=== PATIENT | female | born 1945 | race Caucasian/White ===

== ENCOUNTER 2016-10-29 08:44 | Outpatient (RCR) | payer MEDICARE, OTHER ==
--- OUTSIDE RECORDS SUMMARY | 2016-08-06 10:08 | XMS REPORT | Continuity of Care Document ---
Author Author [facility] Organization [facility] Address Unknown Phone Unavailable Care Team Providers Care Science Faculty Member Name Role Phone YANI ROSARIO MD PCP Insurance Providers Payer Name Policy Number Subscriber Name Relationship Wps Medicare [id number] Gregor Bright 18 Self / Same As Patient [employer] [id number] Gregor Bright 18 Self / Same As Patient Advance Directives Directive Response Recorded Date/Time Advance Directives No 11/02/12 11:44am Health Care Power of Woodworker Helper No 11/02/12 11:44am Organ Donor Yes 11/02/12 11:44am Problems No known problems or medical conditions. Medications Medication Dose Route Sig Days/Qty Instructions Order Date Discontinued Date Status Metformin HCl (Glucophage) 1 Each PO TWICE A DAY WITH MEALS 10/14/12 Active Losartan/Hydrochlorothiazide 1 Each PO DAILY 10/14/12 Active Levothyroxine Sodium (Levothroid) 75 Mcg PO DAILY 10/14/12 Active Atorvastatin Calcium 1 Each PO BEDTIME 10/14/12 Active Fish Oil 1,000 Mg PO DAILY 10/14/12 Active Flaxseed Oil 1,000 Mg PO EVENING 10/14/12 Active Cinnamon Bark/Chromium Picolin 1 Each PO DAILY 10/14/12 Active Multivits W-Fe,Other Min/Lut 1 Each PO DAILY 10/14/12 Active Vitamin B Complex/Folic Acid 0.4 Mg PO DAILY 10/14/12 Active Social History Social History Problem Response Recorded Date/Time Recreational Drug Use No 10/20/2012 10:48pm Recent Foreign Travel [place] 01/30/2015 7:45am Hospital Discharge Instructions No hospital discharge instructions. Plan of Care No plan of care. Functional Status No functional status results. Allergies, Adverse Reactions, Alerts Allergen Type Severity Reaction Status Last Updated sulfamethoxazole ([id number]) Allergy HIVES Active 10/14/12 Trimethoprim Allergy HIVES Active 10/14/12 SULFA Allergy Unknown Active 12/22/11 Immunizations Name Given Type Date of Pneumonia Vaccine 10/21/10 Historical Date of Influenza Vaccine 07/28/12 Historical Vital Signs No known vital signs results. Results Laboratory Results Test Name Result Units Flags Reference Collection Date/Time Result Date/ Time Comments White Blood Count 5.4 10^3/uL 4.3-11.0 11/16/2014 10:11/16/2014 10 :19am Red Blood Count 4.43 10^6/uL 4.35-5.85 11/16/2014 10:11/16/2014 10 :19am Hemoglobin 13.2 G/DL 11.5-16.0 11/16/2014 10:11/16/2014 10:19am Hematocrit 40 % 35-52 11/16/2014 10:11/16/2014 10:19am Mean Corpuscular Volume 89 FL 80-99 11/16/2014 10:11/16/2014 10: 19am Mean Corpuscular Hemoglobin 30 PG 25-34 11/16/2014 10:11/16/2014 10:19am Mean Corpuscular Hemoglobin Concent 33 G/DL 32-36 11/16/2014 10: 10:19am Red Cell Distribution Width 13.2 % 10.0-14.5 11/16/2014 10:2014 10:19am Platelet Count 258 10^3/uL 130-400 11/16/2014 10:11/16/2014 10: 19am Mean Platelet Volume 9.8 FL 7.4-10.4 11/16/2014 10:11/16/2014 10: 19am Neutrophils (%) (Auto) 73 % 42-75 11/16/2014 10:11/16/2014 10: 19am Lymphocytes (%) (Auto) 20 % 12-44 11/16/2014 10:11/16/2014 10: 19am Monocytes (%) (Auto) 7 % 0-12 11/16/2014 10:11/16/2014 10:19am Eosinophils (%) (Auto) 0 % 0-10 11/16/2014 10:11/16/2014 10:19am Basophils (%) (Auto) 0 % 0-10 11/16/2014 10:11/16/2014 10:19am Neutrophils # (Auto) 3.9 X 10^3 1.8-7.8 11/16/2014 10:11/16/2014 10:19am Lymphocytes # (Auto) 1.1 X 10^3 1.0-4.0 11/16/2014 10:11/16/2014 10:19am Monocytes # (Auto) 0.4 X 10^3 0.0-1.0 11/16/2014 10:11/16/2014 10: 19am Eosinophils # (Auto) 0.0 10^3/uL 0.0-0.3 11/16/2014 10:11/16/2014 10:19am Basophils # (Auto) 0.0 10^3/uL 0.0-0.1 11/16/2014 10:11/16/2014 10 :19am Sodium Level 139 MMOL/L 135-145 11/16/2014 10:11/16/2014 10:48am Potassium Level 3.9 MMOL/L 3.6-5.0 11/16/2014 10:11/16/2014 10: 48am Chloride Level 103 MMOL/L 98-107 11/16/2014 10:11/16/2014 10:48am Carbon Dioxide Level 25 MMOL/L 21-32 11/16/2014 10:11/16/2014 10: 48am Blood Urea Nitrogen 15 MG/DL 7-18 11/16/2014 10:11/16/2014 10: 48am Creatinine 0.79 MG/DL 0.60-1.30 11/16/2014 10:11/16/2014 10:48am BUN/Creatinine Ratio 19 11/16/2014 10:11/16/2014 10:48am Estimat Glomerular Filtration Rate > 60 11/16/2014 10:2014 10:48am GFR INTERPRETIVE DATA UNITS FOR ESTIMATED GFR (eGFR): mL/min/1.73 M2 REFERENCE RANGE FOR ESTIMATED GFR (eGFR) eGFR NORMAL eGFR >60 MODERATELY DECREASED eGFR 30-59 SEVERLY DECREASED eGFR 15-29 KIDNEY FAILURE <15 (OR DIALYSIS) Glucose Level 194 MG/DL H 70-105 11/16/2014 10:11/16/2014 10:48am Calcium Level 10.7 MG/DL H 8.5-10.1 11/16/2014 10:11/16/2014 10: 48am Total Bilirubin 0.7 MG/DL 0.1-1.0 11/16/2014 10:11/16/2014 10: 48am Alkaline Phosphatase 108 U/L 40-136 11/16/2014 10:11/16/2014 10: 48am Aspartate Amino Transf (AST/SGOT) 32 U/L 5-34 11/16/2014 10:2014 10:48am Alanine Aminotransferase (ALT/SGPT) 47 U/L 0-55 11/16/2014 10: 10:48am Total Protein 6.7 G/DL 6.4-8.2 11/16/2014 10:11/16/2014 10:48am Albumin 4.2 G/DL 3.2-4.5 11/16/2014 10:11/16/2014 10:48am White Blood Count 4.3 10^3/uL 4.3-11.0 02/06/2015 11:0002/06/2015 11 :07am Red Blood Count 4.37 10^6/uL 4.35-5.85 02/06/2015 11:0002/06/2015 11 :07am Hemoglobin 13.0 G/DL 11.5-16.0 02/06/2015 11:0002/06/2015 11:07am Hematocrit 39 % 35-52 02/06/2015 11:0002/06/2015 11:07am Mean Corpuscular Volume 89 FL 80-99 02/06/2015 11:0002/06/2015 11: 07am Mean Corpuscular Hemoglobin 30 PG 25-34 02/06/2015 11:00am 02/06/2015 11:07am Mean Corpuscular Hemoglobin Concent 33 G/DL 32-36 02/06/2015 11:00am 11:07am Red Cell Distribution Width 13.3 % 10.0-14.5 02/06/2015 11:00am 2014 11:07am Platelet Count 268 10^3/uL 130-400 02/06/2015 11:00am 02/06/2015 11: 07am Mean Platelet Volume 9.2 FL 7.4-10.4 02/06/2015 11:00am 02/06/2015 11: 07am Neutrophils (%) (Auto) 62 % 42-75 02/06/2015 11:00am 02/06/2015 11: 07am Lymphocytes (%) (Auto) 28 % 12-44 02/06/2015 11:00am 02/06/2015 11: 07am Monocytes (%) (Auto) 9 % 0-12 02/06/2015 11:00am 02/06/2015 11:07am Eosinophils (%) (Auto) 1 % 0-10 02/06/2015 11:00am 02/06/2015 11:07am Basophils (%) (Auto) 1 % 0-10 02/06/2015 11:00am 02/06/2015 11:07am Neutrophils # (Auto) 2.7 X 10^3 1.8-7.8 02/06/2015 11:00am 02/06/2015 11:07am Lymphocytes # (Auto) 1.2 X 10^3 1.0-4.0 02/06/2015 11:00am 02/06/2015 11:07am Monocytes # (Auto) 0.4 X 10^3 0.0-1.0 02/06/2015 11:00am 02/06/2015 11: 07am Eosinophils # (Auto) 0.0 10^3/uL 0.0-0.3 02/06/2015 11:00am 02/06/2015 11:07am Basophils # (Auto) 0.0 10^3/uL 0.0-0.1 02/06/2015 11:00am 02/06/2015 11 :07am Sodium Level 139 MMOL/L 135-145 02/06/2015 11:0002/06/2015 11:33am Potassium Level 3.6 MMOL/L 3.6-5.0 02/06/2015 11:0002/06/2015 11: 33am Chloride Level 105 MMOL/L 98-107 02/06/2015 11:0002/06/2015 11:33am Carbon Dioxide Level 27 MMOL/L 21-32 02/06/2015 11:0002/06/2015 11: 33am Blood Urea Nitrogen 15 MG/DL 7-18 02/06/2015 11:0002/06/2015 11: 33am Creatinine 0.72 MG/DL 0.60-1.30 02/06/2015 11:0002/06/2015 11:33am BUN/Creatinine Ratio 21 02/06/2015 11:0002/06/2015 11:33am Estimat Glomerular Filtration Rate > 60 02/06/2015 11:002014 11:33am GFR INTERPRETIVE DATA UNITS FOR ESTIMATED GFR (eGFR): mL/min/1.73 M2 REFERENCE RANGE FOR ESTIMATED GFR (eGFR) eGFR NORMAL eGFR >60 MODERATELY DECREASED eGFR 30-59 SEVERLY DECREASED eGFR 15-29 KIDNEY FAILURE <15 (OR DIALYSIS) Glucose Level 138 MG/DL H 70-105 02/06/2015 11:0002/06/2015 11:33am Calcium Level 10.8 MG/DL H 8.5-10.1 02/06/2015 11:0002/06/2015 11: 33am Total Bilirubin 0.6 MG/DL 0.1-1.0 02/06/2015 11:0002/06/2015 11: 33am Alkaline Phosphatase 85 U/L 40-136 02/06/2015 11:0002/06/2015 11: 33am Aspartate Amino Transf (AST/SGOT) 26 U/L 5-34 02/06/2015 11:002014 11:33am Alanine Aminotransferase (ALT/SGPT) 33 U/L 0-55 02/06/2015 11:00 11:33am Total Protein 6.7 G/DL 6.4-8.2 02/06/2015 11:00am 02/06/2015 11:33am Albumin 4.3 G/DL 3.2-4.5 02/06/2015 11:00am 02/06/2015 11:33am Procedures No known history of procedures. Encounters Encounter Location Date/Time Registered Clinic [facility] 02/06/15 10:16am Discharged Recurring [facility] 12/27/14 11:35am
[~2016-10-29 08:44] MED LIST: ATR20T PO; CINN1CAP PO; FLAX100031 PO; LOSA1TAB23 PO; LVT.025T PO; METF-380 PO; MULT-856 PO; OMG1KC PO; [UNRECOGNIZED DRUG - CODE] PO
[2016-10-29 09:05] LABS: BASOPHILS % (AUTO) 0 % (0-10); EOSINOPHILS % (AUTO) 0 % (0-10); LYMPHOCYTES % (AUTO) 15 % (12-44); MEAN CORPUSCULAR HEMOGLOBIN 30 PG (25-34); MEAN CORPUSCULAR HGB CONC 33 G/DL (32-36); MEAN CORPUSCULAR VOLUME 92 FL (80-99); MEAN PLATELET VOLUME 9.7 FL (7.4-10.4); MONOCYTES # (AUTO) 0.3 X 10^3 (0.0-1.0); MONOCYTES % (AUTO) 5 % (0-12); NEUTROPHILS # (AUTO) 5.5 X 10^3 (1.8-7.8); NEUTROPHILS % (AUTO) 80 % (42-75); PLATELET COUNT 228 10^3/uL (130-400); RED BLOOD COUNT 4.27 10^6/uL (4.35-5.85); RED CELL DISTRIBUTION WIDTH 12.9 % (10.0-14.5); WHITE BLOOD COUNT 6.8 10^3/uL (4.3-11.0)
[2016-10-29 09:35] LABS: ALANINE AMINOTRANSFERASE 35 U/L (0-55); ALBUMIN 4.3 G/DL (3.2-4.5); ANION GAP 11 MMOL/L (5-14); ASPARTATE AMINO TRANSFERASE 27 U/L (5-34); BILIRUBIN,TOTAL 0.8 MG/DL (0.1-1.0); BLOOD UREA NITROGEN 19 MG/DL (7-18); BUN/CREATININE RATIO 24; CALCIUM 10.5 MG/DL (8.5-10.1); CARBON DIOXIDE 26 MMOL/L (21-32); CHLORIDE 102 MMOL/L (98-107); GFR ESTIMATED > 60; GLUCOSE 192 MG/DL (70-105); POTASSIUM 3.5 MMOL/L (3.6-5.0); SODIUM 139 MMOL/L (135-145); TOTAL PROTEIN 6.7 G/DL (6.4-8.2)
== END 2016-11-04 | disposition home or self-care (01) ==
LOC: ONC 08:44
PROVIDERS: ATTEND Internal Medicine Hematology & Oncology
DX: C50.911 Malignant neoplasm of unspecified site of right female breast (principal); C77.3 Secondary and unspecified malignant neoplasm of axilla and upper limb lymph nodes; E11.9 Type 2 diabetes mellitus without complications; Z92.21 Personal history of antineoplastic chemotherapy; Z92.3 Personal history of irradiation; Z79.899 Other long term (current) drug therapy; Z45.2 Encounter for adjustment and management of vascular access device
CPT/HCPCS: 36591; 80053; 85025; 96523; 99213

== ENCOUNTER 2017-03-04 08:56 | Outpatient (RCR) | payer MEDICARE, OTHER ==
--- OUTSIDE RECORDS SUMMARY | 2016-12-10 10:05 | XMS REPORT | Continuity of Care Document ---
Author Author [facility] Organization [facility] Address Unknown Phone Unavailable Care Team Providers Care Dietitian Helper Name Role Phone YANI ROSARIO MD PCP Insurance Providers Payer Name Policy Number Subscriber Name Relationship Wps Medicare [id number] Gregor Bright 18 Self / Same As Patient [employer] [id number] Gregor Bright 18 Self / Same As Patient Advance Directives Directive Response Recorded Date/Time Advance Directives No 11/02/12 11:44am Health Care Power of Business Services Officer No 11/02/12 11:44am Organ Donor Yes 11/02/12 [...] Type Severity Reaction Status Last Updated sulfamethoxazole ([id number]) Allergy HIVES Active 10/14/12 Trimethoprim Allergy HIVES [...] Encounters Encounter Location Date/Time Registered Clinic [facility] 02/06/15 10:16am Discharged Recurring [facility] 12/27/14 11:35am
== END 2017-03-10 | disposition home or self-care (01) ==
LOC: ONC 08:56
PROVIDERS: ATTEND Internal Medicine Hematology & Oncology
DX: C50.911 Malignant neoplasm of unspecified site of right female breast (principal); C77.3 Secondary and unspecified malignant neoplasm of axilla and upper limb lymph nodes; E11.9 Type 2 diabetes mellitus without complications; Z92.21 Personal history of antineoplastic chemotherapy; Z92.3 Personal history of irradiation; Z79.899 Other long term (current) drug therapy; Z45.2 Encounter for adjustment and management of vascular access device
CPT/HCPCS: 96523

== ENCOUNTER 2017-05-20 08:50 | Outpatient (RCR) | payer MEDICARE, OTHER ==
[2017-05-20 09:20] LABS: BASOPHILS % (AUTO) 1 % (0-10); EOSINOPHILS % (AUTO) 1 % (0-10); LYMPHOCYTES # (AUTO) 1.1 X 10^3 (1.0-4.0); LYMPHOCYTES % (AUTO) 20 % (12-44); MEAN CORPUSCULAR HEMOGLOBIN 31 PG (25-34); MEAN CORPUSCULAR HGB CONC 34 G/DL (32-36); MEAN CORPUSCULAR VOLUME 90 FL (80-99); MEAN PLATELET VOLUME 9.5 FL (7.4-10.4); MONOCYTES # (AUTO) 0.4 X 10^3 (0.0-1.0); MONOCYTES % (AUTO) 6 % (0-12); NEUTROPHILS # (AUTO) 4.1 X 10^3 (1.8-7.8); NEUTROPHILS % (AUTO) 73 % (42-75); PLATELET COUNT 281 10^3/uL (130-400); RED BLOOD COUNT 4.34 10^6/uL (4.35-5.85); RED CELL DISTRIBUTION WIDTH 12.9 % (10.0-14.5); WHITE BLOOD COUNT 5.6 10^3/uL (4.3-11.0)
[2017-05-20 10:18] LABS: ALANINE AMINOTRANSFERASE 33 U/L (0-55); ALBUMIN 4.2 GM/DL (3.2-4.5); ANION GAP 12 MMOL/L (5-14); ASPARTATE AMINO TRANSFERASE 21 U/L (5-34); BILIRUBIN,TOTAL 0.7 MG/DL (0.1-1.0); BLOOD UREA NITROGEN 20 MG/DL (7-18); BUN/CREATININE RATIO 27; CALCIUM 11.1 MG/DL (8.5-10.1); CARBON DIOXIDE 27 MMOL/L (21-32); CHLORIDE 102 MMOL/L (98-107); CREATININE SERUM 0.73 MG/DL (0.60-1.30); GFR ESTIMATED > 60; GLUCOSE 172 MG/DL (70-105); POTASSIUM 3.3 MMOL/L (3.6-5.0); SODIUM 141 MMOL/L (135-145); TOTAL PROTEIN 6.8 GM/DL (6.4-8.2)
[2017-06-22] MEDS ORDERED: OMG1KC PO (12:22)
[2017-06-22] MEDS ORDERED: MULT-1021 PO (12:22)
[2017-06-22] MEDS ORDERED: ATOR20TA66 PO (12:22)
[2017-06-22] MEDS ORDERED: CINN1CAP PO (12:22)
[2017-06-22] MEDS ORDERED: [UNRECOGNIZED DRUG - CODE] PO (12:22)
[2017-06-22] MEDS ORDERED: LOSA1TAB70 PO (12:22)
[2017-06-22] MEDS ORDERED: FLAX1000 PO (12:22)
[2017-06-22] MEDS ORDERED: METF1000 PO (12:22)
[2017-06-22] MEDS ORDERED: LEVO100T7 PO (12:22)
[2017-06-22] MEDS ORDERED: DULA1.5P2 SQ (12:22)
[2017-06-23] MEDS ORDERED: HYDR-3820 PO (09:13)
== END 2017-06-26 | disposition home or self-care (01) ==
LOC: ONC 08:50
PROVIDERS: ATTEND Internal Medicine Hematology & Oncology
DX: C50.111 Malignant neoplasm of central portion of right female breast (principal); C77.3 Secondary and unspecified malignant neoplasm of axilla and upper limb lymph nodes; E11.9 Type 2 diabetes mellitus without complications; Z92.21 Personal history of antineoplastic chemotherapy; Z92.3 Personal history of irradiation; Z79.899 Other long term (current) drug therapy; Z45.2 Encounter for adjustment and management of vascular access device
CPT/HCPCS: 36591; 80053; 85025; 96523

== ENCOUNTER → 2017-06-14 | Outpatient (CLI) | payer MEDICARE, OTHER ==
--- NOTE | 2017-06-14 13:12 | Diagnostic Imaging Report ---
INDICATION: Nausea, abdominal pain x1 week.. TECHNIQUE: Supine and upright view of the abdomen 11:37 AM. CORRELATION STUDY: None FINDINGS: Lung bases appearing relatively clear. Moderate severity fecal retention. No abnormally dilated loops of bowel or air-fluid levels to suggest high-degree bowel obstruction. Gas and stool at the level of the rectum. Densities in the upper abdomen may reflect ingested tablets. Calcific densities in the pelvis likely vasculature in nature. Possibility of distal ureteral stones would be difficult to exclude. IMPRESSION: Mild/moderate severity fecal retention. No abnormally dilated loops of bowel or findings to suggest high-degree bowel obstruction. Dictated by: Dictated on workstation # [id number]
== END ==
LOC: RAD 11:11
PROVIDERS: ATTEND Nurse Practitioner Family
DX: K59.00 Constipation, unspecified (principal); R11.0 Nausea; R19.7 Diarrhea, unspecified
CPT/HCPCS: 74020

== ENCOUNTER → 2017-06-16 | Outpatient (CLI) | payer MEDICARE, OTHER ==
[~2017-06-16] VITALS: Ht 170.2 cm; Wt 87.1 kg
[~2017-06-16] MED LIST changes: +ATOR20TA66 PO; +DULA1.5P2 SQ; +FLAX1000 PO; +HEParin (CENTRAL IV FLUSH) 500 UNIT/5 ML SYR ONE; +HYDR-3820 PO; +LEVO100T7 PO; +METF1000 PO; +MULT-1021 PO; +NS IV 1000 ML 1,000 ML IV SCH; +NS IV 1000 ML 1,000 ML ONE; +ONDANSETRON 4 MG/2 ML (SDV) Z0FRAN ONE; +[UNRECOGNIZED DRUG - CODE] PO
[2017-06-16] MEDS: ONDANSETRON 4 MG/2 ML (SDV) Z0FRAN IV PRN ×2 (10:51→11:05)
--- NOTE | 2017-06-16 11:22 | Diagnostic Imaging Report ---
PROCEDURE: CT abdomen and pelvis without contrast. TECHNIQUE: Multiple contiguous axial images were obtained through the abdomen and pelvis without the use of intravenous contrast. INDICATION: Abdominal pain. FINDINGS: The lung bases appear clear. The liver, the spleen, calcified gallstones are seen with no CT evidence of appendicitis. The pancreas appear unremarkable. The left adrenal gland appears unremarkable. There is a hypodense right adrenal gland mass measuring 4.1 x 3.1 x 3.7 CM. This is slightly larger compared to prior measurements of 3.9 x 3 x 3.6 CM of 05/03/2015 exam. The imaging features and the very slow changes in size is in favor of a benign adenoma although the size exceeding 4 cm is atypical. The kidneys demonstrate no hydronephrosis. Subcentimeter fluid attenuation lesions in the kidneys are suggestive of tiny cysts. There is a 2 mm calcification in the upper aspect of the left kidney suggestive of a nonobstructive stone. There urinary bladder appears unremarkable. Osseous structures demonstrate advanced degenerative changes. There is diverticulosis. No evidence of diverticulitis. No bowel obstruction. No significant free fluid or fluid collection in the abdomen or pelvis is seen. The uterus and adnexa appear grossly unremarkable. The abdominal aorta is normal in caliber. No periaortic or significantly enlarged lymph nodes are seen. IMPRESSION: 1. Cholelithiasis. 2. A 2 mm upper pole left nonobstructive kidney stone. 3. A 4.1 cm right adrenal mass minimally larger compared to 2015 exam favored to be an adenoma based on the minimal pattern changer time and its low density. Its size exceeding 4 CM however is atypical. Dictated by: Dictated on workstation # [id number]
[2017-06-16 12:20] VITALS: BP 134/76
[2017-06-16 12:23] LABS: BILIRUBIN,URINE NEGATIVE (NEGATIVE); KETONES,URINE NEGATIVE (NEGATIVE); LEUKOCYTE ESTERASE ,URINE NEGATIVE (NEGATIVE); NITRITE,URINE NEGATIVE (NEGATIVE); PH,URINE 6.5 (5-9); PROTEIN,URINE NEGATIVE (NEGATIVE); UROBILINOGEN,URINE NORMAL (NORMAL)
== END ==
LOC: RAD 10:07
PROVIDERS: ATTEND Nurse Practitioner Family
DX: N20.0 Calculus of kidney; E27.9 Disorder of adrenal gland, unspecified; K80.20 Calculus of gallbladder without cholecystitis without obstruction
CPT/HCPCS: 74176; 81000; 96360; 96361; 96374; 96375; 96376

== ENCOUNTER 2017-06-22 11:03 | Outpatient (CLI) | payer MEDICARE, OTHER ==
[~2017-06-22] VITALS: Ht 170.2 cm; Wt 87.1 kg
[~2017-06-22 11:03] MED LIST changes: -ATOR20TA66 PO; -DULA1.5P2 SQ; -FLAX1000 PO; -HEParin (CENTRAL IV FLUSH) 500 UNIT/5 ML SYR ONE; -HYDR-3820 PO; -LEVO100T7 PO; -METF1000 PO; -MULT-1021 PO; -NS IV 1000 ML 1,000 ML IV SCH; -NS IV 1000 ML 1,000 ML ONE; -ONDANSETRON 4 MG/2 ML (SDV) Z0FRAN ONE; -[UNRECOGNIZED DRUG - CODE] PO
[2017-06-22] MEDS ORDERED: ATOR20TA66 PO (12:22)
[2017-06-22] MEDS ORDERED: LEVO100T7 PO (12:22)
[2017-06-22] MEDS ORDERED: LOSA1TAB70 PO (12:22)
[2017-06-22] MEDS ORDERED: OMG1KC PO (12:22)
[2017-06-22] MEDS ORDERED: MULT-1021 PO (12:22)
[2017-06-22] MEDS ORDERED: METF1000 PO (12:22)
[2017-06-22] MEDS ORDERED: CINN1CAP PO (12:22)
[2017-06-22] MEDS ORDERED: DULA1.5P2 SQ (12:22)
[2017-06-22] MEDS ORDERED: FLAX1000 PO (12:22)
[2017-06-22] MEDS ORDERED: [UNRECOGNIZED DRUG - CODE] PO (12:22)
[2017-06-23] MEDS ORDERED: HYDR-3820 PO (09:13)
== END 2017-06-22 12:23 ==
LOC: PREOP 11:03
PROVIDERS: ATTEND Surgery
DX: Z01.818 Encounter for other preprocedural examination (principal); K80.20 Calculus of gallbladder without cholecystitis without obstruction

== ENCOUNTER 2017-06-23 06:06 | Day surgery (SDC) | payer MEDICARE, OTHER ==
[~2017-06-23] VITALS: Ht 170.2 cm; Wt 87.1 kg
[~2017-06-23 06:06] MED LIST changes: +ATOR20TA66 PO; +DULA1.5P2 SQ; +FLAX1000 PO; +LEVO100T7 PO; +LOSA1TAB70 PO; +METF1000 PO; +MULT-1021 PO; +[UNRECOGNIZED DRUG - CODE] PO
[2017-06-23 06:30] VITALS: BP 132/76
[2017-06-23] MEDS ORDERED: CATHETER FLUSH 10 ML SYR IV PRN (06:30)
[2017-06-23] MEDS ORDERED: ceFAZolin 2 GM/NS 50 ML IV ONE (06:30)
[2017-06-23] MEDS ORDERED: metroNIDAZOLE 500 MG/100 ML IVPB (PRE-MIX) IV ONE (06:30)
[2017-06-23] MEDS ORDERED: ONDANSETRON 4 MG/2 ML (SDV) Z0FRAN ONE ×2 (06:34→09:24)
[2017-06-23] MEDS ORDERED: proPOfol 200 MG/20 ML (DIPRIVAN) VIAL IV ONE (06:34)
[2017-06-23] MEDS ORDERED: fentaNYL INJECTION 100 MCG/2 ML AMP ONE (06:34)
[2017-06-23] MEDS ORDERED: ROCURONIUM 50 MG/5 ML (ZEMURON) VIAL IV ONE (06:34)
[2017-06-23] MEDS ORDERED: SEVOFLURANE (ULTANE) 15 ML INHAL SOLN ONE ×5 (06:34→08:43)
[2017-06-23] MEDS ORDERED: LACTATED RINGERS 1,000 ML IV ONE (06:34)
[2017-06-23] MEDS ORDERED: LIDOCAINE PF 2% 5 ML (XYLOCAINE) VIAL ONE (06:34)
[2017-06-23] MEDS ORDERED: MIDAZOLAM 2 MG/2 ML (VERSED) VIAL ONE (06:34)
[2017-06-23] MEDS ORDERED: LACTATED RINGERS 1,000 ML IV PRN (06:42)
[2017-06-23] MEDS ORDERED: FAMOTIDINE 20MG/2ML IV (PEPCID) IV ONE (06:45)
[2017-06-23] MEDS ORDERED: ONDANSETRON 4 MG/2 ML (SDV) Z0FRAN IV ONE (06:45)
[2017-06-23] MEDS ORDERED: SCOPOLAMINE 1.5 MG (TRANSDERM-SCOP) PATCH TOP ONE (06:45)
[2017-06-23] MEDS ORDERED: BUP/EPI 0.5% 1:200,000 (MARCAINE) 10ML VIAL IJ ONE (07:14)
--- NOTE | 2017-06-23 07:48 | Progress Note-Pre Operative ---
Pre-Operative Progress Note H&P Reviewed The H&P was reviewed, patient examined and no changes noted. Date Seen by Provider: Jun 21, 2017 Time Seen by Provider: 16:15 Date H&P Reviewed: Jun 23, 2017 Time H&P Reviewed: 07:47 Pre-Operative Diagnosis: Gallstones EMMY FRAGA MD Jun 23, 2017 7:47 am
[2017-06-23] MEDS ORDERED: NEOSTIGMINE (BLOXIVERZ ) 1 MG/1ML 10 ML VIAL ONE (08:43)
[2017-06-23] MEDS ORDERED: GLYCOPYRROLATE 0.2 MG/ML (ROBINUL) 2 ML VIAL ONE (08:43)
[2017-06-23] MEDS ORDERED: PHENYLEPHRINE 100 MCG/ML 10 ML (ANESTHESIA) SYR ONE (08:43)
[2017-06-23] MEDS ORDERED: HYDR-3820 PO (09:13)
--- NOTE | 2017-06-23 09:13 | Discharge Inst-Simple/Standard ---
Discharge Inst-Standard Discharge Medications New, Converted or Re-Newed RX: RX on Chart Patient Instructions/Follow Up Plan of Care/Instructions/FU: Band aids off in 48 hours. Incentive spirometry. F/U in 3 weeks Activity as Tolerated: Yes Discharge Diet: ADA Diet EMMY FRAGA MD Jun 23, 2017 9:13 am
[2017-06-23] MEDS ORDERED: MEPERIDINE (DEMEROL) INJ 50 MG/ML IVP PRN (09:15)
[2017-06-23] MEDS ORDERED: ONDANSETRON 4 MG/2 ML (SDV) Z0FRAN IVP PRN (09:15)
[2017-06-23] MEDS ORDERED: morphine INJ 10 MG/ML 1ML (SYR OR VIAL) ONE (09:19)
[2017-06-23] MEDS: morphine INJ 10 MG/ML 1ML (SYR OR VIAL) IVP PRN ×2 (09:28→09:34)
--- NOTE | 2017-06-23 09:28 | Operative Report ---
Operative Report Date of Procedure/Surgery Jun 23, 2017 Surgeon (s) EMMY FRAGA MD Jewel Grinder (s): N/A Post-Operative Diagnosis Same Procedure Performed Robotic assisted cholecystectomy Description of Procedure Anesthesia Type: General Estimated blood loss (mL): minimal Specimen(s) collected/removed gallbladder Description of the Procedure Indication for procedure: This lady presented with symptomatic gallstones. CT scan showed calcified stones. Her LFTs were normal. She was offered cholecystectomy using minimally invasive technique with robotic assistance. Informed consent was obtained after reviewing the procedure in detail and complications of bile leak, postoperative wound infection etc. Description of the procedure: She was placed supine on the operating table and general anesthesia induced using an endotracheal tube. A gram of Ancef and 500 mg of Flagyl were administered intravenously as prophylaxis against wound infection. Sequential compression devices were placed around her legs, to minimize the risk of venous thrombosis. Abdomen was prepared and draped in the usual sterile manner. Pneumoperitoneum was established using a Veress needle introduced over the supra-umbilical region. Intra-abdominal pressure was maintained at 15 mmHg, using carbon dioxide insufflation.a 12 mm trocar was placed and anatomy visualized using the high definition, 3-dimensional laparoscope associated with da Tosk system. Under direct view, I placed 8 mm cannulas on each 7 abdomen followed by a 5 mm trocar over the left subcostal margin.The patient was then turned into reverse Trendelenburg position and the robotic system docked in place. The gallbladder was rather elongated. The fundus was retracted cephalad and the infundibulum grasped with Cadiere forceps.thickened tissue around Calot's triangle was incised using hook cautery, delineating the cystic duct and artery. Both were divided between locking clips. Cholecystectomy was completed using the same device. The gallbladder was then placed in an Endo Catch bag and removed via the supraumbilical trocar site. The fascia over this incision was closed using number 1 Vicryl. Skin incisions were closed using 4-0 Vicryl. 0.5 percent Marcaine with epinephrine was infiltrated along the incisions both pre- emptively and at the conclusion of the operation. She tolerated the procedure well, was extubated in the operating room and taken to the recovery room in a stable condition. Findings of the Procedure See op report Allergies and Home Medications Allergies Coded Allergies: ciprofloxacin (Verified Allergy, Intermediate, raised rash, 06/23/17) sulfamethoxazole (Unverified Allergy, Unknown, HIVES, 06/23/17) trimethoprim (Unverified Allergy, Unknown, HIVES, 06/23/17) Home Medications Atorvastatin Calcium 20 Mg Tablet, 20 MG PO HS, (Reported) Cinnamon Bark/Chromium Picolin 1 Each Capsule, 1 EACH PO DAILY, (Reported) Dulaglutide 1.5 Mg/0.5 Ml Pen.injctr, 1.5 MG SQ WEEK, (Reported) Flaxseed Oil 1,000 Mg Capsule, 1,000 MG PO HS, (Reported) Hydrocodone/Acetaminophen 1 Each Tablet, 1 TAB PO Q4H PRN for PAIN-MILD TO MODERATE, #30 Ref 0 Prescribed by: EMMY FRAGA on 06/23/17 0913 Levothyroxine Sodium 100 Mcg Tablet, 100 MCG PO DAILY, (Reported) Losartan/Hydrochlorothiazide 1 Each Tablet, 1 EACH PO HS, (Reported) Metformin HCl 1,000 Mg Tablet, 1,000 MG PO BID WITH MEALS, (Reported) Multivits-Min/Iron/FA/Lutein 1 Each Tablet, 1 EACH PO DAILY, (Reported) [place] 3 Polyunsat Fatty Acids 1,000 Mg Cap, 1,000 MG PO DAILY, (Reported) Vitamin B Complex/Folic Acid 0.4 Mg Tablet, 0.4 MG PO DAILY, (Reported) EMMY FRAGA MD Jun 23, 2017 9:28 am
[2017-06-23 10:10] VITALS: BP 124/72
[2017-06-23] MEDS ORDERED: DEXAMETHASONE 4 MG/ML SDV (DECADRON) ONE (10:38)
[2017-06-23 10:40] VITALS: BP 146/86
[2017-06-23] MEDS ORDERED: ONDANSETRON 4 MG/2 ML (SDV) Z0FRAN IVP ONE (11:00)
[2017-06-23] MEDS ORDERED: DEXAMETHASONE 4 MG/ML SDV (DECADRON) IV ONE (11:00)
[2017-06-23 11:10] VITALS: BP 134/68
[2017-06-23 13:30] VITALS: BP 134/75
== END 2017-06-23 14:00 | disposition home or self-care (01) ==
LOC: SDC 06:06
PROVIDERS: ATTEND Surgery
DX: K81.1 Chronic cholecystitis (principal); I10 Essential (primary) hypertension; E03.9 Hypothyroidism, unspecified; E11.43 Type 2 diabetes mellitus with diabetic autonomic (poly)neuropathy; G47.33 Obstructive sleep apnea (adult) (pediatric); E66.9 Obesity, unspecified; Z68.30 Body mass index [BMI] 30.0-30.9, adult; Z85.3 Personal history of malignant neoplasm of breast; Z79.899 Other long term (current) drug therapy; Z79.84 Long term (current) use of oral hypoglycemic drugs
CPT/HCPCS: 82962; 87081; 94664

== ENCOUNTER → 2017-09-29 | Outpatient (CLI) | payer MEDICARE, OTHER ==
[~2017-09-29] MED LIST changes: +HYDR-3820 PO; -LOSA1TAB70 PO
--- NOTE | 2017-09-29 11:07 | Diagnostic Imaging Report ---
INDICATION: Screening. COMPARISON: 09/25/2016, 09/23/2015, and 09/21/2014. TECHNIQUE: Screening digital mammography was performed bilaterally with a Computer Aided Detection (CAD) system. FINDINGS: There are surgical clips in the upper outer aspect of the right breast. There is a moderate amount of residual fibroglandular tissue bilaterally. There are scattered benign type calcifications. There is no new dominant mass, spiculated lesion, or suspicious calcification identified. The skin, nipples, and axillae are unremarkable. IMPRESSION: Benign findings. ACR BI-RADS Category 2: Benign findings. Result letter will be mailed to the patient. Note: At least 10% of breast cancer is not imaged by mammography. Dictated by: Dictated on workstation # [id number]
== END ==
LOC: RAD 09:37
PROVIDERS: ATTEND Nurse Practitioner Adult Health
DX: Z12.31 Encounter for screening mammogram for malignant neoplasm of breast (principal); Z85.3 Personal history of malignant neoplasm of breast; Z98.82 Breast implant status
CPT/HCPCS: 77067

== ENCOUNTER 2017-10-27 09:57 | Outpatient (RCR) | payer MEDICARE, OTHER | END 2017-11-02 | disposition home or self-care (01) | LOC: ONC 09:57 | PROVIDERS: ATTEND Internal Medicine Hematology & Oncology | DX: C50.111 Malignant neoplasm of central portion of right female breast (principal); C77.3 Secondary and unspecified malignant neoplasm of axilla and upper limb lymph nodes; E11.9 Type 2 diabetes mellitus without complications; Z92.21 Personal history of antineoplastic chemotherapy; Z92.3 Personal history of irradiation; Z79.899 Other long term (current) drug therapy; Z45.2 Encounter for adjustment and management of vascular access device | CPT/HCPCS: 96523 ==

== ENCOUNTER 2017-12-20 11:30 | Outpatient (CLI) | payer MEDICARE, OTHER ==
[~2017-12-20] VITALS: Ht 170.2 cm; Wt 85.7 kg
== END 2017-12-20 12:21 ==
LOC: PREOP 11:30
PROVIDERS: ATTEND Surgery
DX: Z01.818 Encounter for other preprocedural examination (principal); K21.9 Gastro-esophageal reflux disease without esophagitis; R19.7 Diarrhea, unspecified

== ENCOUNTER 2017-12-23 07:54 | Day surgery (SDC) | payer MEDICARE, OTHER ==
[~2017-12-23] VITALS: Ht 170.2 cm; Wt 85.7 kg
--- OUTSIDE RECORDS SUMMARY | 2017-12-23 08:03 | XMS REPORT | CCD ---
Author Author [facility]y [facility] Organization [facility] Address [address] [place] [address] Phone Care Team Providers Care Boom Operator Name Role Phone PP Unavailable CCM Unavailable Summary Purpose Interface Exchange Insurance Providers Payer name Policy type / Coverage type Covered republican ID Effective Begin Date Effective End Date WPS Medicare Part B Medicare Part B [id number] Unknown Unknown [employer] Medicare Part B [id number] Unknown Unknown Family history Father Diagnosis Age At Onset Stroke Unknown Mother Diagnosis Age At Onset Heart Attack Unknown Runs in the family Diagnosis Age At Onset Hypertension Unknown Heart Attack Unknown Social History Social History Element Codes Description Effective Dates Marital status Unknown 07/09/2015 Number of children Unknown 4 07/09/2015 Living arrangements Unknown House 07/09/2015 Education level Unknown College Graduate 07/09/2015 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 Allergies, Adverse Reactions, Alerts Substance Reaction Codes Entered Date Inactivated Date Status ciprofloxacin rash RxNorm: 89320 08/12/2017 No Inactive Date Active Past Medical History Illness Codes Condition Status Onset Date Resolved Date Atrophy of thyroid (acquired) ICD-9: 244.8 ICD-10: E03.4 Active 08/16/2016 Unknown 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 Active 08/12/2017 Unknown Essential (primary) hypertension ICD-9: 401.1 ICD-10: I10 Active 12/14/2016 Unknown Type 2 diabetes mellitus with hyperglycemia ICD-9: 250.02 ICD-10: E11.65 Active 08/16/2016 Unknown Encounter for immunization ICD-9: V04.81 ICD-10: Z23 Active 07/08/2015 Unknown Gastro-esophageal reflux disease without esophagitis ICD-9: 530.81 ICD-10: K21.9 Active 06/16/2017 Unknown Generalized abdominal pain ICD-9: 789.07 ICD-10: R10.84 Active 06/10/2017 Unknown Nausea ICD-9: 787.02 ICD-10: R11.0 Active 06/14/2017 Unknown Dysuria ICD-9: 788.1 ICD-10: R30.0 Active 06/10/2017 Unknown Other allergic rhinitis ICD-9: 477.8 ICD-10: J30.89 Active 06/10/2017 Unknown Encounter for general adult medical examination with abnormal findings ICD-9: V70.0 ICD-10: Z00.01 Active 04/14/2017 Unknown Mixed hyperlipidemia ICD-9: 272.2 ICD-10: E78.2 Active 12/14/2016 Unknown Actinic keratosis ICD- 9: 702.0 ICD-10: L57.0 Active 12/14/2016 Unknown Essential (primary) hypertension ICD-9: 401.9 ICD-10: I10 Active 08/16/2016 Unknown Hyperlipidemia, unspecified ICD-9: 272.4 ICD-10: E78.5 Active 05/10/2016 Unknown Hypothyroidism, unspecified ICD-9: 244.9 ICD-10: E03.9 Active 05/10/2016 Unknown Other acute sinusitis ICD-9: 461.8 ICD-10: J01.80 Active 03/25/2016 Unknown Rash and other nonspecific skin eruption ICD-9: 782.1 ICD-10: R21 Active 03/25/2016 Unknown Hyperlipidemia Unknown Active 10/09/2015 Unknown Hypertension Unknown Active 10/09/2015 Unknown Hypothryroidism Unknown Active 10/09/2015 Unknown Problems Condition Codes Effective Dates Condition Status Atrophy of thyroid (acquired) ICD-9: 244.8 ICD-10: E03.4 08/16/2016 Active 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 08/12/2017 Active Essential (primary) hypertension ICD-9: 401.1 ICD-10: I10 12/14/2016 Active Type 2 diabetes mellitus with hyperglycemia ICD-9: 250.02 ICD-10: E11.65 08/16/2016 Active Encounter for immunization ICD-9: V04.81 ICD-10: Z23 07/08/2015 Active Gastro-esophageal reflux disease without esophagitis ICD-9: 530.81 ICD-10: K21.9 06/16/2017 Active Generalized abdominal pain ICD-9: 789.07 ICD-10: R10.84 06/10/2017 Active Nausea ICD-9: 787.02 ICD-10: R11.0 06/14/2017 Active Dysuria ICD-9: 788.1 ICD-10: R30.0 06/10/2017 Active Other allergic rhinitis ICD-9: 477.8 ICD-10: J30.89 06/10/2017 Active Encounter for general adult medical examination with abnormal findings ICD-9: V70.0 ICD-10: Z00.01 04/14/2017 Active Mixed hyperlipidemia ICD-9: 272.2 ICD-10: E78.2 12/14/2016 Active Actinic keratosis ICD- 9: 702.0 ICD-10: L57.0 12/14/2016 Active Essential (primary) hypertension ICD-9: 401.9 ICD-10: I10 08/16/2016 Active Hyperlipidemia, unspecified ICD-9: 272.4 ICD-10: E78.5 05/10/2016 Active Hypothyroidism, unspecified ICD-9: 244.9 ICD-10: E03.9 05/10/2016 Active Other acute sinusitis ICD-9: 461.8 ICD-10: J01.80 03/25/2016 Active Rash and other nonspecific skin eruption ICD-9: 782.1 ICD-10: R21 03/25/2016 Active Hyperlipidemia Unknown 10/09/2015 Active Hypertension Unknown 10/09/2015 Active Hypothryroidism Unknown 10/09/2015 Active Medications Medication Codes Instructions Start Date Stop Date Status Fill Instructions Hyzaar 100 mg-25 mg tablet RxNorm: 794117 TAKE ONE TABLET BY MOUTH DAILY 10/20/2017 07/16/2018 Active metformin 1,000 mg tablet RxNorm: 512566 1 Tablet(s) PO BID 07/16/2018 Active Lipitor 20 mg tablet RxNorm: 038878 TAKE ONE TABLET BY MOUTH DAILY 09/30/2017 12/23/2018 Active levothyroxine 100 mcg tablet RxNorm: 712661 TAKE ONE TABLET BY MOUTH DAILY 07/22/2017 07/16/2018 Active Protonix 40 mg tablet,delayed release RxNorm: 167077 1 Tablet(s) PO daily 06/16/2017 07/15/2017 Inactive Cipro 500 mg tablet RxNorm: 563970 1 Tablet(s) PO BID 201606/19/2017 Inactive Flagyl 500 mg tablet RxNorm: 873662 1 Tablet(s) PO TID 201606/19/2017 Inactive Trulicity 1.5 mg/0.5 mL subcutaneous pen injector RxNorm: 6006615 Milliliter(s) INJECT 0.5ML UNDER THE SKIN ONCE WEEKLY 05/25/2017 09/13/2017 Inactive Trulicity 1.5 mg/0.5 mL subcutaneous pen injector RxNorm: 2815320 INJECT 0.5ML UNDER THE SKIN ONCE WEEKLY 05/20/2017 Inactive metformin 1,000 mg tablet RxNorm: 093581 1 Tablet(s) PO BID TAKE ONE TABLET BY MOUTH TWICE A DAY 05/20/2017 10/19/2017 Inactive Lipitor 20 mg tablet RxNorm: 826180 TAKE ONE TABLET BY MOUTH DAILY 03/23/2017 09/18/2017 Inactive Lipitor 20 mg tablet RxNorm: 058852 TAKE ONE TABLET BY MOUTH DAILY 01/12/2017 03/12/2017 Inactive Hyzaar 100 mg-25 mg tablet RxNorm: 792424 TAKE ONE TABLET BY MOUTH DAILY 01/12/2017 10/08/2017 Inactive nystatin 100,000 unit/gram topical cream RxNorm: 559353 1 Gram(s) TOP TID 12/14/2016 12/23/2016 Inactive Efudex 5 % topical cream RxNorm: 715578 1 Application TOP BID 12/14/2016 12/23/2016 Inactive Trulicity 1.5 mg/0.5 mL subcutaneous pen injector RxNorm: 8574004 0.5 Milliliter(s ) SQ INJECT 0.5ML SUBCUTANEOUSLY ONCE WEEKLY 12/14/2016 05/12/2017 Inactive metformin 1,000 mg tablet RxNorm: 307850 TAKE ONE TABLET BY MOUTH TWICE A DAY 11/20/2016 05/18/2017 Inactive Lipitor 20 mg tablet RxNorm: 945510 Tablet(s) TAKE ONE TABLET BY MOUTH ONCE DAILY 10/19/2016 01/11/2017 Inactive levothyroxine 100 mcg tablet RxNorm: 901181 TAKE ONE TABLET BY MOUTH ONCE DAILY 08/24/2016 07/21/2017 Inactive Hyzaar 100 mg-25 mg tablet RxNorm: 119091 Tablet(s) TAKE ONE TABLET BY MOUTH ONCE DAILY 2016 01/11/2017 Inactive Trulicity 0.75 mg/0.5 mL subcutaneous pen injector RxNorm: 9487537 INJECT 0.5ML SUBCUTANEOUSLY ONCE WEEKLY 07/13/2016 Inactive metformin 1,000 mg tablet RxNorm: 458057 1 Tablet(s) PO BID 11/19/2016 Inactive Trulicity 0.75 mg/0.5 mL subcutaneous pen injector RxNorm: 9706821 0.5 Milliliter( s) SQ QW 05/14/2016 07/12/2016 Inactive Lipitor 20 mg tablet RxNorm: 899562 TAKE ONE TABLET BY MOUTH ONCE DAILY 05/07/2016 10/18/2016 Inactive Zofran 4 mg tablet RxNorm: 398679 1 Tablet(s) PO TID as needed nausea 03/27/2016 03/26/2016 Inactive Zofran 4 mg tablet RxNorm: 294335 1 Tablet(s) PO TID as needed nausea 03/27/2016 03/31/2016 Inactive Keflex 500 mg capsule RxNorm: 499973 1 Capsule(s) PO TID 201504/01/2016 Inactive prednisone 20 mg tablet RxNorm: 421996 2 Tablet(s) PO daily 03/26/2016 Inactive Janumet XR 100 mg-1,000 mg tablet,extended release RxNorm: 0161873 1 Tablet(s) PO daily 02/17/2016 05/13/2016 Inactive Janumet XR 100 mg-1,000 mg tablet,extended release RxNorm: 6157503 1 Tablet(s) PO daily 02/17/2016 02/16/2016 Inactive Hyzaar 100 mg-25 mg tablet RxNorm: 423315 Tablet(s) TAKE ONE TABLET BY MOUTH ONCE DAILY 02/04/2016 07/28/2016 Inactive Janumet XR 50 mg-1,000 mg tablet,extended release RxNorm: 6690495 TAKE ONE TABLET BY MOUTH ONCE DAILY 01/13/2016 02/16/2016 Inactive Lipitor 20 mg tablet RxNorm: 297175 Tablet(s) TAKE ONE TABLET BY MOUTH ONCE DAILY 01/13/2016 05/06/2016 Inactive Janumet XR 50 mg-1,000 mg tablet,extended release RxNorm: 4764094 1 Tablet(s) PO daily 10/02/2015 01/12/2016 Inactive Janumet XR 50 mg-1,000 mg tablet,extended release RxNorm: 8248909 1 Tablet(s) PO daily 10/01/2015 10/01/2015 Inactive Hyzaar 100 mg-25 mg tablet RxNorm: 869016 TAKE ONE TABLET BY MOUTH ONCE DAILY 09/30/2015 01/27/2016 Inactive Lipitor 20 mg tablet RxNorm: 702847 TAKE ONE TABLET BY MOUTH ONCE DAILY 09/30/2015 01/12/2016 Inactive metformin 1,000 mg tablet RxNorm: 701873 1 Tablet(s) PO BID 07/09/2015 Inactive Janumet XR 50 mg-1,000 mg tablet,extended release RxNorm: 4466357 1 Tablet(s) PO daily 07/09/2015 09/02/2015 Inactive levothyroxine 100 mcg tablet RxNorm: 008293 1 Capsule(s) PO daily 07/09/2015 07/02/2016 Inactive Hyzaar 100 mg-25 mg tablet RxNorm: 349616 1 Tablet(s) PO daily 05/29/2015 05/28/2015 Inactive Lipitor 20 mg tablet RxNorm: 544664 1 Tablet(s) PO daily 201405/28/2015 Inactive Hyzaar 100 mg-25 mg tablet RxNorm: 485275 1 Tablet(s) PO daily 05/29/2015 09/25/2015 Inactive Lipitor 20 mg tablet RxNorm: 931971 1 Tablet(s) PO daily 201409/25/2015 Inactive Fish Oil 1,000 mg capsule RxNorm: oral No Start Date Active One Touch Test RxNorm : miscellaneous No Start Date 03/25/2015 Inactive levothyroxine 100 mcg capsule RxNorm: 635796 oral No Start Date 07/08/2015 Inactive Medication Administered No Medication Administered data Immunizations Vaccine Codes Date Status Influenza CVX: 141 07/21/2017 completed Influenza CVX: 141 08/14/2016 completed Influenza CVX: 141 07/09/2015 completed Pneumococcal CVX: 133 07/09/2015 completed Assessments Condition Codes Effective Dates Benign neoplasm of right adrenal gland ICD-10: D35.01 ICD-9: 227.0 08/12/2017 Essential (primary) hypertension ICD-10: I10 ICD-9: 401.1 08/12/2017 Atrophy of thyroid (acquired) ICD-10: E03.4 ICD-9: 244.8 08/12/2017 Type 2 diabetes mellitus with hyperglycemia ICD-10: E11.65 ICD-9: 250.02 08/12/2017 Encounter for immunization ICD-10: Z23 ICD-9: V04.81 07/21/2017 Gastro-esophageal reflux disease without esophagitis ICD-10 : K21.9 ICD-9: 530.81 06/16/2017 Nausea ICD-10: R11.0 ICD-9: 787.02 06/16/2017 Generalized abdominal pain ICD-10: R10.84 ICD-9: 789.07 06/16/2017 Dysuria ICD-10: R30.0 ICD-9: 788.1 06/10/2017 Other allergic rhinitis ICD-10: J30.89 ICD-9: 477.8 06/10/2017 Encounter for general adult medical examination with abnormal findings ICD-10: Z00.01 ICD-9: V70.0 04/14/2017 Mixed hyperlipidemia ICD-10: E78.2 ICD-9: 272.2 04/13/2017 Actinic keratosis ICD-10: L57.0 ICD-9: 702.0 12/14/2016 Essential (primary) hypertension ICD-10: I10 ICD-9: 401.9 08/17/2016 Hypothyroidism, unspecified ICD-10: E03.9 ICD-9: 244.9 05/11/2016 Hyperlipidemia, unspecified ICD-10: E78.5 ICD-9: 272.4 05/11/2016 Other acute sinusitis ICD-10: J01.80 ICD-9: 461.8 03/26/2016 Rash and other nonspecific skin eruption ICD-10: R21 ICD-9: 782.1 03/26/2016 Reason For Visit Reason For Visit Effective Dates Notes diabetes mellitus 08/12/2017 vaccination against influenza 07/21/2017 abdominal pain 06/16/2017 abdominal pain 06/14/2017 abdominal pain 06/10/2017 Annual Medicare Wellness Exam 04/14/2017 diabetes mellitus 04/13/2017 diabetes mellitus 12/14/2016 diabetes mellitus 08/17/2016 diabetes mellitus 05/14/2016 diabetes mellitus 03/27/2016 sinus congestion 03/26/2016 diabetes mellitus 02/06/2016 diabetes mellitus 10/09/2015 diabetes mellitus 07/09/2015 Results Observation Observation Code Item Item Code Result Date %Hba1C Mrf487 % HbA1c 96655-2 7.1 % 08/10/2017 %Hba1C Kkl810 Gluc Ave 157 mg/dL 08/10/2017 Comp Metabolic Hce788 NA 140 mEq/L 08/10/2017 Comp Metabolic Xeu430 K 3.6 mEq/L 08/10/2017 Comp Metabolic Ffo277 CL 100 mEq/L 08/10/2017 Comp Metabolic Rip305 CO2 29.0 mEq/L 08/10/2017 Comp Metabolic Unp492 ANION GAP 15 08/10/2017 Comp Metabolic Stu964 GLUCOSE 144 mg/dL 08/10/2017 Comp Metabolic Iqe182 Creat 0.6 mg/dL 08/10/2017 Comp Metabolic Ttv007 eGFR 97 ml/min/1.73m2 08/10/2017 Comp Metabolic Jvm056 BUN 15 mg/dL 08/10/2017 Comp Metabolic Vzp532 B/C Ratio 23.4 Ratio 08/10/2017 Comp Metabolic Gbg771 CALCIUM 11.1 mg/dL 08/10/2017 Comp Metabolic Xtb746 ALK PHOS 76 U/L 08/10/2017 Comp Metabolic Ovr221 AST(SGOT) 20 U/L 08/10/2017 Comp Metabolic Vfc069 ALT(SGPT) 30 U/L 08/10/2017 Comp Metabolic Lne246 BILI T 0.9 mg/dL 08/10/2017 Comp Metabolic Xfn506 ALBUMIN 4.7 g/dL 08/10/2017 Comp Metabolic Eep140 TPRO 7.0 g/dL 08/10/2017 Comp Metabolic Cnz460 GLOB 2.3 g/dL 08/10/2017 Comp Metabolic Jvj823 A/G Ratio 2.0 Ratio 08/10/2017 Comp Metabolic Rtl242 Osmo 283 mOsmo 08/10/2017 Lipid Ord30 CHOL 112 mg/dL 08/10/2017 Lipid Ord30 HDL 48.0 mg/dl 08/10/2017 Lipid Ord30 TRIG 125 mg/dL 08/10/2017 Lipid Ord30 LDL 39 mg/dL 08/10/2017 Lipid Ord30 C/HDL 2.3 Ratio 08/10/2017 Cbc With Differential Ord2 WBC 6.65 K/ul 08/10/2017 Cbc With Differential Ord2 RBC 4.54 M/ul 08/10/2017 Cbc With Differential Ord2 HGB 14.0 g/dl 08/10/2017 Cbc With Differential Ord2 Neut% 73.8 % 08/10/2017 Cbc With Differential Ord2 HCT 41.3 % 08/10/2017 Cbc With Differential Ord2 Lymph% 18.6 % 08/10/2017 Cbc With Differential Ord2 MCV 91.0 fl 08/10/2017 Cbc With Differential Ord2 MCH 30.8 pg 08/10/2017 Cbc With Differential Ord2 Mck[place]ley% 7.1 % 08/10/2017 Cbc With Differential Ord2 MCHC 33.9 pg 08/10/2017 Cbc With Differential Ord2 Eos% 0.3 % 08/10/2017 Cbc With Differential Ord2 Baso% 0.2 % 08/10/2017 Cbc With Differential Ord2 PLT 232 K/ul 08/10/2017 Cbc With Differential Ord2 RDW 13.4 % 08/10/2017 Cbc With Differential Ord2 Neut ABS# 4.91 K/ul 08/10/2017 Cbc With Differential Ord2 Lymph ABS# 1.24 K/ul 08/10/2017 Cbc With Differential Ord2 [place] ABS# 0.5 K/ul 08/10/2017 Cbc With Differential Ord2 Eos ABS# 0.0 K/ul 08/10/2017 Cbc With Differential Ord2 Baso ABS# 0.0 K/ul 08/10/2017 Amylase Ord34 AMYLASE 37 U/L 06/14/2017 Lipase Ovq967 LIPASE 47 U/L 06/14/2017 Cbc With Differential Ord2 WBC 6.28 K/ul 06/14/2017 Cbc With Differential Ord2 RBC 4.56 M/ul 06/14/2017 Cbc With Differential Ord2 HGB 14.0 g/dl 06/14/2017 Cbc With Differential Ord2 Neut% 76.5 % 06/14/2017 Cbc With Differential Ord2 HCT 41.9 % 06/14/2017 Cbc With Differential Ord2 MCV 91.9 fl 06/14/2017 Cbc With Differential Ord2 Lymph% 17.7 % 06/14/2017 Cbc With Differential Ord2 [place]ck[place]% 4.9 % 06/14/2017 Cbc With Differential Ord2 MCH 30.7 pg 06/14/2017 Cbc With Differential Ord2 MCHC 33.4 pg 06/14/2017 Cbc With Differential Ord2 Eos% 0.6 % 06/14/2017 Cbc With Differential Ord2 Baso% 0.3 % 06/14/2017 Cbc With Differential Ord2 PLT 243 K/ul 06/14/2017 Cbc With Differential Ord2 RDW 13.2 % 06/14/2017 Cbc With Differential Ord2 Neut ABS# 4.80 K/ul 06/14/2017 Cbc With Differential Ord2 Lymph ABS# 1.11 K/ul 06/14/2017 Cbc With Differential Ord2 [place] ABS# 0.3 K/ul 06/14/2017 Cbc With Differential Ord2 Eos ABS# 0.0 K/ul 06/14/2017 Cbc With Differential Ord2 Baso ABS# 0.0 K/ul 06/14/2017 Comp Metabolic Wjq387 NA 135 mEq/L 06/14/2017 Comp Metabolic Nzp272 K 3.6 mEq/L 06/14/2017 Comp Metabolic Ixg485 CL 98 mEq/L 06/14/2017 Comp Metabolic Mbi961 CO2 25.0 mEq/L 06/14/2017 Comp Metabolic Ndl358 ANION GAP 16 06/14/2017 Comp Metabolic Kpf984 GLUCOSE 195 mg/dL 06/14/2017 Comp Metabolic Gnr031 Creat 0.6 mg/dL 06/14/2017 Comp Metabolic Ltm769 eGFR 97 ml/min/1.73m2 06/14/2017 Comp Metabolic Dmc421 BUN 14 mg/dL 06/14/2017 Comp Metabolic Rab130 B/C Ratio 21.9 Ratio 06/14/2017 Comp Metabolic Hcr434 CALCIUM 10.6 mg/dL 06/14/2017 Comp Metabolic Ppk108 ALK PHOS 64 U/L 06/14/2017 Comp Metabolic Zuk756 AST(SGOT) 34 U/L 06/14/2017 Comp Metabolic Det171 ALT(SGPT) 39 U/L 06/14/2017 Comp Metabolic Nqu341 BILI T 0.7 mg/dL 06/14/2017 Comp Metabolic Ucx353 ALBUMIN 4.5 g/dL 06/14/2017 Comp Metabolic Dgl750 TPRO 6.7 g/dL 06/14/2017 Comp Metabolic Jit211 GLOB 2.2 g/dL 06/14/2017 Comp Metabolic Cjv439 A/G Ratio 2.1 Ratio 06/14/2017 Comp Metabolic Rym657 Osmo 276 mOsmo 06/14/2017 Cbc With Differential Ord2 WBC 4.60 K/ul 04/12/2017 Cbc With Differential Ord2 RBC 4.07 M/ul 04/12/2017 Cbc With Differential Ord2 HGB 12.6 g/dl 04/12/2017 Cbc With Differential Ord2 Neut% 61.7 % 04/12/2017 Cbc With Differential Ord2 HCT 38.1 % 04/12/2017 Cbc With Differential Ord2 Lymph% 28.7 % 04/12/2017 Cbc With Differential Ord2 MCV 93.6 fl 04/12/2017 Cbc With Differential Ord2 [place]% 8.5 % 04/12/2017 Cbc With Differential Ord2 MCH 31.0 pg 04/12/2017 Cbc With Differential Ord2 Eos% 0.7 % 04/12/2017 Cbc With Differential Ord2 MCHC 33.1 pg 04/12/2017 Cbc With Differential Ord2 PLT 257 K/ul 04/12/2017 Cbc With Differential Ord2 Baso% 0.4 % 04/12/2017 Cbc With Differential Ord2 Neut ABS# 2.84 K/ul 04/12/2017 Cbc With Differential Ord2 RDW 13.5 % 04/12/2017 Cbc With Differential Ord2 Lymph ABS# 1.32 K/ul 04/12/2017 Cbc With Differential Ord2 [place] ABS# 0.4 K/ul 04/12/2017 Cbc With Differential Ord2 Eos ABS# 0.0 K/ul 04/12/2017 Cbc With Differential Ord2 Baso ABS# 0.0 K/ul 04/12/2017 Lipid Ord30 CHOL 110 mg/dL 04/12/2017 Lipid Ord30 HDL 47.0 mg/dl 04/12/2017 Lipid Ord30 TRIG 126 mg/dL 04/12/2017 Lipid Ord30 LDL 38 mg/dL 04/12/2017 Lipid Ord30 C/HDL 2.3 Ratio 04/12/2017 Free T4 Oeb650 FREE T4 1.16 ng/dL 04/12/2017 Comp Metabolic Xos542 NA 141 mEq/L 04/12/2017 Comp Metabolic Sld087 K 3.6 mEq/L 04/12/2017 Comp Metabolic Bmm616 CL 105 mEq/L 04/12/2017 Comp Metabolic Dwf979 CO2 27.0 mEq/L 04/12/2017 Comp Metabolic Jcw742 ANION GAP 13 04/12/2017 Comp Metabolic Lzu514 GLUCOSE 149 mg/dL 04/12/2017 Comp Metabolic Fks033 Creat 0.7 mg/dL 04/12/2017 Comp Metabolic Qag602 eGFR 94 ml/min/1.73m2 04/12/2017 Comp Metabolic Wwq626 BUN 19 mg/dL 04/12/2017 Comp Metabolic Kcu886 B/C Ratio 28.8 Ratio 04/12/2017 Comp Metabolic Pgv967 CALCIUM 10.5 mg/dL 04/12/2017 Comp Metabolic Hhv013 ALK PHOS 72 U/L 04/12/2017 Comp Metabolic Hau190 AST(SGOT) 22 U/L 04/12/2017 Comp Metabolic Isc427 ALT(SGPT) 30 U/L 04/12/2017 Comp Metabolic Uja576 BILI T 0.6 mg/dL 04/12/2017 Comp Metabolic Iyw051 ALBUMIN 4.0 g/dL 04/12/2017 Comp Metabolic Nfd226 TPRO 6.1 g/dL 04/12/2017 Comp Metabolic Atw180 GLOB 2.1 g/dL 04/12/2017 Comp Metabolic Tkp376 A/G Ratio 1.9 Ratio 04/12/2017 Comp Metabolic Hys964 Osmo 286 mOsmo 04/12/2017 Tsh Ord6 hTSH II 1.33 uIU/mL 04/12/2017 %Hba1C Fti466 % HbA1c 51408-6 7.3 % 04/12/2017 %Hba1C Qvc881 Gluc Ave 163 mg/dL 04/12/2017 Tsh Ord6 hTSH II 2.36 uIU/mL 12/11/2016 %Hba1C Asb994 % HbA1c 16447-6 7.5 % 12/11/2016 %Hba1C Fmk076 Gluc Ave 169 mg/dL 12/11/2016 Comp Metabolic Cgq115 NA 141 mEq/L 12/11/2016 Comp Metabolic Yuw910 K 3.5 mEq/L 12/11/2016 Comp Metabolic Mwd566 CL 102 mEq/L 12/11/2016 Comp Metabolic Adx727 CO2 28.0 mEq/L 12/11/2016 Comp Metabolic Qlb519 ANION GAP 15 12/11/2016 Comp Metabolic Igs580 GLUCOSE 183 mg/dL 12/11/2016 Comp Metabolic Yrp631 Creat 0.7 mg/dL 12/11/2016 Comp Metabolic Gdm019 eGFR 83 ml/min/1.73m2 12/11/2016 Comp Metabolic Phv404 BUN 22 mg/dL 12/11/2016 Comp Metabolic Qau055 B/C Ratio 30.1 Ratio 12/11/2016 Comp Metabolic Bxt775 CALCIUM 10.8 mg/dL 12/11/2016 Comp Metabolic Otk429 ALK PHOS 76 U/L 12/11/2016 Comp Metabolic Kio136 AST(SGOT) 24 U/L 12/11/2016 Comp Metabolic Djw033 ALT(SGPT) 36 U/L 12/11/2016 Comp Metabolic Rnn764 BILI T 0.7 mg/dL 12/11/2016 Comp Metabolic Cnt800 ALBUMIN 4.3 g/dL 12/11/2016 Comp Metabolic Dzq954 TPRO 6.7 g/dL 12/11/2016 Comp Metabolic Jix787 GLOB 2.4 g/dL 12/11/2016 Comp Metabolic Ggo718 A/G Ratio 1.8 Ratio 12/11/2016 Comp Metabolic Ukb484 Osmo 289 mOsmo 12/11/2016 Cbc With Differential Ord2 WBC 4.79 K/ul 12/11/2016 Cbc With Differential Ord2 RBC 4.32 M/ul 12/11/2016 Cbc With Differential Ord2 HGB 13.4 g/dl 12/11/2016 Cbc With Differential Ord2 Neut% 61.4 % 12/11/2016 Cbc With Differential Ord2 HCT 39.6 % 12/11/2016 Cbc With Differential Ord2 Lymph% 30.3 % 12/11/2016 Cbc With Differential Ord2 MCV 91.7 fl 12/11/2016 Cbc With Differential Ord2 [place]% 7.3 % 12/11/2016 Cbc With Differential Ord2 MCH 31.0 pg 12/11/2016 Cbc With Differential Ord2 MCHC 33.8 pg 12/11/2016 Cbc With Differential Ord2 Eos% 0.6 % 12/11/2016 Cbc With Differential Ord2 PLT 246 K/ul 12/11/2016 Cbc With Differential Ord2 Baso% 0.4 % 12/11/2016 Cbc With Differential Ord2 RDW 13.2 % 12/11/2016 Cbc With Differential Ord2 Neut ABS# 2.94 K/ul 12/11/2016 Cbc With Differential Ord2 Lymph ABS# 1.45 K/ul 12/11/2016 Cbc With Differential Ord2 [place] ABS# 0.4 K/ul 12/11/2016 Cbc With Differential Ord2 Eos ABS# 0.0 K/ul 12/11/2016 Cbc With Differential Ord2 Baso ABS# 0.0 K/ul 12/11/2016 Free T4 Zvb260 FREE T4 1.02 ng/dL 12/11/2016 Lipid Ord30 CHOL 124 mg/dL 12/11/2016 Lipid Ord30 HDL 57.0 mg/dl 12/11/2016 Lipid Ord30 TRIG 151 mg/dL 12/11/2016 Lipid Ord30 LDL 37 mg/dL 12/11/2016 Lipid Ord30 C/HDL 2.2 Ratio 12/11/2016 %Hba1C Zmd755 % HbA1c 12020-0 7.3 % 08/14/2016 %Hba1C Aqz639 Gluc Ave 163 mg/dL 08/14/2016 Comp Metabolic Suc310 NA 139 mEq/L 08/14/2016 Comp Metabolic Xvx075 K 3.8 mEq/L 08/14/2016 Comp Metabolic Hpu595 CL 104 mEq/L 08/14/2016 Comp Metabolic Yvq641 CO2 28.0 mEq/L 08/14/2016 Comp Metabolic Sug036 ANION GAP 11 08/14/2016 Comp Metabolic Odq280 GLUCOSE 148 mg/dL 08/14/2016 Comp Metabolic Iuj903 Creat 0.6 mg/dL 08/14/2016 Comp Metabolic Hhb544 eGFR 99 ml/min/1.73m2 08/14/2016 Comp Metabolic Nnv756 BUN 16 mg/dL 08/14/2016 Comp Metabolic Ptd706 B/C Ratio 25.4 Ratio 08/14/2016 Comp Metabolic Pgi964 CALCIUM 10.4 mg/dL 08/14/2016 Comp Metabolic Vxx519 ALK PHOS 77 U/L 08/14/2016 Comp Metabolic Fua424 AST(SGOT) 25 U/L 08/14/2016 Comp Metabolic Mqx952 ALT(SGPT) 31 U/L 08/14/2016 Comp Metabolic Neb339 BILI T 0.6 mg/dL 08/14/2016 Comp Metabolic Srz173 ALBUMIN 4.2 g/dL 08/14/2016 Comp Metabolic Mlo354 TPRO 6.5 g/dL 08/14/2016 Comp Metabolic Dvf558 GLOB 2.3 g/dL 08/14/2016 Comp Metabolic Bxz655 A/G Ratio 1.8 Ratio 08/14/2016 Comp Metabolic Ahz057 Osmo 281 mOsmo 08/14/2016 Tsh Ord6 hTSH II 0.96 uIU/mL 08/14/2016 Cbc With Differential Ord2 WBC 5.00 K/ul 08/14/2016 Cbc With Differential Ord2 RBC 4.15 M/ul 08/14/2016 Cbc With Differential Ord2 HGB 12.8 g/dl 08/14/2016 Cbc With Differential Ord2 HCT 38.8 % 08/14/2016 Cbc With Differential Ord2 Neut% 62.4 % 08/14/2016 Cbc With Differential Ord2 MCV 93.5 fl 08/14/2016 Cbc With Differential Ord2 Lymph% 27.6 % 08/14/2016 Cbc With Differential Ord2 [place]% 8.8 % 08/14/2016 Cbc With Differential Ord2 MCH 30.8 pg 08/14/2016 Cbc With Differential Ord2 Eos% 0.8 % 08/14/2016 Cbc With Differential Ord2 MCHC 33.0 pg 08/14/2016 Cbc With Differential Ord2 Baso% 0.4 % 08/14/2016 Cbc With Differential Ord2 PLT 258 K/ul 08/14/2016 Cbc With Differential Ord2 Neut ABS# 3.12 K/ul 08/14/2016 Cbc With Differential Ord2 RDW 13.5 % 08/14/2016 Cbc With Differential Ord2 Lymph ABS# 1.38 K/ul 08/14/2016 Cbc With Differential Ord2 [place] ABS# 0.4 K/ul 08/14/2016 Cbc With Differential Ord2 Eos ABS# 0.0 K/ul 08/14/2016 Cbc With Differential Ord2 Baso ABS# 0.0 K/ul 08/14/2016 Lipid Ord30 CHOL 118 mg/dL 08/14/2016 Lipid Ord30 HDL 50.0 mg/dl 08/14/2016 Lipid Ord30 TRIG 134 mg/dL 08/14/2016 Lipid Ord30 LDL 41 mg/dL 08/14/2016 Lipid Ord30 C/HDL 2.4 Ratio 08/14/2016 Free T4 Qxx323 FREE T4 0.95 ng/dL 08/14/2016 %Hba1C Aky527 % HbA1c 01352-0 8.1 % 05/12/2016 %Hba1C Bhq506 Gluc Ave 186 mg/dL 05/12/2016 Comp Metabolic Khc147 NA 139 mEq/L 05/12/2016 Comp Metabolic Owu067 K 3.9 mEq/L 05/12/2016 Comp Metabolic Bps915 CL 105 mEq/L 05/12/2016 Comp Metabolic Vgb219 CO2 27.0 mEq/L 05/12/2016 Comp Metabolic Xrz256 ANION GAP 11 05/12/2016 Comp Metabolic Qut159 GLUCOSE 202 mg/dL 05/12/2016 Comp Metabolic Wkx363 Creat 0.6 mg/dL 05/12/2016 Comp Metabolic Fwu256 eGFR 97 ml/min/1.73m2 05/12/2016 Comp Metabolic Sae264 BUN 14 mg/dL 05/12/2016 Comp Metabolic Lrx950 B/C Ratio 21.9 Ratio 05/12/2016 Comp Metabolic Rzs820 CALCIUM 10.2 mg/dL 05/12/2016 Comp Metabolic Eld164 ALK PHOS 81 U/L 05/12/2016 Comp Metabolic Zba021 AST(SGOT) 26 U/L 05/12/2016 Comp Metabolic Hyj602 ALT(SGPT) 36 U/L 05/12/2016 Comp Metabolic Lxp649 BILI T 0.7 mg/dL 05/12/2016 Comp Metabolic Gzw084 ALBUMIN 4.2 g/dL 05/12/2016 Comp Metabolic Grr834 TPRO 6.4 g/dL 05/12/2016 Comp Metabolic Cgx390 GLOB 2.2 g/dL 05/12/2016 Comp Metabolic Awq151 A/G Ratio 1.9 Ratio 05/12/2016 Comp Metabolic Brg383 Osmo 284 mOsmo 05/12/2016 Lipid Ord30 CHOL 152 mg/dL 05/12/2016 Lipid Ord30 HDL 50.0 mg/dl 05/12/2016 Lipid Ord30 TRIG 179 mg/dL 05/12/2016 Lipid Ord30 LDL 66 mg/dL 05/12/2016 Lipid Ord30 C/HDL 3.0 Ratio 05/12/2016 Tsh Ord6 hTSH II 1.55 uIU/mL 05/12/2016 Free T4 [id number] FREE T4 0.93 ng/dL 05/12/2016 %Hba1C [id number] % HbA1c 75023-6 7.8 % 02/06/2016 %Hba1C [id number] Gluc Ave 177 mg/dL 02/06/2016 Review of Systems System Result Effective Dates Constitutional No recent illness 2016 Constitutional No anorexia 08/12/2017 Constitutional No night sweats 2016 Constitutional No chills 08/12/2017 Constitutional No diaphoresis 08/12/2017 Constitutional No fatigue 08/12/2017 Constitutional No fever 08/12/2017 Constitutional No insomnia 08/12/2017 Constitutional No malaise 08/12/2017 Eyes No blindness 08/12/2017 Eyes No eye discharge 08/12/2017 Eyes No eye erythema 08/12/2017 Eyes No vision change 08/12/2017 Ears/Nose/Throat/Neck No dental pain Ears/Nose/Throat/Neck No dizziness 2016 Ears/Nose/Throat/Neck No dysphagia 2016 Ears/Nose/Throat/Neck No headache 2016 Ears/Nose/Throat/Neck No hearing loss Ears/Nose/Throat/Neck No nasal allergies 08/12/2017 Ears/Nose/Throat/Neck No nasal discharge 08/12/2017 Ears/Nose/Throat/Neck No sore throat Ears/Nose/Throat/Neck No postnasal drip 08/12/2017 Ears/Nose/Throat/Neck No sinus congestion 08/12/2017 Cardiovascular No chest pain/pressure Cardiovascular No dyspnea 08/12/2017 Cardiovascular No edema 08/12/2017 Cardiovascular No exercise intolerance Cardiovascular No fatigue 08/12/2017 Cardiovascular No near-syncope/dizziness 08/12/2017 Respiratory No chest congestion 2016 Respiratory No chest tightness 2016 Respiratory No cough 08/12/2017 Respiratory No dyspnea 08/12/2017 Respiratory No pedal edema 08/12/2017 Gastrointestinal No abdominal pain 2016 Gastrointestinal No constipation 2016 Gastrointestinal No diarrhea 08/12/2017 Gastrointestinal No gastroesophageal reflux 08/12/2017 Gastrointestinal No nausea 08/12/2017 Gastrointestinal No vomiting 08/12/2017 Genitourinary/Nephrology No dysuria 08/12 Genitourinary/Nephrology No nocturia Genitourinary/Nephrology No urinary incontinence 08/12/2017 Musculoskeletal No stiffness 08/12/2017 Musculoskeletal No swelling 08/12/2017 Musculoskeletal No joint complaint 2016 Musculoskeletal No muscle weakness 2016 Musculoskeletal No myalgias 08/12/2017 Dermatologic mole change 08/12/2017 Dermatologic pigmentation change 2016 Dermatologic No rash 08/12/2017 Dermatologic No sores 08/12/2017 Dermatologic No scar 08/12/2017 Neurologic No dizziness 08/12/2017 Neurologic No headache 08/12/2017 Neurologic No neck pain 08/12/2017 Neurologic No syncope 08/12/2017 Psychiatric No anxiety 08/12/2017 Psychiatric No depression 08/12/2017 Endocrine diabetes mellitus type 2 2016 Constitutional recent illness 06/16/2017 Constitutional No chills 06/16/2017 Constitutional No diaphoresis 06/16/2017 Constitutional fatigue 06/16/2017 Constitutional No fever 06/16/2017 Constitutional No malaise 06/16/2017 Eyes No eye discharge 06/16/2017 Eyes No eye erythema 06/16/2017 Ears/Nose/Throat/Neck nasal allergies Ears/Nose/Throat/Neck No nasal discharge 06/16/2017 Cardiovascular No chest pain/pressure Respiratory No cough 06/16/2017 Gastrointestinal abdominal pain 2016 Gastrointestinal diarrhea 06/16/2017 Gastrointestinal dyspepsia 06/16/2017 Gastrointestinal gastroesophageal reflux 06/16/2017 Gastrointestinal nausea 06/16/2017 Gastrointestinal No vomiting 06/16/2017 Genitourinary/Nephrology No dysuria 06/16 Musculoskeletal No joint complaint 2016 Dermatologic No rash 06/16/2017 Neurologic No alteration of consciousness 06/16/2017 Constitutional anorexia 06/16/2017 Respiratory No dyspnea 06/16/2017 Neurologic No mental status change 2016 Constitutional recent illness 06/14/2017 Constitutional No anorexia 06/14/2017 Constitutional No night sweats 2016 Constitutional No chills 06/14/2017 Constitutional No diaphoresis 06/14/2017 Constitutional fatigue 06/14/2017 Constitutional No fever 06/14/2017 Constitutional No insomnia 06/14/2017 Constitutional No malaise 06/14/2017 Constitutional No weight loss 06/14/2017 Constitutional No weight gain 06/14/2017 Eyes No eye discharge 06/14/2017 Eyes No eye erythema 06/14/2017 Ears/Nose/Throat/Neck No dizziness 2016 Ears/Nose/Throat/Neck No headache 2016 Ears/Nose/Throat/Neck nasal allergies Ears/Nose/Throat/Neck No nasal discharge 06/14/2017 Ears/Nose/Throat/Neck No sinus congestion 06/14/2017 Cardiovascular No chest pain/pressure Respiratory No cough 06/14/2017 Gastrointestinal diarrhea 06/14/2017 Gastrointestinal dyspepsia 06/14/2017 Gastrointestinal gastroesophageal reflux 06/14/2017 Gastrointestinal nausea 06/14/2017 Gastrointestinal No vomiting 06/14/2017 Genitourinary/Nephrology No dysuria 06/14 Musculoskeletal No joint complaint 2016 Dermatologic No rash 06/14/2017 Neurologic No alteration of consciousness 06/14/2017 Gastrointestinal abdominal pain 2016 Constitutional recent illness 06/10/2017 Constitutional anorexia 06/10/2017 Constitutional No night sweats 2016 Constitutional No chills 06/10/2017 Constitutional No diaphoresis 06/10/2017 Constitutional fatigue 06/10/2017 Constitutional No fever 06/10/2017 Constitutional No insomnia 06/10/2017 Constitutional No malaise 06/10/2017 Constitutional No weight loss 06/10/2017 Constitutional No weight gain 06/10/2017 Eyes No eye discharge 06/10/2017 Eyes No eye erythema 06/10/2017 Ears/Nose/Throat/Neck No dizziness 2016 Ears/Nose/Throat/Neck No headache 2016 Ears/Nose/Throat/Neck nasal allergies Ears/Nose/Throat/Neck nasal discharge Ears/Nose/Throat/Neck sinus congestion Cardiovascular No chest pain/pressure Respiratory No cough 06/10/2017 Gastrointestinal abdominal pain 2016 Gastrointestinal dyspepsia 06/10/2017 Gastrointestinal gastroesophageal reflux 06/10/2017 Gastrointestinal No vomiting 06/10/2017 Gastrointestinal nausea 06/10/2017 Gastrointestinal diarrhea 06/10/2017 Genitourinary/Nephrology No dysuria 06/10 Musculoskeletal No joint complaint 2016 Dermatologic No rash 06/10/2017 Neurologic No alteration of consciousness 06/10/2017 Constitutional No recent illness 2016 Constitutional No chills 04/14/2017 Constitutional No diaphoresis 04/14/2017 Constitutional No fever 04/14/2017 Eyes No eye erythema 04/14/2017 Ears/Nose/Throat/Neck No nasal discharge 04/14/2017 Cardiovascular No chest pain/pressure Respiratory No dyspnea 04/14/2017 Respiratory No cough 04/14/2017 Neurologic No alteration of consciousness 04/14/2017 Neurologic No mental status change 2016 Constitutional No recent illness 2016 Constitutional No anorexia 04/13/2017 Constitutional No night sweats 2016 Constitutional No chills 04/13/2017 Constitutional No diaphoresis 04/13/2017 Constitutional No fatigue 04/13/2017 Constitutional No fever 04/13/2017 Constitutional No insomnia 04/13/2017 Constitutional No malaise 04/13/2017 Eyes No blindness 04/13/2017 Eyes No eye discharge 04/13/2017 Eyes No eye erythema 04/13/2017 Eyes No vision change 04/13/2017 Ears/Nose/Throat/Neck No dental pain Ears/Nose/Throat/Neck No dizziness 2016 Ears/Nose/Throat/Neck No dysphagia 2016 Ears/Nose/Throat/Neck No headache 2016 Ears/Nose/Throat/Neck No hearing loss Ears/Nose/Throat/Neck No nasal allergies 04/13/2017 Ears/Nose/Throat/Neck No nasal discharge 04/13/2017 Ears/Nose/Throat/Neck No sore throat Ears/Nose/Throat/Neck No postnasal drip 04/13/2017 Ears/Nose/Throat/Neck No sinus congestion 04/13/2017 Cardiovascular No chest pain/pressure Cardiovascular No dyspnea 04/13/2017 Cardiovascular No edema 04/13/2017 Cardiovascular No exercise intolerance Cardiovascular No fatigue 04/13/2017 Cardiovascular No near-syncope/dizziness 04/13/2017 Respiratory No chest congestion 2016 Respiratory No chest tightness 2016 Respiratory No cough 04/13/2017 Respiratory No dyspnea 04/13/2017 Respiratory No pedal edema 04/13/2017 Gastrointestinal No abdominal pain 2016 Gastrointestinal No constipation 2016 Gastrointestinal No diarrhea 04/13/2017 Gastrointestinal No gastroesophageal reflux 04/13/2017 Gastrointestinal No nausea 04/13/2017 Gastrointestinal No vomiting 04/13/2017 Genitourinary/Nephrology No dysuria 04/13 Genitourinary/Nephrology No nocturia Genitourinary/Nephrology No urinary incontinence 04/13/2017 Musculoskeletal No stiffness 04/13/2017 Musculoskeletal No swelling 04/13/2017 Musculoskeletal No joint complaint 2016 Musculoskeletal No muscle weakness 2016 Musculoskeletal No myalgias 04/13/2017 Dermatologic mole change 04/13/2017 Dermatologic pigmentation change 2016 Dermatologic No rash 04/13/2017 Dermatologic No sores 04/13/2017 Dermatologic No scar 04/13/2017 Neurologic No dizziness 04/13/2017 Neurologic No headache 04/13/2017 Neurologic No neck pain 04/13/2017 Neurologic No syncope 04/13/2017 Psychiatric No anxiety 04/13/2017 Psychiatric No depression 04/13/2017 Endocrine diabetes mellitus type 2 2016 Constitutional No recent illness 2016 Constitutional No anorexia 12/14/2016 Constitutional No night sweats 2016 Constitutional No chills 12/14/2016 Constitutional No diaphoresis 12/14/2016 Constitutional No fatigue 12/14/2016 Constitutional No fever 12/14/2016 Constitutional No insomnia 12/14/2016 Constitutional No malaise 12/14/2016 Eyes No blindness 12/14/2016 Eyes No eye discharge 12/14/2016 Eyes No eye erythema 12/14/2016 Eyes No vision change 12/14/2016 Ears/Nose/Throat/Neck No dental pain Ears/Nose/Throat/Neck No dizziness 2016 Ears/Nose/Throat/Neck No dysphagia 2016 Ears/Nose/Throat/Neck No headache 2016 Ears/Nose/Throat/Neck No hearing loss Ears/Nose/Throat/Neck No nasal allergies 12/14/2016 Ears/Nose/Throat/Neck No nasal discharge 12/14/2016 Ears/Nose/Throat/Neck No sore throat Ears/Nose/Throat/Neck No postnasal drip 12/14/2016 Ears/Nose/Throat/Neck No sinus congestion 12/14/2016 Cardiovascular No chest pain/pressure Cardiovascular No dyspnea 12/14/2016 Cardiovascular No edema 12/14/2016 Cardiovascular No exercise intolerance Cardiovascular No fatigue 12/14/2016 Cardiovascular No near-syncope/dizziness 12/14/2016 Respiratory No chest congestion 2016 Respiratory No chest tightness 2016 Respiratory No cough 12/14/2016 Respiratory No dyspnea 12/14/2016 Respiratory No pedal edema 12/14/2016 Gastrointestinal No abdominal pain 2016 Gastrointestinal No constipation 2016 Gastrointestinal No diarrhea 12/14/2016 Gastrointestinal No gastroesophageal reflux 12/14/2016 Gastrointestinal No nausea 12/14/2016 Gastrointestinal No vomiting 12/14/2016 Genitourinary/Nephrology No dysuria 12/14 Genitourinary/Nephrology No nocturia Genitourinary/Nephrology No urinary incontinence 12/14/2016 Musculoskeletal No stiffness 12/14/2016 Musculoskeletal No swelling 12/14/2016 Musculoskeletal No joint complaint 2016 Musculoskeletal No muscle weakness 2016 Musculoskeletal No myalgias 12/14/2016 Dermatologic No rash 12/14/2016 Dermatologic No sores 12/14/2016 Dermatologic No scar 12/14/2016 Neurologic No dizziness 12/14/2016 Neurologic No headache 12/14/2016 Neurologic No neck pain 12/14/2016 Neurologic No syncope 12/14/2016 Psychiatric No anxiety 12/14/2016 Psychiatric No depression 12/14/2016 Endocrine diabetes mellitus type 2 2016 Dermatologic mole change 12/14/2016 Dermatologic pigmentation change 2016 Constitutional No recent illness 2015 Constitutional No anorexia 08/17/2016 Constitutional No night sweats 2015 Constitutional No chills 08/17/2016 Constitutional No diaphoresis 08/17/2016 Constitutional No fatigue 08/17/2016 Constitutional No fever 08/17/2016 Constitutional No insomnia 08/17/2016 Constitutional No malaise 08/17/2016 Eyes No blindness 08/17/2016 Eyes No eye discharge 08/17/2016 Eyes No eye erythema 08/17/2016 Eyes No vision change 08/17/2016 Ears/Nose/Throat/Neck No dental pain Ears/Nose/Throat/Neck No dizziness 2015 Ears/Nose/Throat/Neck No dysphagia 2015 Ears/Nose/Throat/Neck No headache 2015 Ears/Nose/Throat/Neck No hearing loss Ears/Nose/Throat/Neck No nasal allergies 08/17/2016 Ears/Nose/Throat/Neck No nasal discharge 08/17/2016 Ears/Nose/Throat/Neck No sore throat Ears/Nose/Throat/Neck No postnasal drip 08/17/2016 Ears/Nose/Throat/Neck No sinus congestion 08/17/2016 Cardiovascular No chest pain/pressure Cardiovascular No dyspnea 08/17/2016 Cardiovascular No edema 08/17/2016 Cardiovascular No exercise intolerance Cardiovascular No fatigue 08/17/2016 Cardiovascular No near-syncope/dizziness 08/17/2016 Respiratory No chest congestion 2015 Respiratory No chest tightness 2015 Respiratory No cough 08/17/2016 Respiratory No dyspnea 08/17/2016 Respiratory No pedal edema 08/17/2016 Gastrointestinal No abdominal pain 2015 Gastrointestinal No constipation 2015 Gastrointestinal No diarrhea 08/17/2016 Gastrointestinal No gastroesophageal reflux 08/17/2016 Gastrointestinal No nausea 08/17/2016 Gastrointestinal No vomiting 08/17/2016 Genitourinary/Nephrology No dysuria 08/17 Genitourinary/Nephrology No nocturia Genitourinary/Nephrology No urinary incontinence 08/17/2016 Musculoskeletal No stiffness 08/17/2016 Musculoskeletal No swelling 08/17/2016 Musculoskeletal No joint complaint 2015 Musculoskeletal No muscle weakness 2015 Musculoskeletal No myalgias 08/17/2016 Dermatologic No rash 08/17/2016 Dermatologic No sores 08/17/2016 Dermatologic No scar 08/17/2016 Neurologic No dizziness 08/17/2016 Neurologic No headache 08/17/2016 Neurologic No neck pain 08/17/2016 Neurologic No syncope 08/17/2016 Psychiatric No anxiety 08/17/2016 Psychiatric No depression 08/17/2016 Endocrine diabetes mellitus type 2 2015 Constitutional recent illness 05/14/2016 Eyes No eye discharge 05/14/2016 Eyes No eye erythema 05/14/2016 Eyes No vision change 05/14/2016 Ears/Nose/Throat/Neck nasal allergies Ears/Nose/Throat/Neck nasal discharge Cardiovascular No chest pain/pressure Cardiovascular No dyspnea 05/14/2016 Respiratory No dyspnea 05/14/2016 Gastrointestinal nausea 05/14/2016 Musculoskeletal No joint complaint 2015 Dermatologic rash 05/14/2016 Dermatologic No scar 05/14/2016 Neurologic No alteration of consciousness 05/14/2016 Neurologic No mental status change 2015 Psychiatric No anxiety 05/14/2016 Psychiatric No depression 05/14/2016 Endocrine diabetes mellitus type 2 2015 Eyes No eye discharge 03/27/2016 Eyes No eye erythema 03/27/2016 Eyes No vision change 03/27/2016 Ears/Nose/Throat/Neck nasal allergies 09/2015 Ears/Nose/Throat/Neck nasal discharge 09/2015 Ears/Nose/Throat/Neck postnasal drip 09/2015 Ears/Nose/Throat/Neck sinus congestion Cardiovascular No chest pain/pressure 09/2015 Cardiovascular No dyspnea 03/27/2016 Musculoskeletal No joint complaint 2015 Dermatologic No scar 03/27/2016 Psychiatric No anxiety 03/27/2016 Psychiatric No depression 03/27/2016 Endocrine diabetes mellitus type 2 2015 Constitutional recent illness 03/27/2016 Respiratory No dyspnea 03/27/2016 Gastrointestinal nausea 03/27/2016 Dermatologic rash 03/27/2016 Neurologic No alteration of consciousness 03/27/2016 Neurologic No mental status change 2015 Constitutional recent illness 03/26/2016 Eyes No eye discharge 03/26/2016 Eyes No eye erythema 03/26/2016 Eyes No vision change 03/26/2016 Ears/Nose/Throat/Neck nasal allergies Ears/Nose/Throat/Neck nasal discharge Ears/Nose/Throat/Neck postnasal drip Ears/Nose/Throat/Neck sinus congestion Cardiovascular No chest pain/pressure Cardiovascular No dyspnea 03/26/2016 Respiratory No dyspnea 03/26/2016 Musculoskeletal No joint complaint 2015 Dermatologic rash 03/26/2016 Dermatologic No scar 03/26/2016 Neurologic No alteration of consciousness 03/26/2016 Neurologic No mental status change 2015 Psychiatric No anxiety 03/26/2016 Psychiatric No depression 03/26/2016 Gastrointestinal No abdominal pain 2015 Constitutional No recent illness 2015 Constitutional No anorexia 02/06/2016 Constitutional No night sweats 2015 Constitutional No chills 02/06/2016 Constitutional No diaphoresis 02/06/2016 Constitutional No fatigue 02/06/2016 Constitutional No fever 02/06/2016 Constitutional No insomnia 02/06/2016 Constitutional No malaise 02/06/2016 Eyes No blindness 02/06/2016 Eyes No eye discharge 02/06/2016 Eyes No eye erythema 02/06/2016 Eyes No vision change 02/06/2016 Ears/Nose/Throat/Neck No dental pain 08/2016 Ears/Nose/Throat/Neck No dizziness 2015 Ears/Nose/Throat/Neck No dysphagia 2015 Ears/Nose/Throat/Neck No headache 2015 Ears/Nose/Throat/Neck No hearing loss 08/2016 Ears/Nose/Throat/Neck No nasal allergies 02/06/2016 Ears/Nose/Throat/Neck No nasal discharge 02/06/2016 Ears/Nose/Throat/Neck No sore throat 08/2016 Ears/Nose/Throat/Neck No postnasal drip 02/06/2016 Ears/Nose/Throat/Neck No sinus congestion 02/06/2016 Cardiovascular No chest pain/pressure 08/2016 Cardiovascular No dyspnea 02/06/2016 Cardiovascular No edema 02/06/2016 Cardiovascular No exercise intolerance Cardiovascular No fatigue 02/06/2016 Cardiovascular No near-syncope/dizziness 02/06/2016 Respiratory No chest congestion 2015 Respiratory No chest tightness 2015 Respiratory No cough 02/06/2016 Respiratory No dyspnea 02/06/2016 Respiratory No pedal edema 02/06/2016 Gastrointestinal No abdominal pain 2015 Gastrointestinal No constipation 2015 Gastrointestinal No diarrhea 02/06/2016 Gastrointestinal No gastroesophageal reflux 02/06/2016 Gastrointestinal No nausea 02/06/2016 Gastrointestinal No vomiting 02/06/2016 Genitourinary/Nephrology No dysuria 02/05 Genitourinary/Nephrology No nocturia 08/2016 Genitourinary/Nephrology No urinary incontinence 02/06/2016 Musculoskeletal No stiffness 02/06/2016 Musculoskeletal No swelling 02/06/2016 Musculoskeletal No joint complaint 2015 Musculoskeletal No muscle weakness 2015 Musculoskeletal No myalgias 02/06/2016 Dermatologic No rash 02/06/2016 Dermatologic No sores 02/06/2016 Dermatologic No scar 02/06/2016 Neurologic No dizziness 02/06/2016 Neurologic No headache 02/06/2016 Neurologic No neck pain 02/06/2016 Neurologic No syncope 02/06/2016 Psychiatric No anxiety 02/06/2016 Psychiatric No depression 02/06/2016 Endocrine diabetes mellitus type 2 2015 Constitutional No recent illness 2015 Constitutional No anorexia 10/09/2015 Constitutional No night sweats 2015 Constitutional No chills 10/09/2015 Constitutional No diaphoresis 10/09/2015 Constitutional No fatigue 10/09/2015 Constitutional No fever 10/09/2015 Constitutional No insomnia 10/09/2015 Constitutional No malaise 10/09/2015 Eyes No blindness 10/09/2015 Eyes No eye discharge 10/09/2015 Eyes No eye erythema 10/09/2015 Eyes No vision change 10/09/2015 Ears/Nose/Throat/Neck No dental pain Ears/Nose/Throat/Neck No dizziness 2015 Ears/Nose/Throat/Neck No dysphagia 2015 Ears/Nose/Throat/Neck No headache 2015 Ears/Nose/Throat/Neck No hearing loss Ears/Nose/Throat/Neck No nasal allergies 10/09/2015 Ears/Nose/Throat/Neck No nasal discharge 10/09/2015 Ears/Nose/Throat/Neck No sore throat Ears/Nose/Throat/Neck No postnasal drip 10/09/2015 Ears/Nose/Throat/Neck No sinus congestion 10/09/2015 Cardiovascular No chest pain/pressure Cardiovascular No dyspnea 10/09/2015 Cardiovascular No edema 10/09/2015 Cardiovascular No exercise intolerance Cardiovascular No fatigue 10/09/2015 Cardiovascular No near-syncope/dizziness 10/09/2015 Respiratory No chest congestion 2015 Respiratory No chest tightness 2015 Respiratory No cough 10/09/2015 Respiratory No dyspnea 10/09/2015 Respiratory No pedal edema 10/09/2015 Gastrointestinal No abdominal pain 2015 Gastrointestinal No constipation 2015 Gastrointestinal No diarrhea 10/09/2015 Gastrointestinal No gastroesophageal reflux 10/09/2015 Gastrointestinal No nausea 10/09/2015 Gastrointestinal No vomiting 10/09/2015 Genitourinary/Nephrology No dysuria 10/09 Genitourinary/Nephrology No nocturia Genitourinary/Nephrology No urinary incontinence 10/09/2015 Musculoskeletal No stiffness 10/09/2015 Musculoskeletal No swelling 10/09/2015 Musculoskeletal No joint complaint 2015 Musculoskeletal No muscle weakness 2015 Musculoskeletal No myalgias 10/09/2015 Dermatologic No rash 10/09/2015 Dermatologic No sores 10/09/2015 Dermatologic No scar 10/09/2015 Neurologic No dizziness 10/09/2015 Neurologic No headache 10/09/2015 Neurologic No neck pain 10/09/2015 Neurologic No syncope 10/09/2015 Psychiatric No anxiety 10/09/2015 Psychiatric No depression 10/09/2015 Endocrine diabetes mellitus type 2 2015 Constitutional No anorexia 07/09/2015 Constitutional No chills 07/09/2015 Constitutional No diaphoresis 07/09/2015 Constitutional No fatigue 07/09/2015 Constitutional No fever 07/09/2015 Constitutional No night sweats 2014 Constitutional No recent illness 2014 Eyes No eye discharge 07/09/2015 Eyes No eye erythema 07/09/2015 Ears/Nose/Throat/Neck No dizziness 2014 Ears/Nose/Throat/Neck No nasal discharge 07/09/2015 Ears/Nose/Throat/Neck No sinus congestion 07/09/2015 Ears/Nose/Throat/Neck No sore throat Cardiovascular No chest pain/pressure Cardiovascular No dyspnea 07/09/2015 Respiratory No chest congestion 2014 Respiratory No cough 07/09/2015 Gastrointestinal No abdominal pain 2014 Gastrointestinal No constipation 2014 Gastrointestinal No diarrhea 07/09/2015 Gastrointestinal No nausea 07/09/2015 Gastrointestinal No vomiting 07/09/2015 Musculoskeletal No joint complaint 2014 Dermatologic No rash 07/09/2015 Constitutional No insomnia 07/09/2015 Constitutional No malaise 07/09/2015 Eyes No blindness 07/09/2015 Eyes No vision change 07/09/2015 Ears/Nose/Throat/Neck No dental pain Ears/Nose/Throat/Neck No dysphagia 2014 Ears/Nose/Throat/Neck No headache 2014 Ears/Nose/Throat/Neck No hearing loss Ears/Nose/Throat/Neck No nasal allergies 07/09/2015 Ears/Nose/Throat/Neck No postnasal drip 07/09/2015 Cardiovascular No edema 07/09/2015 Cardiovascular No exercise intolerance Cardiovascular No fatigue 07/09/2015 Cardiovascular No near-syncope/dizziness 07/09/2015 Respiratory No chest tightness 2014 Respiratory No dyspnea 07/09/2015 Respiratory No pedal edema 07/09/2015 Gastrointestinal No gastroesophageal reflux 07/09/2015 Genitourinary/Nephrology No dysuria 07/09 Genitourinary/Nephrology No nocturia Genitourinary/Nephrology No urinary incontinence 07/09/2015 Musculoskeletal No stiffness 07/09/2015 Musculoskeletal No swelling 07/09/2015 Musculoskeletal No muscle weakness 2014 Musculoskeletal No myalgias 07/09/2015 Dermatologic No sores 07/09/2015 Dermatologic No scar 07/09/2015 Neurologic No dizziness 07/09/2015 Neurologic No headache 07/09/2015 Neurologic No neck pain 07/09/2015 Neurologic No syncope 07/09/2015 Psychiatric No anxiety 07/09/2015 Psychiatric No depression 07/09/2015 Physical Exam Exam Name System Name Item Name Status Result Effective Dates Notes Full Exam - General 1994 Constitutional general appearance Development: well developed 08/12/2017 None Full Exam - General 1994 Constitutional general appearance Development: appears stated age 1108/12/2017 None Full Exam - General 1994 Constitutional general appearance Hygiene/Attention to Grooming: good hygiene 08/12/2017 None Full Exam - General 1994 Eyes conjunctiva /eyelids Overall: conjunctiva clear 08/12/2017 None Full Exam - General 1994 Eyes conjunctiva /eyelids Overall: cornea clear 08/12/2017 None Full Exam - General 1994 Eyes conjunctiva /eyelids Overall: eyelids normal 08/12/2017 None Full Exam - General 1994 Eyes pupils and irises Overall: pupils equal, round, reactive to light and accomodation 08/12/2017 None Full Exam - General 1994 Ears/Nose/Throat otoscopic exam Overall: external auditory canals clear 08/12/2017 None Full Exam - General 1994 Ears/Nose/Throat otoscopic exam Overall: tympanic membranes clear 08/12/2017 None Full Exam - General 1994 Ears/Nose/Throat lips/teeth/gingiva Overall: benign lips 08/12/2017 None Full Exam - General 1994 Ears/Nose/Throat lips/teeth/gingiva Overall: normal dentition 08/12/2017 None Full Exam - General 1994 Ears/Nose/Throat oral cavity/pharynx/larynx Overall: oral mucosa clear 08/12/2017 None Full Exam - General 1994 Ears/Nose/Throat oral cavity/pharynx/larynx Overall: oropharyngeal mucosa clear 08/12/2017 None Full Exam - General 1994 Ears/Nose/Throat oral cavity/pharynx/larynx Overall: hypopharynx benign 08/12/2017 None Full Exam - General 1994 Ears/Nose/Throat oral cavity/pharynx/larynx Overall: no masses 08/12/2017 None Full Exam - General 1994 Respiratory auscultation Overall: breath sounds clear bilaterally 08/12/2017 None Full Exam - General 1994 Respiratory respiratory effort/rhythm Overall: no retractions 08/12/2017 None Full Exam - General 1994 Respiratory respiratory effort/rhythm Overall: normal rate 08/12/2017 None Full Exam - General 1994 Cardiovascular extremities Overall: no clubbing 08/12/2017 None Full Exam - General 1994 Cardiovascular auscultation of heart Overall: regular rate 08/12/2017 None Full Exam - General 1994 Cardiovascular auscultation of heart Overall: normal heart sounds 08/12/2017 None Full Exam - General 1994 Abdomen abdominal exam Overall: no tenderness 08/12/2017 None Full Exam - General 1994 Abdomen abdominal exam Overall: normal bowel sounds 08/12/2017 None Full Exam - General 1994 Musculoskeletal spine, ribs and pelvis Overall: spine benign 08/12/2017 None Full Exam - General 1994 Musculoskeletal spine, ribs and pelvis Overall: sacroiliac joint benign 08/12/2017 None Full Exam - General 1994 Musculoskeletal spine, ribs and pelvis Overall: good posture 08/12/2017 None Full Exam - General 1994 Musculoskeletal head and neck Overall: head atraumatic 08/12/2017 None Full Exam - General 1994 Musculoskeletal head and neck Overall: cervical spine benign 08/12/2017 None Full Exam - General 1994 Integument inspection of skin Dermatitis: thickened 08/12/2017 dry lesion on left forehead, right cheek, left and right hands and forearms. Full Exam - General 1994 Neurologic deep tendon reflexes Overall: deep tendon reflexes intact 08/12/2017 None Full Exam - General 1994 Neurologic cranial nerves Overall: crainial nerves 2 - 12 grossly intact 08/12/2017 None Full Exam - General 1994 Psychiatric orientation/consciousness Overall: oriented to person, place and time 08/12/2017 None Full Exam - General 1994 Psychiatric mood and affect Overall: normal mood and affect 08/12/2017 None Full Exam - General 1994 Constitutional general appearance Overall: well developed 06/16/2017 None Full Exam - General 1994 Constitutional general appearance Overall: in no acute distress 06/16/2017 None Full Exam - General 1994 Constitutional general appearance Overall: well nourished 06/16/2017 None Full Exam - General 1994 Constitutional general appearance Hygiene/Attention to Grooming: good hygiene 06/16/2017 None Full Exam - General 1994 Eyes conjunctiva /eyelids Overall: conjunctiva clear 06/16/2017 None Full Exam - General 1994 Eyes conjunctiva /eyelids Overall: eyelids normal 06/16/2017 None Full Exam - General 1994 Eyes pupils and irises Overall: pupils equal, round, reactive to light and accomodation 06/16/2017 None Full Exam - General 1994 Ears/Nose/Throat lips/teeth/gingiva Overall: benign lips 06/16/2017 None Full Exam - General 1994 Ears/Nose/Throat oral cavity/pharynx/larynx Overall: oral mucosa clear 06/16/2017 None Full Exam - General 1994 Ears/Nose/Throat oral cavity/pharynx/larynx Overall: oropharyngeal mucosa clear 06/16/2017 None Full Exam - General 1994 Respiratory auscultation Overall: breath sounds clear bilaterally 06/16/2017 None Full Exam - General 1994 Respiratory respiratory effort/rhythm Overall: no retractions 06/16/2017 None Full Exam - General 1994 Respiratory respiratory effort/rhythm Overall: normal rate 06/16/2017 None Full Exam - General 1994 Cardiovascular extremities Overall: no clubbing 06/16/2017 None Full Exam - General 1994 Cardiovascular auscultation of heart Overall: regular rate 06/16/2017 None Full Exam - General 1994 Cardiovascular auscultation of heart Overall: normal heart sounds 06/16/2017 None Full Exam - General 1994 Abdomen abdominal exam Bowel sounds: hypoactive 06/16/2017 None Full Exam - General 1994 Abdomen abdominal exam Upper quadrant: tender to palpation 06/16/2017 None Full Exam - General 1994 Abdomen abdominal exam Epigastric: tender to palpation 06/16/2017 None Full Exam - General 1994 Musculoskeletal spine, ribs and pelvis Overall: good posture 06/16/2017 None Full Exam - General 1994 Musculoskeletal gait and station Overall: normal gait 06/16/2017 None Full Exam - General 1994 Musculoskeletal gait and station Overall: normal station 06/16/2017 None Full Exam - General 1994 Musculoskeletal head and neck Overall: head atraumatic 06/16/2017 None Full Exam - General 1994 Neurologic cranial nerves Overall: crainial nerves 2 - 12 grossly intact 06/16/2017 None Full Exam - General 1994 Psychiatric orientation/consciousness Overall: oriented to person, place and time 06/16/2017 None Full Exam - General 1994 Psychiatric mood and affect Overall: normal mood and affect 06/16/2017 None Full Exam - General 1994 Psychiatric appearance Overall: well-groomed, good eye contact 06/16/2017 None Full Exam - General 1994 Ears/Nose/Throat oral cavity/pharynx/larynx Oral mucosa: dry 06/16/2017 None Full Exam - General 1994 Abdomen abdominal exam Upper quadrant: voluntary guarding 06/16/2017 None Full Exam - General 1994 Abdomen abdominal exam Upper quadrant: no rebound tenderness 06/16/2017 None Full Exam - General 1994 Abdomen abdominal exam Upper quadrant: soft 06/16/2017 None Full Exam - General 1994 Abdomen abdominal exam Lower quadrant: tender to palpation 06/16/2017 None Full Exam - General 1994 Abdomen abdominal exam Lower quadrant: voluntary guarding 06/16/2017 None Full Exam - General 1994 Abdomen abdominal exam Lower quadrant: no rebound tenderness 06/16/2017 None Full Exam - General 1994 Abdomen abdominal exam Lower quadrant: soft 06/16/2017 None Full Exam - General 1994 Constitutional general appearance Development: appears stated age 0906/14/2017 None Full Exam - General 1994 Constitutional general appearance Overall: well developed 06/14/2017 None Full Exam - General 1994 Constitutional general appearance Overall: in no acute distress 06/14/2017 None Full Exam - General 1994 Constitutional general appearance Overall: well nourished 06/14/2017 None Full Exam - General 1994 Constitutional general appearance Hygiene/Attention to Grooming: good hygiene 06/14/2017 None Full Exam - General 1994 Eyes conjunctiva /eyelids Overall: conjunctiva clear 06/14/2017 None Full Exam - General 1994 Eyes conjunctiva /eyelids Overall: cornea clear 06/14/2017 None Full Exam - General 1994 Eyes conjunctiva /eyelids Overall: eyelids normal 06/14/2017 None Full Exam - General 1994 Eyes pupils and irises Overall: pupils equal, round, reactive to light and accomodation 06/14/2017 None Full Exam - General 1994 Ears/Nose/Throat otoscopic exam Overall: external auditory canals clear 06/14/2017 None Full Exam - General 1994 Ears/Nose/Throat otoscopic exam Tympanic membrane: air- fluid level 06/14/2017 None Full Exam - General 1994 Ears/Nose/Throat lips/teeth/gingiva Overall: benign lips 06/14/2017 None Full Exam - General 1994 Ears/Nose/Throat lips/teeth/gingiva Overall: normal dentition 06/14/2017 None Full Exam - General 1994 Ears/Nose/Throat oral cavity/pharynx/larynx Overall: oral mucosa clear 06/14/2017 None Full Exam - General 1994 Ears/Nose/Throat oral cavity/pharynx/larynx Overall: oropharyngeal mucosa clear 06/14/2017 None Full Exam - General 1994 Ears/Nose/Throat oral cavity/pharynx/larynx Overall: hypopharynx benign 06/14/2017 None Full Exam - General 1994 Ears/Nose/Throat oral cavity/pharynx/larynx Overall: no masses 06/14/2017 None Full Exam - General 1994 Respiratory auscultation Overall: breath sounds clear bilaterally 06/14/2017 None Full Exam - General 1994 Respiratory respiratory effort/rhythm Overall: no retractions 06/14/2017 None Full Exam - General 1994 Respiratory respiratory effort/rhythm Overall: normal rate 06/14/2017 None Full Exam - General 1994 Cardiovascular extremities Overall: no clubbing 06/14/2017 None Full Exam - General 1994 Cardiovascular auscultation of heart Overall: regular rate 06/14/2017 None Full Exam - General 1994 Cardiovascular auscultation of heart Overall: normal heart sounds 06/14/2017 None Full Exam - General 1994 Abdomen abdominal exam Overall: normal bowel sounds 06/14/2017 None Full Exam - General 1994 Abdomen abdominal exam Lower quadrant: tender to palpation 06/14/2017 None Full Exam - General 1994 Abdomen abdominal exam Epigastric: tender to palpation 06/14/2017 None Full Exam - General 1994 Musculoskeletal spine, ribs and pelvis Overall: spine benign 06/14/2017 None Full Exam - General 1994 Musculoskeletal spine, ribs and pelvis Overall: sacroiliac joint benign 06/14/2017 None Full Exam - General 1994 Musculoskeletal spine, ribs and pelvis Overall: good posture 06/14/2017 None Full Exam - General 1994 Musculoskeletal gait and station Overall: normal gait 06/14/2017 None Full Exam - General 1994 Musculoskeletal gait and station Overall: normal station 06/14/2017 None Full Exam - General 1994 Musculoskeletal head and neck Overall: head atraumatic 06/14/2017 None Full Exam - General 1994 Musculoskeletal head and neck Overall: cervical spine benign 06/14/2017 None Full Exam - General 1994 Neurologic deep tendon reflexes Overall: deep tendon reflexes intact 06/14/2017 None Full Exam - General 1994 Neurologic cranial nerves Overall: crainial nerves 2 - 12 grossly intact 06/14/2017 None Full Exam - General 1994 Psychiatric orientation/consciousness Overall: oriented to person, place and time 06/14/2017 None Full Exam - General 1994 Psychiatric mood and affect Overall: normal mood and affect 06/14/2017 None Full Exam - General 1994 Psychiatric appearance Overall: well-groomed, good eye contact 06/14/2017 None Full Exam - General 1994 Abdomen abdominal exam Upper quadrant: tender to palpation 06/14/2017 None Full Exam - General 1994 Abdomen abdominal exam Bowel sounds: hypoactive 06/14/2017 None Full Exam - General 1994 Constitutional general appearance Overall: well developed 06/10/2017 None Full Exam - General 1994 Constitutional general appearance Overall: in no acute distress 06/10/2017 None Full Exam - General 1994 Constitutional general appearance Overall: well nourished 06/10/2017 None Full Exam - General 1994 Eyes conjunctiva /eyelids Overall: conjunctiva clear 06/10/2017 None Full Exam - General 1994 Eyes conjunctiva /eyelids Overall: eyelids normal 06/10/2017 None Full Exam - General 1994 Ears/Nose/Throat lips/teeth/gingiva Overall: benign lips 06/10/2017 None Full Exam - General 1994 Ears/Nose/Throat oral cavity/pharynx/larynx Overall: oral mucosa clear 06/10/2017 None Full Exam - General 1994 Respiratory respiratory effort/rhythm Overall: no retractions 06/10/2017 None Full Exam - General 1994 Respiratory respiratory effort/rhythm Overall: normal rate 06/10/2017 None Full Exam - General 1994 Musculoskeletal gait and station Overall: normal gait 06/10/2017 None Full Exam - General 1994 Musculoskeletal gait and station Overall: normal station 06/10/2017 None Full Exam - General 1994 Musculoskeletal head and neck Overall: head atraumatic 06/10/2017 None Full Exam - General 1994 Neurologic cranial nerves Overall: crainial nerves 2 - 12 grossly intact 06/10/2017 None Full Exam - General 1994 Psychiatric orientation/consciousness Overall: oriented to person, place and time 06/10/2017 None Full Exam - General 1994 Psychiatric mood and affect Overall: normal mood and affect 06/10/2017 None Full Exam - General 1994 Psychiatric appearance Overall: well-groomed, good eye contact 06/10/2017 None Full Exam - General 1994 Constitutional general appearance Development: appears stated age 0906/10/2017 None Full Exam - General 1994 Constitutional general appearance Hygiene/Attention to Grooming: good hygiene 06/10/2017 None Full Exam - General 1994 Eyes conjunctiva /eyelids Overall: cornea clear 06/10/2017 None Full Exam - General 1994 Eyes pupils and irises Overall: pupils equal, round, reactive to light and accomodation 06/10/2017 None Full Exam - General 1994 Ears/Nose/Throat otoscopic exam Overall: external auditory canals clear 06/10/2017 None Full Exam - General 1994 Ears/Nose/Throat lips/teeth/gingiva Overall: normal dentition 06/10/2017 None Full Exam - General 1994 Ears/Nose/Throat oral cavity/pharynx/larynx Overall: oropharyngeal mucosa clear 06/10/2017 None Full Exam - General 1994 Ears/Nose/Throat oral cavity/pharynx/larynx Overall: hypopharynx benign 06/10/2017 None Full Exam - General 1994 Ears/Nose/Throat oral cavity/pharynx/larynx Overall: no masses 06/10/2017 None Full Exam - General 1994 Respiratory auscultation Overall: breath sounds clear bilaterally 06/10/2017 None Full Exam - General 1994 Cardiovascular extremities Overall: no clubbing 06/10/2017 None Full Exam - General 1994 Cardiovascular auscultation of heart Overall: regular rate 06/10/2017 None Full Exam - General 1994 Cardiovascular auscultation of heart Overall: normal heart sounds 06/10/2017 None Full Exam - General 1994 Abdomen abdominal exam Overall: normal bowel sounds 06/10/2017 None Full Exam - General 1994 Musculoskeletal spine, ribs and pelvis Overall: spine benign 06/10/2017 None Full Exam - General 1994 Musculoskeletal spine, ribs and pelvis Overall: sacroiliac joint benign 06/10/2017 None Full Exam - General 1994 Musculoskeletal spine, ribs and pelvis Overall: good posture 06/10/2017 None Full Exam - General 1994 Musculoskeletal head and neck Overall: cervical spine benign 06/10/2017 None Full Exam - General 1994 Neurologic deep tendon reflexes Overall: deep tendon reflexes intact 06/10/2017 None Full Exam - General 1994 Ears/Nose/Throat otoscopic exam Tympanic membrane: air- fluid level 06/10/2017 None Full Exam - General 1994 Abdomen abdominal exam Epigastric: tender to palpation 06/10/2017 None Full Exam - General 1994 Abdomen abdominal exam Lower quadrant: tender to palpation 06/10/2017 None Full Exam - General 1994 Constitutional general appearance Overall: well developed 04/14/2017 None Full Exam - General 1994 Constitutional general appearance Overall: well nourished 04/14/2017 None Full Exam - General 1994 Constitutional general appearance Overall: in no acute distress 04/14/2017 None Full Exam - General 1994 Eyes conjunctiva /eyelids Overall: conjunctiva clear 04/14/2017 None Full Exam - General 1994 Eyes conjunctiva /eyelids Overall: eyelids normal 04/14/2017 None Full Exam - General 1994 Ears/Nose/Throat lips/teeth/gingiva Overall: benign lips 04/14/2017 None Full Exam - General 1994 Ears/Nose/Throat oral cavity/pharynx/larynx Overall: oral mucosa clear 04/14/2017 None Full Exam - General 1994 Respiratory respiratory effort/rhythm Overall: no retractions 04/14/2017 None Full Exam - General 1994 Respiratory respiratory effort/rhythm Overall: normal rate 04/14/2017 None Full Exam - General 1994 Musculoskeletal gait and station Overall: normal gait 04/14/2017 None Full Exam - General 1994 Musculoskeletal gait and station Overall: normal station 04/14/2017 None Full Exam - General 1994 Musculoskeletal head and neck Overall: head atraumatic 04/14/2017 None Full Exam - General 1994 Neurologic cranial nerves Overall: crainial nerves 2 - 12 grossly intact 04/14/2017 None Full Exam - General 1994 Psychiatric orientation/consciousness Overall: oriented to person, place and time 04/14/2017 None Full Exam - General 1994 Psychiatric mood and affect Overall: normal mood and affect 04/14/2017 None Full Exam - General 1994 Psychiatric appearance Overall: well-groomed, good eye contact 04/14/2017 None Full Exam - General 1994 Constitutional general appearance Development: well developed 04/13/2017 None Full Exam - General 1994 Constitutional general appearance Development: appears stated age 0704/13/2017 None Full Exam - General 1994 Constitutional general appearance Hygiene/Attention to Grooming: good hygiene 04/13/2017 None Full Exam - General 1994 Eyes conjunctiva /eyelids Overall: conjunctiva clear 04/13/2017 None Full Exam - General 1994 Eyes conjunctiva /eyelids Overall: cornea clear 04/13/2017 None Full Exam - General 1994 Eyes conjunctiva /eyelids Overall: eyelids normal 04/13/2017 None Full Exam - General 1994 Eyes pupils and irises Overall: pupils equal, round, reactive to light and accomodation 04/13/2017 None Full Exam - General 1994 Ears/Nose/Throat otoscopic exam Overall: external auditory canals clear 04/13/2017 None Full Exam - General 1994 Ears/Nose/Throat otoscopic exam Overall: tympanic membranes clear 04/13/2017 None Full Exam - General 1994 Ears/Nose/Throat lips/teeth/gingiva Overall: benign lips 04/13/2017 None Full Exam - General 1994 Ears/Nose/Throat lips/teeth/gingiva Overall: normal dentition 04/13/2017 None Full Exam - General 1994 Ears/Nose/Throat oral cavity/pharynx/larynx Overall: oral mucosa clear 04/13/2017 None Full Exam - General 1994 Ears/Nose/Throat oral cavity/pharynx/larynx Overall: oropharyngeal mucosa clear 04/13/2017 None Full Exam - General 1994 Ears/Nose/Throat oral cavity/pharynx/larynx Overall: hypopharynx benign 04/13/2017 None Full Exam - General 1994 Ears/Nose/Throat oral cavity/pharynx/larynx Overall: no masses 04/13/2017 None Full Exam - General 1994 Respiratory auscultation Overall: breath sounds clear bilaterally 04/13/2017 None Full Exam - General 1994 Respiratory respiratory effort/rhythm Overall: no retractions 04/13/2017 None Full Exam - General 1994 Respiratory respiratory effort/rhythm Overall: normal rate 04/13/2017 None Full Exam - General 1994 Cardiovascular extremities Overall: no clubbing 04/13/2017 None Full Exam - General 1994 Cardiovascular auscultation of heart Overall: regular rate 04/13/2017 None Full Exam - General 1994 Cardiovascular auscultation of heart Overall: normal heart sounds 04/13/2017 None Full Exam - General 1994 Abdomen abdominal exam Overall: no tenderness 04/13/2017 None Full Exam - General 1994 Abdomen abdominal exam Overall: normal bowel sounds 04/13/2017 None Full Exam - General 1994 Musculoskeletal spine, ribs and pelvis Overall: spine benign 04/13/2017 None Full Exam - General 1994 Musculoskeletal spine, ribs and pelvis Overall: sacroiliac joint benign 04/13/2017 None Full Exam - General 1994 Musculoskeletal spine, ribs and pelvis Overall: good posture 04/13/2017 None Full Exam - General 1994 Musculoskeletal head and neck Overall: head atraumatic 04/13/2017 None Full Exam - General 1994 Musculoskeletal head and neck Overall: cervical spine benign 04/13/2017 None Full Exam - General 1994 Integument inspection of skin Dermatitis: thickened 04/13/2017 dry lesion on left forehead, right cheek, left and right hands and forearms. Full Exam - General 1994 Neurologic deep tendon reflexes Overall: deep tendon reflexes intact 04/13/2017 None Full Exam - General 1994 Neurologic cranial nerves Overall: crainial nerves 2 - 12 grossly intact 04/13/2017 None Full Exam - General 1994 Psychiatric orientation/consciousness Overall: oriented to person, place and time 04/13/2017 None Full Exam - General 1994 Psychiatric mood and affect Overall: normal mood and affect 04/13/2017 None Full Exam - General 1994 Constitutional general appearance Development: well developed 12/14/2016 None Full Exam - General 1994 Constitutional general appearance Development: appears stated age 0312/14/2016 None Full Exam - General 1994 Constitutional general appearance Hygiene/Attention to Grooming: good hygiene 12/14/2016 None Full Exam - General 1994 Eyes conjunctiva /eyelids Overall: conjunctiva clear 12/14/2016 None Full Exam - General 1994 Eyes conjunctiva /eyelids Overall: cornea clear 12/14/2016 None Full Exam - General 1994 Eyes conjunctiva /eyelids Overall: eyelids normal 12/14/2016 None Full Exam - General 1994 Eyes pupils and irises Overall: pupils equal, round, reactive to light and accomodation 12/14/2016 None Full Exam - General 1994 Ears/Nose/Throat otoscopic exam Overall: external auditory canals clear 12/14/2016 None Full Exam - General 1994 Ears/Nose/Throat otoscopic exam Overall: tympanic membranes clear 12/14/2016 None Full Exam - General 1994 Ears/Nose/Throat lips/teeth/gingiva Overall: benign lips 12/14/2016 None Full Exam - General 1994 Ears/Nose/Throat lips/teeth/gingiva Overall: normal dentition 12/14/2016 None Full Exam - General 1994 Ears/Nose/Throat oral cavity/pharynx/larynx Overall: oral mucosa clear 12/14/2016 None Full Exam - General 1994 Ears/Nose/Throat oral cavity/pharynx/larynx Overall: oropharyngeal mucosa clear 12/14/2016 None Full Exam - General 1994 Ears/Nose/Throat oral cavity/pharynx/larynx Overall: hypopharynx benign 12/14/2016 None Full Exam - General 1994 Ears/Nose/Throat oral cavity/pharynx/larynx Overall: no masses 12/14/2016 None Full Exam - General 1994 Respiratory auscultation Overall: breath sounds clear bilaterally 12/14/2016 None Full Exam - General 1994 Respiratory respiratory effort/rhythm Overall: no retractions 12/14/2016 None Full Exam - General 1994 Respiratory respiratory effort/rhythm Overall: normal rate 12/14/2016 None Full Exam - General 1994 Cardiovascular extremities Overall: no clubbing 12/14/2016 None Full Exam - General 1994 Cardiovascular auscultation of heart Overall: regular rate 12/14/2016 None Full Exam - General 1994 Cardiovascular auscultation of heart Overall: normal heart sounds 12/14/2016 None Full Exam - General 1994 Abdomen abdominal exam Overall: no tenderness 12/14/2016 None Full Exam - General 1994 Abdomen abdominal exam Overall: normal bowel sounds 12/14/2016 None Full Exam - General 1994 Musculoskeletal spine, ribs and pelvis Overall: spine benign 12/14/2016 None Full Exam - General 1994 Musculoskeletal spine, ribs and pelvis Overall: sacroiliac joint benign 12/14/2016 None Full Exam - General 1994 Musculoskeletal spine, ribs and pelvis Overall: good posture 12/14/2016 None Full Exam - General 1994 Musculoskeletal head and neck Overall: head atraumatic 12/14/2016 None Full Exam - General 1994 Musculoskeletal head and neck Overall: cervical spine benign 12/14/2016 None Full Exam - General 1994 Neurologic deep tendon reflexes Overall: deep tendon reflexes intact 12/14/2016 None Full Exam - General 1994 Neurologic cranial nerves Overall: crainial nerves 2 - 12 grossly intact 12/14/2016 None Full Exam - General 1994 Psychiatric orientation/consciousness Overall: oriented to person, place and time 12/14/2016 None Full Exam - General 1994 Psychiatric mood and affect Overall: normal mood and affect 12/14/2016 None Full Exam - General 1994 Integument inspection of skin Dermatitis: thickened 12/14/2016 dry lesion on left forehead, right cheek, left and right hands and forearms. Full Exam - General 1994 Constitutional general appearance Development: well developed 08/17/2016 None Full Exam - General 1994 Constitutional general appearance Development: appears stated age 1108/17/2016 None Full Exam - General 1994 Constitutional general appearance Hygiene/Attention to Grooming: good hygiene 08/17/2016 None Full Exam - General 1994 Eyes conjunctiva /eyelids Overall: conjunctiva clear 08/17/2016 None Full Exam - General 1994 Eyes conjunctiva /eyelids Overall: cornea clear 08/17/2016 None Full Exam - General 1994 Eyes conjunctiva /eyelids Overall: eyelids normal 08/17/2016 None Full Exam - General 1994 Eyes pupils and irises Overall: pupils equal, round, reactive to light and accomodation 08/17/2016 None Full Exam - General 1994 Ears/Nose/Throat otoscopic exam Overall: external auditory canals clear 08/17/2016 None Full Exam - General 1994 Ears/Nose/Throat otoscopic exam Overall: tympanic membranes clear 08/17/2016 None Full Exam - General 1994 Ears/Nose/Throat lips/teeth/gingiva Overall: benign lips 08/17/2016 None Full Exam - General 1994 Ears/Nose/Throat lips/teeth/gingiva Overall: normal dentition 08/17/2016 None Full Exam - General 1994 Ears/Nose/Throat oral cavity/pharynx/larynx Overall: oral mucosa clear 08/17/2016 None Full Exam - General 1994 Ears/Nose/Throat oral cavity/pharynx/larynx Overall: oropharyngeal mucosa clear 08/17/2016 None Full Exam - General 1994 Ears/Nose/Throat oral cavity/pharynx/larynx Overall: hypopharynx benign 08/17/2016 None Full Exam - General 1994 Ears/Nose/Throat oral cavity/pharynx/larynx Overall: no masses 08/17/2016 None Full Exam - General 1994 Respiratory auscultation Overall: breath sounds clear bilaterally 08/17/2016 None Full Exam - General 1994 Respiratory respiratory effort/rhythm Overall: no retractions 08/17/2016 None Full Exam - General 1994 Respiratory respiratory effort/rhythm Overall: normal rate 08/17/2016 None Full Exam - General 1994 Cardiovascular extremities Overall: no clubbing 08/17/2016 None Full Exam - General 1994 Cardiovascular auscultation of heart Overall: regular rate 08/17/2016 None Full Exam - General 1994 Cardiovascular auscultation of heart Overall: normal heart sounds 08/17/2016 None Full Exam - General 1994 Abdomen abdominal exam Overall: no tenderness 08/17/2016 None Full Exam - General 1994 Abdomen abdominal exam Overall: normal bowel sounds 08/17/2016 None Full Exam - General 1994 Musculoskeletal spine, ribs and pelvis Overall: spine benign 08/17/2016 None Full Exam - General 1994 Musculoskeletal spine, ribs and pelvis Overall: sacroiliac joint benign 08/17/2016 None Full Exam - General 1994 Musculoskeletal spine, ribs and pelvis Overall: good posture 08/17/2016 None Full Exam - General 1994 Musculoskeletal head and neck Overall: head atraumatic 08/17/2016 None Full Exam - General 1994 Musculoskeletal head and neck Overall: cervical spine benign 08/17/2016 None Full Exam - General 1994 Neurologic deep tendon reflexes Overall: deep tendon reflexes intact 08/17/2016 None Full Exam - General 1994 Neurologic cranial nerves Overall: crainial nerves 2 - 12 grossly intact 08/17/2016 None Full Exam - General 1994 Psychiatric orientation/consciousness Overall: oriented to person, place and time 08/17/2016 None Full Exam - General 1994 Psychiatric mood and affect Overall: normal mood and affect 08/17/2016 None Full Exam - General 1994 Constitutional general appearance Development: well developed 05/14/2016 None Full Exam - General 1994 Constitutional general appearance Development: appears stated age 0805/14/2016 None Full Exam - General 1994 Constitutional general appearance Hygiene/Attention to Grooming: good hygiene 05/14/2016 None Full Exam - General 1994 Eyes conjunctiva /eyelids Overall: conjunctiva clear 05/14/2016 None Full Exam - General 1994 Eyes conjunctiva /eyelids Overall: cornea clear 05/14/2016 None Full Exam - General 1994 Eyes conjunctiva /eyelids Overall: eyelids normal 05/14/2016 None Full Exam - General 1994 Ears/Nose/Throat lips/teeth/gingiva Overall: benign lips 05/14/2016 None Full Exam - General 1994 Ears/Nose/Throat lips/teeth/gingiva Overall: normal dentition 05/14/2016 None Full Exam - General 1994 Respiratory respiratory effort/rhythm Overall: no retractions 05/14/2016 None Full Exam - General 1994 Respiratory respiratory effort/rhythm Overall: normal rate 05/14/2016 None Full Exam - General 1994 Cardiovascular extremities Overall: no clubbing 05/14/2016 None Full Exam - General 1994 Musculoskeletal spine, ribs and pelvis Overall: good posture 05/14/2016 None Full Exam - General 1994 Integument inspection of skin Dermatitis: erythema 05/14/2016 None Full Exam - General 1994 Integument inspection of skin Location: right arm 05/14/2016 None Full Exam - General 1994 Integument inspection of skin Rash/Lesions: patch 05/14/2016 None Full Exam - General 1994 Integument inspection of skin Pigmentation: erythematous 05/14/2016 None Full Exam - General 1994 Neurologic cranial nerves Overall: crainial nerves 2 - 12 grossly intact 05/14/2016 None Full Exam - General 1994 Psychiatric orientation/consciousness Overall: oriented to person, place and time 05/14/2016 None Full Exam - General 1994 Psychiatric mood and affect Overall: normal mood and affect 05/14/2016 None Full Exam - General 1994 Abdomen abdominal exam Overall: no tenderness 05/14/2016 None Full Exam - General 1994 Abdomen abdominal exam Overall: normal bowel sounds 05/14/2016 None Full Exam - General 1994 Constitutional general appearance Development: well developed 03/27/2016 None Full Exam - General 1994 Constitutional general appearance Development: appears stated age 0703/27/2016 None Full Exam - General 1994 Constitutional general appearance Hygiene/Attention to Grooming: good hygiene 03/27/2016 None Full Exam - General 1994 Eyes conjunctiva /eyelids Overall: conjunctiva clear 03/27/2016 None Full Exam - General 1994 Eyes conjunctiva /eyelids Overall: cornea clear 03/27/2016 None Full Exam - General 1994 Eyes conjunctiva /eyelids Overall: eyelids normal 03/27/2016 None Full Exam - General 1994 Ears/Nose/Throat lips/teeth/gingiva Overall: benign lips 03/27/2016 None Full Exam - General 1994 Ears/Nose/Throat lips/teeth/gingiva Overall: normal dentition 03/27/2016 None Full Exam - General 1994 Respiratory respiratory effort/rhythm Overall: no retractions 03/27/2016 None Full Exam - General 1994 Respiratory respiratory effort/rhythm Overall: normal rate 03/27/2016 None Full Exam - General 1994 Cardiovascular extremities Overall: no clubbing 03/27/2016 None Full Exam - General 1994 Musculoskeletal spine, ribs and pelvis Overall: good posture 03/27/2016 None Full Exam - General 1994 Neurologic cranial nerves Overall: crainial nerves 2 - 12 grossly intact 03/27/2016 None Full Exam - General 1994 Psychiatric orientation/consciousness Overall: oriented to person, place and time 03/27/2016 None Full Exam - General 1994 Psychiatric mood and affect Overall: normal mood and affect 03/27/2016 None Full Exam - General 1994 Integument inspection of skin Location: right arm 03/27/2016 None Full Exam - General 1994 Integument inspection of skin Dermatitis: erythema 03/27/2016 None Full Exam - General 1994 Integument inspection of skin Rash/Lesions: patch 03/27/2016 None Full Exam - General 1994 Integument inspection of skin Pigmentation: erythematous 03/27/2016 None Full Exam - General 1994 Constitutional general appearance Development: well developed 03/26/2016 None Full Exam - General 1994 Constitutional general appearance Development: appears stated age 0603/26/2016 None Full Exam - General 1994 Constitutional general appearance Hygiene/Attention to Grooming: good hygiene 03/26/2016 None Full Exam - General 1994 Eyes conjunctiva /eyelids Overall: conjunctiva clear 03/26/2016 None Full Exam - General 1994 Eyes conjunctiva /eyelids Overall: cornea clear 03/26/2016 None Full Exam - General 1994 Eyes conjunctiva /eyelids Overall: eyelids normal 03/26/2016 None Full Exam - General 1994 Ears/Nose/Throat lips/teeth/gingiva Overall: benign lips 03/26/2016 None Full Exam - General 1994 Ears/Nose/Throat lips/teeth/gingiva Overall: normal dentition 03/26/2016 None Full Exam - General 1994 Respiratory respiratory effort/rhythm Overall: no retractions 03/26/2016 None Full Exam - General 1994 Respiratory respiratory effort/rhythm Overall: normal rate 03/26/2016 None Full Exam - General 1994 Cardiovascular extremities Overall: no clubbing 03/26/2016 None Full Exam - General 1994 Musculoskeletal spine, ribs and pelvis Overall: good posture 03/26/2016 None Full Exam - General 1994 Integument inspection of skin Dermatitis: erythema 03/26/2016 None Full Exam - General 1994 Integument inspection of skin Location: right arm 03/26/2016 None Full Exam - General 1994 Integument inspection of skin Rash/Lesions: patch 03/26/2016 None Full Exam - General 1994 Integument inspection of skin Pigmentation: erythematous 03/26/2016 None Full Exam - General 1994 Neurologic cranial nerves Overall: crainial nerves 2 - 12 grossly intact 03/26/2016 None Full Exam - General 1994 Psychiatric orientation/consciousness Overall: oriented to person, place and time 03/26/2016 None Full Exam - General 1994 Psychiatric mood and affect Overall: normal mood and affect 03/26/2016 None Full Exam - General 1994 Ears/Nose/Throat oral cavity/pharynx/larynx Overall: oral mucosa clear 03/26/2016 None Full Exam - General 1994 Ears/Nose/Throat oral cavity/pharynx/larynx Posterior Pharynx: clear post nasal drainage 03/26/2016 None Full Exam - General 1994 Ears/Nose/Throat otoscopic exam Overall: external auditory canals clear 03/26/2016 None Full Exam - General 1994 Ears/Nose/Throat otoscopic exam Tympanic membrane: air- fluid level 03/26/2016 None Full Exam - General 1994 Ears/Nose/Throat internal nose Sinus tenderness: left maxillary 03/26/2016 None Full Exam - General 1994 Ears/Nose/Throat internal nose Sinus tenderness: right maxillary 03/26/2016 None Full Exam - General 1994 Cardiovascular auscultation of heart Overall: regular rate 03/26/2016 None Full Exam - General 1994 Cardiovascular auscultation of heart Overall: normal heart sounds 03/26/2016 None Full Exam - General 1994 Psychiatric appearance Overall: well-groomed, good eye contact 03/26/2016 None Full Exam - General 1994 Constitutional general appearance Development: well developed 02/06/2016 None Full Exam - General 1994 Constitutional general appearance Development: appears stated age 0502/06/2016 None Full Exam - General 1994 Constitutional general appearance Hygiene/Attention to Grooming: good hygiene 02/06/2016 None Full Exam - General 1994 Eyes conjunctiva /eyelids Overall: conjunctiva clear 02/06/2016 None Full Exam - General 1994 Eyes conjunctiva /eyelids Overall: cornea clear 02/06/2016 None Full Exam - General 1994 Eyes conjunctiva /eyelids Overall: eyelids normal 02/06/2016 None Full Exam - General 1994 Eyes pupils and irises Overall: pupils equal, round, reactive to light and accomodation 02/06/2016 None Full Exam - General 1994 Ears/Nose/Throat otoscopic exam Overall: external auditory canals clear 02/06/2016 None Full Exam - General 1994 Ears/Nose/Throat otoscopic exam Overall: tympanic membranes clear 02/06/2016 None Full Exam - General 1994 Ears/Nose/Throat lips/teeth/gingiva Overall: benign lips 02/06/2016 None Full Exam - General 1994 Ears/Nose/Throat lips/teeth/gingiva Overall: normal dentition 02/06/2016 None Full Exam - General 1994 Ears/Nose/Throat oral cavity/pharynx/larynx Overall: oral mucosa clear 02/06/2016 None Full Exam - General 1994 Ears/Nose/Throat oral cavity/pharynx/larynx Overall: oropharyngeal mucosa clear 02/06/2016 None Full Exam - General 1994 Ears/Nose/Throat oral cavity/pharynx/larynx Overall: hypopharynx benign 02/06/2016 None Full Exam - General 1994 Ears/Nose/Throat oral cavity/pharynx/larynx Overall: no masses 02/06/2016 None Full Exam - General 1994 Respiratory auscultation Overall: breath sounds clear bilaterally 02/06/2016 None Full Exam - General 1994 Respiratory respiratory effort/rhythm Overall: no retractions 02/06/2016 None Full Exam - General 1994 Respiratory respiratory effort/rhythm Overall: normal rate 02/06/2016 None Full Exam - General 1994 Cardiovascular extremities Overall: no clubbing 02/06/2016 None Full Exam - General 1994 Cardiovascular auscultation of heart Overall: regular rate 02/06/2016 None Full Exam - General 1994 Cardiovascular auscultation of heart Overall: normal heart sounds 02/06/2016 None Full Exam - General 1994 Abdomen abdominal exam Overall: no tenderness 02/06/2016 None Full Exam - General 1994 Abdomen abdominal exam Overall: normal bowel sounds 02/06/2016 None Full Exam - General 1994 Musculoskeletal spine, ribs and pelvis Overall: spine benign 02/06/2016 None Full Exam - General 1994 Musculoskeletal spine, ribs and pelvis Overall: sacroiliac joint benign 02/06/2016 None Full Exam - General 1994 Musculoskeletal spine, ribs and pelvis Overall: good posture 02/06/2016 None Full Exam - General 1994 Musculoskeletal head and neck Overall: head atraumatic 02/06/2016 None Full Exam - General 1994 Musculoskeletal head and neck Overall: cervical spine benign 02/06/2016 None Full Exam - General 1994 Integument inspection of skin Overall: few scattered moles, no gross abnormalities 02/06/2016 None Full Exam - General 1994 Neurologic deep tendon reflexes Overall: deep tendon reflexes intact 02/06/2016 None Full Exam - General 1994 Neurologic cranial nerves Overall: crainial nerves 2 - 12 grossly intact 02/06/2016 None Full Exam - General 1994 Psychiatric orientation/consciousness Overall: oriented to person, place and time 02/06/2016 None Full Exam - General 1994 Psychiatric mood and affect Overall: normal mood and affect 02/06/2016 None Full Exam - General 1994 Constitutional general appearance Development: well developed 10/09/2015 None Full Exam - General 1994 Constitutional general appearance Development: appears stated age 0110/09/2015 None Full Exam - General 1994 Constitutional general appearance Hygiene/Attention to Grooming: good hygiene 10/09/2015 None Full Exam - General 1994 Eyes conjunctiva /eyelids Overall: conjunctiva clear 10/09/2015 None Full Exam - General 1994 Eyes conjunctiva /eyelids Overall: cornea clear 10/09/2015 None Full Exam - General 1994 Eyes conjunctiva /eyelids Overall: eyelids normal 10/09/2015 None Full Exam - General 1994 Eyes pupils and irises Overall: pupils equal, round, reactive to light and accomodation 10/09/2015 None Full Exam - General 1994 Ears/Nose/Throat otoscopic exam Overall: external auditory canals clear 10/09/2015 None Full Exam - General 1994 Ears/Nose/Throat otoscopic exam Overall: tympanic membranes clear 10/09/2015 None Full Exam - General 1994 Ears/Nose/Throat lips/teeth/gingiva Overall: benign lips 10/09/2015 None Full Exam - General 1994 Ears/Nose/Throat lips/teeth/gingiva Overall: normal dentition 10/09/2015 None Full Exam - General 1994 Ears/Nose/Throat oral cavity/pharynx/larynx Overall: oral mucosa clear 10/09/2015 None Full Exam - General 1994 Ears/Nose/Throat oral cavity/pharynx/larynx Overall: oropharyngeal mucosa clear 10/09/2015 None Full Exam - General 1994 Ears/Nose/Throat oral cavity/pharynx/larynx Overall: hypopharynx benign 10/09/2015 None Full Exam - General 1994 Ears/Nose/Throat oral cavity/pharynx/larynx Overall: no masses 10/09/2015 None Full Exam - General 1994 Respiratory auscultation Overall: breath sounds clear bilaterally 10/09/2015 None Full Exam - General 1994 Respiratory respiratory effort/rhythm Overall: no retractions 10/09/2015 None Full Exam - General 1994 Respiratory respiratory effort/rhythm Overall: normal rate 10/09/2015 None Full Exam - General 1994 Cardiovascular extremities Overall: no clubbing 10/09/2015 None Full Exam - General 1994 Cardiovascular auscultation of heart Overall: regular rate 10/09/2015 None Full Exam - General 1994 Cardiovascular auscultation of heart Overall: normal heart sounds 10/09/2015 None Full Exam - General 1994 Abdomen abdominal exam Overall: no tenderness 10/09/2015 None Full Exam - General 1994 Abdomen abdominal exam Overall: normal bowel sounds 10/09/2015 None Full Exam - General 1994 Musculoskeletal spine, ribs and pelvis Overall: spine benign 10/09/2015 None Full Exam - General 1994 Musculoskeletal spine, ribs and pelvis Overall: sacroiliac joint benign 10/09/2015 None Full Exam - General 1994 Musculoskeletal spine, ribs and pelvis Overall: good posture 10/09/2015 None Full Exam - General 1994 Musculoskeletal head and neck Overall: head atraumatic 10/09/2015 None Full Exam - General 1994 Musculoskeletal head and neck Overall: cervical spine benign 10/09/2015 None Full Exam - General 1994 Integument inspection of skin Overall: few scattered moles, no gross abnormalities 10/09/2015 None Full Exam - General 1994 Neurologic deep tendon reflexes Overall: deep tendon reflexes intact 10/09/2015 None Full Exam - General 1994 Neurologic cranial nerves Overall: crainial nerves 2 - 12 grossly intact 10/09/2015 None Full Exam - General 1994 Psychiatric orientation/consciousness Overall: oriented to person, place and time 10/09/2015 None Full Exam - General 1994 Psychiatric mood and affect Overall: normal mood and affect 10/09/2015 None Full Exam - General 1994 Constitutional general appearance Development: well developed 07/09/2015 None Full Exam - General 1994 Constitutional general appearance Development: appears stated age 1007/09/2015 None Full Exam - General 1994 Constitutional general appearance Hygiene/Attention to Grooming: good hygiene 07/09/2015 None Full Exam - General 1994 Eyes conjunctiva /eyelids Overall: conjunctiva clear 07/09/2015 None Full Exam - General 1994 Eyes conjunctiva /eyelids Overall: cornea clear 07/09/2015 None Full Exam - General 1994 Eyes conjunctiva /eyelids Overall: eyelids normal 07/09/2015 None Full Exam - General 1994 Eyes pupils and irises Overall: pupils equal, round, reactive to light and accomodation 07/09/2015 None Full Exam - General 1994 Ears/Nose/Throat otoscopic exam Overall: external auditory canals clear 07/09/2015 None Full Exam - General 1994 Ears/Nose/Throat otoscopic exam Overall: tympanic membranes clear 07/09/2015 None Full Exam - General 1994 Ears/Nose/Throat lips/teeth/gingiva Overall: benign lips 07/09/2015 None Full Exam - General 1994 Ears/Nose/Throat lips/teeth/gingiva Overall: normal dentition 07/09/2015 None Full Exam - General 1994 Ears/Nose/Throat oral cavity/pharynx/larynx Overall: oral mucosa clear 07/09/2015 None Full Exam - General 1994 Ears/Nose/Throat oral cavity/pharynx/larynx Overall: oropharyngeal mucosa clear 07/09/2015 None Full Exam - General 1994 Ears/Nose/Throat oral cavity/pharynx/larynx Overall: hypopharynx benign 07/09/2015 None Full Exam - General 1994 Ears/Nose/Throat oral cavity/pharynx/larynx Overall: no masses 07/09/2015 None Full Exam - General 1994 Respiratory auscultation Overall: breath sounds clear bilaterally 07/09/2015 None Full Exam - General 1994 Respiratory respiratory effort/rhythm Overall: no retractions 07/09/2015 None Full Exam - General 1994 Respiratory respiratory effort/rhythm Overall: normal rate 07/09/2015 None Full Exam - General 1994 Cardiovascular extremities Overall: no clubbing 07/09/2015 None Full Exam - General 1994 Cardiovascular auscultation of heart Overall: regular rate 07/09/2015 None Full Exam - General 1994 Cardiovascular auscultation of heart Overall: normal heart sounds 07/09/2015 None Full Exam - General 1994 Abdomen abdominal exam Overall: no tenderness 07/09/2015 None Full Exam - General 1994 Abdomen abdominal exam Overall: normal bowel sounds 07/09/2015 None Full Exam - General 1994 Lymphatic neck nodes Overall: anterior cervical chain benign 07/09/2015 None Full Exam - General 1994 Lymphatic neck nodes Overall: posterior cervical chain benign 07/09/2015 None Full Exam - General 1994 Musculoskeletal spine, ribs and pelvis Overall: spine benign 07/09/2015 None Full Exam - General 1994 Musculoskeletal spine, ribs and pelvis Overall: sacroiliac joint benign 07/09/2015 None Full Exam - General 1994 Musculoskeletal spine, ribs and pelvis Overall: good posture 07/09/2015 None Full Exam - General 1994 Musculoskeletal head and neck Overall: head atraumatic 07/09/2015 None Full Exam - General 1994 Musculoskeletal head and neck Overall: cervical spine benign 07/09/2015 None Full Exam - General 1994 Integument inspection of skin Overall: few scattered moles, no gross abnormalities 07/09/2015 None Full Exam - General 1994 Neurologic deep tendon reflexes Overall: deep tendon reflexes intact 07/09/2015 None Full Exam - General 1994 Neurologic cranial nerves Overall: crainial nerves 2 - 12 grossly intact 07/09/2015 None Full Exam - General 1994 Psychiatric orientation/consciousness Overall: oriented to person, place and time 07/09/2015 None Full Exam - General 1994 Psychiatric mood and affect Overall: normal mood and affect 07/09/2015 None Procedures Procedure Codes Date ADMIN INFLUENZA VIRUS VAC CPT-4: G0008 07/21/2017 FLU VACC PRSV FREE INC ANTIG CPT-4: 07210 07/21/2017 URINALYSIS NONAUTO W/O SCOPE CPT-4: 50568 06/10/2017 PPPS, SUBSEQ VISIT CPT -4: G0439 04/14/2017 ADMIN INFLUENZA VIRUS VAC CPT-4: G0008 07/09/2015 FLU VACC 4 TAMI 3 YRS PLUS IM SNOMED CT: [id number] CPT-4: 90812 07/09/2015 Vital Signs Date Vital 08/12/2017 Blood Pressure 1: 138/80 Code : 8480-6 BMI: 28.8 Code : 66155-6 Heart Rate 1 : 95 bpm Height: 5'7" SpO2: 98% Weight: 184 lbs 06/16/2017 Blood Pressure 1: 142/96 Code : 8480-6 BMI: 30.1 Code : 84935-4 Heart Rate 1 : 107 bpm Height: 5'7" SpO2: 97% Weight: 192 lbs 06/14/2017 Blood Pressure 1: 152/80 Code : 8480-6 Heart Rate 1: 113 bpm Height: 5'7" SpO2: 97% Temperature: 36.9 (C) / 98.5 (F) 06/10/2017 Blood Pressure 1: 134/82 Code : 8480-6 BMI: 30.1 Code : 73001-9 Heart Rate 1 : 103 bpm Height: 5'7" SpO2: 97% Temperature: 36.3 (C) / 97.3 (F) Weight: 192 lbs 04/14/2017 BMI: 30.5 Code: 68119-1 Height: 5'7" Weight: 195 lbs 04/13/2017 Blood Pressure 1: 160/80 Code : 8480-6 Blood Pressure 2: 140/78 Code: 8480-6 BMI: 30.5 Code: 34745-7 Heart Rate 1: 94 bpm Height: 5'7" SpO2: 96% Weight: 195 lbs 12/14/2016 Blood Pressure 1: 140/78 Code : 8480-6 BMI: 31.6 Code : 52109-0 Heart Rate 1 : 99 bpm Height: 5'7" SpO2: 98% Weight: 202 lbs 08/17/2016 Blood Pressure 1: 138/78 Code : 8480-6 BMI: 32.0 Code : 24132-5 Heart Rate 1 : 97 bpm Height: 5'7" SpO2: 98% Weight: 204 lbs 8 oz 05/14/2016 Blood Pressure 1: 146/82 Code : 8480-6 Blood Pressure 1: 138/78 Code: 8480-6 BMI: 32.7 Code: 65390-2 Heart Rate 1: 100 bpm Height: 5'7" SpO2: 98% Weight: 209 lbs 03/27/2016 Blood Pressure 1: 130/68 Code : 8480-6 BMI: 33.0 Code : 89380-2 Heart Rate 1 : 81 bpm Height: 5'7" SpO2: 97% Weight: 211 lbs 03/26/2016 Blood Pressure 1: 130/68 Code : 8480-6 BMI: 33.0 Code : 32114-0 Heart Rate 1 : 104 bpm Height: 5'7" SpO2: 98% Weight: 211 lbs 02/06/2016 Blood Pressure 1: 138/84 Code : 8480-6 BMI: 33.2 Code : 69489-2 Heart Rate 1 : 80 bpm Height: 5'7" SpO2: 98% Weight: 212 lbs 10/09/2015 Blood Pressure 1: 134/76 Code : 8480-6 BMI: 32.7 Code : 55544-5 Heart Rate 1 : 98 bpm Height: 5'7" SpO2: 98% Weight: 209 lbs 07/09/2015 Blood Pressure 1: 135/76 Code : 8480-6 Heart Rate 1: 75 bpm Height: Respiratory Rate: 16 bpm Weight: Functional Status No Functional Status data History of Present Illness Symptom Name Status Result Effective Date Notes diabetes mellitus Onset of Symptom onset as an adult 08/12/2017 None diabetes mellitus Quality chronic 08/12/2017 None diabetes mellitus Quality non-insulin dependent 08/12/2017 None diabetes mellitus Alleviating Factors medication 08/12/2017 None diabetes mellitus Alleviating Factors exercise 08/12/2017 None diabetes mellitus Exacerbating Factors diet 08/12/2017 None diabetes mellitus Nutrition ADA diet 08/12/2017 None diabetes mellitus Pertinent Findings Denies dizziness 08/12/2017 None diabetes mellitus Pertinent Findings Denies dyspnea 08/12/2017 None diabetes mellitus Pertinent Findings nausea 08/12/2017 occasionally hypothyroid Quality stable 08/12/2017 None hypothyroid Onset and Resolution ongoing 08/12/2017 None hypothyroid Alleviating Factors medication 08/12/2017 None hypertension Onset and Resolution ongoing 08/12/2017 None hypertension Onset of Symptom during adulthood 08/12/2017 None hypertension Blood Pressure Values not checking blood pressure at home 08/12/2017 None hypertension Alleviating Factors medication 08/12/2017 None hypertension Pertinent Findings Denies dizziness 08/12/2017 None hypertension Pertinent Findings Denies dyspnea 08/12/2017 None hypertension Pertinent Findings Denies edema 08/12/2017 None hyperlipidemia Onset and Resolution gradual in onset 08/12/2017 None hyperlipidemia Onset and Resolution ongoing 08/12/2017 None hyperlipidemia Onset of Symptom during adulthood 08/12/2017 None hyperlipidemia Alleviating Factors medication 08/12/2017 None hyperlipidemia Exacerbating Factors diet 08/12/2017 None abdominal pain Location in the LUQ 06/16/2017 None abdominal pain Location in the RUQ 06/16/2017 None abdominal pain Quality burning 06/16/2017 None abdominal pain Quality dull 06/16/2017 None abdominal pain Onset and Resolution ongoing 06/16/2017 None abdominal pain Onset of Symptom 3 days ago 06/16/2017 None abdominal pain Limitation on Activities does not limit activities 06/16/2017 None abdominal pain Triggers no known associated factors 06/16/2017 None abdominal pain Pertinent Findings bloating 06/16/2017 None abdominal pain Pertinent Findings diverticulosis 06/16/2017 None abdominal pain Pertinent Findings Denies emesis 06/16/2017 None abdominal pain Pertinent Findings fever 06/16/2017 None abdominal pain Pertinent Findings Denies increased appetite 06/16/2017 None abdominal pain Pertinent Findings nausea 06/16/2017 None abdominal pain Location in the LUQ 06/14/2017 None abdominal pain Location in the RUQ 06/14/2017 None abdominal pain Quality burning 06/14/2017 None abdominal pain Quality dull 06/14/2017 None abdominal pain Onset and Resolution ongoing 06/14/2017 None abdominal pain Onset of Symptom 3 days ago 06/14/2017 None abdominal pain Limitation on Activities does not limit activities 06/14/2017 None abdominal pain Triggers no known associated factors 06/14/2017 None abdominal pain Pertinent Findings bloating 06/14/2017 None abdominal pain Pertinent Findings diverticulosis 06/14/2017 None abdominal pain Pertinent Findings Denies emesis 06/14/2017 None abdominal pain Pertinent Findings fever 06/14/2017 None abdominal pain Pertinent Findings Denies increased appetite 06/14/2017 None abdominal pain Pertinent Findings nausea 06/14/2017 None abdominal pain Location in the LUQ 06/10/2017 None abdominal pain Location in the RUQ 06/10/2017 None abdominal pain Quality burning 06/10/2017 None abdominal pain Quality dull 06/10/2017 None abdominal pain Pertinent Findings bloating 06/10/2017 None abdominal pain Pertinent Findings diverticulosis 06/10/2017 None abdominal pain Pertinent Findings fever 06/10/2017 None abdominal pain Pertinent Findings Denies emesis 06/10/2017 None abdominal pain Pertinent Findings Denies increased appetite 06/10/2017 None abdominal pain Pertinent Findings nausea 06/10/2017 None dysuria Onset and Resolution sudden in onset 06/10/2017 None dysuria Onset and Resolution ongoing 06/10/2017 None dysuria Onset of Symptom _ days ago 06/10/2017 None dysuria Quality aching 06/10/2017 None dysuria Quality burning 06/10/2017 None dysuria Quality dull 06/10/2017 None dysuria Pertinent Findings bladder pain 06/10/2017 None dysuria Pertinent Findings Denies urinary urgency 06/10/2017 None abdominal pain Onset and Resolution ongoing 06/10/2017 None abdominal pain Onset of Symptom 3 days ago 06/10/2017 None abdominal pain Limitation on Activities does not limit activities 06/10/2017 None abdominal pain Triggers no known associated factors 06/10/2017 None Annual Medicare Wellness Exam Alcohol Use does not drink any alcohol 04/14/2017 None Annual Medicare Wellness Exam Aspirin Use no 04/14/2017 None Annual Medicare Wellness Exam Blood Glucose (self reported) high (126 or higher) 04/14/2017 None Annual Medicare Wellness Exam Blood Pressure (self reported ) high (140/90 or higher) 04/14/2017 None Annual Medicare Wellness Exam Cholesterol (self reported) desireable (below 200) 04/14/2017 None Annual Medicare Wellness Exam Depression (last 6 months) almost never 04/14/2017 None Annual Medicare Wellness Exam Depression or Hopelessness almost never 04/14/2017 None Annual Medicare Wellness Exam Describe Your Health very good 04/14/2017 None Annual Medicare Wellness Exam Exercise Habits exercises 7 days per week 04/14/2017 None Annual Medicare Wellness Exam Handling Stress usually nirmal effectively 04/14/2017 None Annual Medicare Wellness Exam Hemaglobin A-1C (self reported ) borderline high (7) 04/14/2017 None Annual Medicare Wellness Exam Hours of Sleep 6-7 04/14/2017 None Annual Medicare Wellness Exam Interaction with Friends yes 04/14/2017 None Annual Medicare Wellness Exam Interests & Pleasure some of the time 04/14/2017 None Annual Medicare Wellness Exam Life Satisfaction satisfied 04/14/2017 None Annual Medicare Wellness Exam Motor Vehicle Safety always fastens seat belt: y 04/14/2017 None Annual Medicare Wellness Exam Nutrition servings of vegetables / fruit per day: 2 04/14/2017 None Annual Medicare Wellness Exam Smoking and Tobacco Use non smoker 04/14/2017 None Annual Medicare Wellness Exam Social & Emotional Support usually 04/14/2017 None Annual Medicare Wellness Exam Stress some of the time 04/14/2017 None Annual Medicare Wellness Exam Sun Exposure protects skin when outdoors: n 04/14/2017 None diabetes mellitus Onset of Symptom onset as an adult 04/13/2017 None diabetes mellitus Quality non-insulin dependent 04/13/2017 None diabetes mellitus Quality chronic 04/13/2017 None diabetes mellitus Alleviating Factors medication 04/13/2017 None diabetes mellitus Alleviating Factors exercise 04/13/2017 None diabetes mellitus Exacerbating Factors diet 04/13/2017 None diabetes mellitus Nutrition ADA diet 04/13/2017 None diabetes mellitus Pertinent Findings Denies dizziness 04/13/2017 None diabetes mellitus Pertinent Findings Denies dyspnea 04/13/2017 None diabetes mellitus Pertinent Findings nausea 04/13/2017 occasionally hypothyroid Quality stable 04/13/2017 None hypothyroid Onset and Resolution ongoing 04/13/2017 None hypothyroid Alleviating Factors medication 04/13/2017 None hypertension Onset and Resolution ongoing 04/13/2017 None hypertension Onset of Symptom during adulthood 04/13/2017 None hypertension Blood Pressure Values not checking blood pressure at home 04/13/2017 None hypertension Alleviating Factors medication 04/13/2017 None hypertension Pertinent Findings Denies dizziness 04/13/2017 None hypertension Pertinent Findings Denies dyspnea 04/13/2017 None hypertension Pertinent Findings Denies edema 04/13/2017 None hyperlipidemia Onset and Resolution gradual in onset 04/13/2017 None hyperlipidemia Onset and Resolution ongoing 04/13/2017 None hyperlipidemia Onset of Symptom during adulthood 04/13/2017 None hyperlipidemia Alleviating Factors medication 04/13/2017 None hyperlipidemia Exacerbating Factors diet 04/13/2017 None diabetes mellitus Glucose monitoring daily 04/13/2017 None diabetes mellitus Onset of Symptom onset as an adult 12/14/2016 None diabetes mellitus Quality chronic 12/14/2016 None diabetes mellitus Alleviating Factors medication 12/14/2016 None diabetes mellitus Alleviating Factors exercise 12/14/2016 None diabetes mellitus Exacerbating Factors diet 12/14/2016 None diabetes mellitus Nutrition ADA diet 12/14/2016 None diabetes mellitus Pertinent Findings Denies dizziness 12/14/2016 None diabetes mellitus Pertinent Findings Denies dyspnea 12/14/2016 None diabetes mellitus Pertinent Findings nausea 12/14/2016 occasionally hypothyroid Quality stable 12/14/2016 None hypothyroid Onset and Resolution ongoing 12/14/2016 None hypothyroid Alleviating Factors medication 12/14/2016 None hypertension Onset and Resolution ongoing 12/14/2016 None hypertension Onset of Symptom during adulthood 12/14/2016 None hypertension Blood Pressure Values not checking blood pressure at home 12/14/2016 None hypertension Alleviating Factors medication 12/14/2016 None hypertension Pertinent Findings Denies dizziness 12/14/2016 None hypertension Pertinent Findings Denies dyspnea 12/14/2016 None hypertension Pertinent Findings Denies edema 12/14/2016 None hyperlipidemia Onset and Resolution gradual in onset 12/14/2016 None hyperlipidemia Onset and Resolution ongoing 12/14/2016 None hyperlipidemia Onset of Symptom during adulthood 12/14/2016 None hyperlipidemia Alleviating Factors medication 12/14/2016 None hyperlipidemia Exacerbating Factors diet 12/14/2016 None diabetes mellitus Quality non-insulin dependent 12/14/2016 None diabetes mellitus Glucose monitoring fasting 12/14/2016 None diabetes mellitus Test results Pt checking blood glucose readings, did not bring results to clinic 12/14/2016 None rash Location-Major on the chest 12/14/2016 None rash Location-Trunk on the left upper chest 12/14/2016 None rash Quality recurrent 12/14/2016 None rash Color erythematous 12/14/2016 None rash Quality pruritic 12/14/2016 None rash Triggers no known triggers 12/14/2016 None diabetes mellitus Onset of Symptom onset as an adult 08/17/2016 None diabetes mellitus Quality chronic 08/17/2016 None diabetes mellitus Alleviating Factors medication 08/17/2016 None diabetes mellitus Alleviating Factors exercise 08/17/2016 None diabetes mellitus Exacerbating Factors diet 08/17/2016 None diabetes mellitus Nutrition ADA diet 08/17/2016 None diabetes mellitus Pertinent Findings Denies dizziness 08/17/2016 None diabetes mellitus Pertinent Findings Denies dyspnea 08/17/2016 None diabetes mellitus Pertinent Findings Denies nausea 08/17/2016 in the mornings hypothyroid Quality stable 08/17/2016 None hypothyroid Onset and Resolution ongoing 08/17/2016 None hypothyroid Alleviating Factors medication 08/17/2016 None hypertension Onset and Resolution ongoing 08/17/2016 None hypertension Onset of Symptom during adulthood 08/17/2016 None hypertension Blood Pressure Values not checking blood pressure at home 08/17/2016 None hypertension Alleviating Factors medication 08/17/2016 None hypertension Pertinent Findings Denies dizziness 08/17/2016 None hypertension Pertinent Findings Denies dyspnea 08/17/2016 None hypertension Pertinent Findings Denies edema 08/17/2016 None hyperlipidemia Onset and Resolution gradual in onset 08/17/2016 None hyperlipidemia Onset and Resolution ongoing 08/17/2016 None hyperlipidemia Onset of Symptom during adulthood 08/17/2016 None hyperlipidemia Alleviating Factors medication 08/17/2016 None hyperlipidemia Exacerbating Factors diet 08/17/2016 None diabetes mellitus Test results Pt checking blood glucose readings, did not bring results to clinic 08/17/2016 None diabetes mellitus Glucose monitoring daily 08/17/2016 None diabetes mellitus Quality insulin dependent 08/17/2016 None diabetes mellitus Onset of Symptom onset as an adult 05/14/2016 None diabetes mellitus Quality non-insulin dependent 05/14/2016 None diabetes mellitus Quality chronic 05/14/2016 None diabetes mellitus Alleviating Factors medication 05/14/2016 None diabetes mellitus Alleviating Factors exercise 05/14/2016 None diabetes mellitus Exacerbating Factors diet 05/14/2016 None diabetes mellitus Nutrition ADA diet 05/14/2016 None diabetes mellitus Pertinent Findings Denies dizziness 05/14/2016 None diabetes mellitus Pertinent Findings Denies dyspnea 05/14/2016 None diabetes mellitus Pertinent Findings nausea 05/14/2016 in the mornings hypothyroid Quality stable 05/14/2016 None hypothyroid Onset and Resolution ongoing 05/14/2016 None hypothyroid Alleviating Factors medication 05/14/2016 None hypertension Onset and Resolution ongoing 05/14/2016 None hypertension Onset of Symptom during adulthood 05/14/2016 None hypertension Blood Pressure Values not checking blood pressure at home 05/14/2016 None hypertension Alleviating Factors medication 05/14/2016 None hypertension Pertinent Findings Denies dizziness 05/14/2016 None hypertension Pertinent Findings Denies dyspnea 05/14/2016 None hypertension Pertinent Findings Denies edema 05/14/2016 None hyperlipidemia Onset and Resolution gradual in onset 05/14/2016 None hyperlipidemia Onset and Resolution ongoing 05/14/2016 None hyperlipidemia Onset of Symptom during adulthood 05/14/2016 None hyperlipidemia Alleviating Factors medication 05/14/2016 None hyperlipidemia Exacerbating Factors diet 05/14/2016 None diabetes mellitus Test results Pt checking blood glucose readings, did not bring results to clinic 05/14/2016 None diabetes mellitus Glucose monitoring daily 05/14/2016 None back pain Location in the right middle back area 05/14/2016 None back pain Location in the right lower back area 05/14/2016 None back pain Quality acute 05/14/2016 None back pain Quality intermittent 05/14/2016 None back pain Onset and Resolution sudden in onset 05/14/2016 None back pain Onset of Symptom 2 days ago 05/14/2016 None back pain Triggers bending 05/14/2016 None back pain Triggers lifting 05/14/2016 None back pain Alleviating Factors rest 05/14/2016 None back pain Pertinent Findings muscle strain 05/14/2016 None nausea Onset and Resolution ongoing 05/14/2016 None nausea Frequency of Episodes daily 05/14/2016 None nausea Timing of Episodes in the morning 05/14/2016 None nausea Triggers no known associated factors 05/14/2016 None headache Onset and Resolution ongoing 05/14/2016 None headache Frequency of Episodes daily 05/14/2016 None diabetes mellitus Quality non-insulin dependent 03/27/2016 None diabetes mellitus Quality chronic 03/27/2016 None diabetes mellitus Alleviating Factors medication 03/27/2016 None diabetes mellitus Alleviating Factors exercise 03/27/2016 None diabetes mellitus Exacerbating Factors diet 03/27/2016 None diabetes mellitus Nutrition ADA diet 03/27/2016 None diabetes mellitus Pertinent Findings Denies dizziness 03/27/2016 None diabetes mellitus Pertinent Findings Denies dyspnea 03/27/2016 None diabetes mellitus Pertinent Findings nausea 03/27/2016 in the mornings diabetes mellitus Onset of Symptom onset as an adult 03/27/2016 None diabetes mellitus Onset of Symptom onset as an adult 03/26/2016 None diabetes mellitus Quality non-insulin dependent 03/26/2016 None diabetes mellitus Quality chronic 03/26/2016 None diabetes mellitus Alleviating Factors medication 03/26/2016 None diabetes mellitus Alleviating Factors exercise 03/26/2016 None diabetes mellitus Exacerbating Factors diet 03/26/2016 None diabetes mellitus Nutrition ADA diet 03/26/2016 None diabetes mellitus Pertinent Findings Denies dizziness 03/26/2016 None diabetes mellitus Pertinent Findings Denies dyspnea 03/26/2016 None diabetes mellitus Pertinent Findings nausea 03/26/2016 in the mornings hypothyroid Quality stable 03/26/2016 None hypothyroid Onset and Resolution ongoing 03/26/2016 None hypothyroid Alleviating Factors medication 03/26/2016 None hypertension Onset and Resolution ongoing 03/26/2016 None hypertension Onset of Symptom during adulthood 03/26/2016 None hypertension Blood Pressure Values not checking blood pressure at home 03/26/2016 None hypertension Alleviating Factors medication 03/26/2016 None hypertension Pertinent Findings Denies dizziness 03/26/2016 None hypertension Pertinent Findings Denies dyspnea 03/26/2016 None hypertension Pertinent Findings Denies edema 03/26/2016 None hyperlipidemia Onset and Resolution gradual in onset 03/26/2016 None hyperlipidemia Onset and Resolution ongoing 03/26/2016 None hyperlipidemia Onset of Symptom during adulthood 03/26/2016 None hyperlipidemia Alleviating Factors medication 03/26/2016 None hyperlipidemia Exacerbating Factors diet 03/26/2016 None nasal allergies Onset and Resolution ongoing 03/26/2016 None nasal allergies Triggers season change 03/26/2016 None sinus congestion Location on both sides 03/26/2016 None sinus congestion Quality fullness 03/26/2016 None sinus congestion Quality pressure 03/26/2016 None earache Location both ears 03/26/2016 None earache Onset and Resolution sudden in onset 03/26/2016 None diabetes mellitus Onset of Symptom onset as an adult 02/06/2016 None diabetes mellitus Quality chronic 02/06/2016 None diabetes mellitus Alleviating Factors medication 02/06/2016 None diabetes mellitus Alleviating Factors exercise 02/06/2016 None diabetes mellitus Exacerbating Factors diet 02/06/2016 None diabetes mellitus Nutrition ADA diet 02/06/2016 None diabetes mellitus Pertinent Findings Denies dizziness 02/06/2016 None diabetes mellitus Pertinent Findings Denies dyspnea 02/06/2016 None diabetes mellitus Pertinent Findings nausea 02/06/2016 in the mornings hypothyroid Quality stable 02/06/2016 None hypothyroid Onset and Resolution ongoing 02/06/2016 None hypothyroid Alleviating Factors medication 02/06/2016 None diabetes mellitus Quality non-insulin dependent 02/06/2016 None diabetes mellitus Glucose monitoring fasting 02/06/2016 None diabetes mellitus Test results Pt checking blood glucose readings, did not bring results to clinic 02/06/2016 she reports that in the mornings her fsbs are running in the 160's hypertension Onset and Resolution ongoing 02/06/2016 None hypertension Onset of Symptom during adulthood 02/06/2016 None hypertension Blood Pressure Values not checking blood pressure at home 02/06/2016 None hypertension Alleviating Factors medication 02/06/2016 None hypertension Pertinent Findings Denies dizziness 02/06/2016 None hypertension Pertinent Findings Denies dyspnea 02/06/2016 None hypertension Pertinent Findings Denies edema 02/06/2016 None hyperlipidemia Onset and Resolution ongoing 02/06/2016 None hyperlipidemia Onset and Resolution gradual in onset 02/06/2016 None hyperlipidemia Onset of Symptom during adulthood 02/06/2016 None hyperlipidemia Alleviating Factors medication 02/06/2016 None hyperlipidemia Exacerbating Factors diet 02/06/2016 None nasal allergies Onset and Resolution ongoing 02/06/2016 None nasal allergies Triggers season change 02/06/2016 None diabetes mellitus Onset of Symptom onset as an adult 10/09/2015 None diabetes mellitus Quality insulin dependent 10/09/2015 None diabetes mellitus Quality chronic 10/09/2015 None diabetes mellitus Alleviating Factors medication 10/09/2015 None diabetes mellitus Alleviating Factors exercise 10/09/2015 None diabetes mellitus Alleviating Factors insulin 10/09/2015 None diabetes mellitus Nutrition ADA diet 10/09/2015 None hypothyroid Onset and Resolution ongoing 10/09/2015 None hypothyroid Alleviating Factors medication 10/09/2015 None diabetes mellitus Glucose monitoring fasting 10/09/2015 None diabetes mellitus Test results Pt checking blood glucose readings, did not bring results to clinic 10/09/2015 she reports that her FSBS have been in the 130-145 range at home in the morning - she reports that her FSBS last week were in the 150's diabetes mellitus Pertinent Findings nausea 10/09/2015 "a little bit" diabetes mellitus Pertinent Findings Denies dizziness 10/09/2015 None diabetes mellitus Pertinent Findings Denies dyspnea 10/09/2015 None diabetes mellitus Exacerbating Factors diet 10/09/2015 None hypothyroid Quality stable 10/09/2015 None diabetes mellitus Alleviating Factors diet 07/09/2015 None diabetes mellitus Alleviating Factors exercise 07/09/2015 None diabetes mellitus Alleviating Factors insulin 07/09/2015 None diabetes mellitus Alleviating Factors medication 07/09/2015 None diabetes mellitus Exercise minimal exercise 07/09/2015 None diabetes mellitus Nutrition ADA diet 07/09/2015 None diabetes mellitus Onset of Symptom onset as an adult 07/09/2015 None diabetes mellitus Quality chronic 07/09/2015 None diabetes mellitus Quality insulin dependent 07/09/2015 None diabetes mellitus Quality non-insulin dependent 07/09/2015 None diabetes mellitus Test results HgbA1c level _ 07/09/2015 None Advance Directives No Advance Directive data Encounters Encounter Performer Location Codes Date () 97717 EST. 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 PATIENT, LEVEL V Diagnosis: Gastro-esophageal reflux disease without esophagitis[ICD10: K21.9] Diagnosis: Nausea[ICD10: R11.0] Diagnosis: Generalized abdominal pain[ICD10: R10.84] Thania Warren MD, [facility] CPT-4: 14431 06/16/2017 ([id number]) Miscellaneous no charge Diagnosis: Generalized abdominal pain[ICD10: R10.84] Diagnosis: Nausea[ICD10: R11.0] Camilla Warren MD, [facility] CPT-4: 52593 06/14/2017 ([id number]) 79510 EST. PATIENT, LEVEL III Diagnosis: Generalized abdominal pain[ICD10: R10.84] Diagnosis: Other allergic rhinitis[ICD10: J30.89] Diagnosis: Dysuria[ICD10: R30.0] Camilla Warren MD, [facility] CPT-4: 02918 06/10/2017 ([id number]) 48178 EST. PATIENT, LEVEL IV Diagnosis: Type 2 diabetes mellitus with hyperglycemia[ICD10: E11.65] Diagnosis: Mixed hyperlipidemia[ICD10: E78.2] Diagnosis: Atrophy of thyroid (acquired)[ICD10: E03.4] Diagnosis: Essential (primary) hypertension[ICD10: I10] Sarahy Warren MD, [facility] CPT-4: 80375 04/13/2017 ([id number]) 36243 EST. PATIENT, LEVEL IV Diagnosis: Essential (primary) hypertension[ICD10: I10] Diagnosis: Actinic keratosis[ICD10: L57.0] Diagnosis: Type 2 diabetes mellitus with hyperglycemia[ICD10: E11.65] Diagnosis: Mixed hyperlipidemia[ICD10: E78.2] Sarahy Warren MD, [facility] CPT-4: 01437 12/14/2016 ([id number]) 55878 EST. PATIENT, LEVEL IV Diagnosis: Type 2 diabetes mellitus with hyperglycemia[ICD10: E11.65] Diagnosis: Essential (primary) hypertension[ICD10: I10] Diagnosis: Atrophy of thyroid (acquired)[ICD10: E03.4] Sarahy Warren MD, [facility] CPT-4: 21977 08/17/2016 ([id number]) 14332 EST. PATIENT, LEVEL IV Diagnosis: Type 2 diabetes mellitus with hyperglycemia[ICD10: E11.65] Diagnosis: Essential (primary) hypertension[ICD10: I10] Sarahy Warren MD, [facility] CPT-4: 61417 05/14/2016 ([id number]) Miscellaneous no charge Diagnosis: Type 2 diabetes mellitus with hyperglycemia[ICD10: E11.65] Thania Warren MD, [facility] CPT-4: 89832 03/27/2016 [id number] EST. PATIENT, LEVEL IV Diagnosis: Other acute sinusitis[ICD10: J01.80] Diagnosis: Rash and other nonspecific skin eruption[ICD10: R21] Thania Warren MD, [facility] CPT-4: 91288 03/26/2016 ([id number]) 46256 EST. PATIENT, LEVEL IV Diagnosis: Type 2 diabetes mellitus with hyperglycemia[ICD10: E11.65] Diagnosis: Essential (primary) hypertension[ICD10: I10] Diagnosis: Hypothyroidism, unspecified[ICD10: E03.9] Sarahy Warren MD, [facility] CPT-4: 25262 02/06/2016 ([id number]) 33816 EST. PATIENT, LEVEL IV Diagnosis: Type 2 diabetes mellitus with hyperglycemia[ICD10: E11.65] Diagnosis: Hyperlipidemia, unspecified[ICD10: E78.5] Diagnosis: Essential (primary) hypertension[ICD10: I10] Diagnosis: Hypothyroidism, unspecified[ICD10: E03.9] Sarahy Warren MD, [facility] CPT-4: 33577 10/09/2015 ([id number]) OFFICE VISIT, NEW - LEVEL 4 Diagnosis: Type 2 diabetes mellitus with hyperglycemia[ICD10: E11.65] Sarahy Warren MD , [facility] CPT-4: 77255 07/09/2015 Plan of Care Planned Activity Notes Codes Status Date Appointment: Sarah[facility] Warren [facility] (15 min) Moderate 08/12/2017 Patient Education: Patient Medication Summary Completed 08/12/2017 Appointment: Injection 07/21/2017 Patient Education: Patient Medication Summary Completed 07/21/2017 Appointment: Thania Andre WPtel: [facility] [place] (30 min) Complex 06/16/2017 Patient Education: Patient Medication Summary Completed 06/16/2017 Appointment: Camilla Fernandez WPtel: [facility]5 [phone] [place] (15 min) Moderate 06/14/2017 Patient Education: Patient Medication Summary Completed 06/14/2017 Appointment: Camilla Fernandez WPtel: [address] [place], [place] [id number] [place] (15 min) Moderate 06/10/2017 Patient Education: Patient Medication Summary Completed 06/10/2017 Patient Education: Obesity Completed 06/10/2017 Appointment: Thania Andre WPtel: [facility] [facility] - Annual Wellness Visit 04/14/2017 Patient Education: Patient Medication Summary Completed 04/14/2017 Patient Education: Obesity Completed 04/14/2017 Appointment: Sarahy Warren WPtel: [address] [place], [place] [id number] (15 min) Moderate 04/13/2017 Patient Education: Patient Medication Summary Completed 04/13/2017 Patient Education: Obesity Completed 04/13/2017 Appointment: Sarahy Warren WPtel: [facility] (15 min) Moderate 12/14/2016 Patient Education: Patient Medication Summary Completed 12/14/2016 Patient Education: Obesity Completed 12/14/2016 Appointment: Sarahy Warren WPtel: [address] [place] [id number] (15 min) Moderate 08/17/2016 Patient Education: Patient Medication Summary Completed 08/17/2016 Patient Education: Obesity Completed 08/17/2016 Patient Education: Hypertension Completed 08/17/2016 Appointment: Sarahy Warren WPtel: [facility] (15 min) Moderate 05/14/2016 Patient Education: Patient Medication Summary Completed 05/14/2016 Patient Education: Obesity Completed 05/14/2016 Patient Education: Hypertension Completed 05/14/2016 Patient Education: Patient Medication Summary Completed 05/11/2016 Patient Education: Patient Medication Summary Completed 03/27/2016 Appointment: Thania Andre WPtel: [facility] (15 min) Moderate 03/26/2016 Patient Education: Patient Medication Summary Completed 03/26/2016 Patient Education: Patient Medication Summary Completed 02/06/2016 Patient Education: Obesity Completed 02/06/2016 Appointment: Sarahy Warren WPtel[id number] (15 min) Moderate 10/09/2015 Patient Education: Patient Medication Summary Completed 10/09/2015 Patient Education: Hypertension Completed 10/09/2015 Appointment: Sarahy Warren WPtel: [id number] [place] New Patient 07/09/2015 Patient Education: Patient Medication Summary Completed 07/09/2015 Instructions No Instructions
[2017-12-23] MEDS ORDERED: HURRICAINE EXT TUBE (BENZOCAINE) XX PRN (08:15)
[2017-12-23] MEDS ORDERED: NS IV 500 ML 500 ML ONE (08:16)
[2017-12-23 08:29] VITALS: BP 144/84
[2017-12-23] MEDS ORDERED: HEParin (CENTRAL IV FLUSH) 500 UNIT/5 ML SYR IV ONE (08:45)
--- NOTE | 2017-12-23 08:51 | History & Physicial ---
History of Present Illness History of Present Illness Reason for visit/HPI to undergo an upper endoscopy regarding epigastric pain with symptoms of reflux and concomitant colonoscopy to investigate new onset of diarrhea. Date of Admission 12/23/17 Date Seen by Provider: Dec 23, 2017 Time Seen by Provider: 08:49 I consulted on this patient on 12/23/17 08:48 Attending Physician Emmy Stephens MD Admitting Physician Sarahy Warren MD Consult Allergies and Home Medications Allergies Coded Allergies: ciprofloxacin (Verified Allergy, Intermediate, raised rash, 06/23/17) Sulfa (Sulfonamide Antibiotics) (Verified Allergy, Unknown, RASH, 12/20/17) adhesive tape (Verified Allergy, Unknown, 12/20/17) amoxicillin (Verified Allergy, Unknown, diarrhea, 12/20/17) clavulanic acid (Verified Allergy, Unknown, diarrhea, 12/20/17) sulfamethoxazole (Unverified Allergy, Unknown, HIVES, 06/23/17) trimethoprim (Unverified Allergy, Unknown, HIVES, 06/23/17) Home Medications Atorvastatin Calcium 20 Mg Tablet, 20 MG PO HS, (Reported) Cinnamon Bark/Chromium Picolin 1 Each Capsule, 1 EACH PO DAILY, (Reported) Dulaglutide 1.5 Mg/0.5 Ml Pen.injctr, 1.5 MG SQ WEEK, (Reported) Levothyroxine Sodium 100 Mcg Tablet, 100 MCG PO DAILY, (Reported) Losartan/Hydrochlorothiazide 1 Each Tablet, 1 EACH PO HS, (Reported) Metformin HCl 1,000 Mg Tablet, 1,000 MG PO BID WITH MEALS, (Reported) Multivits-Min/Iron/FA/Lutein 1 Each Tablet, 1 EACH PO DAILY, (Reported) [place] 3 Polyunsat Fatty Acids 1,000 Mg Cap, 1,000 MG PO DAILY, (Reported) Patient Home Medication List Home Medication List Reviewed: Yes Past Ejljrgy-Wccnte-Mdmaqn Hx Patient Social History Marrital Status: Employed/Student: retired Alcohol Use: Denies Use Recreational Drug Use: No Smoking Status: Never a Smoker Recent Foreign Travel: No Contact w/other who traveled: No Recent Hopitalizations: No Recent Infectious Disease Expo: No Immunizations Up To Date Tetanus Booster (TDap): Unknown Date of Pneumonia Vaccine: Oct 21, 2010 Date of Influenza Vaccine: Jul 28, 2017 Seasonal Allergies Seasonal Allergies: Yes Surgeries Yes Gallbladder, Lumpectomy Respiratory Currently Using CPAP: Yes Currently Using BIPAP: No Cardiovascular Yes Hypertension Reproductive System Hx Reproductive Disorders: No Sexually Transmitted Disease: No HIV/AIDS: No Female Reproductive Disorders: Denies Gastrointestinal Yes Gastroesophageal Reflux, Chronic Diarrhea Musculoskeletal No Endocrine History of Endocrine Disorders: Yes Endocrine Disorders: Diabetes, Non-Insulin dep HEENT HEENT Disorders: Cataract Cancer Breast Type of Treatment: Chemotherapy, Radiation, Surgical Intervention Constitutional: no symptoms reported EENTM: no symptoms reported Respiratory: no symptoms reported Cardiovascular: no symptoms reported Gastrointestinal: see HPI Genitourinary: no symptoms reported Musculoskeletal: no symptoms reported Skin: no symptoms reported Psychiatric/Neurological: No Symptoms Reported Physical Exam Vital Signs Vital Signs - First Documented 12/23/17 08:29 Temp 97.4 Pulse 104 Resp 18 B/P (MAP) 144/84 (104) Pulse Ox 97 O2 Delivery Room Air Capillary Refill : General Appearance: No Apparent Distress Neck: Normal Inspection Respiratory: Lungs Clear Cardiovascular: Regular Rate, Rhythm Gastrointestinal: Non Tender, Soft Rectal: Deferred Extremity: Normal Inspection Neurologic/Psychiatric: Alert, Oriented x3 Skin: Warm/Dry Assessment/Plan Assessment and Plan lady with epigastric pain and new onset of diarrhea. For upper endoscopy and colonoscopy. Problems: Admission Diagnosis Admission Status: Other (Outpt Proc) EMMY STEPHENS MD Dec 23, 2017 8:50 am
--- NOTE | 2017-12-23 08:51 | Conscious Sedation/ASA ---
Conscious Sedation Pre-Proced Time Reviewed: 08:51 ASA Class: 2 Airway Mallampati Classification: ([place] appropriate class) I. II. III, IV Lungs Heart ASA score ASA 1: a normal healthy patient ASA 2: a patient with a mild systemic disease (mid diabetes, controlled hypertension, obesity ASA 3: a patient with a severe systemic disease that limits activity (angina , COPD, prior Myocardial infarction) ASA 4: a patient with an incapacitating disease that is a constant threat to life (CHF, renal failure) ASA 5: a moribund patient not expected to survive 24 hrs. (ruptured aneurysm) ASA 6: a declared brain patient whose organs are being harvested. For emergent operations, add the letter E after the classification Grade 1 Sedation Plan: Discussed options with patient/fam Note The patient is an appropriate candidate to undergo the planned procedure, sedation, and anesthesia. The patient immediately re-assessed prior to indication. EMMY FRAGA MD Dec 23, 2017 8:51 am
[2017-12-23] MEDS ORDERED: fentaNYL INJECTION 100 MCG/2 ML AMP ONE ×2 (08:53→08:54)
[2017-12-23] MEDS ORDERED: MIDAZOLAM 2 MG/2 ML (VERSED) VIAL ONE ×4 (08:54)
[2017-12-23] MEDS ORDERED: HURRICAINE EXT TUBE (BENZOCAINE) ONE (08:54)
[2017-12-23] MEDS: MIDAZOLAM 2 MG/2 ML (VERSED) VIAL IVP PRN ×3 (09:01→09:12)
[2017-12-23] MEDS: fentaNYL INJECTION 100 MCG/2 ML AMP IVP PRN ×2 (09:02→09:11)
[2017-12-23] MEDS ORDERED: NS IV 500 ML 500 ML IV SCH (09:30)
--- NOTE | 2017-12-23 09:30 | Endo Procedure Record ---
Endo Procedure Report Date of Procedure Last Colonoscopy: Yes (unsure) Dec 23, 2017 Surgeon (s) EMMY FRAGA MD Post Procedure/Op Diagnosis EGD: Distal gastritis. Short hiatal hernia Colonoscopy: sigmoid diverticulosis Procedure Performed EGD with antral biopsy for H. pylori Colonoscopy to cecum Description of Procedure Anesthesia Type: Conscious Sedation Specimen(s) collected/removed antral mucosa for H. pylori Description of the Procedure Indication for the procedures: This lady came in for an upper endoscopy to investigate epigastric pain and colonoscopy to evaluate new onset of diarrhea. Informed consent was obtained after reviewing the procedures in detail. Description of procedures: EGD/antral biopsy: She was placed in left lateral decubitus position and her vital signs were monitored. Conscious sedation was achieved using Versed and fentanyl. The flexible gastroscope was introduced down the esophagus, past the stomach, into the proximal duodenum. Findings: Esophagus: A short, uncomplicated hiatal hernia. Stomach: Diffuse gastritis, mainly involving the distal stomach. Biopsy for H. pylori was obtained. Duodenum: Mild duodenitis involving the first part. There was no ulceration. She tolerated the procedure well and was turned around in preparation for colonoscopy. Impression: Epigastric pain. Distal gastritis. Helicobacter status pending. Colonoscopy: Digital rectal examination was unremarkable. The colonoscope was then introduced in the rectum and advanced to the cecum. It was then withdrawn slowly and the mucosa examined in a systematic fashion. Findings: Diverticulosis without any inflammation. She tolerated the procedures well and was taken to the nursing area in a stable condition. Impression: New-onset diarrhea. Diverticulosis. Reasonable to try a brief course of Flagyl. Copies To: MIGUEL PAYTON MD, XAVIER M MD Dec 23, 2017 09:30
--- NOTE | 2017-12-23 09:31 | Discharge Inst-Simple/Standard ---
Discharge Inst-Standard Discharge Medications New, Converted or Re-Newed RX: Other Patient Instructions/Follow Up Plan of Care/Instructions/FU: Please call for Flagyl 500 mg 3 times a day for 10 days with no refill and Protonix 40 mg daily for 30 days with 2 refills. Follow-up with her primary in 2 weeks Activity as Tolerated: Yes Discharge Diet: ADA Diet EMMY FRAGA MD Dec 23, 2017 09:31
[2017-12-23 09:45] VITALS: BP 131/69
[2017-12-23] MEDS: CATHETER FLUSH 10 ML SYR IV PRN ×2 (09:45→10:15)
[2017-12-23 10:15] VITALS: BP 133/79
[2017-12-23 10:30] VITALS: BP 133/79
== END 2017-12-23 10:30 | disposition home or self-care (01) ==
LOC: ENDO 07:54
PROVIDERS: ATTEND Surgery
DX: R19.7 Diarrhea, unspecified (principal); K57.30 Diverticulosis of large intestine without perforation or abscess without bleeding; K44.9 Diaphragmatic hernia without obstruction or gangrene; K29.70 Gastritis, unspecified, without bleeding; K29.80 Duodenitis without bleeding; K21.9 Gastro-esophageal reflux disease without esophagitis; E11.9 Type 2 diabetes mellitus without complications; I10 Essential (primary) hypertension; Z79.84 Long term (current) use of oral hypoglycemic drugs; Z79.899 Other long term (current) drug therapy

== ENCOUNTER 2018-02-11 10:20 | Outpatient (RCR) | payer MEDICARE, OTHER ==
[2017-11-18 10:03] LABS: BASOPHILS % (AUTO) 0 % (0-10); EOSINOPHILS % (AUTO) 0 % (0-10); HEMATOCRIT 39 % (35-52); HEMOGLOBIN 13.1 G/DL (11.5-16.0); LYMPHOCYTES # (AUTO) 1.3 X 10^3 (1.0-4.0); LYMPHOCYTES % (AUTO) 28 % (12-44); MEAN CORPUSCULAR HEMOGLOBIN 31 PG (25-34); MEAN CORPUSCULAR HGB CONC 34 G/DL (32-36); MEAN CORPUSCULAR VOLUME 90 FL (80-99); MEAN PLATELET VOLUME 9.4 FL (7.4-10.4); MONOCYTES # (AUTO) 0.3 X 10^3 (0.0-1.0); MONOCYTES % (AUTO) 8 % (0-12); NEUTROPHILS # (AUTO) 2.9 X 10^3 (1.8-7.8); NEUTROPHILS % (AUTO) 64 % (42-75); PLATELET COUNT 250 10^3/uL (130-400); RED BLOOD COUNT 4.26 10^6/uL (4.35-5.85); RED CELL DISTRIBUTION WIDTH 12.8 % (10.0-14.5); WHITE BLOOD COUNT 4.5 10^3/uL (4.3-11.0)
[2017-11-18 10:28] LABS: ALANINE AMINOTRANSFERASE 34 U/L (0-55); ALBUMIN 4.3 GM/DL (3.2-4.5); ALKALINE PHOSPHATASE 74 U/L (40-136); BILIRUBIN,TOTAL 1.1 MG/DL (0.1-1.0); BUN/CREATININE RATIO 17; CALCIUM 10.3 MG/DL (8.5-10.1); CARBON DIOXIDE 25 MMOL/L (21-32); CHLORIDE 103 MMOL/L (98-107); CREATININE SERUM 0.72 MG/DL (0.60-1.30); GFR ESTIMATED > 60; GLUCOSE 145 MG/DL (70-105); POTASSIUM 3.4 MMOL/L (3.6-5.0); SODIUM 140 MMOL/L (135-145); TOTAL PROTEIN 6.9 GM/DL (6.4-8.2)
[~2018-02-11 10:20] MED LIST changes: -METF1000 PO; +METF10002 PO
== END 2018-02-16 | disposition home or self-care (01) ==
LOC: ONC 10:20
PROVIDERS: ATTEND Internal Medicine Hematology & Oncology
DX: C50.111 Malignant neoplasm of central portion of right female breast (principal); C77.3 Secondary and unspecified malignant neoplasm of axilla and upper limb lymph nodes; I89.0 Lymphedema, not elsewhere classified; E11.40 Type 2 diabetes mellitus with diabetic neuropathy, unspecified; E03.9 Hypothyroidism, unspecified; I10 Essential (primary) hypertension; E66.9 Obesity, unspecified; Z68.30 Body mass index [BMI] 30.0-30.9, adult; Z79.84 Long term (current) use of oral hypoglycemic drugs; Z79.899 Other long term (current) drug therapy; Z92.21 Personal history of antineoplastic chemotherapy; Z92.3 Personal history of irradiation; Z45.2 Encounter for adjustment and management of vascular access device
CPT/HCPCS: 36415; 80053; 85025; 96523

== ENCOUNTER 2018-03-24 10:30 | Outpatient (RCR) | payer MEDICARE, OTHER ==
[2018-05-05 10:48] LABS: BASOPHILS % (AUTO) 0 % (0-10); EOSINOPHILS % (AUTO) 0 % (0-10); HEMATOCRIT 40 % (35-52); HEMOGLOBIN 13.4 G/DL (11.5-16.0); LYMPHOCYTES % (AUTO) 20 % (12-44); MEAN CORPUSCULAR HEMOGLOBIN 30 PG (25-34); MEAN CORPUSCULAR HGB CONC 34 G/DL (32-36); MEAN CORPUSCULAR VOLUME 90 FL (80-99); MEAN PLATELET VOLUME 9.5 FL (7.4-10.4); MONOCYTES # (AUTO) 0.4 X 10^3 (0.0-1.0); MONOCYTES % (AUTO) 7 % (0-12); NEUTROPHILS # (AUTO) 3.8 X 10^3 (1.8-7.8); NEUTROPHILS % (AUTO) 73 % (42-75); PLATELET COUNT 247 10^3/uL (130-400); RED BLOOD COUNT 4.42 10^6/uL (4.35-5.85); WHITE BLOOD COUNT 5.2 10^3/uL (4.3-11.0)
[2018-05-05 11:03] LABS: ALANINE AMINOTRANSFERASE 34 U/L (0-55); ALBUMIN 4.5 GM/DL (3.2-4.5); ALKALINE PHOSPHATASE 81 U/L (40-136); BILIRUBIN,TOTAL 1.1 MG/DL (0.1-1.0); BUN/CREATININE RATIO 14; CARBON DIOXIDE 27 MMOL/L (21-32); CHLORIDE 102 MMOL/L (98-107); CREATININE SERUM 0.76 MG/DL (0.60-1.30); GFR ESTIMATED > 60; GLUCOSE 162 MG/DL (70-105); POTASSIUM 3.5 MMOL/L (3.6-5.0); SODIUM 140 MMOL/L (135-145); TOTAL PROTEIN 6.8 GM/DL (6.4-8.2)
== END 2018-05-05 10:20 | disposition home or self-care (01) ==
LOC: ONC 10:30
PROVIDERS: ATTEND Internal Medicine Hematology & Oncology
DX: C50.111 Malignant neoplasm of central portion of right female breast (principal); C77.3 Secondary and unspecified malignant neoplasm of axilla and upper limb lymph nodes; I89.0 Lymphedema, not elsewhere classified; E11.40 Type 2 diabetes mellitus with diabetic neuropathy, unspecified; E03.9 Hypothyroidism, unspecified; I10 Essential (primary) hypertension; E66.9 Obesity, unspecified; Z68.30 Body mass index [BMI] 30.0-30.9, adult; Z79.84 Long term (current) use of oral hypoglycemic drugs; Z79.899 Other long term (current) drug therapy; Z92.21 Personal history of antineoplastic chemotherapy; Z92.3 Personal history of irradiation; Z45.2 Encounter for adjustment and management of vascular access device
CPT/HCPCS: 80053; 85025; 96523

== ENCOUNTER 2018-06-17 15:40 | Outpatient (RCR) | payer MEDICARE, OTHER ==
[~2018-06-17 15:40] MED LIST changes: -FLAX1000 PO; +FLAX10004 PO; +METF-399 PO; -METF10002 PO
[2018-08-05] MEDS ORDERED: TRAM50TA2 PO (12:36)
== END 2018-07-28 10:38 | disposition home or self-care (01) ==
LOC: ONC 15:40
PROVIDERS: ATTEND Internal Medicine Hematology & Oncology
DX: C50.111 Malignant neoplasm of central portion of right female breast (principal); C77.3 Secondary and unspecified malignant neoplasm of axilla and upper limb lymph nodes; I89.0 Lymphedema, not elsewhere classified; E11.40 Type 2 diabetes mellitus with diabetic neuropathy, unspecified; E03.9 Hypothyroidism, unspecified; I10 Essential (primary) hypertension; E66.9 Obesity, unspecified; Z68.30 Body mass index [BMI] 30.0-30.9, adult; Z79.84 Long term (current) use of oral hypoglycemic drugs; Z79.899 Other long term (current) drug therapy; Z92.21 Personal history of antineoplastic chemotherapy; Z92.3 Personal history of irradiation; Z45.2 Encounter for adjustment and management of vascular access device
CPT/HCPCS: 36591; 96523

== ENCOUNTER 2018-08-03 12:15 | Outpatient (CLI) | payer MEDICARE, OTHER ==
[~2018-08-03] VITALS: Ht 170.2 cm; Wt 85.7 kg
== END 2018-08-03 12:25 | disposition home or self-care (01) ==
LOC: PREOP 12:15
PROVIDERS: ATTEND Surgery
DX: Z01.818 Encounter for other preprocedural examination (principal)

== ENCOUNTER 2018-08-05 10:09 | Day surgery (SDC) | payer MEDICARE, OTHER ==
[2018-08-05] VITALS (7 sets, daily range): BP systolic 128–154; BP diastolic 66–95
[~2018-08-05] VITALS: Ht 170.2 cm; Wt 85.7 kg
[2018-08-05] MEDS ORDERED: LACTATED RINGERS 1,000 ML IV PRN (10:16)
--- OUTSIDE RECORDS SUMMARY | 2018-08-05 10:16 | XMS REPORT | CCD ---
Author Author [facility]y [facility] Organization [facility] Address [address] [place] [address] Phone Care Team Providers Care Mattress Maker Name Role Phone PP Unavailable CCM Unavailable Summary Purpose Interface Exchange Insurance Providers Payer name Policy type / Coverage type Covered republican ID Effective Begin Date Effective End Date WPS Medicare Part B Medicare Part B [id number] 2018 Unknown [employer] [place] Medicare Part B [id number] Unknown Family history Father Diagnosis Age At Onset Stroke Unknown Mother Diagnosis Age At Onset Heart Attack Unknown Uncle Diagnosis Age At Onset Cancer Unknown Runs in the family Diagnosis Age At Onset Hypertension Unknown Heart Attack Unknown Social History Social History Element Codes Description Effective Dates Marital status Unknown 07/09/2015 Number of children Unknown 4 07/09/2015 Living arrangements Unknown House 07/09/2015 Education level Unknown College Graduate 07/09/2015 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 Allergies, Adverse Reactions, Alerts Substance Reaction Codes Entered Date Inactivated Date Status * OTHER REACTION - SEE ANSWER BOX adhesive tape Unknown 2014 No Inactive Date Active ciprofloxacin rash RxNorm: 79452 08/12/2017 No Inactive Date Active AUGMENTIN RxNorm: 180904 03/26/2015 No Inactive Date Active SULFA(SULFONAMIDE ANTIBIOTICS) Unknown 07/09/2015 No Inactive Date Active Past Medical History Illness Codes Condition Status Onset Date Resolved Date Gastro-esophageal reflux disease without esophagitis ICD-9: 530.81 ICD-10: K21.9 Active 06/16/2017 Unknown Hypercalcemia ICD-9: 275.42 ICD-10: E83.52 Active 05/10/2018 Unknown Left upper quadrant pain ICD-9: 789.02 ICD-10: R10.12 Active 05/10/2018 Unknown Encounter for general adult medical examination with abnormal findings ICD-9: V70.0 ICD-10: Z00.01 Active 04/14/2017 Unknown Atrophy of thyroid (acquired) ICD-9: 244.8 ICD-10: E03.4 Active 08/16/2016 Unknown Essential (primary) hypertension ICD-9: 401.1 ICD-10: I10 Active 12/14/2016 Unknown Type 2 diabetes mellitus with hyperglycemia ICD-9: 250.02 ICD-10: E11.65 Active 08/16/2016 Unknown Functional diarrhea ICD-9: 564.5 ICD-10: K59.1 Active 01/06/2018 Unknown Mixed hyperlipidemia ICD-9: 272.2 ICD-10: E78.2 Active 12/14/2016 Unknown Generalized abdominal pain ICD-9: 789.07 ICD-10: R10.84 Active 06/10/2017 Unknown 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 Active 08/12/2017 Unknown Encounter for immunization ICD-9: V04.81 ICD-10: Z23 Active 07/08/2015 Unknown Nausea ICD-9: 787.02 ICD-10: R11.0 Active 06/14/2017 Unknown Dysuria ICD-9: 788.1 ICD-10: R30.0 Active 06/10/2017 Unknown Other allergic rhinitis ICD-9: 477.8 ICD-10: J30.89 Active 06/10/2017 Unknown Actinic keratosis ICD- 9: 702.0 ICD-10: [...] Problems Condition Codes Effective Dates Condition Status Gastro-esophageal reflux disease without esophagitis ICD-9: 530.81 ICD-10: K21.9 06/16/2017 Active Hypercalcemia ICD-9: 275.42 ICD-10: E83.52 05/10/2018 Active Left upper quadrant pain ICD-9: 789.02 ICD-10: R10.12 05/10/2018 Active Encounter for general adult medical examination with abnormal findings ICD-9: V70.0 ICD-10: Z00.01 04/14/2017 Active Atrophy of thyroid (acquired) ICD-9: 244.8 ICD-10: E03.4 08/16/2016 Active Essential (primary) hypertension ICD-9: 401.1 ICD-10: I10 12/14/2016 Active Type 2 diabetes mellitus with hyperglycemia ICD-9: 250.02 ICD-10: E11.65 08/16/2016 Active Functional diarrhea ICD-9: 564.5 ICD-10: K59.1 01/06/2018 Active Mixed hyperlipidemia ICD-9: 272.2 ICD-10: E78.2 12/14/2016 Active Generalized abdominal pain ICD-9: 789.07 ICD-10: R10.84 06/10/2017 Active 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 08/12/2017 Active Encounter for immunization ICD-9: V04.81 ICD-10: Z23 07/08/2015 Active Nausea ICD-9: 787.02 ICD-10: R11.0 06/14/2017 Active Dysuria ICD-9: 788.1 ICD-10: R30.0 06/10/2017 Active Other allergic rhinitis ICD-9: 477.8 ICD-10: J30.89 06/10/2017 Active Actinic keratosis ICD- 9: 702.0 ICD-10: [...] Instructions Hyzaar 100 mg-25 mg tablet RxNorm: 505023 TAKE ONE TABLET BY MOUTH DAILY 05/10/2018 10/06/2018 Active Lipitor 20 mg tablet RxNorm: 361553 TAKE ONE TABLET BY MOUTH DAILY 04/14/2018 10/10/2018 Active pantoprazole 40 mg tablet,delayed release RxNorm: 736636 1 Tablet(s) PO daily as needed GI upset 04/04/2018 10/30/2018 Active metformin 1,000 mg tablet RxNorm: 702104 1 Tablet(s) PO BID 05/201810/30/2018 Active metformin 1,000 mg tablet RxNorm: 856564 1/2 Tablet(s) PO BID 04/04/2018 04/03/2018 Inactive Lipitor 20 mg tablet RxNorm: 553147 TAKE ONE TABLET BY MOUTH DAILY 02/14/2018 04/13/2018 Inactive Trulicity 1.5 mg/0.5 mL subcutaneous pen injector RxNorm: 9057359 0.5 Milliliter(s ) QW INJECT 0.5ML UNDER THE SKIN ONCE WEEKLY 12/08/2017 07/05/2018 Active nystatin 100,000 unit/gram topical cream RxNorm: 859019 1 Gram(s) TOP TID 12/08/2017 12/17/2017 Inactive sucralfate 1 gram tablet RxNorm: 018362 1 Tablet(s) PO QID 04/20/2018 Inactive Hyzaar 100 mg-25 mg tablet RxNorm: 786912 TAKE ONE TABLET BY MOUTH DAILY 10/20/2017 05/09/2018 Inactive metformin 1,000 mg tablet RxNorm: 656283 1 Tablet(s) PO BID 04/03/2018 Inactive Lipitor 20 mg tablet RxNorm: 628851 TAKE ONE TABLET BY MOUTH DAILY 09/30/2017 02/13/2018 Inactive levothyroxine 100 mcg tablet RxNorm: 303876 TAKE ONE TABLET BY MOUTH DAILY 07/22/2017 07/16/2018 Active Protonix 40 mg tablet,delayed release RxNorm: 897762 1 Tablet(s) PO daily 06/16/2017 07/15/2017 Inactive Cipro 500 mg tablet RxNorm: 107982 1 Tablet(s) PO BID 201606/19/2017 Inactive Flagyl 500 mg tablet RxNorm: 240150 1 Tablet(s) PO TID 201606/19/2017 Inactive Trulicity 1.5 mg/0.5 mL subcutaneous pen injector RxNorm: 2662915 Milliliter(s) INJECT 0.5ML UNDER THE SKIN ONCE WEEKLY 05/25/2017 09/13/2017 Inactive Trulicity 1.5 mg/0.5 mL subcutaneous pen injector RxNorm: 5967408 INJECT 0.5ML UNDER THE SKIN ONCE WEEKLY 05/20/2017 Inactive metformin 1,000 mg tablet RxNorm: 004526 1 Tablet(s) PO BID TAKE ONE TABLET BY MOUTH TWICE A DAY 05/20/2017 10/19/2017 Inactive Lipitor 20 mg tablet RxNorm: 803423 TAKE ONE TABLET BY MOUTH DAILY 03/23/2017 09/18/2017 Inactive Lipitor 20 mg tablet RxNorm: 311165 TAKE ONE TABLET BY MOUTH DAILY 01/12/2017 03/12/2017 Inactive Hyzaar 100 mg-25 mg tablet RxNorm: 344485 TAKE ONE TABLET BY MOUTH DAILY 01/12/2017 10/08/2017 Inactive nystatin 100,000 unit/gram topical cream RxNorm: 364324 1 Gram(s) TOP TID 12/14/2016 12/23/2016 Inactive Efudex 5 % topical cream RxNorm: 952873 1 Application TOP BID 12/14/2016 12/23/2016 Inactive Trulicity 1.5 mg/0.5 mL subcutaneous pen injector RxNorm: 0665108 0.5 Milliliter(s ) SQ INJECT 0.5ML SUBCUTANEOUSLY ONCE WEEKLY 12/14/2016 05/12/2017 Inactive metformin 1,000 mg tablet RxNorm: 206031 TAKE ONE TABLET BY MOUTH TWICE A DAY 11/20/2016 05/18/2017 Inactive Lipitor 20 mg tablet RxNorm: 963436 Tablet(s) TAKE ONE TABLET BY MOUTH ONCE DAILY 10/19/2016 01/11/2017 Inactive levothyroxine 100 mcg tablet RxNorm: 512590 TAKE ONE TABLET BY MOUTH ONCE DAILY 08/24/2016 07/21/2017 Inactive Hyzaar 100 mg-25 mg tablet RxNorm: 840179 Tablet(s) TAKE ONE TABLET BY MOUTH ONCE DAILY 2016 01/11/2017 Inactive Trulicity 0.75 mg/0.5 mL subcutaneous pen injector RxNorm: 9139971 INJECT 0.5ML SUBCUTANEOUSLY ONCE WEEKLY 07/13/2016 Inactive metformin 1,000 mg tablet RxNorm: 578357 1 Tablet(s) PO BID 11/19/2016 Inactive Trulicity 0.75 mg/0.5 mL subcutaneous pen injector RxNorm: 7369499 0.5 Milliliter( s) SQ QW 05/14/2016 07/12/2016 Inactive Lipitor 20 mg tablet RxNorm: 223970 TAKE ONE TABLET BY MOUTH ONCE DAILY 05/07/2016 10/18/2016 Inactive Zofran 4 mg tablet RxNorm: 977727 1 Tablet(s) PO TID as needed nausea 03/27/2016 03/26/2016 Inactive Zofran 4 mg tablet RxNorm: 771911 1 Tablet(s) PO TID as needed nausea 03/27/2016 03/31/2016 Inactive Keflex 500 mg capsule RxNorm: 491419 1 Capsule(s) PO TID 201504/01/2016 Inactive prednisone 20 mg tablet RxNorm: 754060 2 Tablet(s) PO daily 03/26/2016 Inactive Janumet XR 100 mg-1,000 mg tablet,extended release RxNorm: 2690923 1 Tablet(s) PO daily 02/17/2016 05/13/2016 Inactive Janumet XR 100 mg-1,000 mg tablet,extended release RxNorm: 2340468 1 Tablet(s) PO daily 02/17/2016 02/16/2016 Inactive Hyzaar 100 mg-25 mg tablet RxNorm: 162533 Tablet(s) TAKE ONE TABLET BY MOUTH ONCE DAILY 02/04/2016 07/28/2016 Inactive Janumet XR 50 mg-1,000 mg tablet,extended release RxNorm: 9806284 TAKE ONE TABLET BY MOUTH ONCE DAILY 01/13/2016 02/16/2016 Inactive Lipitor 20 mg tablet RxNorm: 508660 Tablet(s) TAKE ONE TABLET BY MOUTH ONCE DAILY 01/13/2016 05/06/2016 Inactive Janumet XR 50 mg-1,000 mg tablet,extended release RxNorm: 5477932 1 Tablet(s) PO daily 10/02/2015 01/12/2016 Inactive Janumet XR 50 mg-1,000 mg tablet,extended release RxNorm: 8767151 1 Tablet(s) PO daily 10/01/2015 10/01/2015 Inactive Hyzaar 100 mg-25 mg tablet RxNorm: 546810 TAKE ONE TABLET BY MOUTH ONCE DAILY 09/30/2015 01/27/2016 Inactive Lipitor 20 mg tablet RxNorm: 293921 TAKE ONE TABLET BY MOUTH ONCE DAILY 09/30/2015 01/12/2016 Inactive metformin 1,000 mg tablet RxNorm: 280012 1 Tablet(s) PO BID 07/09/2015 Inactive Janumet XR 50 mg-1,000 mg tablet,extended release RxNorm: 5629121 1 Tablet(s) PO daily 07/09/2015 09/02/2015 Inactive levothyroxine 100 mcg tablet RxNorm: 541801 1 Capsule(s) PO daily 07/09/2015 07/02/2016 Inactive Hyzaar 100 mg-25 mg tablet RxNorm: 237829 1 Tablet(s) PO daily 05/29/2015 05/28/2015 Inactive Lipitor 20 mg tablet RxNorm: 488942 1 Tablet(s) PO daily 201405/28/2015 Inactive Hyzaar 100 mg-25 mg tablet RxNorm: 538537 1 Tablet(s) PO daily 05/29/2015 09/25/2015 Inactive Lipitor 20 mg tablet RxNorm: 239267 1 Tablet(s) PO daily 201409/25/2015 Inactive Fish Oil 1,000 mg capsule RxNorm: oral No Start Date Active One Touch Test RxNorm : miscellaneous No Start Date 03/25/2015 Inactive levothyroxine 100 mcg capsule RxNorm: 227265 oral No Start Date 07/08/2015 Inactive Medication Administered No Medication Administered data Immunizations Vaccine Codes Date Status Influenza CVX: 141 07/21/2017 completed Influenza CVX: 141 08/14/2016 completed Influenza CVX: 141 07/09/2015 completed Pneumococcal CVX: 133 07/09/2015 completed Assessments Condition Codes Effective Dates Hypercalcemia ICD-10: E83.52 ICD-9: 275.42 05/10/2018 Left upper quadrant pain ICD-10: R10.12 ICD-9: 789.02 05/10/2018 Gastro-esophageal reflux disease without esophagitis ICD-10 : K21.9 ICD-9: 530.81 05/10/2018 Encounter for general adult medical examination with abnormal findings ICD-10: Z00.01 ICD-9: V70.0 04/21/2018 Essential (primary) hypertension ICD-10: I10 ICD-9: 401.1 04/04/2018 Atrophy of thyroid (acquired) ICD-10: E03.4 ICD-9: 244.8 04/04/2018 Type 2 diabetes mellitus with hyperglycemia ICD-10: E11.65 ICD-9: 250.02 04/04/2018 Functional diarrhea ICD-10: K59.1 ICD-9: 564.5 01/06/2018 Generalized abdominal pain ICD-10: R10.84 ICD-9: 789.07 12/08/2017 Benign neoplasm of right adrenal gland ICD-10: D35.01 ICD-9: 227.0 08/12/2017 Encounter for immunization ICD-10: Z23 ICD-9: V04.81 07/21/2017 Nausea ICD-10: R11.0 ICD-9: 787.02 06/16/2017 Dysuria ICD-10: R30.0 ICD-9: 788.1 06/10/2017 Other allergic rhinitis ICD-10: J30.89 ICD-9: 477.8 06/10/2017 Mixed hyperlipidemia ICD-10: E78.2 ICD-9: 272.2 04/13/2017 [...] Visit Reason For Visit Effective Dates Notes abdominal pain 05/10/2018 Annual Medicare Wellness Exam 04/21/2018 diabetes mellitus 04/04/2018 diabetes mellitus 01/06/2018 diabetes mellitus 12/08/2017 diabetes mellitus 08/12/2017 vaccination against influenza 07/21/2017 abdominal pain 06/16/2017 abdominal pain 06/14/2017 abdominal pain 06/10/2017 Annual Medicare Wellness Exam 04/14/2017 diabetes mellitus 04/13/2017 diabetes mellitus 12/14/2016 diabetes mellitus 08/17/2016 diabetes mellitus 05/14/2016 diabetes mellitus 03/27/2016 sinus congestion 03/26/2016 diabetes mellitus 02/06/2016 diabetes mellitus 10/09/2015 diabetes mellitus 07/09/2015 Results Observation Observation Code Item Item Code Result Date Parathyroid Hormone Wce590 PTH 48.70 pg/ml 05/11/2018 Lipase Xfg644 LIPASE 42 U/L 05/10/2018 Comp Metabolic Ndf040 NA 140 mEq/L 05/10/2018 Comp Metabolic Bpb905 K 3.5 mEq/L 05/10/2018 Comp Metabolic Uxo615 CL 101 mEq/L 05/10/2018 Comp Metabolic Pgp695 CO2 28.0 mEq/L 05/10/2018 Comp Metabolic Djf753 ANION GAP 15 05/10/2018 Comp Metabolic Loq538 GLUCOSE 155 mg/dL 05/10/2018 Comp Metabolic Jps554 Creat 0.7 mg/dL 05/10/2018 Comp Metabolic Aea751 eGFR 93 ml/min/1.73m2 05/10/2018 Comp Metabolic Uja661 BUN 13 mg/dL 05/10/2018 Comp Metabolic Jts716 B/C Ratio 19.7 Ratio 05/10/2018 Comp Metabolic Cvm587 CALCIUM 11.1 mg/dL 05/10/2018 Comp Metabolic Xqt999 ALK PHOS 77 U/L 05/10/2018 Comp Metabolic Ncj291 AST(SGOT) 17 U/L 05/10/2018 Comp Metabolic Viy527 ALT(SGPT) 21 U/L 05/10/2018 Comp Metabolic Icp995 BILI T 1.2 mg/dL 05/10/2018 Comp Metabolic Wnl268 ALBUMIN 4.6 g/dL 05/10/2018 Comp Metabolic Muq483 TPRO 6.9 g/dL 05/10/2018 Comp Metabolic Knv065 GLOB 2.3 g/dL 05/10/2018 Comp Metabolic Lap832 A/G Ratio 2.0 Ratio 05/10/2018 Comp Metabolic Exn665 Osmo 283 mOsmo 05/10/2018 Amylase Ord34 AMYLASE 40 U/L 05/10/2018 Cbc With Differential Ord2 WBC 4.67 K/ul 04/01/2018 Cbc With Differential Ord2 RBC 4.47 M/ul 04/01/2018 Cbc With Differential Ord2 HGB 13.6 g/dl 04/01/2018 Cbc With Differential Ord2 Neut% 62.3 % 04/01/2018 Cbc With Differential Ord2 HCT 41.1 % 04/01/2018 Cbc With Differential Ord2 MCV 91.9 fl 04/01/2018 Cbc With Differential Ord2 Lymph% 28.3 % 04/01/2018 Cbc With Differential Ord2 MCH 30.4 pg 04/01/2018 Cbc With Differential Ord2 [place]% 8.6 % 04/01/2018 Cbc With Differential Ord2 MCHC 33.1 pg 04/01/2018 Cbc With Differential Ord2 Eos% 0.4 % 04/01/2018 Cbc With Differential Ord2 Baso% 0.4 % 04/01/2018 Cbc With Differential Ord2 PLT 259 K/ul 04/01/2018 Cbc With Differential Ord2 Neut ABS# 2.91 K/ul 04/01/2018 Cbc With Differential Ord2 RDW 13.3 % 04/01/2018 Cbc With Differential Ord2 Lymph ABS# 1.32 K/ul 04/01/2018 Cbc With Differential Ord2 [place] ABS# 0.4 K/ul 04/01/2018 Cbc With Differential Ord2 Eos ABS# 0.0 K/ul 04/01/2018 Cbc With Differential Ord2 Baso ABS# 0.0 K/ul 04/01/2018 Comp Metabolic Bvf510 NA 141 mEq/L 04/01/2018 Comp Metabolic Qiy054 K 3.8 mEq/L 04/01/2018 Comp Metabolic Rtm820 CL 104 mEq/L 04/01/2018 Comp Metabolic Kts946 CO2 29.0 mEq/L 04/01/2018 Comp Metabolic Ter042 ANION GAP 12 04/01/2018 Comp Metabolic Idb135 GLUCOSE 167 mg/dL 04/01/2018 Comp Metabolic Tdc747 Creat 0.6 mg/dL 04/01/2018 Comp Metabolic Zeu776 eGFR 97 ml/min/1.73m2 04/01/2018 Comp Metabolic Iqk817 BUN 17 mg/dL 04/01/2018 Comp Metabolic Iyk402 B/C Ratio 26.6 Ratio 04/01/2018 Comp Metabolic Xpj174 CALCIUM 10.5 mg/dL 04/01/2018 Comp Metabolic Qhm218 ALK PHOS 105 U/L 04/01/2018 Comp Metabolic Bqo430 AST(SGOT) 27 U/L 04/01/2018 Comp Metabolic Vfu451 ALT(SGPT) 36 U/L 04/01/2018 Comp Metabolic Rey627 BILI T 0.5 mg/dL 04/01/2018 Comp Metabolic Eva180 ALBUMIN 4.4 g/dL 04/01/2018 Comp Metabolic Pvd589 TPRO 6.8 g/dL 04/01/2018 Comp Metabolic Hms933 GLOB 2.5 g/dL 04/01/2018 Comp Metabolic Bba078 A/G Ratio 1.8 Ratio 04/01/2018 Comp Metabolic Xdl520 Osmo 287 mOsmo 04/01/2018 Lipid Ord30 CHOL 139 mg/dL 04/01/2018 Lipid Ord30 HDL 58.0 mg/dl 04/01/2018 Lipid Ord30 TRIG 136 mg/dL 04/01/2018 Lipid Ord30 LDL 54 mg/dL 04/01/2018 Lipid Ord30 C/HDL 2.4 Ratio 04/01/2018 Free T4 Eds877 FREE T4 1.05 ng/dL 04/01/2018 %Hba1C Rzj029 % HbA1c 92174-5 7.6 % 04/01/2018 %Hba1C Ljc601 Gluc Ave 171 mg/dL 04/01/2018 Tsh Ord6 TSH (3rd IS) 0.95 uIU/mL 04/01/2018 Cbc With Differential Ord2 WBC 4.54 K/ul 12/06/2017 Cbc With Differential Ord2 RBC 4.31 M/ul 12/06/2017 Cbc With Differential Ord2 HGB 13.1 g/dl 12/06/2017 Cbc With Differential Ord2 Neut% 63.1 % 12/06/2017 Cbc With Differential Ord2 HCT 39.6 % 12/06/2017 Cbc With Differential Ord2 MCV 91.9 fl 12/06/2017 Cbc With Differential Ord2 Lymph% 28.4 % 12/06/2017 Cbc With Differential Ord2 [place]% 7.9 % 12/06/2017 Cbc With Differential Ord2 MCH 30.4 pg 12/06/2017 Cbc With Differential Ord2 Eos% 0.4 % 12/06/2017 Cbc With Differential Ord2 MCHC 33.1 pg 12/06/2017 Cbc With Differential Ord2 PLT 260 K/ul 12/06/2017 Cbc With Differential Ord2 Baso% 0.2 % 12/06/2017 Cbc With Differential Ord2 Neut ABS# 2.86 K/ul 12/06/2017 Cbc With Differential Ord2 RDW 13.1 % 12/06/2017 Cbc With Differential Ord2 Lymph ABS# 1.29 K/ul 12/06/2017 Cbc With Differential Ord2 [place] ABS# 0.4 K/ul 12/06/2017 Cbc With Differential Ord2 Eos ABS# 0.0 K/ul 12/06/2017 Cbc With Differential Ord2 Baso ABS# 0.0 K/ul 12/06/2017 Free T4 Koa979 FREE T4 1.04 ng/dL 12/06/2017 Tsh Ord6 TSH (3rd IS) 1.21 uIU/mL 12/06/2017 Comp Metabolic Gra075 NA 138 mEq/L 12/06/2017 Comp Metabolic Yrs433 K 3.5 mEq/L 12/06/2017 Comp Metabolic Siv723 CL 98 mEq/L 12/06/2017 Comp Metabolic Frg836 CO2 31.0 mEq/L 12/06/2017 Comp Metabolic Uyz677 ANION GAP 13 12/06/2017 Comp Metabolic Bim610 GLUCOSE 152 mg/dL 12/06/2017 Comp Metabolic Wnm736 Creat 0.6 mg/dL 12/06/2017 Comp Metabolic Pjr294 eGFR 111 ml/min/1.73m2 12/06/2017 Comp Metabolic Aaw343 BUN 13 mg/dL 12/06/2017 Comp Metabolic Wuh338 B/C Ratio 22.8 Ratio 12/06/2017 Comp Metabolic Wrm209 CALCIUM 10.6 mg/dL 12/06/2017 Comp Metabolic Gnx237 ALK PHOS 76 U/L 12/06/2017 Comp Metabolic Kam208 AST(SGOT) 23 U/L 12/06/2017 Comp Metabolic Leb253 ALT(SGPT) 27 U/L 12/06/2017 Comp Metabolic Pjj936 BILI T 1.0 mg/dL 12/06/2017 Comp Metabolic Iph852 ALBUMIN 4.5 g/dL 12/06/2017 Comp Metabolic Nnm352 TPRO 6.5 g/dL 12/06/2017 Comp Metabolic Lxw516 GLOB 2.0 g/dL 12/06/2017 Comp Metabolic Gtk645 A/G Ratio 2.2 Ratio 12/06/2017 Comp Metabolic Zso727 Osmo 279 mOsmo 12/06/2017 Lipid Ord30 CHOL 111 mg/dL 12/06/2017 Lipid Ord30 HDL 52.0 mg/dl 12/06/2017 Lipid Ord30 TRIG 131 mg/dL 12/06/2017 Lipid Ord30 LDL 33 mg/dL 12/06/2017 Lipid Ord30 C/HDL 2.1 Ratio 12/06/2017 %Hba1C Jiw983 % HbA1c 53866-1 7.1 % 12/06/2017 %Hba1C Red363 Gluc Ave 157 mg/dL 12/06/2017 %Hba1C Jmv361 % HbA1c 74946-1 7.1 % 08/10/2017 %Hba1C Svf646 Gluc Ave 157 mg/dL 08/10/2017 Comp Metabolic Wop426 NA 140 mEq/L 08/10/2017 Comp Metabolic Wyo780 K 3.6 mEq/L 08/10/2017 Comp Metabolic Cux219 CL 100 mEq/L 08/10/2017 Comp Metabolic Bok453 CO2 29.0 mEq/L 08/10/2017 Comp Metabolic Npx593 ANION GAP 15 08/10/2017 Comp Metabolic Jkb193 GLUCOSE 144 mg/dL 08/10/2017 Comp Metabolic Orp421 Creat 0.6 mg/dL 08/10/2017 Comp Metabolic Dhf183 eGFR 97 ml/min/1.73m2 08/10/2017 Comp Metabolic Wri406 BUN 15 mg/dL 08/10/2017 Comp Metabolic Uiz329 B/C Ratio 23.4 Ratio 08/10/2017 Comp Metabolic Abf381 CALCIUM 11.1 mg/dL 08/10/2017 Comp Metabolic Upa808 ALK PHOS 76 U/L 08/10/2017 Comp Metabolic Abp579 AST(SGOT) 20 U/L 08/10/2017 Comp Metabolic Nwi100 ALT(SGPT) 30 U/L 08/10/2017 Comp Metabolic Kvz118 BILI T 0.9 mg/dL 08/10/2017 Comp Metabolic Bdj850 ALBUMIN 4.7 g/dL 08/10/2017 Comp Metabolic Zlt589 TPRO 7.0 g/dL 08/10/2017 Comp Metabolic Rqc616 GLOB 2.3 g/dL 08/10/2017 Comp Metabolic Elt123 A/G Ratio 2.0 Ratio 08/10/2017 Comp Metabolic Ngk824 Osmo 283 mOsmo 08/10/2017 Lipid Ord30 CHOL 112 mg/dL 08/10/2017 Lipid Ord30 HDL 48.0 mg/dl 08/10/2017 Lipid Ord30 TRIG 125 mg/dL 08/10/2017 Lipid Ord30 LDL 39 mg/dL 08/10/2017 Lipid Ord30 C/HDL 2.3 Ratio 08/10/2017 Cbc With Differential Ord2 WBC 6.65 K/ul 08/10/2017 Cbc With Differential Ord2 RBC 4.54 M/ul 08/10/2017 Cbc With Differential Ord2 HGB 14.0 g/dl 08/10/2017 Cbc With Differential Ord2 HCT 41.3 % 08/10/2017 Cbc With Differential Ord2 Neut% 73.8 % 08/10/2017 Cbc With Differential Ord2 MCV 91.0 fl 08/10/2017 Cbc With Differential Ord2 Lymph% 18.6 % 08/10/2017 Cbc With Differential Ord2 MCH 30.8 pg 08/10/2017 Cbc With Differential Ord2 [place]% 7.1 % 08/10/2017 Cbc With Differential Ord2 Eos% 0.3 % 08/10/2017 Cbc With Differential Ord2 MCHC 33.9 pg 08/10/2017 Cbc With Differential Ord2 Baso% 0.2 % 08/10/2017 Cbc With Differential Ord2 PLT 232 K/ul 08/10/2017 Cbc With Differential Ord2 Neut ABS# 4.91 K/ul 08/10/2017 Cbc With Differential Ord2 RDW 13.4 % 08/10/2017 Cbc With Differential Ord2 Lymph ABS# 1.24 K/ul 08/10/2017 Cbc With Differential Ord2 [place] ABS# 0.5 K/ul 08/10/2017 Cbc With Differential Ord2 Eos ABS# 0.0 K/ul 08/10/2017 Cbc With Differential Ord2 Baso ABS# 0.0 K/ul 08/10/2017 Amylase Ord34 AMYLASE 37 U/L 06/14/2017 Lipase Kzx105 LIPASE 47 U/L 06/14/2017 Cbc With Differential Ord2 WBC 6.28 K/ul 06/14/2017 Cbc With Differential Ord2 RBC 4.56 M/ul 06/14/2017 Cbc With Differential Ord2 HGB 14.0 g/dl 06/14/2017 Cbc With Differential Ord2 HCT 41.9 % 06/14/2017 Cbc With Differential Ord2 Neut% 76.5 % 06/14/2017 Cbc With Differential Ord2 MCV 91.9 fl 06/14/2017 Cbc With Differential Ord2 Lymph% 17.7 % 06/14/2017 Cbc With Differential Ord2 [place]% 4.9 % 06/14/2017 Cbc With Differential Ord2 MCH 30.7 pg 06/14/2017 Cbc With Differential Ord2 Eos% 0.6 % 06/14/2017 Cbc With Differential Ord2 MCHC 33.4 pg 06/14/2017 Cbc With Differential Ord2 Baso% 0.3 % 06/14/2017 Cbc With Differential Ord2 PLT 243 K/ul 06/14/2017 Cbc With Differential Ord2 Neut ABS# 4.80 K/ul 06/14/2017 Cbc With Differential Ord2 RDW 13.2 % 06/14/2017 Cbc With Differential Ord2 Lymph ABS# 1.11 K/ul 06/14/2017 Cbc With Differential Ord2 [place] ABS# 0.3 K/ul 06/14/2017 Cbc With Differential Ord2 Eos ABS# 0.0 K/ul 06/14/2017 Cbc With Differential Ord2 Baso ABS# 0.0 K/ul 06/14/2017 Comp Metabolic Kpl287 NA 135 mEq/L 06/14/2017 Comp Metabolic Kxh173 K 3.6 mEq/L 06/14/2017 Comp Metabolic Fmv336 CL 98 mEq/L 06/14/2017 Comp Metabolic Xdz215 CO2 25.0 mEq/L 06/14/2017 Comp Metabolic Wya319 ANION GAP 16 06/14/2017 Comp Metabolic Qdo013 GLUCOSE 195 mg/dL 06/14/2017 Comp Metabolic Xev779 Creat 0.6 mg/dL 06/14/2017 Comp Metabolic Bwc245 eGFR 97 ml/min/1.73m2 06/14/2017 Comp Metabolic Cco650 BUN 14 mg/dL 06/14/2017 Comp Metabolic Fey803 B/C Ratio 21.9 Ratio 06/14/2017 Comp Metabolic Usd016 CALCIUM 10.6 mg/dL 06/14/2017 Comp Metabolic Prk559 ALK PHOS 64 U/L 06/14/2017 Comp Metabolic Mff702 AST(SGOT) 34 U/L 06/14/2017 Comp Metabolic Crw147 ALT(SGPT) 39 U/L 06/14/2017 Comp Metabolic Hqk341 BILI T 0.7 mg/dL 06/14/2017 Comp Metabolic Ivm997 ALBUMIN 4.5 g/dL 06/14/2017 Comp Metabolic Lqt148 TPRO 6.7 g/dL 06/14/2017 Comp Metabolic Whu225 GLOB 2.2 g/dL 06/14/2017 Comp Metabolic Hbg306 A/G Ratio 2.1 Ratio 06/14/2017 Comp Metabolic Ues482 Osmo 276 mOsmo 06/14/2017 Cbc With Differential Ord2 WBC 4.60 K/ul 04/12/2017 Cbc With Differential Ord2 RBC 4.07 M/ul 04/12/2017 Cbc With Differential Ord2 HGB 12.6 g/dl 04/12/2017 Cbc With Differential Ord2 HCT 38.1 % 04/12/2017 Cbc With Differential Ord2 Neut% 61.7 % 04/12/2017 Cbc With Differential Ord2 Lymph% 28.7 % 04/12/2017 Cbc With Differential Ord2 MCV 93.6 fl 04/12/2017 Cbc With Differential Ord2 MCH 31.0 pg 04/12/2017 Cbc With Differential Ord2 [place]% 8.5 % 04/12/2017 Cbc With Differential Ord2 MCHC 33.1 pg 04/12/2017 Cbc With Differential Ord2 Eos% 0.7 % 04/12/2017 Cbc With Differential Ord2 Baso% 0.4 % 04/12/2017 Cbc With Differential Ord2 PLT 257 K/ul 04/12/2017 Cbc With Differential Ord2 RDW 13.5 % 04/12/2017 Cbc With Differential Ord2 Neut ABS# 2.84 K/ul 04/12/2017 Cbc With Differential Ord2 Lymph ABS# 1.32 K/ul 04/12/2017 Cbc With Differential Ord2 [place] ABS# 0.4 K/ul 04/12/2017 Cbc With Differential Ord2 Eos ABS# 0.0 K/ul 04/12/2017 Cbc With Differential Ord2 Baso ABS# 0.0 K/ul 04/12/2017 Lipid Ord30 CHOL 110 mg/dL 04/12/2017 Lipid Ord30 HDL 47.0 mg/dl 04/12/2017 Lipid Ord30 TRIG 126 mg/dL 04/12/2017 Lipid Ord30 LDL 38 mg/dL 04/12/2017 Lipid Ord30 C/HDL 2.3 Ratio 04/12/2017 Free T4 Krs802 FREE T4 1.16 ng/dL 04/12/2017 Comp Metabolic Vpi533 NA 141 mEq/L 04/12/2017 Comp Metabolic Sqi482 K 3.6 mEq/L 04/12/2017 Comp Metabolic Yea295 CL 105 mEq/L 04/12/2017 Comp Metabolic Pzn934 CO2 27.0 mEq/L 04/12/2017 Comp Metabolic Yfj594 ANION GAP 13 04/12/2017 Comp Metabolic Rnd544 GLUCOSE 149 mg/dL 04/12/2017 Comp Metabolic Cme064 Creat 0.7 mg/dL 04/12/2017 Comp Metabolic Fub435 eGFR 94 ml/min/1.73m2 04/12/2017 Comp Metabolic Xdx858 BUN 19 mg/dL 04/12/2017 Comp Metabolic Omn583 B/C Ratio 28.8 Ratio 04/12/2017 Comp Metabolic Uei151 CALCIUM 10.5 mg/dL 04/12/2017 Comp Metabolic Iux379 ALK PHOS 72 U/L 04/12/2017 Comp Metabolic Vei599 AST(SGOT) 22 U/L 04/12/2017 Comp Metabolic Cpe698 ALT(SGPT) 30 U/L 04/12/2017 Comp Metabolic Jew660 BILI T 0.6 mg/dL 04/12/2017 Comp Metabolic Vua502 ALBUMIN 4.0 g/dL 04/12/2017 Comp Metabolic Hkt683 TPRO 6.1 g/dL 04/12/2017 Comp Metabolic Dhz215 GLOB 2.1 g/dL 04/12/2017 Comp Metabolic Rck222 A/G Ratio 1.9 Ratio 04/12/2017 Comp Metabolic Mfz004 Osmo 286 mOsmo 04/12/2017 Tsh Ord6 hTSH II 1.33 uIU/mL 04/12/2017 %Hba1C Pdm185 % HbA1c 40526-3 7.3 % 04/12/2017 %Hba1C Hcb782 Gluc Ave 163 mg/dL 04/12/2017 Tsh Ord6 hTSH II 2.36 uIU/mL 12/11/2016 %Hba1C Sqc440 % HbA1c 05083-4 7.5 % 12/11/2016 %Hba1C Izs709 Gluc Ave 169 mg/dL 12/11/2016 Comp Metabolic Aph692 NA 141 mEq/L 12/11/2016 Comp Metabolic Ilr687 K 3.5 mEq/L 12/11/2016 Comp Metabolic Miw055 CL 102 mEq/L 12/11/2016 Comp Metabolic Rkm810 CO2 28.0 mEq/L 12/11/2016 Comp Metabolic Rtr946 ANION GAP 15 12/11/2016 Comp Metabolic Bme713 GLUCOSE 183 mg/dL 12/11/2016 Comp Metabolic Rbs253 Creat 0.7 mg/dL 12/11/2016 Comp Metabolic Dwd519 eGFR 83 ml/min/1.73m2 12/11/2016 Comp Metabolic Yyk621 BUN 22 mg/dL 12/11/2016 Comp Metabolic Nye230 B/C Ratio 30.1 Ratio 12/11/2016 Comp Metabolic Vgk232 CALCIUM 10.8 mg/dL 12/11/2016 Comp Metabolic Pok421 ALK PHOS 76 U/L 12/11/2016 Comp Metabolic Ldt721 AST(SGOT) 24 U/L 12/11/2016 Comp Metabolic Zns370 ALT(SGPT) 36 U/L 12/11/2016 Comp Metabolic Oet559 BILI T 0.7 mg/dL 12/11/2016 Comp Metabolic Qaz042 ALBUMIN 4.3 g/dL 12/11/2016 Comp Metabolic Mvp774 TPRO 6.7 g/dL 12/11/2016 Comp Metabolic Jyh395 GLOB 2.4 g/dL 12/11/2016 Comp Metabolic Lhj961 A/G Ratio 1.8 Ratio 12/11/2016 Comp Metabolic Xci264 Osmo 289 mOsmo 12/11/2016 Cbc With Differential Ord2 WBC 4.79 K/ul 12/11/2016 Cbc With Differential Ord2 RBC 4.32 M/ul 12/11/2016 Cbc With Differential Ord2 HGB 13.4 g/dl 12/11/2016 Cbc With Differential Ord2 HCT 39.6 % 12/11/2016 Cbc With Differential Ord2 Neut% 61.4 % 12/11/2016 Cbc With Differential Ord2 MCV 91.7 fl 12/11/2016 Cbc With Differential Ord2 Lymph% 30.3 % 12/11/2016 Cbc With Differential Ord2 Vilas% 7.3 % 12/11/2016 Cbc With Differential Ord2 MCH 31.0 pg 12/11/2016 Cbc With Differential Ord2 Eos% 0.6 % 12/11/2016 Cbc With Differential Ord2 MCHC 33.8 pg 12/11/2016 Cbc With Differential Ord2 PLT 246 K/ul 12/11/2016 Cbc With Differential Ord2 Baso% 0.4 % 12/11/2016 Cbc With Differential Ord2 Neut ABS# 2.94 K/ul 12/11/2016 Cbc With Differential Ord2 RDW 13.2 % 12/11/2016 Cbc With Differential Ord2 Lymph ABS# 1.45 K/ul 12/11/2016 Cbc With Differential Ord2 Vil[place] ABS# 0.4 K/ul 12/11/2016 Cbc With Differential Ord2 Eos ABS# 0.0 K/ul 12/11/2016 Cbc With Differential Ord2 Baso ABS# 0.0 K/ul 12/11/2016 Free T4 Tuj518 FREE T4 1.02 ng/dL 12/11/2016 Lipid Ord30 CHOL 124 mg/dL 12/11/2016 Lipid Ord30 HDL 57.0 mg/dl 12/11/2016 Lipid Ord30 TRIG 151 mg/dL 12/11/2016 Lipid Ord30 LDL 37 mg/dL 12/11/2016 Lipid Ord30 C/HDL 2.2 Ratio 12/11/2016 %Hba1C Vlt671 % HbA1c 85676-4 7.3 % 08/14/2016 %Hba1C Rza948 Gluc Ave 163 mg/dL 08/14/2016 Comp Metabolic Kqp564 NA 139 mEq/L 08/14/2016 Comp Metabolic Hla145 K 3.8 mEq/L 08/14/2016 Comp Metabolic Qbf876 CL 104 mEq/L 08/14/2016 Comp Metabolic Vit371 CO2 28.0 mEq/L 08/14/2016 Comp Metabolic Ygz686 ANION GAP 11 08/14/2016 Comp Metabolic Hxp265 GLUCOSE 148 mg/dL 08/14/2016 Comp Metabolic Ndl018 Creat 0.6 mg/dL 08/14/2016 Comp Metabolic Fuw156 eGFR 99 ml/min/1.73m2 08/14/2016 Comp Metabolic Wkf149 BUN 16 mg/dL 08/14/2016 Comp Metabolic Aqm386 B/C Ratio 25.4 Ratio 08/14/2016 Comp Metabolic Nsh005 CALCIUM 10.4 mg/dL 08/14/2016 Comp Metabolic Nsa077 ALK PHOS 77 U/L 08/14/2016 Comp Metabolic Mvn275 AST(SGOT) 25 U/L 08/14/2016 Comp Metabolic Tes292 ALT(SGPT) 31 U/L 08/14/2016 Comp Metabolic Mtn385 BILI T 0.6 mg/dL 08/14/2016 Comp Metabolic Ipm136 ALBUMIN 4.2 g/dL 08/14/2016 Comp Metabolic Jip363 TPRO 6.5 g/dL 08/14/2016 Comp Metabolic Wxl241 GLOB 2.3 g/dL 08/14/2016 Comp Metabolic Ifh079 A/G Ratio 1.8 Ratio 08/14/2016 Comp Metabolic Klx184 Osmo 281 mOsmo 08/14/2016 Tsh Ord6 hTSH II 0.96 uIU/mL 08/14/2016 Cbc With Differential Ord2 WBC 5.00 K/ul 08/14/2016 Cbc With Differential Ord2 RBC 4.15 M/ul 08/14/2016 Cbc With Differential Ord2 HGB 12.8 g/dl 08/14/2016 Cbc With Differential Ord2 Neut% 62.4 % 08/14/2016 Cbc With Differential Ord2 HCT 38.8 % 08/14/2016 Cbc With Differential Ord2 MCV 93.5 fl 08/14/2016 Cbc With Differential Ord2 Lymph% 27.6 % 08/14/2016 Cbc With Differential Ord2 Vilas% 8.8 % 08/14/2016 Cbc With Differential Ord2 MCH 30.8 pg 08/14/2016 Cbc With Differential Ord2 MCHC 33.0 pg 08/14/2016 Cbc With Differential Ord2 Eos% 0.8 % 08/14/2016 Cbc With Differential Ord2 Baso% 0.4 % 08/14/2016 Cbc With Differential Ord2 PLT 258 K/ul 08/14/2016 Cbc With Differential Ord2 Neut ABS# 3.12 K/ul 08/14/2016 Cbc With Differential Ord2 RDW 13.5 % 08/14/2016 Cbc With Differential Ord2 Lymph ABS# 1.38 K/ul 08/14/2016 Cbc With Differential Ord2 [place] ABS# 0.4 K/ul 08/14/2016 Cbc With Differential Ord2 Eos ABS# 0.0 K/ul 08/14/2016 Cbc With Differential Ord2 Baso ABS# 0.0 K/ul 08/14/2016 Lipid Ord30 CHOL 118 mg/dL 08/14/2016 Lipid Ord30 HDL 50.0 mg/dl 08/14/2016 Lipid Ord30 TRIG 134 mg/dL 08/14/2016 Lipid Ord30 LDL 41 mg/dL 08/14/2016 Lipid Ord30 C/HDL 2.4 Ratio 08/14/2016 Free T4 Gte069 FREE T4 0.95 ng/dL 08/14/2016 %Hba1C Yur940 % HbA1c 79638-9 8.1 % 05/12/2016 %Hba1C Qxy888 Gluc Ave 186 mg/dL 05/12/2016 Comp Metabolic Wfp808 NA 139 mEq/L 05/12/2016 Comp Metabolic Ktm042 K 3.9 mEq/L 05/12/2016 Comp Metabolic Jeg602 CL 105 mEq/L 05/12/2016 Comp Metabolic Snu525 CO2 27.0 mEq/L 05/12/2016 Comp Metabolic Qae788 ANION GAP 11 05/12/2016 Comp Metabolic Gdm902 GLUCOSE 202 mg/dL 05/12/2016 Comp Metabolic Lcy377 Creat 0.6 mg/dL 05/12/2016 Comp Metabolic Ujg028 eGFR 97 ml/min/1.73m2 05/12/2016 Comp Metabolic Bkg436 BUN 14 mg/dL 05/12/2016 Comp Metabolic Wax274 B/C Ratio 21.9 Ratio 05/12/2016 Comp Metabolic Ryd317 CALCIUM 10.2 mg/dL 05/12/2016 Comp Metabolic Twd836 ALK PHOS 81 U/L 05/12/2016 Comp Metabolic Aqn503 AST(SGOT) 26 U/L 05/12/2016 Comp Metabolic Nwm040 ALT(SGPT) 36 U/L 05/12/2016 Comp Metabolic Ziv385 BILI T 0.7 mg/dL 05/12/2016 Comp Metabolic Lkv574 ALBUMIN 4.2 g/dL 05/12/2016 Comp Metabolic Ydn916 TPRO 6.4 g/dL 05/12/2016 Comp Metabolic Lcy845 GLOB 2.2 g/dL 05/12/2016 Comp Metabolic Unu222 A/G Ratio 1.9 Ratio 05/12/2016 Comp Metabolic Ucy542 Osmo 284 mOsmo 05/12/2016 Lipid Ord30 CHOL 152 mg/dL 05/12/2016 Lipid Ord30 HDL 50.0 mg/dl 05/12/2016 Lipid Ord30 TRIG 179 mg/dL 05/12/2016 Lipid Ord30 LDL 66 mg/dL 05/12/2016 Lipid Ord30 C/HDL 3.0 Ratio 05/12/2016 Tsh Ord6 hTSH II 1.55 uIU/mL 05/12/2016 Free T4 Jem505 FREE T4 0.93 ng/dL 05/12/2016 %Hba1C Nqp474 % HbA1c 20555-5 7.8 % 02/06/2016 %Hba1C Vma268 Gluc Ave 177 mg/dL 02/06/2016 Review of Systems System Result Effective Dates Constitutional No recent illness 2017 Constitutional anorexia 05/10/2018 Constitutional No night sweats 2017 Constitutional chills 05/10/2018 Constitutional diaphoresis 05/10/2018 Constitutional fatigue 05/10/2018 Constitutional No fever 05/10/2018 Constitutional No insomnia 05/10/2018 Constitutional No malaise 05/10/2018 Constitutional weight loss 05/10/2018 Constitutional No weight gain 05/10/2018 Eyes No eye discharge 05/10/2018 Eyes No eye erythema 05/10/2018 Ears/Nose/Throat/Neck No dizziness 2017 Ears/Nose/Throat/Neck No headache 2017 Ears/Nose/Throat/Neck nasal allergies Ears/Nose/Throat/Neck nasal discharge Cardiovascular No chest pain/pressure Cardiovascular No dyspnea 05/10/2018 Cardiovascular No edema 05/10/2018 Respiratory No productive sputum 2017 Respiratory No chest congestion 2017 Respiratory No cough 05/10/2018 Gastrointestinal abdominal pain 2017 Gastrointestinal No constipation 2017 Gastrointestinal No diarrhea 05/10/2018 Gastrointestinal nausea 05/10/2018 Gastrointestinal No vomiting 05/10/2018 Gastrointestinal gastroesophageal reflux 05/10/2018 Gastrointestinal gas and bloating 2017 Genitourinary/Nephrology No dysuria 05/10 Musculoskeletal No joint complaint 2017 Dermatologic No rash 05/10/2018 Neurologic No alteration of consciousness 05/10/2018 Constitutional No recent illness 2017 Constitutional No chills 04/21/2018 Constitutional No diaphoresis 04/21/2018 Constitutional No fever 04/21/2018 Eyes No eye erythema 04/21/2018 Ears/Nose/Throat/Neck No nasal discharge 04/21/2018 Cardiovascular No chest pain/pressure Cardiovascular No dyspnea 04/21/2018 Respiratory No cough 04/21/2018 Respiratory No dyspnea 04/21/2018 Neurologic No alteration of consciousness 04/21/2018 Neurologic No mental status change 2017 Constitutional No recent illness 2017 Constitutional No anorexia 04/04/2018 Constitutional No night sweats 2017 Constitutional No chills 04/04/2018 Constitutional No diaphoresis 04/04/2018 Constitutional fatigue 04/04/2018 Constitutional No fever 04/04/2018 Constitutional No insomnia 04/04/2018 Constitutional No malaise 04/04/2018 Eyes No blindness 04/04/2018 Eyes No eye discharge 04/04/2018 Eyes No eye erythema 04/04/2018 Eyes No vision change 04/04/2018 Ears/Nose/Throat/Neck No dental pain 05/2018 Ears/Nose/Throat/Neck No dizziness 2017 Ears/Nose/Throat/Neck No dysphagia 2017 Ears/Nose/Throat/Neck No headache 2017 Ears/Nose/Throat/Neck No hearing loss 05/2018 Ears/Nose/Throat/Neck No nasal allergies 04/04/2018 Ears/Nose/Throat/Neck No nasal discharge 04/04/2018 Ears/Nose/Throat/Neck No sore throat 05/2018 Ears/Nose/Throat/Neck No postnasal drip 04/04/2018 Ears/Nose/Throat/Neck No sinus congestion 04/04/2018 Cardiovascular No chest pain/pressure 05/2018 Cardiovascular No dyspnea 04/04/2018 Cardiovascular No edema 04/04/2018 Cardiovascular No exercise intolerance Cardiovascular No fatigue 04/04/2018 Cardiovascular No near-syncope/dizziness 04/04/2018 Respiratory No chest congestion 2017 Respiratory No chest tightness 2017 Respiratory No cough 04/04/2018 Respiratory No dyspnea 04/04/2018 Respiratory No pedal edema 04/04/2018 Gastrointestinal abdominal pain 2017 Gastrointestinal No constipation 2017 Gastrointestinal No diarrhea 04/04/2018 Gastrointestinal No gastroesophageal reflux 04/04/2018 Genitourinary/Nephrology No dysuria 04/04 Genitourinary/Nephrology No nocturia 05/2018 Genitourinary/Nephrology No urinary incontinence 04/04/2018 Musculoskeletal No stiffness 04/04/2018 Musculoskeletal No swelling 04/04/2018 Musculoskeletal No joint complaint 2017 Musculoskeletal No muscle weakness 2017 Musculoskeletal No myalgias 04/04/2018 Dermatologic mole change 04/04/2018 Dermatologic pigmentation change 2017 Dermatologic No rash 04/04/2018 Dermatologic No sores 04/04/2018 Dermatologic No scar 04/04/2018 Neurologic No dizziness 04/04/2018 Neurologic No headache 04/04/2018 Neurologic No neck pain 04/04/2018 Neurologic No syncope 04/04/2018 Psychiatric No anxiety 04/04/2018 Psychiatric No depression 04/04/2018 Endocrine diabetes mellitus type 2 2017 Constitutional No recent illness 2017 Constitutional No anorexia 01/06/2018 Constitutional No night sweats 2017 Constitutional No chills 01/06/2018 Constitutional No diaphoresis 01/06/2018 Constitutional fatigue 01/06/2018 Constitutional No fever 01/06/2018 Constitutional No insomnia 01/06/2018 Constitutional No malaise 01/06/2018 Eyes No blindness 01/06/2018 Eyes No eye discharge 01/06/2018 Eyes No eye erythema 01/06/2018 Eyes No vision change 01/06/2018 Ears/Nose/Throat/Neck No dental pain 08/2018 Ears/Nose/Throat/Neck No dizziness 2017 Ears/Nose/Throat/Neck No dysphagia 2017 Ears/Nose/Throat/Neck No headache 2017 Ears/Nose/Throat/Neck No hearing loss 08/2018 Ears/Nose/Throat/Neck No nasal allergies 01/06/2018 Ears/Nose/Throat/Neck No nasal discharge 01/06/2018 Ears/Nose/Throat/Neck No sore throat 08/2018 Ears/Nose/Throat/Neck No postnasal drip 01/06/2018 Ears/Nose/Throat/Neck No sinus congestion 01/06/2018 Cardiovascular No chest pain/pressure 08/2018 Cardiovascular No dyspnea 01/06/2018 Cardiovascular No edema 01/06/2018 Cardiovascular No exercise intolerance Cardiovascular No fatigue 01/06/2018 Cardiovascular No near-syncope/dizziness 01/06/2018 Respiratory No chest congestion 2017 Respiratory No chest tightness 2017 Respiratory No cough 01/06/2018 Respiratory No dyspnea 01/06/2018 Respiratory No pedal edema 01/06/2018 Gastrointestinal abdominal pain 2017 Gastrointestinal No constipation 2017 Gastrointestinal No diarrhea 01/06/2018 Gastrointestinal dyspepsia 01/06/2018 Gastrointestinal No gastroesophageal reflux 01/06/2018 Gastrointestinal No nausea 01/06/2018 Gastrointestinal No vomiting 01/06/2018 Genitourinary/Nephrology No dysuria 01/06 Genitourinary/Nephrology No nocturia 08/2018 Genitourinary/Nephrology No urinary incontinence 01/06/2018 Musculoskeletal No stiffness 01/06/2018 Musculoskeletal No swelling 01/06/2018 Musculoskeletal No joint complaint 2017 Musculoskeletal No muscle weakness 2017 Musculoskeletal No myalgias 01/06/2018 Dermatologic mole change 01/06/2018 Dermatologic pigmentation change 2017 Dermatologic No rash 01/06/2018 Dermatologic No sores 01/06/2018 Dermatologic No scar 01/06/2018 Neurologic No dizziness 01/06/2018 Neurologic No headache 01/06/2018 Neurologic No neck pain 01/06/2018 Neurologic No syncope 01/06/2018 Psychiatric No anxiety 01/06/2018 Psychiatric No depression 01/06/2018 Endocrine diabetes mellitus type 2 2017 Constitutional No recent illness 2017 Constitutional No anorexia 12/08/2017 Constitutional No night sweats 2017 Constitutional No chills 12/08/2017 Constitutional No diaphoresis 12/08/2017 Constitutional fatigue 12/08/2017 Constitutional No fever 12/08/2017 Constitutional No insomnia 12/08/2017 Constitutional No malaise 12/08/2017 Eyes No blindness 12/08/2017 Eyes No eye discharge 12/08/2017 Eyes No eye erythema 12/08/2017 Eyes No vision change 12/08/2017 Ears/Nose/Throat/Neck No dental pain Ears/Nose/Throat/Neck No dizziness 2017 Ears/Nose/Throat/Neck No dysphagia 2017 Ears/Nose/Throat/Neck No headache 2017 Ears/Nose/Throat/Neck No hearing loss Ears/Nose/Throat/Neck No nasal allergies 12/08/2017 Ears/Nose/Throat/Neck No nasal discharge 12/08/2017 Ears/Nose/Throat/Neck No sore throat Ears/Nose/Throat/Neck No postnasal drip 12/08/2017 Ears/Nose/Throat/Neck No sinus congestion 12/08/2017 Cardiovascular No chest pain/pressure Cardiovascular No dyspnea 12/08/2017 Cardiovascular No edema 12/08/2017 Cardiovascular No exercise intolerance Cardiovascular No fatigue 12/08/2017 Cardiovascular No near-syncope/dizziness 12/08/2017 Respiratory No chest congestion 2017 Respiratory No chest tightness 2017 Respiratory No cough 12/08/2017 Respiratory No dyspnea 12/08/2017 Respiratory No pedal edema 12/08/2017 Gastrointestinal abdominal pain 2017 Gastrointestinal No constipation 2017 Gastrointestinal No diarrhea 12/08/2017 Gastrointestinal No gastroesophageal reflux 12/08/2017 Gastrointestinal No nausea 12/08/2017 Gastrointestinal No vomiting 12/08/2017 Genitourinary/Nephrology No dysuria 12/08 Genitourinary/Nephrology No nocturia Genitourinary/Nephrology No urinary incontinence 12/08/2017 Musculoskeletal No stiffness 12/08/2017 Musculoskeletal No swelling 12/08/2017 Musculoskeletal No joint complaint 2017 Musculoskeletal No muscle weakness 2017 Musculoskeletal No myalgias 12/08/2017 Dermatologic mole change 12/08/2017 Dermatologic pigmentation change 2017 Dermatologic No rash 12/08/2017 Dermatologic No sores 12/08/2017 Dermatologic No scar 12/08/2017 Neurologic No dizziness 12/08/2017 Neurologic No headache 12/08/2017 Neurologic No neck pain 12/08/2017 Neurologic No syncope 12/08/2017 Psychiatric No anxiety 12/08/2017 Psychiatric No depression 12/08/2017 Endocrine diabetes mellitus type 2 2017 Gastrointestinal dyspepsia 12/08/2017 Constitutional No recent illness 2016 Constitutional No [...] 1994 Constitutional general appearance Overall: well developed 05/10/2018 None Full Exam - General 1994 Constitutional general appearance Overall: in no acute distress 05/10/2018 None Full Exam - General 1994 Constitutional general appearance Overall: well nourished 05/10/2018 None Full Exam - General 1994 Eyes conjunctiva /eyelids Overall: conjunctiva clear 05/10/2018 None Full Exam - General 1994 Eyes conjunctiva /eyelids Overall: eyelids normal 05/10/2018 None Full Exam - General 1994 Ears/Nose/Throat lips/teeth/gingiva Overall: benign lips 05/10/2018 None Full Exam - General 1994 Respiratory respiratory effort/rhythm Overall: no retractions 05/10/2018 None Full Exam - General 1994 Respiratory respiratory effort/rhythm Overall: normal rate 05/10/2018 None Full Exam - General 1994 Musculoskeletal head and neck Overall: head atraumatic 05/10/2018 None Full Exam - General 1994 Neurologic cranial nerves Overall: crainial nerves 2 - 12 grossly intact 05/10/2018 None Full Exam - General 1994 Psychiatric orientation/consciousness Overall: oriented to person, place and time 05/10/2018 None Full Exam - General 1994 Psychiatric mood and affect Overall: normal mood and affect 05/10/2018 None Full Exam - General 1994 Psychiatric appearance Overall: well-groomed, good eye contact 05/10/2018 None Full Exam - General 1994 Abdomen abdominal exam Overall: normal bowel sounds 05/10/2018 None Full Exam - General 1994 Abdomen abdominal exam Upper quadrant: tender to palpation 05/10/2018 None Full Exam - General 1994 Abdomen abdominal exam Epigastric: tender to palpation 05/10/2018 None Full Exam - General 1994 Constitutional general appearance Overall: well developed 04/21/2018 None Full Exam - General 1994 Constitutional general appearance Overall: in no acute distress 04/21/2018 None Full Exam - General 1994 Constitutional general appearance Overall: well nourished 04/21/2018 None Full Exam - General 1994 Eyes conjunctiva /eyelids Overall: conjunctiva clear 04/21/2018 None Full Exam - General 1994 Eyes conjunctiva /eyelids Overall: eyelids normal 04/21/2018 None Full Exam - General 1994 Ears/Nose/Throat lips/teeth/gingiva Overall: benign lips 04/21/2018 None Full Exam - General 1994 Respiratory respiratory effort/rhythm Overall: no retractions 04/21/2018 None Full Exam - General 1994 Respiratory respiratory effort/rhythm Overall: normal rate 04/21/2018 None Full Exam - General 1994 Musculoskeletal head and neck Overall: head atraumatic 04/21/2018 None Full Exam - General 1994 Neurologic cranial nerves Overall: crainial nerves 2 - 12 grossly intact 04/21/2018 None Full Exam - General 1994 Psychiatric orientation/consciousness Overall: oriented to person, place and time 04/21/2018 None Full Exam - General 1994 Psychiatric mood and affect Overall: normal mood and affect 04/21/2018 None Full Exam - General 1994 Psychiatric appearance Overall: well-groomed, good eye contact 04/21/2018 None Full Exam - General 1994 Constitutional general appearance Development: well developed 04/04/2018 None Full Exam - General 1994 Constitutional general appearance Development: appears stated age 0704/04/2018 None Full Exam - General 1994 Constitutional general appearance Hygiene/Attention to Grooming: good hygiene 04/04/2018 None Full Exam - General 1994 Eyes conjunctiva /eyelids Overall: conjunctiva clear 04/04/2018 None Full Exam - General 1994 Eyes conjunctiva /eyelids Overall: cornea clear 04/04/2018 None Full Exam - General 1994 Eyes conjunctiva /eyelids Overall: eyelids normal 04/04/2018 None Full Exam - General 1994 Eyes pupils and irises Overall: pupils equal, round, reactive to light and accomodation 04/04/2018 None Full Exam - General 1994 Ears/Nose/Throat otoscopic exam Overall: external auditory canals clear 04/04/2018 None Full Exam - General 1994 Ears/Nose/Throat otoscopic exam Overall: tympanic membranes clear 04/04/2018 None Full Exam - General 1994 Ears/Nose/Throat lips/teeth/gingiva Overall: benign lips 04/04/2018 None Full Exam - General 1994 Ears/Nose/Throat lips/teeth/gingiva Overall: normal dentition 04/04/2018 None Full Exam - General 1994 Ears/Nose/Throat oral cavity/pharynx/larynx Overall: oral mucosa clear 04/04/2018 None Full Exam - General 1994 Ears/Nose/Throat oral cavity/pharynx/larynx Overall: oropharyngeal mucosa clear 04/04/2018 None Full Exam - General 1994 Ears/Nose/Throat oral cavity/pharynx/larynx Overall: hypopharynx benign 04/04/2018 None Full Exam - General 1994 Ears/Nose/Throat oral cavity/pharynx/larynx Overall: no masses 04/04/2018 None Full Exam - General 1994 Respiratory auscultation Overall: breath sounds clear bilaterally 04/04/2018 None Full Exam - General 1994 Respiratory respiratory effort/rhythm Overall: no retractions 04/04/2018 None Full Exam - General 1994 Respiratory respiratory effort/rhythm Overall: normal rate 04/04/2018 None Full Exam - General 1994 Cardiovascular extremities Overall: no clubbing 04/04/2018 None Full Exam - General 1994 Cardiovascular auscultation of heart Overall: regular rate 04/04/2018 None Full Exam - General 1994 Cardiovascular auscultation of heart Overall: normal heart sounds 04/04/2018 None Full Exam - General 1994 Abdomen abdominal exam Overall: normal bowel sounds 04/04/2018 None Full Exam - General 1994 Abdomen abdominal exam Upper quadrant: tender to palpation 04/04/2018 None Full Exam - General 1994 Musculoskeletal spine, ribs and pelvis Overall: spine benign 04/04/2018 None Full Exam - General 1994 Musculoskeletal spine, ribs and pelvis Overall: sacroiliac joint benign 04/04/2018 None Full Exam - General 1994 Musculoskeletal spine, ribs and pelvis Overall: good posture 04/04/2018 None Full Exam - General 1994 Musculoskeletal head and neck Overall: head atraumatic 04/04/2018 None Full Exam - General 1994 Musculoskeletal head and neck Overall: cervical spine benign 04/04/2018 None Full Exam - General 1994 Integument inspection of skin Dermatitis: thickened 04/04/2018 dry lesion on left forehead, right cheek, left and right hands and forearms. Full Exam - General 1994 Neurologic deep tendon reflexes Overall: deep tendon reflexes intact 04/04/2018 None Full Exam - General 1994 Neurologic cranial nerves Overall: crainial nerves 2 - 12 grossly intact 04/04/2018 None Full Exam - General 1994 Psychiatric orientation/consciousness Overall: oriented to person, place and time 04/04/2018 None Full Exam - General 1994 Psychiatric mood and affect Overall: normal mood and affect 04/04/2018 None Full Exam - General 1994 Constitutional general appearance Development: well developed 01/06/2018 None Full Exam - General 1994 Constitutional general appearance Development: appears stated age 0401/06/2018 None Full Exam - General 1994 Constitutional general appearance Hygiene/Attention to Grooming: good hygiene 01/06/2018 None Full Exam - General 1994 Eyes conjunctiva /eyelids Overall: conjunctiva clear 01/06/2018 None Full Exam - General 1994 Eyes conjunctiva /eyelids Overall: cornea clear 01/06/2018 None Full Exam - General 1994 Eyes conjunctiva /eyelids Overall: eyelids normal 01/06/2018 None Full Exam - General 1994 Eyes pupils and irises Overall: pupils equal, round, reactive to light and accomodation 01/06/2018 None Full Exam - General 1994 Ears/Nose/Throat otoscopic exam Overall: external auditory canals clear 01/06/2018 None Full Exam - General 1994 Ears/Nose/Throat otoscopic exam Overall: tympanic membranes clear 01/06/2018 None Full Exam - General 1994 Ears/Nose/Throat lips/teeth/gingiva Overall: benign lips 01/06/2018 None Full Exam - General 1994 Ears/Nose/Throat lips/teeth/gingiva Overall: normal dentition 01/06/2018 None Full Exam - General 1994 Ears/Nose/Throat oral cavity/pharynx/larynx Overall: oral mucosa clear 01/06/2018 None Full Exam - General 1994 Ears/Nose/Throat oral cavity/pharynx/larynx Overall: oropharyngeal mucosa clear 01/06/2018 None Full Exam - General 1994 Ears/Nose/Throat oral cavity/pharynx/larynx Overall: hypopharynx benign 01/06/2018 None Full Exam - General 1994 Ears/Nose/Throat oral cavity/pharynx/larynx Overall: no masses 01/06/2018 None Full Exam - General 1994 Respiratory auscultation Overall: breath sounds clear bilaterally 01/06/2018 None Full Exam - General 1994 Respiratory respiratory effort/rhythm Overall: no retractions 01/06/2018 None Full Exam - General 1994 Respiratory respiratory effort/rhythm Overall: normal rate 01/06/2018 None Full Exam - General 1994 Cardiovascular extremities Overall: no clubbing 01/06/2018 None Full Exam - General 1994 Cardiovascular auscultation of heart Overall: regular rate 01/06/2018 None Full Exam - General 1994 Cardiovascular auscultation of heart Overall: normal heart sounds 01/06/2018 None Full Exam - General 1994 Abdomen abdominal exam Overall: normal bowel sounds 01/06/2018 None Full Exam - General 1994 Abdomen abdominal exam Upper quadrant: tender to palpation 01/06/2018 None Full Exam - General 1994 Musculoskeletal spine, ribs and pelvis Overall: spine benign 01/06/2018 None Full Exam - General 1994 Musculoskeletal spine, ribs and pelvis Overall: sacroiliac joint benign 01/06/2018 None Full Exam - General 1994 Musculoskeletal spine, ribs and pelvis Overall: good posture 01/06/2018 None Full Exam - General 1994 Musculoskeletal head and neck Overall: head atraumatic 01/06/2018 None Full Exam - General 1994 Musculoskeletal head and neck Overall: cervical spine benign 01/06/2018 None Full Exam - General 1994 Integument inspection of skin Dermatitis: thickened 01/06/2018 dry lesion on left forehead, right cheek, left and right hands and forearms. Full Exam - General 1994 Neurologic deep tendon reflexes Overall: deep tendon reflexes intact 01/06/2018 None Full Exam - General 1994 Neurologic cranial nerves Overall: crainial nerves 2 - 12 grossly intact 01/06/2018 None Full Exam - General 1994 Psychiatric orientation/consciousness Overall: oriented to person, place and time 01/06/2018 None Full Exam - General 1994 Psychiatric mood and affect Overall: normal mood and affect 01/06/2018 None Full Exam - General 1994 Constitutional general appearance Development: well developed 12/08/2017 None Full Exam - General 1994 Constitutional general appearance Development: appears stated age 0312/08/2017 None Full Exam - General 1994 Constitutional general appearance Hygiene/Attention to Grooming: good hygiene 12/08/2017 None Full Exam - General 1994 Eyes conjunctiva /eyelids Overall: conjunctiva clear 12/08/2017 None Full Exam - General 1994 Eyes conjunctiva /eyelids Overall: cornea clear 12/08/2017 None Full Exam - General 1994 Eyes conjunctiva /eyelids Overall: eyelids normal 12/08/2017 None Full Exam - General 1994 Eyes pupils and irises Overall: pupils equal, round, reactive to light and accomodation 12/08/2017 None Full Exam - General 1994 Ears/Nose/Throat otoscopic exam Overall: external auditory canals clear 12/08/2017 None Full Exam - General 1994 Ears/Nose/Throat otoscopic exam Overall: tympanic membranes clear 12/08/2017 None Full Exam - General 1994 Ears/Nose/Throat lips/teeth/gingiva Overall: benign lips 12/08/2017 None Full Exam - General 1994 Ears/Nose/Throat lips/teeth/gingiva Overall: normal dentition 12/08/2017 None Full Exam - General 1994 Ears/Nose/Throat oral cavity/pharynx/larynx Overall: oral mucosa clear 12/08/2017 None Full Exam - General 1994 Ears/Nose/Throat oral cavity/pharynx/larynx Overall: oropharyngeal mucosa clear 12/08/2017 None Full Exam - General 1994 Ears/Nose/Throat oral cavity/pharynx/larynx Overall: hypopharynx benign 12/08/2017 None Full Exam - General 1994 Ears/Nose/Throat oral cavity/pharynx/larynx Overall: no masses 12/08/2017 None Full Exam - General 1994 Respiratory auscultation Overall: breath sounds clear bilaterally 12/08/2017 None Full Exam - General 1994 Respiratory respiratory effort/rhythm Overall: no retractions 12/08/2017 None Full Exam - General 1994 Respiratory respiratory effort/rhythm Overall: normal rate 12/08/2017 None Full Exam - General 1994 Cardiovascular extremities Overall: no clubbing 12/08/2017 None Full Exam - General 1994 Cardiovascular auscultation of heart Overall: regular rate 12/08/2017 None Full Exam - General 1994 Cardiovascular auscultation of heart Overall: normal heart sounds 12/08/2017 None Full Exam - General 1994 Musculoskeletal spine, ribs and pelvis Overall: spine benign 12/08/2017 None Full Exam - General 1994 Musculoskeletal spine, ribs and pelvis Overall: sacroiliac joint benign 12/08/2017 None Full Exam - General 1994 Musculoskeletal spine, ribs and pelvis Overall: good posture 12/08/2017 None Full Exam - General 1994 Musculoskeletal head and neck Overall: head atraumatic 12/08/2017 None Full Exam - General 1994 Musculoskeletal head and neck Overall: cervical spine benign 12/08/2017 None Full Exam - General 1994 Integument inspection of skin Dermatitis: thickened 12/08/2017 dry lesion on left forehead, right cheek, left and right hands and forearms. Full Exam - General 1994 Neurologic deep tendon reflexes Overall: deep tendon reflexes intact 12/08/2017 None Full Exam - General 1994 Neurologic cranial nerves Overall: crainial nerves 2 - 12 grossly intact 12/08/2017 None Full Exam - General 1994 Psychiatric orientation/consciousness Overall: oriented to person, place and time 12/08/2017 None Full Exam - General 1994 Psychiatric mood and affect Overall: normal mood and affect 12/08/2017 None Full Exam - General 1994 Abdomen abdominal exam Overall: normal bowel sounds 12/08/2017 None Full Exam - General 1994 Abdomen abdominal exam Upper quadrant: tender to palpation 12/08/2017 None Full Exam - General 1994 Constitutional [...] affect 07/09/2015 None Procedures Procedure Codes Date PPPS, SUBSEQ VISIT CPT -4: G0439 04/21/2018 ADMIN INFLUENZA VIRUS VAC CPT-4: G0008 07/21/2017 FLU VACC PRSV FREE INC ANTIG CPT-4: 85395 07/21/2017 URINALYSIS NONAUTO W/O SCOPE CPT-4: 87020 06/10/2017 PPPS, SUBSEQ VISIT CPT -4: G0439 04/14/2017 ADMIN INFLUENZA VIRUS VAC CPT-4: G0008 07/09/2015 FLU VACC 4 TAMI 3 YRS PLUS IM SNOMED CT: 00130496 CPT-4: 54103 07/09/2015 Vital Signs Date Vital 05/10/2018 Blood Pressure 1: 136/80 Code : 8480-6 BMI: 28.8 Code : 92797-2 Heart Rate 1 : 99 bpm Height: 5'7" SpO2: 98% Temperature: 36.1 (C) / 97.0 (F) Weight: 184 lbs 04/21/2018 Blood Pressure 1: 144/72 Code : 8480-6 BMI: 29.8 Code : 32571-1 Heart Rate 1 : 64 bpm Height: 5'7" Waist Measure (cm): 93 cm Weight: 190 lbs 04/04/2018 Blood Pressure 1: 148/76 Code : 8480-6 BMI: 29.8 Code : 19247-0 Heart Rate 1 : 108 bpm Height: 5'7" SpO2: 98% Weight: 190 lbs 01/06/2018 Blood Pressure 1: 154/76 Code : 8480-6 BMI: 28.7 Code : 57849-9 Heart Rate 1 : 100 bpm Height: 5'7" SpO2: 96% Weight: 183 lbs 12/08/2017 Blood Pressure 1: 132/74 Code : 8480-6 BMI: 29.6 Code : 05573-7 Heart Rate 1 : 104 bpm Height: 5'7" SpO2: 98% Weight: 189 lbs 08/12/2017 Blood Pressure 1: 138/80 Code : 8480-6 BMI: 28.8 Code : 00430-1 Heart Rate 1 : 95 bpm Height: 5'7" SpO2: 98% Weight: 184 lbs 06/16/2017 Blood Pressure 1: 142/96 Code : 8480-6 BMI: 30.1 Code : 48331-6 Heart Rate 1 : 107 bpm Height: 5'7" SpO2: 97% Weight: 192 lbs 06/14/2017 Blood Pressure 1: 152/80 Code : 8480-6 Heart Rate 1: 113 bpm Height: 5'7" SpO2: 97% Temperature: 36.9 (C) / 98.5 (F) 06/10/2017 Blood Pressure 1: 134/82 Code : 8480-6 BMI: 30.1 Code : 03817-3 Heart Rate 1 : 103 bpm Height: 5'7" SpO2: 97% Temperature: 36.3 (C) / 97.3 (F) Weight: 192 lbs 04/14/2017 BMI: 30.5 Code: 05795-6 Height: 5'7" Weight: 195 lbs 04/13/2017 Blood Pressure 1: 160/80 Code : 8480-6 Blood Pressure 2: 140/78 Code: 8480-6 BMI: 30.5 Code: 86847-1 Heart Rate 1: 94 bpm Height: 5'7" SpO2: 96% Weight: 195 lbs 12/14/2016 Blood Pressure 1: 140/78 Code : 8480-6 BMI: 31.6 Code : 12824-8 Heart Rate 1 : 99 bpm Height: 5'7" SpO2: 98% Weight: 202 lbs 08/17/2016 Blood Pressure 1: 138/78 Code : 8480-6 BMI: 32.0 Code : 30357-3 Heart Rate 1 : 97 bpm Height: 5'7" SpO2: 98% Weight: 204 lbs 8 oz 05/14/2016 Blood Pressure 1: 146/82 Code : 8480-6 Blood Pressure 1: 138/78 Code: 8480-6 BMI: 32.7 Code: 14886-2 Heart Rate 1: 100 bpm Height: 5'7" SpO2: 98% Weight: 209 lbs 03/27/2016 Blood Pressure 1: 130/68 Code : 8480-6 BMI: 33.0 Code : 31425-4 Heart Rate 1 : 81 bpm Height: 5'7" SpO2: 97% Weight: 211 lbs 03/26/2016 Blood Pressure 1: 130/68 Code : 8480-6 BMI: 33.0 Code : 79862-9 Heart Rate 1 : 104 bpm Height: 5'7" SpO2: 98% Weight: 211 lbs 02/06/2016 Blood Pressure 1: 138/84 Code : 8480-6 BMI: 33.2 Code : 46517-1 Heart Rate 1 : 80 bpm Height: 5'7" SpO2: 98% Weight: 212 lbs 10/09/2015 Blood Pressure 1: 134/76 Code : 8480-6 BMI: 32.7 Code : 88612-8 Heart Rate 1 : 98 bpm Height: 5'7" SpO2: 98% Weight: 209 lbs 07/09/2015 Blood Pressure 1: 135/76 Code : 8480-6 Heart Rate 1: 75 bpm Height: Respiratory Rate: 16 bpm Weight: Functional Status No Functional Status data History of Present Illness Symptom Name Status Result Effective Date Notes cough Quality intermittent 05/10/2018 None cough Onset and Resolution ongoing 05/10/2018 None cough Frequency of Episodes daily 05/10/2018 None cough Pertinent Findings hoarseness 05/10/2018 None cough Pertinent Findings chills 05/10/2018 this past weekend cough Pertinent Findings fever 05/10/2018 of 99 this past weekend- normally runs between 96-97 cough Pertinent Findings nasal congestion 05/10/2018 None cough Pertinent Findings weight loss 05/10/2018 None cough Pertinent Findings chest discomfort 05/10/2018 None abdominal pain Location in the LUQ 05/10/2018 None abdominal pain Location in the epigastric area 05/10/2018 None abdominal pain Quality aching 05/10/2018 None abdominal pain Quality intermittent 05/10/2018 None abdominal pain Triggers no known associated factors 05/10/2018 None abdominal pain Onset of Symptom 1.5 weeks ago 05/10/2018 None Annual Medicare Wellness Exam Alcohol Use does not drink any alcohol 04/21/2018 None Annual Medicare Wellness Exam Aspirin Use no 04/21/2018 None Annual Medicare Wellness Exam Blood Glucose (self reported) high (126 or higher) 04/21/2018 None Annual Medicare Wellness Exam Blood Pressure (self reported ) borderline (120/80 - 139/89) 04/21/2018 None Annual Medicare Wellness Exam Cholesterol (self reported) desireable (below 200) 04/21/2018 None Annual Medicare Wellness Exam Depression (last 6 months) almost never 04/21/2018 None Annual Medicare Wellness Exam Depression or Hopelessness almost never 04/21/2018 None Annual Medicare Wellness Exam Describe Your Health very good 04/21/2018 None Annual Medicare Wellness Exam Exercise Habits does not exercise 04/21/2018 None Annual Medicare Wellness Exam Handling Stress usually nirmal effectively 04/21/2018 None Annual Medicare Wellness Exam Hemaglobin A-1C (self reported ) borderline high (7) 04/21/2018 None Annual Medicare Wellness Exam Hours of Sleep 6 04/21/2018 None Annual Medicare Wellness Exam Interaction with Friends yes 04/21/2018 None Annual Medicare Wellness Exam Interests & Pleasure daily 04/21/2018 None Annual Medicare Wellness Exam Life Satisfaction very satisfied 04/21/2018 None Annual Medicare Wellness Exam Motor Vehicle Safety always fastens seat belt: y 04/21/2018 None Annual Medicare Wellness Exam Motor Vehicle Safety drives after drinking: n 04/21/2018 None Annual Medicare Wellness Exam Motor Vehicle Safety rides with someone who has been drinking: n 2017 None Annual Medicare Wellness Exam Nutrition servings of fried food / high fat foods per day: 1 2017 None Annual Medicare Wellness Exam Nutrition servings of high fiber / whole grain per day: 3 04/21/2018 None Annual Medicare Wellness Exam Nutrition servings of vegetables / fruit per day: 2 04/21/2018 None Annual Medicare Wellness Exam Smoking and Tobacco Use non smoker 04/21/2018 None Annual Medicare Wellness Exam Social & Emotional Support always 04/21/2018 None Annual Medicare Wellness Exam Stress some of the time 04/21/2018 None Annual Medicare Wellness Exam Sun Exposure protects skin when outdoors: y 04/21/2018 None diabetes mellitus Onset of Symptom onset as an adult 04/04/2018 None diabetes mellitus Quality non-insulin dependent 04/04/2018 None diabetes mellitus Quality chronic 04/04/2018 None diabetes mellitus Alleviating Factors medication 04/04/2018 None diabetes mellitus Exacerbating Factors diet 04/04/2018 None diabetes mellitus Nutrition ADA diet 04/04/2018 None diabetes mellitus Pertinent Findings Denies dizziness 04/04/2018 None diabetes mellitus Pertinent Findings dyspnea 04/04/2018 at times diabetes mellitus Pertinent Findings nausea 04/04/2018 None hypothyroid Quality stable 04/04/2018 None hypothyroid Onset and Resolution ongoing 04/04/2018 None hypothyroid Alleviating Factors medication 04/04/2018 None hypertension Onset and Resolution ongoing 04/04/2018 None hypertension Onset of Symptom during adulthood 04/04/2018 None hypertension Blood Pressure Values not checking blood pressure at home 04/04/2018 None hypertension Alleviating Factors medication 04/04/2018 None hypertension Pertinent Findings Denies dizziness 04/04/2018 None hypertension Pertinent Findings Denies edema 04/04/2018 None hyperlipidemia Onset and Resolution gradual in onset 04/04/2018 None hyperlipidemia Onset of Symptom during adulthood 04/04/2018 None hyperlipidemia Alleviating Factors medication 04/04/2018 None hyperlipidemia Exacerbating Factors diet 04/04/2018 None hypothyroid Quality chronic 04/04/2018 None hypertension Quality primary hypertension 04/04/2018 None hypertension Quality chronic 04/04/2018 None hypertension Significant Medical Conditions diabetes 04/04/2018 None hypertension Significant Medical Conditions hypothyroidism 04/04/2018 None diabetes mellitus Test results Pt checking blood glucose at home, see scanned readings 2017 None diabetes mellitus Glucose monitoring fasting 04/04/2018 None hypertension Pertinent Findings decreased energy 04/04/2018 None diabetes mellitus Onset of Symptom onset as an adult 01/06/2018 None diabetes mellitus Quality non-insulin dependent 01/06/2018 None diabetes mellitus Quality chronic 01/06/2018 None diabetes mellitus Alleviating Factors medication 01/06/2018 None diabetes mellitus Alleviating Factors exercise 01/06/2018 None diabetes mellitus Exacerbating Factors diet 01/06/2018 None diabetes mellitus Nutrition ADA diet 01/06/2018 None diabetes mellitus Pertinent Findings Denies dizziness 01/06/2018 None diabetes mellitus Pertinent Findings Denies dyspnea 01/06/2018 None diabetes mellitus Pertinent Findings nausea 01/06/2018 occasionally hypothyroid Quality stable 01/06/2018 None hypothyroid Onset and Resolution ongoing 01/06/2018 None hypothyroid Alleviating Factors medication 01/06/2018 None hypertension Onset and Resolution ongoing 01/06/2018 None hypertension Onset of Symptom during adulthood 01/06/2018 None hypertension Blood Pressure Values not checking blood pressure at home 01/06/2018 None hypertension Alleviating Factors medication 01/06/2018 None hypertension Pertinent Findings Denies dizziness 01/06/2018 None hypertension Pertinent Findings Denies dyspnea 01/06/2018 None hypertension Pertinent Findings Denies edema 01/06/2018 None hyperlipidemia Onset and Resolution gradual in onset 01/06/2018 None hyperlipidemia Onset and Resolution ongoing 01/06/2018 None hyperlipidemia Onset of Symptom during adulthood 01/06/2018 None hyperlipidemia Alleviating Factors medication 01/06/2018 None hyperlipidemia Exacerbating Factors diet 01/06/2018 None abdominal pain Location in the RLQ 01/06/2018 None abdominal pain Quality aching 01/06/2018 None abdominal pain Quality cramping 01/06/2018 None abdominal pain Onset and Resolution gradual in onset 01/06/2018 None abdominal pain Onset of Symptom 1 months ago 01/06/2018 None abdominal pain Frequency of Episodes daily 01/06/2018 None abdominal pain Timing of Episodes all day long 01/06/2018 None diabetes mellitus Onset of Symptom onset as an adult 12/08/2017 None diabetes mellitus Quality non-insulin dependent 12/08/2017 None diabetes mellitus Quality chronic 12/08/2017 None diabetes mellitus Alleviating Factors medication 12/08/2017 None diabetes mellitus Alleviating Factors exercise 12/08/2017 None diabetes mellitus Exacerbating Factors diet 12/08/2017 None diabetes mellitus Nutrition ADA diet 12/08/2017 None diabetes mellitus Pertinent Findings Denies dizziness 12/08/2017 None diabetes mellitus Pertinent Findings Denies dyspnea 12/08/2017 None diabetes mellitus Pertinent Findings nausea 12/08/2017 occasionally hypothyroid Quality stable 12/08/2017 None hypothyroid Onset and Resolution ongoing 12/08/2017 None hypothyroid Alleviating Factors medication 12/08/2017 None hypertension Onset and Resolution ongoing 12/08/2017 None hypertension Onset of Symptom during adulthood 12/08/2017 None hypertension Blood Pressure Values not checking blood pressure at home 12/08/2017 None hypertension Alleviating Factors medication 12/08/2017 None hypertension Pertinent Findings Denies dizziness 12/08/2017 None hypertension Pertinent Findings Denies dyspnea 12/08/2017 None hypertension Pertinent Findings Denies edema 12/08/2017 None hyperlipidemia Onset and Resolution gradual in onset 12/08/2017 None hyperlipidemia Onset and Resolution ongoing 12/08/2017 None hyperlipidemia Onset of Symptom during adulthood 12/08/2017 None hyperlipidemia Alleviating Factors medication 12/08/2017 None hyperlipidemia Exacerbating Factors diet 12/08/2017 None abdominal pain Location in the RLQ 12/08/2017 None abdominal pain Quality aching 12/08/2017 None abdominal pain Quality cramping 12/08/2017 None abdominal pain Onset and Resolution gradual in onset 12/08/2017 None abdominal pain Onset of Symptom 1 months ago 12/08/2017 None abdominal pain Frequency of Episodes daily 12/08/2017 None abdominal pain Timing of Episodes all day long 12/08/2017 None diabetes mellitus Onset of Symptom onset [...] data Encounters Encounter Performer Location Codes Date ([id number]) [id number] EST. PATIENT, LEVEL III Diagnosis: Left upper quadrant pain[ICD10: R10.12] Diagnosis: Gastro-esophageal reflux disease without esophagitis[ICD10: K21.9] Camilla Warren MD, [facility] CPT-4: 67299 05/10/2018 ([id number]) 44503 EST. PATIENT, LEVEL IV Diagnosis: Type 2 diabetes mellitus with hyperglycemia[ICD10: E11.65] Diagnosis: Atrophy of thyroid (acquired)[ICD10: E03.4] Diagnosis: Essential (primary) hypertension[ICD10: I10] Sarahy Warren MD, [facility] CPT-4: 68107 04/04/2018 ([id number]) 36801 EST. PATIENT, LEVEL IV Diagnosis: Type 2 diabetes mellitus with hyperglycemia[ICD10: E11.65] Diagnosis: Essential (primary) hypertension[ICD10: I10] Diagnosis: Functional diarrhea[ICD10: K59.1] Sarahy Warren MD, [facility] CPT-4: 26732 01/06/2018 ([id number]) 54238 EST. PATIENT, LEVEL IV Diagnosis: Type 2 diabetes mellitus with hyperglycemia[ICD10: E11.65] Diagnosis: Essential (primary) hypertension[ICD10: I10] Diagnosis: Atrophy of thyroid (acquired)[ICD10: E03.4] Diagnosis: Generalized abdominal pain[ICD10: R10.84] Diagnosis: Gastro-esophageal reflux disease without esophagitis[ICD10: K21.9] Sarahy Warren MD, [facility] CPT-4: 36238 12/08/2017 ([id number]) 11784 EST. 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 PATIENT, LEVEL V Diagnosis: Gastro-esophageal reflux disease without esophagitis[ICD10: K21.9] Diagnosis: Nausea[ICD10: R11.0] Diagnosis: Generalized abdominal pain[ICD10: R10.84] Thania Warren MD, [facility] CPT-4: 09028 06/16/2017 ([id number]) Miscellaneous no charge Diagnosis: Generalized abdominal pain[ICD10: R10.84] Diagnosis: Nausea[ICD10: R11.0] Camilla Warren MD, [facility] CPT-4: 71600 06/14/2017 ([id number]) 80877 EST. PATIENT, LEVEL III Diagnosis: Generalized abdominal pain[ICD10: R10.84] Diagnosis: Other allergic rhinitis[ICD10: J30.89] Diagnosis: Dysuria[ICD10: R30.0] Camilla Warren MD, [facility] CPT-4: 28212 06/10/2017 ([id number]) 99208 EST. PATIENT, LEVEL IV Diagnosis: Type 2 diabetes mellitus with hyperglycemia[ICD10: E11.65] Diagnosis: Mixed hyperlipidemia[ICD10: E78.2] Diagnosis: Atrophy of thyroid (acquired)[ICD10: E03.4] Diagnosis: Essential (primary) hypertension[ICD10: I10] Sarahy Warren MD [facility] CPT-4: 43904 04/13/2017 ([id number]) 79150 EST. PATIENT, LEVEL IV Diagnosis: Essential (primary) hypertension[ICD10: I10] Diagnosis: Actinic keratosis[ICD10: L57.0] Diagnosis: Type 2 diabetes mellitus with hyperglycemia[ICD10: E11.65] Diagnosis: Mixed hyperlipidemia[ICD10: E78.2] Sarahy Warren MD [facility] CPT-4: 13499 12/14/2016 ([id number]) 61690 EST. PATIENT, LEVEL IV Diagnosis: Type 2 diabetes mellitus with hyperglycemia[ICD10: E11.65] Diagnosis: Essential (primary) hypertension[ICD10: I10] Diagnosis: Atrophy of thyroid (acquired)[ICD10: E03.4] Sarahy Warren MD [facility] CPT-4: 44707 08/17/2016 ([id number]) 75896 EST. PATIENT, LEVEL IV Diagnosis: Type 2 diabetes mellitus with hyperglycemia[ICD10: E11.65] Diagnosis: Essential (primary) hypertension[ICD10: I10] Sarahy Warren MD [facility] CPT-4: 77708 05/14/2016 ([id number]) Miscellaneous no charge Diagnosis: Type 2 diabetes mellitus with hyperglycemia[ICD10: E11.65] Thania Warren MD [facility] CPT-4: 56024 03/27/2016 [id number] EST. PATIENT, LEVEL IV Diagnosis: Other acute sinusitis[ICD10: J01.80] Diagnosis: Rash and other nonspecific skin eruption[ICD10: R21] Thania Warren MD [facility] CPT-4: 84392 03/26/2016 ([id number]) 79528 EST. PATIENT, LEVEL IV Diagnosis: Type 2 diabetes mellitus with hyperglycemia[ICD10: E11.65] Diagnosis: Essential (primary) hypertension[ICD10: I10] Diagnosis: Hypothyroidism, unspecified[ICD10: E03.9] Sarahy Warren MD [facility] CPT-4: 99470 02/06/2016 ([id number]) 29982 EST. PATIENT, LEVEL IV Diagnosis: Type 2 diabetes mellitus with hyperglycemia[ICD10: E11.65] Diagnosis: Hyperlipidemia, unspecified[ICD10: E78.5] Diagnosis: Essential (primary) hypertension[ICD10: I10] Diagnosis: Hypothyroidism, unspecified[ICD10: E03.9] [facility] CPT-4: 45459 10/09/2015 ([id number]) OFFICE VISIT, NEW - LEVEL 4 Diagnosis: Type 2 diabetes mellitus with hyperglycemia[ICD10: E11.65] [facility] CPT-4: 60501 07/09/2015 Plan of Care Planned Activity Notes Codes Status Date Appointment: Camilla Fernandez WPtel: [phone] [phone] [place] (15 min) Moderate 05/10/2018 Patient Education: Patient Medication Summary Completed 05/10/2018 Patient Education: Patient Medication Summary Completed 05/10/2018 Care Plan: Parathyroid Hormone add to blood from 05/10 Pending 05/10/2018 Appointment: Thania Andre WPtel: [facility] MCR - Annual Wellness Visit 04/21/2018 Patient Education: Patient Medication Summary Completed 04/21/2018 Appointment: Sarahy Warren WPtel: [phone] [facility] (15 min) Moderate 04/04/2018 Patient Education: Patient Medication Summary Completed 04/04/2018 Appointment: Sarahy Warren WPtel: [facility] [place] (15 min) Moderate 01/06/2018 Patient Education: Patient Medication Summary Completed 01/06/2018 Appointment: Sarahy Warren WPtel: [facility] [place] (15 min) Moderate 12/08/2017 Patient Education: Patient Medication Summary Completed 12/08/2017 Appointment: Sarahy Warren WPtel: [facility] [place] (15 min) Moderate 08/12/2017 Patient Education: Patient Medication Summary Completed 08/12/2017 Appointment: Injection 07/21/2017 Patient Education: Patient Medication Summary Completed 07/21/2017 App[facility]ment: [facility] (30 min) Complex 06/16/2017 Patient Education: Patient Medication Summary Completed 06/16/2017 Appointment: Camilla Fernandez WPtel: [phone] [place] (15 min) Moderate 06/14/2017 Patient Education: Patient Medication Summary Completed 06/14/2017 Appointment: Camilla Fernandez WPtel: [phone] (15 min) Moderate 06/10/2017 Patient Education: Patient Medication Summary Completed 06/10/2017 Patient Education: Obesity Completed 06/10/2017 Appointment: Thania Andre WPtel: [facility] MCR - Annual Wellness Visit 04/14/2017 Patient Education: Patient Medication Summary Completed 04/14/2017 Patient Education: Obesity Completed 04/14/2017 Appointment: Sarahy Warren WPtel: [facility] [id number] (15 min) Moderate 04/13/2017 Patient Education: Patient Medication Summary Completed 04/13/2017 Patient Education: Obesity Completed 04/13/2017 Appointment: Saarhy Warren WPtel: [facility]5 [facility] [place] (15 min) Moderate 12/14/2016 Patient Education: Patient Medication Summary Completed 12/14/2016 Patient Education: Obesity Completed 12/14/2016 Appointment: Sarahy Warren WPtel: [facility]5 [facility] (15 min) Moderate 08/17/2016 Patient Education: Patient Medication Summary Completed 08/17/2016 Patient Education: Obesity Completed 08/17/2016 Patient Education: Hypertension Completed 08/17/2016 [id number] ([facility] min) Moderate 05/14/2016 Patient Education: Patient Medication Summary Completed 05/14/2016 Patient Education: Obesity Completed 05/14/2016 Patient Education: Hypertension Completed 05/14/2016 Patient Education: Patient Medication Summary Completed 05/11/2016 Patient Education: Patient Medication Summary Completed 03/27/2016 [phone] ([facility] min) Moderate 03/26/2016 Patient Education: Patient Medication Summary Completed 03/26/2016 Patient Education: Patient Medication Summary Completed 02/06/2016 Patient Education: Obesity Completed 02/06/2016 [id number] [place] (15 min) Moderate 10/09/2015 Patient Education: Patient Medication Summary Completed 10/09/2015 Patient Education: Hypertension Completed 10/09/2015 [facility]ment[phone] [place] New Patient 07/09/2015 Patient Education: Patient Medication Summary Completed 07/09/2015 Instructions No Instructions
--- OUTSIDE RECORDS SUMMARY | 2018-08-05 10:19 | XMS REPORT | CCD ---
Author Author [facility] Organization [facility] Address [address] [place] [address] Phone Care Team Providers Care Leave Manager Name Role Phone PP Unavailable CCM Unavailable Summary Purpose Interface Exchange Insurance Providers Payer name Policy type / Coverage type Covered libertarian ID Effective Begin Date Effective End Date WPS Medicare Part B Medicare Part B [id number] 2018 Unknown [employer] Medicare Part B [id number] Unknown Family history Father Diagnosis Age At [...] No Inactive Date Active ciprofloxacin rash RxNorm: 45566 08/12/2017 No Inactive Date Active AUGMENTIN RxNorm: 259904 03/26/2015 No Inactive Date Active SULFA(SULFONAMIDE ANTIBIOTICS) [...] Instructions Hyzaar 100 mg-25 mg tablet RxNorm: 234515 TAKE ONE TABLET BY MOUTH DAILY 05/10/2018 10/06/2018 Active Lipitor 20 mg tablet RxNorm: 342639 TAKE ONE TABLET BY MOUTH DAILY 04/14/2018 10/10/2018 Active pantoprazole 40 mg tablet,delayed release RxNorm: 313787 1 Tablet(s) PO daily as needed GI upset 04/04/2018 10/30/2018 Active metformin 1,000 mg tablet RxNorm: 524052 1 Tablet(s) PO BID 05/201810/30/2018 Active metformin 1,000 mg tablet RxNorm: 002560 1/2 Tablet(s) PO BID 04/04/2018 04/03/2018 Inactive Lipitor 20 mg tablet RxNorm: 123338 TAKE ONE TABLET BY MOUTH DAILY 02/14/2018 04/13/2018 Inactive Trulicity 1.5 mg/0.5 mL subcutaneous pen injector RxNorm: 7842428 0.5 Milliliter(s ) QW INJECT 0.5ML UNDER THE SKIN ONCE WEEKLY 12/08/2017 07/05/2018 Active nystatin 100,000 unit/gram topical cream RxNorm: 256027 1 Gram(s) TOP TID 12/08/2017 12/17/2017 Inactive sucralfate 1 gram tablet RxNorm: 421267 1 Tablet(s) PO QID 04/20/2018 Inactive Hyzaar 100 mg-25 mg tablet RxNorm: 079093 TAKE ONE TABLET BY MOUTH DAILY 10/20/2017 05/09/2018 Inactive metformin 1,000 mg tablet RxNorm: 991808 1 Tablet(s) PO BID 04/03/2018 Inactive Lipitor 20 mg tablet RxNorm: 179877 TAKE ONE TABLET BY MOUTH DAILY 09/30/2017 02/13/2018 Inactive levothyroxine 100 mcg tablet RxNorm: 611482 TAKE ONE TABLET BY MOUTH DAILY 07/22/2017 07/16/2018 Active Protonix 40 mg tablet,delayed release RxNorm: 731346 1 Tablet(s) PO daily 06/16/2017 07/15/2017 Inactive Cipro 500 mg tablet RxNorm: 676609 1 Tablet(s) PO BID 201606/19/2017 Inactive Flagyl 500 mg tablet RxNorm: 493440 1 Tablet(s) PO TID 201606/19/2017 Inactive Trulicity 1.5 mg/0.5 mL subcutaneous pen injector RxNorm: 4088435 Milliliter(s) INJECT 0.5ML UNDER THE SKIN ONCE WEEKLY 05/25/2017 09/13/2017 Inactive Trulicity 1.5 mg/0.5 mL subcutaneous pen injector RxNorm: 1558092 INJECT 0.5ML UNDER THE SKIN ONCE WEEKLY 05/20/2017 Inactive metformin 1,000 mg tablet RxNorm: 551005 1 Tablet(s) PO BID TAKE ONE TABLET BY MOUTH TWICE A DAY 05/20/2017 10/19/2017 Inactive Lipitor 20 mg tablet RxNorm: 495858 TAKE ONE TABLET BY MOUTH DAILY 03/23/2017 09/18/2017 Inactive Lipitor 20 mg tablet RxNorm: 644084 TAKE ONE TABLET BY MOUTH DAILY 01/12/2017 03/12/2017 Inactive Hyzaar 100 mg-25 mg tablet RxNorm: 780993 TAKE ONE TABLET BY MOUTH DAILY 01/12/2017 10/08/2017 Inactive nystatin 100,000 unit/gram topical cream RxNorm: 987933 1 Gram(s) TOP TID 12/14/2016 12/23/2016 Inactive Efudex 5 % topical cream RxNorm: 818217 1 Application TOP BID 12/14/2016 12/23/2016 Inactive Trulicity 1.5 mg/0.5 mL subcutaneous pen injector RxNorm: 5219717 0.5 Milliliter(s ) SQ INJECT 0.5ML SUBCUTANEOUSLY ONCE WEEKLY 12/14/2016 05/12/2017 Inactive metformin 1,000 mg tablet RxNorm: 596797 TAKE ONE TABLET BY MOUTH TWICE A DAY 11/20/2016 05/18/2017 Inactive Lipitor 20 mg tablet RxNorm: 805795 Tablet(s) TAKE ONE TABLET BY MOUTH ONCE DAILY 10/19/2016 01/11/2017 Inactive levothyroxine 100 mcg tablet RxNorm: 346725 TAKE ONE TABLET BY MOUTH ONCE DAILY 08/24/2016 07/21/2017 Inactive Hyzaar 100 mg-25 mg tablet RxNorm: 944968 Tablet(s) TAKE ONE TABLET BY MOUTH ONCE DAILY 2016 01/11/2017 Inactive Trulicity 0.75 mg/0.5 mL subcutaneous pen injector RxNorm: 3328008 INJECT 0.5ML SUBCUTANEOUSLY ONCE WEEKLY 07/13/2016 Inactive metformin 1,000 mg tablet RxNorm: 560712 1 Tablet(s) PO BID 11/19/2016 Inactive Trulicity 0.75 mg/0.5 mL subcutaneous pen injector RxNorm: 0700410 0.5 Milliliter( s) SQ QW 05/14/2016 07/12/2016 Inactive Lipitor 20 mg tablet RxNorm: 803978 TAKE ONE TABLET BY MOUTH ONCE DAILY 05/07/2016 10/18/2016 Inactive Zofran 4 mg tablet RxNorm: 044991 1 Tablet(s) PO TID as needed nausea 03/27/2016 03/26/2016 Inactive Zofran 4 mg tablet RxNorm: 652720 1 Tablet(s) PO TID as needed nausea 03/27/2016 03/31/2016 Inactive Keflex 500 mg capsule RxNorm: 713131 1 Capsule(s) PO TID 201504/01/2016 Inactive prednisone 20 mg tablet RxNorm: 276878 2 Tablet(s) PO daily 03/26/2016 Inactive Janumet XR 100 mg-1,000 mg tablet,extended release RxNorm: 7699757 1 Tablet(s) PO daily 02/17/2016 05/13/2016 Inactive Janumet XR 100 mg-1,000 mg tablet,extended release RxNorm: 3140096 1 Tablet(s) PO daily 02/17/2016 02/16/2016 Inactive Hyzaar 100 mg-25 mg tablet RxNorm: 345219 Tablet(s) TAKE ONE TABLET BY MOUTH ONCE DAILY 02/04/2016 07/28/2016 Inactive Janumet XR 50 mg-1,000 mg tablet,extended release RxNorm: 6616762 TAKE ONE TABLET BY MOUTH ONCE DAILY 01/13/2016 02/16/2016 Inactive Lipitor 20 mg tablet RxNorm: 855105 Tablet(s) TAKE ONE TABLET BY MOUTH ONCE DAILY 01/13/2016 05/06/2016 Inactive Janumet XR 50 mg-1,000 mg tablet,extended release RxNorm: 8504243 1 Tablet(s) PO daily 10/02/2015 01/12/2016 Inactive Janumet XR 50 mg-1,000 mg tablet,extended release RxNorm: 0144186 1 Tablet(s) PO daily 10/01/2015 10/01/2015 Inactive Hyzaar 100 mg-25 mg tablet RxNorm: 709348 TAKE ONE TABLET BY MOUTH ONCE DAILY 09/30/2015 01/27/2016 Inactive Lipitor 20 mg tablet RxNorm: 925475 TAKE ONE TABLET BY MOUTH ONCE DAILY 09/30/2015 01/12/2016 Inactive metformin 1,000 mg tablet RxNorm: 570245 1 Tablet(s) PO BID 07/09/2015 Inactive Janumet XR 50 mg-1,000 mg tablet,extended release RxNorm: 7338705 1 Tablet(s) PO daily 07/09/2015 09/02/2015 Inactive levothyroxine 100 mcg tablet RxNorm: 050312 1 Capsule(s) PO daily 07/09/2015 07/02/2016 Inactive Hyzaar 100 mg-25 mg tablet RxNorm: 714161 1 Tablet(s) PO daily 05/29/2015 05/28/2015 Inactive Lipitor 20 mg tablet RxNorm: 397584 1 Tablet(s) PO daily 201405/28/2015 Inactive Hyzaar 100 mg-25 mg tablet RxNorm: 867197 1 Tablet(s) PO daily 05/29/2015 09/25/2015 Inactive Lipitor 20 mg tablet RxNorm: 033765 1 Tablet(s) PO daily 201409/25/2015 Inactive Fish Oil 1,000 mg capsule RxNorm: oral No Start Date Active One Touch Test RxNorm : miscellaneous No Start Date 03/25/2015 Inactive levothyroxine 100 mcg capsule RxNorm: 585830 oral No Start Date 07/08/2015 Inactive Medication [...] Item Item Code Result Date Parathyroid Hormone Sbn561 PTH 48.70 pg/ml 05/11/2018 Lipase Ggh622 LIPASE 42 U/L 05/10/2018 Comp Metabolic Zbm499 NA 140 mEq/L 05/10/2018 Comp Metabolic Edz704 K 3.5 mEq/L 05/10/2018 Comp Metabolic Axx535 CL 101 mEq/L 05/10/2018 Comp Metabolic Jxy949 CO2 28.0 mEq/L 05/10/2018 Comp Metabolic Fcp966 ANION GAP 15 05/10/2018 Comp Metabolic Yaq022 GLUCOSE 155 mg/dL 05/10/2018 Comp Metabolic Isz166 Creat 0.7 mg/dL 05/10/2018 Comp Metabolic Jtf202 eGFR 93 ml/min/1.73m2 05/10/2018 Comp Metabolic Ofu164 BUN 13 mg/dL 05/10/2018 Comp Metabolic Zaz263 B/C Ratio 19.7 Ratio 05/10/2018 Comp Metabolic Fqw486 CALCIUM 11.1 mg/dL 05/10/2018 Comp Metabolic Ube224 ALK PHOS 77 U/L 05/10/2018 Comp Metabolic Iel145 AST(SGOT) 17 U/L 05/10/2018 Comp Metabolic Bxm403 ALT(SGPT) 21 U/L 05/10/2018 Comp Metabolic Lhb964 BILI T 1.2 mg/dL 05/10/2018 Comp Metabolic Ixe653 ALBUMIN 4.6 g/dL 05/10/2018 Comp Metabolic Wsw893 TPRO 6.9 g/dL 05/10/2018 Comp Metabolic Yyp925 GLOB 2.3 g/dL 05/10/2018 Comp Metabolic Zmb602 A/G Ratio 2.0 Ratio 05/10/2018 Comp Metabolic Uvx542 Osmo 283 mOsmo 05/10/2018 Amylase Ord34 AMYLASE [...] 30.4 pg 04/01/2018 Cbc With Differential Ord2 [place]% 8.6 % 04/01/2018 Cbc With Differential Ord2 MCHC 33.1 pg 04/01/2018 Cbc With Differential Ord2 Eos% 0.4 % 04/01/2018 Cbc With Differential Ord2 PLT 259 K/ul 04/01/2018 Cbc With Differential Ord2 Baso% 0.4 % 04/01/2018 Cbc With Differential Ord2 RDW 13.3 % 04/01/2018 Cbc With Differential Ord2 Neut ABS# 2.91 K/ul 04/01/2018 Cbc With Differential Ord2 Lymph ABS# 1.32 K/ul 04/01/2018 Cbc With Differential Ord2 [place] ABS# 0.4 K/ul 04/01/2018 Cbc With Differential Ord2 Eos ABS# 0.0 K/ul 04/01/2018 Cbc With Differential Ord2 Baso ABS# 0.0 K/ul 04/01/2018 Comp Metabolic Rqo976 NA 141 mEq/L 04/01/2018 Comp Metabolic Odz096 K 3.8 mEq/L 04/01/2018 Comp Metabolic Fsn347 CL 104 mEq/L 04/01/2018 Comp Metabolic Bxz582 CO2 29.0 mEq/L 04/01/2018 Comp Metabolic Cwl578 ANION GAP 12 04/01/2018 Comp Metabolic Wtm952 GLUCOSE 167 mg/dL 04/01/2018 Comp Metabolic Okn281 Creat 0.6 mg/dL 04/01/2018 Comp Metabolic Qch834 eGFR 97 ml/min/1.73m2 04/01/2018 Comp Metabolic Ysi640 BUN 17 mg/dL 04/01/2018 Comp Metabolic Yiq094 B/C Ratio 26.6 Ratio 04/01/2018 Comp Metabolic Rpk790 CALCIUM 10.5 mg/dL 04/01/2018 Comp Metabolic Dlh231 ALK PHOS 105 U/L 04/01/2018 Comp Metabolic Ltg227 AST(SGOT) 27 U/L 04/01/2018 Comp Metabolic Kqo750 ALT(SGPT) 36 U/L 04/01/2018 Comp Metabolic Chf785 BILI T 0.5 mg/dL 04/01/2018 Comp Metabolic Psp000 ALBUMIN 4.4 g/dL 04/01/2018 Comp Metabolic Khe083 TPRO 6.8 g/dL 04/01/2018 Comp Metabolic Vtk124 GLOB 2.5 g/dL 04/01/2018 Comp Metabolic Sfp617 A/G Ratio 1.8 Ratio 04/01/2018 Comp Metabolic Mwt690 Osmo 287 mOsmo 04/01/2018 Lipid Ord30 CHOL 139 mg/dL 04/01/2018 Lipid Ord30 HDL 58.0 mg/dl 04/01/2018 Lipid Ord30 TRIG 136 mg/dL 04/01/2018 Lipid Ord30 LDL 54 mg/dL 04/01/2018 Lipid Ord30 C/HDL 2.4 Ratio 04/01/2018 Free T4 Lcl688 FREE T4 1.05 ng/dL 04/01/2018 %Hba1C Kro406 % HbA1c 44277-2 7.6 % 04/01/2018 %Hba1C Vkh096 Gluc Ave 171 mg/dL 04/01/2018 Tsh Ord6 [...] 28.4 % 12/06/2017 Cbc With Differential Ord2 MCH 30.4 pg 12/06/2017 Cbc With Differential Ord2 [place]% 7.9 % 12/06/2017 Cbc With Differential Ord2 MCHC 33.1 pg 12/06/2017 Cbc With Differential Ord2 Eos% 0.4 % 12/06/2017 Cbc With Differential Ord2 PLT 260 K/ul 12/06/2017 Cbc With Differential Ord2 Baso% 0.2 % 12/06/2017 Cbc With Differential Ord2 RDW 13.1 % 12/06/2017 Cbc With Differential Ord2 Neut ABS# 2.86 K/ul 12/06/2017 Cbc With Differential Ord2 Lymph ABS# 1.29 K/ul 12/06/2017 Cbc With Differential Ord2 [place] ABS# 0.4 K/ul 12/06/2017 Cbc With Differential Ord2 Eos ABS# 0.0 K/ul 12/06/2017 Cbc With Differential Ord2 Baso ABS# 0.0 K/ul 12/06/2017 Free T4 Exk717 FREE T4 1.04 ng/dL 12/06/2017 Tsh Ord6 TSH (3rd IS) 1.21 uIU/mL 12/06/2017 Comp Metabolic Ban267 NA 138 mEq/L 12/06/2017 Comp Metabolic Kte882 K 3.5 mEq/L 12/06/2017 Comp Metabolic Tnp334 CL 98 mEq/L 12/06/2017 Comp Metabolic Zuv040 CO2 31.0 mEq/L 12/06/2017 Comp Metabolic Iep489 ANION GAP 13 12/06/2017 Comp Metabolic Dnp523 GLUCOSE 152 mg/dL 12/06/2017 Comp Metabolic Zti380 Creat 0.6 mg/dL 12/06/2017 Comp Metabolic Xcz816 eGFR 111 ml/min/1.73m2 12/06/2017 Comp Metabolic Kwi162 BUN 13 mg/dL 12/06/2017 Comp Metabolic Tbe869 B/C Ratio 22.8 Ratio 12/06/2017 Comp Metabolic Kss734 CALCIUM 10.6 mg/dL 12/06/2017 Comp Metabolic Dhf888 ALK PHOS 76 U/L 12/06/2017 Comp Metabolic Pow537 AST(SGOT) 23 U/L 12/06/2017 Comp Metabolic Iso587 ALT(SGPT) 27 U/L 12/06/2017 Comp Metabolic Fmg979 BILI T 1.0 mg/dL 12/06/2017 Comp Metabolic Fwi749 ALBUMIN 4.5 g/dL 12/06/2017 Comp Metabolic Fru285 TPRO 6.5 g/dL 12/06/2017 Comp Metabolic Jtc168 GLOB 2.0 g/dL 12/06/2017 Comp Metabolic Jye291 A/G Ratio 2.2 Ratio 12/06/2017 Comp Metabolic Vnp389 Osmo 279 mOsmo 12/06/2017 Lipid Ord30 CHOL 111 mg/dL 12/06/2017 Lipid Ord30 HDL 52.0 mg/dl 12/06/2017 Lipid Ord30 TRIG 131 mg/dL 12/06/2017 Lipid Ord30 LDL 33 mg/dL 12/06/2017 Lipid Ord30 C/HDL 2.1 Ratio 12/06/2017 %Hba1C Arp334 % HbA1c 31752-9 7.1 % 12/06/2017 %Hba1C Atd467 Gluc Ave 157 mg/dL 12/06/2017 %Hba1C Sgq298 % HbA1c 20982-5 7.1 % 08/10/2017 %Hba1C Hed884 Gluc Ave 157 mg/dL 08/10/2017 Comp Metabolic Ylt913 NA 140 mEq/L 08/10/2017 Comp Metabolic Wmx121 K 3.6 mEq/L 08/10/2017 Comp Metabolic Uve842 CL 100 mEq/L 08/10/2017 Comp Metabolic Zff157 CO2 29.0 mEq/L 08/10/2017 Comp Metabolic Awn930 ANION GAP 15 08/10/2017 Comp Metabolic Hxj992 GLUCOSE 144 mg/dL 08/10/2017 Comp Metabolic Ltr515 Creat 0.6 mg/dL 08/10/2017 Comp Metabolic Aqi120 eGFR 97 ml/min/1.73m2 08/10/2017 Comp Metabolic Dej310 BUN 15 mg/dL 08/10/2017 Comp Metabolic Tfo455 B/C Ratio 23.4 Ratio 08/10/2017 Comp Metabolic Adm349 CALCIUM 11.1 mg/dL 08/10/2017 Comp Metabolic Aay139 ALK PHOS 76 U/L 08/10/2017 Comp Metabolic Qhl096 AST(SGOT) 20 U/L 08/10/2017 Comp Metabolic Ijq770 ALT(SGPT) 30 U/L 08/10/2017 Comp Metabolic Rzz013 BILI T 0.9 mg/dL 08/10/2017 Comp Metabolic Khm738 ALBUMIN 4.7 g/dL 08/10/2017 Comp Metabolic Loa890 TPRO 7.0 g/dL 08/10/2017 Comp Metabolic Gpx246 GLOB 2.3 g/dL 08/10/2017 Comp Metabolic Nyn353 A/G Ratio 2.0 Ratio 08/10/2017 Comp Metabolic Wle309 Osmo 283 mOsmo 08/10/2017 Lipid Ord30 CHOL [...] 41.3 % 08/10/2017 Cbc With Differential Ord2 MCV 91.0 fl 08/10/2017 Cbc With Differential Ord2 Lymph% 18.6 % 08/10/2017 Cbc With Differential Ord2 MCH 30.8 pg 08/10/2017 Cbc With Differential Ord2 [place]% 7.1 % 08/10/2017 Cbc With Differential Ord2 MCHC 33.9 pg 08/10/2017 Cbc With Differential Ord2 Eos% 0.3 % 08/10/2017 Cbc With Differential Ord2 PLT 232 K/ul 08/10/2017 Cbc With Differential Ord2 Baso% 0.2 % 08/10/2017 Cbc With Differential Ord2 RDW 13.4 % 08/10/2017 Cbc With Differential Ord2 Neut ABS# 4.91 K/ul 08/10/2017 Cbc With Differential Ord2 Lymph ABS# 1.24 K/ul 08/10/2017 Cbc With Differential Ord2 [place] ABS# 0.5 K/ul 08/10/2017 Cbc With Differential Ord2 Eos ABS# 0.0 K/ul 08/10/2017 Cbc With Differential Ord2 Baso ABS# 0.0 K/ul 08/10/2017 Amylase Ord34 AMYLASE 37 U/L 06/14/2017 Lipase Eiy204 LIPASE 47 U/L 06/14/2017 Cbc With Differential [...] 17.7 % 06/14/2017 Cbc With Differential Ord2 MCH 30.7 pg 06/14/2017 Cbc With Differential Ord2 [place]% 4.9 % 06/14/2017 Cbc With Differential Ord2 MCHC 33.4 pg 06/14/2017 Cbc With Differential Ord2 Eos% 0.6 % 06/14/2017 Cbc With Differential Ord2 PLT 243 K/ul 06/14/2017 Cbc With Differential Ord2 Baso% 0.3 % 06/14/2017 Cbc With Differential Ord2 RDW 13.2 % 06/14/2017 Cbc With Differential Ord2 Neut ABS# 4.80 K/ul 06/14/2017 Cbc With Differential Ord2 Lymph ABS# 1.11 K/ul 06/14/2017 Cbc With Differential Ord2 [place] ABS# 0.3 K/ul 06/14/2017 Cbc With Differential Ord2 Eos ABS# 0.0 K/ul 06/14/2017 Cbc With Differential Ord2 Baso ABS# 0.0 K/ul 06/14/2017 Comp Metabolic Okp415 NA 135 mEq/L 06/14/2017 Comp Metabolic Ttx358 K 3.6 mEq/L 06/14/2017 Comp Metabolic Wya573 CL 98 mEq/L 06/14/2017 Comp Metabolic Lwj990 CO2 25.0 mEq/L 06/14/2017 Comp Metabolic Zvr788 ANION GAP 16 06/14/2017 Comp Metabolic Ecn237 GLUCOSE 195 mg/dL 06/14/2017 Comp Metabolic Etl862 Creat 0.6 mg/dL 06/14/2017 Comp Metabolic Gzf036 eGFR 97 ml/min/1.73m2 06/14/2017 Comp Metabolic Xaj079 BUN 14 mg/dL 06/14/2017 Comp Metabolic Pbz600 B/C Ratio 21.9 Ratio 06/14/2017 Comp Metabolic Stv919 CALCIUM 10.6 mg/dL 06/14/2017 Comp Metabolic Tft679 ALK PHOS 64 U/L 06/14/2017 Comp Metabolic Tmp718 AST(SGOT) 34 U/L 06/14/2017 Comp Metabolic Rhe671 ALT(SGPT) 39 U/L 06/14/2017 Comp Metabolic Ebi062 BILI T 0.7 mg/dL 06/14/2017 Comp Metabolic Oin269 ALBUMIN 4.5 g/dL 06/14/2017 Comp Metabolic Uqh066 TPRO 6.7 g/dL 06/14/2017 Comp Metabolic Bjx484 GLOB 2.2 g/dL 06/14/2017 Comp Metabolic Vhh609 A/G Ratio 2.1 Ratio 06/14/2017 Comp Metabolic Lfb385 Osmo 276 mOsmo 06/14/2017 Cbc With Differential Ord2 WBC 4.60 K/ul 04/12/2017 Cbc With Differential Ord2 RBC 4.07 M/ul 04/12/2017 Cbc With Differential Ord2 HGB 12.6 g/dl 04/12/2017 Cbc With Differential Ord2 Neut% 61.7 % 04/12/2017 Cbc With Differential Ord2 HCT 38.1 % 04/12/2017 Cbc With Differential Ord2 MCV 93.6 fl 04/12/2017 Cbc With Differential Ord2 Lymph% 28.7 % 04/12/2017 Cbc With Differential Ord2 MCH 31.0 pg 04/12/2017 Cbc With Differential Ord2 [place]% 8.5 % 04/12/2017 Cbc With Differential Ord2 MCHC 33.1 pg 04/12/2017 Cbc With Differential Ord2 Eos% 0.7 % 04/12/2017 Cbc With Differential Ord2 PLT 257 K/ul 04/12/2017 Cbc With Differential Ord2 Baso% 0.4 % 04/12/2017 Cbc With Differential Ord2 RDW 13.5 % 04/12/2017 Cbc With Differential Ord2 Neut ABS# 2.84 K/ul 04/12/2017 Cbc With Differential Ord2 Lymph ABS# 1.32 K/ul 04/12/2017 Cbc With Differential Ord2 [place] ABS# 0.4 K/ul 04/12/2017 Cbc With Differential Ord2 Eos ABS# 0.0 K/ul 04/12/2017 Cbc With Differential Ord2 Baso ABS# 0.0 K/ul 04/12/2017 Lipid Ord30 CHOL 110 mg/dL 04/12/2017 Lipid Ord30 HDL 47.0 mg/dl 04/12/2017 Lipid Ord30 TRIG 126 mg/dL 04/12/2017 Lipid Ord30 LDL 38 mg/dL 04/12/2017 Lipid Ord30 C/HDL 2.3 Ratio 04/12/2017 Free T4 Wxl174 FREE T4 1.16 ng/dL 04/12/2017 Comp Metabolic Mtc009 NA 141 mEq/L 04/12/2017 Comp Metabolic Usw168 K 3.6 mEq/L 04/12/2017 Comp Metabolic Wok077 CL 105 mEq/L 04/12/2017 Comp Metabolic Ncq157 CO2 27.0 mEq/L 04/12/2017 Comp Metabolic Nla283 ANION GAP 13 04/12/2017 Comp Metabolic Gfg877 GLUCOSE 149 mg/dL 04/12/2017 Comp Metabolic Nav977 Creat 0.7 mg/dL 04/12/2017 Comp Metabolic Laa629 eGFR 94 ml/min/1.73m2 04/12/2017 Comp Metabolic Yjg060 BUN 19 mg/dL 04/12/2017 Comp Metabolic Zkf570 B/C Ratio 28.8 Ratio 04/12/2017 Comp Metabolic Dkd051 CALCIUM 10.5 mg/dL 04/12/2017 Comp Metabolic Joz683 ALK PHOS 72 U/L 04/12/2017 Comp Metabolic Ovp783 AST(SGOT) 22 U/L 04/12/2017 Comp Metabolic Mau222 ALT(SGPT) 30 U/L 04/12/2017 Comp Metabolic Jfd251 BILI T 0.6 mg/dL 04/12/2017 Comp Metabolic Klg797 ALBUMIN 4.0 g/dL 04/12/2017 Comp Metabolic Xqw368 TPRO 6.1 g/dL 04/12/2017 Comp Metabolic Tsf739 GLOB 2.1 g/dL 04/12/2017 Comp Metabolic Svu964 A/G Ratio 1.9 Ratio 04/12/2017 Comp Metabolic Bcy789 Osmo 286 mOsmo 04/12/2017 Tsh Ord6 hTSH II 1.33 uIU/mL 04/12/2017 %Hba1C Qed892 % HbA1c 70910-3 7.3 % 04/12/2017 %Hba1C Awr246 Gluc Ave 163 mg/dL 04/12/2017 Tsh Ord6 hTSH II 2.36 uIU/mL 12/11/2016 %Hba1C Fmy428 % HbA1c 96951-5 7.5 % 12/11/2016 %Hba1C Lxl005 Gluc Ave 169 mg/dL 12/11/2016 Comp Metabolic Oqg496 NA 141 mEq/L 12/11/2016 Comp Metabolic Nxf434 K 3.5 mEq/L 12/11/2016 Comp Metabolic Yvs627 CL 102 mEq/L 12/11/2016 Comp Metabolic Ixa972 CO2 28.0 mEq/L 12/11/2016 Comp Metabolic Wfp576 ANION GAP 15 12/11/2016 Comp Metabolic Swd541 GLUCOSE 183 mg/dL 12/11/2016 Comp Metabolic Ueu694 Creat 0.7 mg/dL 12/11/2016 Comp Metabolic Uth507 eGFR 83 ml/min/1.73m2 12/11/2016 Comp Metabolic Iji608 BUN 22 mg/dL 12/11/2016 Comp Metabolic Jwo446 B/C Ratio 30.1 Ratio 12/11/2016 Comp Metabolic Qlu932 CALCIUM 10.8 mg/dL 12/11/2016 Comp Metabolic Dah544 ALK PHOS 76 U/L 12/11/2016 Comp Metabolic Fuc049 AST(SGOT) 24 U/L 12/11/2016 Comp Metabolic Vcs480 ALT(SGPT) 36 U/L 12/11/2016 Comp Metabolic Iyc679 BILI T 0.7 mg/dL 12/11/2016 Comp Metabolic Cjh604 ALBUMIN 4.3 g/dL 12/11/2016 Comp Metabolic Kwb846 TPRO 6.7 g/dL 12/11/2016 Comp Metabolic Bxo160 GLOB 2.4 g/dL 12/11/2016 Comp Metabolic Abb451 A/G Ratio 1.8 Ratio 12/11/2016 Comp Metabolic Irt616 Osmo 289 mOsmo 12/11/2016 Cbc With Differential Ord2 WBC 4.79 K/ul 12/11/2016 Cbc With Differential Ord2 RBC 4.32 M/ul 12/11/2016 Cbc With Differential Ord2 HGB 13.4 g/dl 12/11/2016 Cbc With Differential Ord2 Neut% 61.4 % 12/11/2016 Cbc With Differential Ord2 HCT 39.6 % 12/11/2016 Cbc With Differential Ord2 MCV 91.7 fl 12/11/2016 Cbc With Differential Ord2 Lymph% 30.3 % 12/11/2016 Cbc With Differential Ord2 MCH 31.0 pg 12/11/2016 Cbc With Differential Ord2 [place]% 7.3 % 12/11/2016 Cbc With Differential Ord2 MCHC [...] 1.45 K/ul 12/11/2016 Cbc With Differential Ord2 [place] ABS# 0.4 K/ul 12/11/2016 Cbc With Differential Ord2 Eos ABS# 0.0 K/ul 12/11/2016 Cbc With Differential Ord2 Baso ABS# 0.0 K/ul 12/11/2016 Free T4 Rnm116 FREE T4 1.02 ng/dL 12/11/2016 Lipid Ord30 CHOL 124 mg/dL 12/11/2016 Lipid Ord30 HDL 57.0 mg/dl 12/11/2016 Lipid Ord30 TRIG 151 mg/dL 12/11/2016 Lipid Ord30 LDL 37 mg/dL 12/11/2016 Lipid Ord30 C/HDL 2.2 Ratio 12/11/2016 %Hba1C Zyp173 % HbA1c 74362-4 7.3 % 08/14/2016 %Hba1C Wiu011 Gluc Ave 163 mg/dL 08/14/2016 Comp Metabolic Hjr013 NA 139 mEq/L 08/14/2016 Comp Metabolic Xev527 K 3.8 mEq/L 08/14/2016 Comp Metabolic Xez111 CL 104 mEq/L 08/14/2016 Comp Metabolic Hxf299 CO2 28.0 mEq/L 08/14/2016 Comp Metabolic Lpy157 ANION GAP 11 08/14/2016 Comp Metabolic Cyf560 GLUCOSE 148 mg/dL 08/14/2016 Comp Metabolic Gjz637 Creat 0.6 mg/dL 08/14/2016 Comp Metabolic Oou045 eGFR 99 ml/min/1.73m2 08/14/2016 Comp Metabolic Lha835 BUN 16 mg/dL 08/14/2016 Comp Metabolic Aox844 B/C Ratio 25.4 Ratio 08/14/2016 Comp Metabolic Rpu088 CALCIUM 10.4 mg/dL 08/14/2016 Comp Metabolic Oyh946 ALK PHOS 77 U/L 08/14/2016 Comp Metabolic Pkl217 AST(SGOT) 25 U/L 08/14/2016 Comp Metabolic Ghy383 ALT(SGPT) 31 U/L 08/14/2016 Comp Metabolic Dqn581 BILI T 0.6 mg/dL 08/14/2016 Comp Metabolic Soq436 ALBUMIN 4.2 g/dL 08/14/2016 Comp Metabolic Mpf808 TPRO 6.5 g/dL 08/14/2016 Comp Metabolic Ncz048 GLOB 2.3 g/dL 08/14/2016 Comp Metabolic Xzh340 A/G Ratio 1.8 Ratio 08/14/2016 Comp Metabolic Mpk663 Osmo 281 mOsmo 08/14/2016 Tsh Ord6 hTSH [...] 27.6 % 08/14/2016 Cbc With Differential Ord2 MCH 30.8 pg 08/14/2016 Cbc With Differential Ord2 [place]% 8.8 % 08/14/2016 Cbc With Differential Ord2 MCHC 33.0 pg 08/14/2016 Cbc With Differential Ord2 Eos% 0.8 % 08/14/2016 Cbc With Differential Ord2 PLT 258 K/ul 08/14/2016 Cbc With Differential Ord2 Baso% 0.4 % 08/14/2016 Cbc With Differential Ord2 RDW 13.5 % 08/14/2016 Cbc With Differential Ord2 Neut ABS# 3.12 K/ul 08/14/2016 Cbc With Differential Ord2 Lymph ABS# 1.38 K/ul 08/14/2016 Cbc With Differential Ord2 [place] ABS# 0.4 K/ul 08/14/2016 Cbc With Differential Ord2 Eos ABS# 0.0 K/ul 08/14/2016 Cbc With Differential Ord2 Baso ABS# 0.0 K/ul 08/14/2016 Lipid Ord30 CHOL 118 mg/dL 08/14/2016 Lipid Ord30 HDL 50.0 mg/dl 08/14/2016 Lipid Ord30 TRIG 134 mg/dL 08/14/2016 Lipid Ord30 LDL 41 mg/dL 08/14/2016 Lipid Ord30 C/HDL 2.4 Ratio 08/14/2016 Free T4 Nxh939 FREE T4 0.95 ng/dL 08/14/2016 %Hba1C Sjb359 % HbA1c 41840-4 8.1 % 05/12/2016 %Hba1C Rzr376 Gluc Ave 186 mg/dL 05/12/2016 Comp Metabolic Wzy728 NA 139 mEq/L 05/12/2016 Comp Metabolic Zac429 K 3.9 mEq/L 05/12/2016 Comp Metabolic Xol772 CL 105 mEq/L 05/12/2016 Comp Metabolic Zlb321 CO2 27.0 mEq/L 05/12/2016 Comp Metabolic Ntb799 ANION GAP 11 05/12/2016 Comp Metabolic Blv908 GLUCOSE 202 mg/dL 05/12/2016 Comp Metabolic Uos902 Creat 0.6 mg/dL 05/12/2016 Comp Metabolic Zzt137 eGFR 97 ml/min/1.73m2 05/12/2016 Comp Metabolic Iva726 BUN 14 mg/dL 05/12/2016 Comp Metabolic Onl721 B/C Ratio 21.9 Ratio 05/12/2016 Comp Metabolic Bqu225 CALCIUM 10.2 mg/dL 05/12/2016 Comp Metabolic Tnq035 ALK PHOS 81 U/L 05/12/2016 Comp Metabolic Jbh873 AST(SGOT) 26 U/L 05/12/2016 Comp Metabolic Ezg566 ALT(SGPT) 36 U/L 05/12/2016 Comp Metabolic Xec825 BILI T 0.7 mg/dL 05/12/2016 Comp Metabolic Tgw671 ALBUMIN 4.2 g/dL 05/12/2016 Comp Metabolic Zyj975 TPRO 6.4 g/dL 05/12/2016 Comp Metabolic Xch942 GLOB 2.2 g/dL 05/12/2016 Comp Metabolic Lfe302 A/G Ratio 1.9 Ratio 05/12/2016 Comp Metabolic Khz010 Osmo 284 mOsmo 05/12/2016 Lipid Ord30 CHOL 152 mg/dL 05/12/2016 Lipid Ord30 HDL 50.0 mg/dl 05/12/2016 Lipid Ord30 TRIG 179 mg/dL 05/12/2016 Lipid Ord30 LDL 66 mg/dL 05/12/2016 Lipid Ord30 C/HDL 3.0 Ratio 05/12/2016 Tsh Ord6 hTSH II 1.55 uIU/mL 05/12/2016 Free T4 Tor662 FREE T4 0.93 ng/dL 05/12/2016 %Hba1C Yyk258 % HbA1c 27106-9 7.8 % 02/06/2016 %Hba1C Hhz982 Gluc Ave 177 mg/dL 02/06/2016 Review of [...] FLU VACC PRSV FREE INC ANTIG CPT-4: 16329 07/21/2017 URINALYSIS NONAUTO W/O SCOPE CPT-4: 29115 06/10/2017 PPPS, SUBSEQ VISIT CPT -4: G0439 04/14/2017 ADMIN INFLUENZA VIRUS VAC CPT-4: G0008 07/09/2015 FLU VACC 4 TAMI 3 YRS PLUS IM SNOMED CT: [id number] CPT-4: 57276 07/09/2015 Vital Signs Date Vital 05/10/2018 Blood Pressure 1: 136/80 Code : 8480-6 BMI: 28.8 Code : 53488-9 Heart Rate 1 : 99 bpm Height: 5'7" SpO2: 98% Temperature: 36.1 (C) / 97.0 (F) Weight: 184 lbs 04/21/2018 Blood Pressure 1: 144/72 Code : 8480-6 BMI: 29.8 Code : 85827-1 Heart Rate 1 : 64 bpm Height: 5'7" Waist Measure (cm): 93 cm Weight: 190 lbs 04/04/2018 Blood Pressure 1: 148/76 Code : 8480-6 BMI: 29.8 Code : 19280-4 Heart Rate 1 : 108 bpm Height: 5'7" SpO2: 98% Weight: 190 lbs 01/06/2018 Blood Pressure 1: 154/76 Code : 8480-6 BMI: 28.7 Code : 86193-8 Heart Rate 1 : 100 bpm Height: 5'7" SpO2: 96% Weight: 183 lbs 12/08/2017 Blood Pressure 1: 132/74 Code : 8480-6 BMI: 29.6 Code : 84095-0 Heart Rate 1 : 104 bpm Height: 5'7" SpO2: 98% Weight: 189 lbs 08/12/2017 Blood Pressure 1: 138/80 Code : 8480-6 BMI: 28.8 Code : 68793-3 Heart Rate 1 : 95 bpm Height: 5'7" SpO2: 98% Weight: 184 lbs 06/16/2017 Blood Pressure 1: 142/96 Code : 8480-6 BMI: 30.1 Code : 30332-0 Heart Rate 1 : 107 bpm Height: 5'7" SpO2: 97% Weight: 192 lbs 06/14/2017 Blood Pressure 1: 152/80 Code : 8480-6 Heart Rate 1: 113 bpm Height: 5'7" SpO2: 97% Temperature: 36.9 (C) / 98.5 (F) 06/10/2017 Blood Pressure 1: 134/82 Code : 8480-6 BMI: 30.1 Code : 97452-7 Heart Rate 1 : 103 bpm Height: 5'7" SpO2: 97% Temperature: 36.3 (C) / 97.3 (F) Weight: 192 lbs 04/14/2017 BMI: 30.5 Code: 48579-3 Height: 5'7" Weight: 195 lbs 04/13/2017 Blood Pressure 1: 160/80 Code : 8480-6 Blood Pressure 2: 140/78 Code: 8480-6 BMI: 30.5 Code: 38197-9 Heart Rate 1: 94 bpm Height: 5'7" SpO2: 96% Weight: 195 lbs 12/14/2016 Blood Pressure 1: 140/78 Code : 8480-6 BMI: 31.6 Code : 10922-6 Heart Rate 1 : 99 bpm Height: 5'7" SpO2: 98% Weight: 202 lbs 08/17/2016 Blood Pressure 1: 138/78 Code : 8480-6 BMI: 32.0 Code : 46011-6 Heart Rate 1 : 97 bpm Height: 5'7" SpO2: 98% Weight: 204 lbs 8 oz 05/14/2016 Blood Pressure 1: 146/82 Code : 8480-6 Blood Pressure 1: 138/78 Code: 8480-6 BMI: 32.7 Code: 23596-1 Heart Rate 1: 100 bpm Height: 5'7" SpO2: 98% Weight: 209 lbs 03/27/2016 Blood Pressure 1: 130/68 Code : 8480-6 BMI: 33.0 Code : 73363-9 Heart Rate 1 : 81 bpm Height: 5'7" SpO2: 97% Weight: 211 lbs 03/26/2016 Blood Pressure 1: 130/68 Code : 8480-6 BMI: 33.0 Code : 39894-8 Heart Rate 1 : 104 bpm Height: 5'7" SpO2: 98% Weight: 211 lbs 02/06/2016 Blood Pressure 1: 138/84 Code : 8480-6 BMI: 33.2 Code : 73864-3 Heart Rate 1 : 80 bpm Height: 5'7" SpO2: 98% Weight: 212 lbs 10/09/2015 Blood Pressure 1: 134/76 Code : 8480-6 BMI: 32.7 Code : 53578-3 Heart Rate 1 : 98 bpm Height: [...] data Encounters Encounter Performer Location Codes Date ([id number]) [id number] EST. PATIENT, LEVEL III Diagnosis: Left upper quadrant pain[ICD10: R10.12] Diagnosis: Gastro-esophageal reflux disease without esophagitis[ICD10: K21.9] Camilla Warren MD, [facility] CPT-4: 50384 05/10/2018 ([id number]) 69769 EST. PATIENT, LEVEL IV Diagnosis: Type 2 diabetes mellitus with hyperglycemia[ICD10: E11.65] Diagnosis: Atrophy of thyroid (acquired)[ICD10: E03.4] Diagnosis: Essential (primary) hypertension[ICD10: I10] Sarahy Warren MD, [facility] CPT-4: 41358 04/04/2018 ([id number]) 11425 EST. PATIENT, LEVEL IV Diagnosis: Type 2 diabetes mellitus with hyperglycemia[ICD10: E11.65] Diagnosis: Essential (primary) hypertension[ICD10: I10] Diagnosis: Functional diarrhea[ICD10: K59.1] Sarahy Warren MD, [facility] CPT-4: 56815 01/06/2018 ([id number]) 69481 EST. PATIENT, LEVEL IV Diagnosis: Type 2 diabetes mellitus with hyperglycemia[ICD10: E11.65] Diagnosis: Essential (primary) hypertension[ICD10: I10] Diagnosis: Atrophy of thyroid (acquired)[ICD10: E03.4] Diagnosis: Generalized abdominal pain[ICD10: R10.84] Diagnosis: Gastro-esophageal reflux disease without esophagitis[ICD10: K21.9] Sarahy Warren MD, [facility] CPT-4: 78503 12/08/2017 ([id number]) 65225 EST. 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 PATIENT, LEVEL V Diagnosis: Gastro-esophageal reflux disease without esophagitis[ICD10: K21.9] Diagnosis: Nausea[ICD10: R11.0] Diagnosis: Generalized abdominal pain[ICD10: R10.84] Thania Warren MD, [facility] CPT-4: 23491 06/16/2017 ([id number]) Miscellaneous no charge Diagnosis: Generalized abdominal pain[ICD10: R10.84] Diagnosis: Nausea[ICD10: R11.0] Camilla Warren MD, [facility] CPT-4: 33419 06/14/2017 ([id number]) 69674 EST. PATIENT, LEVEL III Diagnosis: Generalized abdominal pain[ICD10: R10.84] Diagnosis: Other allergic rhinitis[ICD10: J30.89] Diagnosis: Dysuria[ICD10: R30.0] Camilla Warren MD, [facility] CPT-4: 36443 06/10/2017 ([id number]) 69059 EST. PATIENT, LEVEL IV Diagnosis: Type 2 diabetes mellitus with hyperglycemia[ICD10: E11.65] Diagnosis: Mixed hyperlipidemia[ICD10: E78.2] Diagnosis: Atrophy of thyroid (acquired)[ICD10: E03.4] Diagnosis: Essential (primary) hypertension[ICD10: I10] Sarahy Warren MD [facility] CPT-4: 71956 04/13/2017 ([id number]) 95702 EST. PATIENT, LEVEL IV Diagnosis: Essential (primary) hypertension[ICD10: I10] Diagnosis: Actinic keratosis[ICD10: L57.0] Diagnosis: Type 2 diabetes mellitus with hyperglycemia[ICD10: E11.65] Diagnosis: Mixed hyperlipidemia[ICD10: E78.2] Sarahy Warren MD [facility] CPT-4: 33236 12/14/2016 ([id number]) 52422 EST. PATIENT, LEVEL IV Diagnosis: Type 2 diabetes mellitus with hyperglycemia[ICD10: E11.65] Diagnosis: Essential (primary) hypertension[ICD10: I10] Diagnosis: Atrophy of thyroid (acquired)[ICD10: E03.4] Sarahy Warren MD [facility] CPT-4: 45667 08/17/2016 ([id number]) 37355 EST. PATIENT, LEVEL IV Diagnosis: Type 2 diabetes mellitus with hyperglycemia[ICD10: E11.65] Diagnosis: Essential (primary) hypertension[ICD10: I10] Sarahy Warren MD [facility] CPT-4: 96314 05/14/2016 ([id number]) Miscellaneous no charge Diagnosis: Type 2 diabetes mellitus with hyperglycemia[ICD10: E11.65] Thania Warren MD [facility] CPT-4: 39752 03/27/2016 68329 EST. PATIENT, LEVEL IV Diagnosis: Other acute sinusitis[ICD10: J01.80] Diagnosis: Rash and other nonspecific skin eruption[ICD10: R21] Thania Warren MD [facility] CPT-4: 68759 03/26/2016 ([id number]) 93315 EST. PATIENT, LEVEL IV Diagnosis: Type 2 diabetes mellitus with hyperglycemia[ICD10: E11.65] Diagnosis: Essential (primary) hypertension[ICD10: I10] Diagnosis: Hypothyroidism, unspecified[ICD10: E03.9] Sarahy Warren MD [facility] CPT-4: 36011 02/06/2016 ([id number]) 22338 EST. PATIENT, LEVEL IV Diagnosis: Type 2 diabetes mellitus with hyperglycemia[ICD10: E11.65] Diagnosis: Hyperlipidemia, unspecified[ICD10: E78.5] Diagnosis: Essential (primary) hypertension[ICD10: I10] Diagnosis: Hypothyroidism, unspecified[ICD10: E03.9] [facility] CPT-4: 08549 10/09/2015 ([id number]) OFFICE VISIT, NEW - LEVEL 4 Diagnosis: Type 2 diabetes mellitus with hyperglycemia[ICD10: E11.65] [facility] CPT-4: 75256 07/09/2015 Plan of Care Planned Activity Notes Codes Status Date Visit Plan: LUQ pain-epigastric pain- check labs including amylase and lipase -pantoprazole 40mg daily-low spice diet -call if symptoms do not improve or if any worse-follow up in 3 weeks, sooner if needed 05/10/2018 Appointment: Camilla Fernandez WPtel: [facility] [phone] (15 min) Moderate 05/10/2018 Patient Education: Patient Medication Summary Completed 05/10/2018 Patient Education: Patient Medication Summary Completed 05/10/2018 Care Plan: Parathyroid Hormone add to blood from 05/10 Pending 05/10/2018 Visit Plan: Medicare Exam - today we discussed the patients past history, immunizations, preventative exams/evaluations - colonoscopy, fecal occult blood testing, routine labs for renal function, glucose, cholesterol, osteoporosis evaluations, cardiovascular testing and cancer screenings. We have also discussed mental health and the signs/symptoms of depression. The patient was advised of home safety evaluations and the need to make sure that as the aging process continues, we need to be aware of different ways to make the home a safer place to reside. The patient has also been counseled that exercise is necessary - and of utmost importance as we age to help decrease fall risk and to maintain independece in the home. Today we discussed the need for the patient to create paperwork for Advanced directives as well as for the patient to provide this office with a copy of her DOPA paperwork for health care surrogate. 04/21/2018 Appointment: [facility] [phone] [facility] [facility] - Annual Wellness Visit 04/21/2018 Patient Education: Patient Medication Summary Completed 04/21/2018 Visit Plan: Diabetes Mellitus - Uncontrolled - per recent FSBS reports. I have recommended for the patient to have follow up labs prior to the next office visit. The patient has been instructed to continue with current medications as previously directed, continue with regular FSBS monitoring to assure continued control of diabetes. Pt to call for any acute concerns, complaints, or if the blood glucose readings are starting to become less controlled. I have recommended for the patient to follow more strictly to the diabetic diet as discussed in clinic to allow for greater blood glucose control. We will attempt to restart metformin at 1000mg twice daily as her hgba1c increased on the lesser dose - if her diarrhea returns, we will have to consider use of insulin. Hypertension - well controlled - continue with current medications, continue with no added salt diet. Pt has been encouraged to exercise daily. The pt has been advised to call the office if there are any acute concerns about change in blood pressure readings at home. 04/04/2018 Appointment: [phone] [facility] (15 min) Moderate 04/04/2018 Patient Education: Patient Medication Summary Completed 04/04/2018 Visit Plan: Diabetes Mellitus - controlled - per recent FSBS reports. I have recommended for the patient to have follow up labs prior to the next office visit. The patient has been instructed to continue with current medications as previously directed, continue with regular FSBS monitoring to assure continued control of diabetes. Pt to call for any acute concerns, complaints, or if the blood glucose readings are starting to become less controlled. Hypertension - well controlled - continue with current medications, continue with no added salt diet. Pt has been encouraged to exercise daily. The pt has been advised to call the office if there are any acute concerns about change in blood pressure readings at home. Diarrhea - continue with supportive care - decrease metformin to 1/2 pill twice daily. 01/06/2018 Appointment: [facility]el[phone] [facility] (15 min) Moderate 01/06/2018 Patient Education: Patient Medication Summary Completed 01/06/2018 Visit Plan: referral to dr. cárdenas for egd/colonoscopy Hypertension - well controlled - continue with current medications, continue with no added salt diet. Pt has been encouraged to exercise daily. The pt has been advised to call the office if there are any acute concerns about change in blood pressure readings at home. Diabetes Mellitus - with improved control - per recent FSBS reports. I have recommended for the patient to have follow up labs prior to the next office visit. The patient has been instructed to continue with current medications as previously directed, continue with regular FSBS monitoring to assure continued control of diabetes. Pt to call for any acute concerns, complaints, or if the blood glucose readings are starting to become less controlled. Hypothyroidism - pt with chronic hypothyroidism, continue with current medication, will monitor pt to signs or symptoms of lack of adequate supplementation. Pt is to continue with current dose of medication unless directed otherwise. Check labs at regular intervals wither q 3 months or q 6 months based on previous levels of control. 12/08/2017 Appointment: Sarahy Warren WPtel: [address] [place], [place] [id number] (15 min) Moderate 12/08/2017 Patient Education: Patient Medication Summary Completed 12/08/2017 Visit Plan: Adrenal mass - Dr. Warren discussed with Dr. Barrera about adrenal mass - he was in agreement that with minimal change in 2 years, he would repeat a CT scan in 6 months, if no change, he would recommend against biopsy. I have informed pt of this discussion and our plan for repeat CT scan in 6 months. Hypertension - well controlled - continue with current medications, continue with no added salt diet. Pt has been encouraged to exercise daily. The pt has been advised to call the office if there are any acute concerns about change in blood pressure readings at home. Diabetes Mellitus - with improved control - per recent FSBS reports. I have recommended for the patient to have follow up labs prior to the next office visit. The patient has been instructed to continue with current medications as previously directed, continue with regular FSBS monitoring to assure continued control of diabetes. Pt to call for any acute concerns, complaints, or if the blood glucose readings are starting to become less controlled. Hypothyroidism - pt with chronic hypothyroidism, continue with current medication, will monitor pt to signs or symptoms of lack of adequate supplementation. Pt is to continue with current dose of medication unless directed otherwise. Check labs at regular intervals wither q 3 months or q 6 months based on previous levels of control. 08/12/2017 Appointment: [facility]el[phone] [facility] (15 min) Moderate 08/12/2017 Patient Education: Patient Medication Summary Completed 08/12/2017 Appointment: Injection 07/21/2017 Patient Education: Patient Medication Summary Completed 07/21/2017 Visit Plan: Abdominal pain-nausea- persistent with no improvement - will send for IV fluids and order CT - will treat as indicated. Pt instructed patient to call or go to ER for severe or worsening symptoms. Patient verbalized understanding of plan. 06/16/2017 Appointment: Thania Andre [facility]el[facility] [phone] [id number] (30 min) Complex 06/16/2017 Patient Education: Patient Medication Summary Completed 06/16/2017 Visit Plan: Abdominal tsju-uxucrq-qjuhn labs-clear liquid diet-advance to bland-increase prilosec-start probiotics twice daily-we will call with results of labs and xray. Instructed patient to call or go to ER for severe or worsening symptoms. Patient verbalized understanding of plan. 06/14/2017 Appointment: Camilla Fernandez [facility]Ptel[facility] [phone] [phone] (15 min) Moderate 06/14/2017 Patient Education: Patient Medication Summary Completed 06/14/2017 Visit Plan: Generalized abdominal pain-epigastric pain- history diverticulitis-recommend prilosec otc daily-clear liquid diet-advance to bland-will treat with cipro/flagyl-instructed patient to call the office if symptoms do not resolve or if any worse and we will get labs and/or ct scan if indicated. Patient verbalized understanding of plan. Allergies - chronic - recommended pt to use allergy medication as prescribed. Pt has been counseled as to the appropriate use of the medication. Pt to call if allergy symptoms are not controlled with the medication. If using nasal spray, instructions as follows: Nasal spray- use twice daily, one spray per nostril twice daily, after 30 minutes, rinse out nose with saline spray.. Use opposite hand per nostril to spray in the nasal steroid allergy spray. Lfmiuxy-fmnosjib-GH negative 06/10/2017 Appointment: Cam[facility] Fernandez [facility]Ptel[facility] [phone] [phone] (15 min) Moderate 06/10/2017 Patient Education: Patient Medication Summary Completed 06/10/2017 Patient Education: Obesity Completed 06/10/2017 Visit Plan: Medicare Exam - today we discussed the patients past history, immunizations, preventative exams/evaluations - colonoscopy, fecal occult blood testing, routine labs for renal function, glucose, cholesterol, osteoporosis evaluations, cardiovascular testing and cancer screenings. We have also discussed mental health and the signs/symptoms of depression. The patient was advised of home safety evaluations and the need to make sure that as the aging process continues, we need to be aware of different ways to make the home a safer place to reside. The patient has also been counseled that exercise is necessary - and of utmost importance as we age to help decrease fall risk and to maintain independence in the home. Today we discussed the need for the patient to create paperwork for Advanced directives as well as for the patient to provide this office with a copy of her DOPA paperwork for health care surrogate. 04/14/2017 Appointment: Thania Andre [facility]Ptel[facility] [phone] [facility] [facility] - Annual Wellness Visit 04/14/2017 Patient Education: Patient Medication Summary Completed 04/14/2017 Patient Education: Obesity Completed 04/14/2017 Visit Plan: Hypertension - well controlled - continue with current medications, continue with no added salt diet. Pt has been encouraged to exercise daily. The pt has been advised to call the office if there are any acute concerns about change in blood pressure readings at home. Diabetes Mellitus - controlled - per recent FSBS reports. I have recommended for the patient to have follow up labs prior to the next office visit. The patient has been instructed to continue with current medications as previously directed, continue with regular FSBS monitoring to assure continued control of diabetes. Pt to call for any acute concerns, complaints, or if the blood glucose readings are starting to become less controlled. Hypothyroidism - pt with chronic hypothyroidism, continue with current medication, will monitor pt to signs or symptoms of lack of adequate supplementation. Pt is to continue with current dose of medication unless directed otherwise. Check labs at regular intervals wither q 3 months or q 6 months based on previous levels of control. Hyperlipidemia - pt has been counseled about appropriate diet, exercise, and need for low fat food choices. I have discussed the need for the patient to take medications as prescribed. If the patient has negative side effects from the medication, they are to CALL the office and not abruptly discontinue the medication without discussion with a practitioner in the office. We will check labs in 3-6 months for follow up on the patient's chronic medical problem and to assure normal liver response to medications. 04/13/2017 Appointment: Sarahy Warren [facility]Ptel: [phone] [id number] (15 min) Moderate 04/13/2017 Patient Education: Patient Medication Summary Completed 04/13/2017 Patient Education: Obesity Completed 04/13/2017 Visit Plan: Diabetes Mellitus - Uncontrolled - per recent FSBS reports. I have recommended for the patient to have follow up labs prior to the next office visit. The patient has been instructed to continue with current medications as previously directed, continue with regular FSBS monitoring to assure continued control of diabetes. Pt to call for any acute concerns, complaints, or if the blood glucose readings are starting to become less controlled. I have recommended for the patient to follow more strictly to the diabetic diet as discussed in clinic to allow for greater blood glucose control. Hypertension - well controlled - continue with current medications, continue with no added salt diet. Pt has been encouraged to exercise daily. The pt has been advised to call the office if there are any acute concerns about change in blood pressure readings at home. Hyperlipidemia - pt has been counseled about appropriate diet, exercise, and need for low fat food choices. I have discussed the need for the patient to take medications as prescribed. If the patient has negative side effects from the medication, they are to CALL the office and not abruptly discontinue the medication without discussion with a practitioner in the office. We will check labs in 3-6 months for follow up on the patient's chronic medical problem and to assure normal liver response to medications. Actinic keratosis - efudex to be used on the forehead, forearms, hands, right cheek, and lip - use twice daily on the skin lesions x 10 days, then use neosporin on the skin lesions until they are healed up. 12/14/2016 Appointment: Sarahy Warren [facility]Ptel[phone] [id number] (15 min) Moderate 12/14/2016 Patient Education: Patient Medication Summary Completed 12/14/2016 Patient Education: Obesity Completed 12/14/2016 Visit Plan: Diabetes Mellitus - controlled - per recent FSBS reports. I have recommended for the patient to have follow up labs prior to the next office visit. The patient has been instructed to continue with current medications as previously directed, continue with regular FSBS monitoring to assure continued control of diabetes. Pt to call for any acute concerns, complaints, or if the blood glucose readings are starting to become less controlled. Hypertension - well controlled - continue with current medications, continue with no added salt diet. Pt has been encouraged to exercise daily. The pt has been advised to call the office if there are any acute concerns about change in blood pressure readings at home. Hypothyroidism - pt with chronic hypothyroidism, continue with current medication, will monitor pt to signs or symptoms of lack of adequate supplementation. Pt is to continue with current dose of medication unless directed otherwise. Check labs at regular intervals wither q 3 months or q 6 months based on previous levels of control. 08/17/2016 Appointment: Sarahy Warren WPtel[phone] [facility] (15 min) Moderate 08/17/2016 Patient Education: Patient Medication Summary Completed 08/17/2016 Patient Education: Obesity Completed 08/17/2016 Patient Education: Hypertension Completed 08/17/2016 Visit Plan: Diabetes Mellitus - Uncontrolled - per recent FSBS reports. I have recommended for the patient to have follow up labs prior to the next office visit. The patient has been instructed to continue with current medications as previously directed, continue with regular FSBS monitoring to assure continued control of diabetes. Pt to call for any acute concerns, complaints, or if the blood glucose readings are starting to become less controlled. I have recommended for the patient to follow more strictly to the diabetic diet as discussed in clinic to allow for greater blood glucose control. Hypertension - well controlled - continue with current medications, continue with no added salt diet. Pt has been encouraged to exercise daily. The pt has been advised to call the office if there are any acute concerns about change in blood pressure readings at home. 05/14/2016 Appointment: Sarahy Warren [facility]Ptel[phone] [facility] (15 min) Moderate 05/14/2016 Patient Education: Patient Medication Summary Completed 05/14/2016 Patient Education: Obesity Completed 05/14/2016 Patient Education: Hypertension Completed 05/14/2016 Patient Education: Patient Medication Summary Completed 05/11/2016 Visit Plan: Rash and elevated blood sugars - Will have pt stop prednisone, pt is to notify clinic if symptoms do not improve. 03/27/2016 Patient Education: Patient Medication Summary Completed 03/27/2016 Visit Plan: Sinusitis - Pt has acute infection - pain in face, maxillary region, Pt informed to use decongestant, RX given to patient, sinus rinses also recommended. Call if symptoms do not show improvement. Rash to right arm - Pt states that she is going to see her oncologist for the rash - will keep us informed. 03/26/2016 Appointment: Thania Andre [facility]Ptel[phone] [id number] (15 min) Moderate 03/26/2016 Patient Education: Patient Medication Summary Completed 03/26/2016 Visit Plan: Diabetes Mellitus - Uncontrolled - per recent FSBS reports. I have recommended for the patient to have follow up labs prior to the next office visit. The patient has been instructed to continue with current medications as previously directed, continue with regular FSBS monitoring to assure continued control of diabetes. Pt to call for any acute concerns, complaints, or if the blood glucose readings are starting to become less controlled. I have recommended for the patient to follow more strictly to the diabetic diet as discussed in clinic to allow for greater blood glucose control. Hypertension - well controlled - continue with current medications, continue with no added salt diet. Pt has been encouraged to exercise daily. The pt has been advised to call the office if there are any acute concerns about change in blood pressure readings at home. 02/06/2016 Patient Education: Patient Medication Summary Completed 02/06/2016 Patient Education: Obesity Completed 02/06/2016 Visit Plan: Hypertension - well controlled - continue with current medications, continue with no added salt diet. Pt has been encouraged to exercise daily. The pt has been advised to call the office if there are any acute concerns about change in blood pressure readings at home. Diabetes Mellitus - Uncontrolled - per recent FSBS reports. I have recommended for the patient to have follow up labs prior to the next office visit. The patient has been instructed to continue with current medications as previously directed, continue with regular FSBS monitoring to assure continued control of diabetes. Pt to call for any acute concerns, complaints, or if the blood glucose readings are starting to become less controlled. I have recommended for the patient to follow more strictly to the diabetic diet as discussed in clinic to allow for greater blood glucose control. Hypothyroidism - pt with chronic hypothyroidism, continue with current medication, will monitor pt to signs or symptoms of lack of adequate supplementation. Pt is to continue with current dose of medication unless directed otherwise. Check labs at regular intervals wither q 3 months or q 6 months based on previous levels of control. 10/09/2015 App[facility]ment: [id number] ([facility] min) Moderate 10/09/2015 Patient Education: Patient Medication Summary Completed 10/09/2015 Patient Education: Hypertension Completed 10/09/2015 Visit Plan: Diabetes Mellitus - Uncontrolled - per recent FSBS reports. I have recommended for the patient to have follow up labs prior to the next office visit. The patient has been instructed to continue with current medications as previously directed, continue with regular FSBS monitoring to assure continued control of diabetes. Pt to call for any acute concerns, complaints, or if the blood glucose readings are starting to become less controlled. I have recommended for the patient to follow more strictly to the diabetic diet as discussed in clinic to allow for greater blood glucose control.Obesity - chronic issue with this patient. The pt has been counseled about diet changes, calorie restriction, and need to exercise. Pt will RTC in one month for weight check. start on t 07/09/2015 Appointment: [id number] [place] ([place] New Patient 07/09/2015 Patient Education: Patient Medication Summary Completed 07/09/2015 Instructions Comment . Abdominal pain-nausea- persistent with no improvement - will send for IV fluids and order CT - will treat as indicated. Pt instructed patient to call or go to ER for severe or worsening symptoms. Patient verbalized understanding of plan. . Diabetes Mellitus - controlled - per recent FSBS reports. I have recommended for the patient to have follow up labs prior to the next office visit. The patient has been instructed to continue with current medications as previously directed, continue with regular FSBS monitoring to assure continued control of diabetes. Pt to call for any acute concerns, complaints, or if the blood glucose readings are starting to become less controlled. Hypertension - well controlled - continue with current medications, continue with no added salt diet. Pt has been encouraged to exercise daily. The pt has been advised to call the office if there are any acute concerns about change in blood pressure readings at home. Hypothyroidism - pt with chronic hypothyroidism, continue with current medication, will monitor pt to signs or symptoms of lack of adequate supplementation. Pt is to continue with current dose of medication unless directed otherwise. Check labs at regular intervals wither q 3 months or q 6 months based on previous levels of control. . Diabetes Mellitus - Uncontrolled - per recent FSBS reports. I have recommended for the patient to have follow up labs prior to the next office visit. The patient has been instructed to continue with current medications as previously directed, continue with regular FSBS monitoring to assure continued control of diabetes. Pt to call for any acute concerns, complaints, or if the blood glucose readings are starting to become less controlled. I have recommended for the patient to follow more strictly to the diabetic diet as discussed in clinic to allow for greater blood glucose control.Obesity - chronic issue with this patient. The pt has been counseled about diet changes, calorie restriction, and need to exercise. Pt will RTC in one month for weight check. start on . Medicare Exam - today we discussed the patients past history, immunizations, preventative exams/evaluations - colonoscopy, fecal occult blood testing, routine labs for renal function, glucose, cholesterol, osteoporosis evaluations, cardiovascular testing and cancer screenings. We have also discussed mental health and the signs/symptoms of depression. The patient was advised of home safety evaluations and the need to make sure that as the aging process continues, we need to be aware of different ways to make the home a safer place to reside. The patient has also been counseled that exercise is necessary - and of utmost importance as we age to help decrease fall risk and to maintain independece in the home. Today we discussed the need for the patient to create paperwork for Advanced directives as well as for the patient to provide this office with a copy of her DOP[employer] paperwork for health care surrogate. . Hypertension - well controlled - continue with current medications, continue with no added salt diet. Pt has been encouraged to exercise daily. The pt has been advised to call the office if there are any acute concerns about change in blood pressure readings at home. Diabetes Mellitus - controlled - per recent FSBS reports. I have recommended for the patient to have follow up labs prior to the next office visit. The patient has been instructed to continue with current medications as previously directed, continue with regular FSBS monitoring to assure continued control of diabetes. Pt to call for any acute concerns, complaints, or if the blood glucose readings are starting to become less controlled. Hypothyroidism - pt with chronic hypothyroidism, continue with current medication, will monitor pt to signs or symptoms of lack of adequate supplementation. Pt is to continue with current dose of medication unless directed otherwise. Check labs at regular intervals wither q 3 months or q 6 months based on previous levels of control. Hyperlipidemia - pt has been counseled about appropriate diet, exercise, and need for low fat food choices. I have discussed the need for the patient to take medications as prescribed. If the patient has negative side effects from the medication, they are to CALL the office and not abruptly discontinue the medication without discussion with a practitioner in the office. We will check labs in 3-6 months for follow up on the patient's chronic medical problem and to assure normal liver response to medications. . Adrenal mass - Dr. Warren discussed with Dr. Barrera about adrenal mass - he was in agreement that with minimal change in 2 years, he would repeat a CT scan in 6 months, if no change, he would recommend against biopsy. I have informed pt of this discussion and our plan for repeat CT scan in 6 months. Hypertension - well controlled - continue with current medications, continue with no added salt diet. Pt has been encouraged to exercise daily. The pt has been advised to call the office if there are any acute concerns about change in blood pressure readings at home. Diabetes Mellitus - with improved control - per recent FSBS reports. I have recommended for the patient to have follow up labs prior to the next office visit. The patient has been instructed to continue with current medications as previously directed, continue with regular FSBS monitoring to assure continued control of diabetes. Pt to call for any acute concerns, complaints, or if the blood glucose readings are starting to become less controlled. Hypothyroidism - pt with chronic hypothyroidism, continue with current medication, will monitor pt to signs or symptoms of lack of adequate supplementation. Pt is to continue with current dose of medication unless directed otherwise. Check labs at regular intervals wither q 3 months or q 6 months based on previous levels of control. . referral to dr. cárdenas for egd/colonoscopy Hypertension - well controlled - continue with current medications, continue with no added salt diet. Pt has been encouraged to exercise daily. The pt has been advised to call the office if there are any acute concerns about change in blood pressure readings at home. Diabetes Mellitus - with improved control - per recent FSBS reports. I have recommended for the patient to have follow up labs prior to the next office visit. The patient has been instructed to continue with current medications as previously directed, continue with regular FSBS monitoring to assure continued control of diabetes. Pt to call for any acute concerns, complaints, or if the blood glucose readings are starting to become less controlled. Hypothyroidism - pt with chronic hypothyroidism, continue with current medication, will monitor pt to signs or symptoms of lack of adequate supplementation. Pt is to continue with current dose of medication unless directed otherwise. Check labs at regular intervals wither q 3 months or q 6 months based on previous levels of control. . Diabetes Mellitus - Uncontrolled - per recent FSBS reports. I have recommended for the patient to have follow up labs prior to the next office visit. The patient has been instructed to continue with current medications as previously directed, continue with regular FSBS monitoring to assure continued control of diabetes. Pt to call for any acute concerns, complaints, or if the blood glucose readings are starting to become less controlled. I have recommended for the patient to follow more strictly to the diabetic diet as discussed in clinic to allow for greater blood glucose control. We will attempt to restart metformin at 1000mg twice daily as her hgba1c increased on the lesser dose - if her diarrhea returns, we will have to consider use of insulin. Hypertension - well controlled - continue with current medications, continue with no added salt diet. Pt has been encouraged to exercise daily. The pt has been advised to call the office if there are any acute concerns about change in blood pressure readings at home. decrease the metformin to 1/2 pill twice daily . Diabetes Mellitus - controlled - per recent FSBS reports. I have recommended for the patient to have follow up labs prior to the next office visit. The patient has been instructed to continue with current medications as previously directed, continue with regular FSBS monitoring to assure continued control of diabetes. Pt to call for any acute concerns, complaints, or if the blood glucose readings are starting to become less controlled. Hypertension - well controlled - continue with current medications, continue with no added salt diet. Pt has been encouraged to exercise daily. The pt has been advised to call the office if there are any acute concerns about change in blood pressure readings at home. Diarrhea - continue with supportive care - decrease metformin to 1/2 pill twice daily. . Sinusitis - Pt has acute infection - pain in face, maxillary region, Pt informed to use decongestant, RX given to patient, sinus rinses also recommended. Call if symptoms do not show improvement. Rash to right arm - Pt states that she is going to see her oncologist for the rash - will keep us informed. . Medicare Exam - today we discussed the patients past history, immunizations, preventative exams/evaluations - colonoscopy, fecal occult blood testing, routine labs for renal function, glucose, cholesterol, osteoporosis evaluations, cardiovascular testing and cancer screenings. We have also discussed mental health and the signs/symptoms of depression. The patient was advised of home safety evaluations and the need to make sure that as the aging process continues, we need to be aware of different ways to make the home a safer place to reside. The patient has also been counseled that exercise is necessary - and of utmost importance as we age to help decrease fall risk and to maintain independence in the home. Today we discussed the need for the patient to create paperwork for Advanced directives as well as for the patient to provide this office with a copy of her DOP[employer] paperwork for health care surrogate. . Generalized abdominal pain-epigastric pain-history diverticulitis-recommend prilosec otc daily-clear liquid diet-advance to bland- will treat with cipro/flagyl-instructed patient to call the office if symptoms do not resolve or if any worse and we will get labs and/or ct scan if indicated. Patient verbalized understanding of plan. Allergies - chronic - recommended pt to use allergy medication as prescribed. Pt has been counseled as to the appropriate use of the medication. Pt to call if allergy symptoms are not controlled with the medication. If using nasal spray, instructions as follows: Nasal spray- use twice daily, one spray per nostril twice daily, after 30 minutes, rinse out nose with saline spray.. Use opposite hand per nostril to spray in the nasal steroid allergy spray. [id number] negative . Hypertension - well controlled - continue with current medications, continue with no added salt diet. Pt has been encouraged to exercise daily. The pt has been advised to call the office if there are any acute concerns about change in blood pressure readings at home. Diabetes Mellitus - Uncontrolled - per recent FSBS reports. I have recommended for the patient to have follow up labs prior to the next office visit. The patient has been instructed to continue with current medications as previously directed, continue with regular FSBS monitoring to assure continued control of diabetes. Pt to call for any acute concerns, complaints, or if the blood glucose readings are starting to become less controlled. I have recommended for the patient to follow more strictly to the diabetic diet as discussed in clinic to allow for greater blood glucose control. Hypothyroidism - pt with chronic hypothyroidism, continue with current medication, will monitor pt to signs or symptoms of lack of adequate supplementation. Pt is to continue with current dose of medication unless directed otherwise. Check labs at regular intervals wither q 3 months or q 6 months based on previous levels of control. . Diabetes Mellitus - Uncontrolled - per recent FSBS reports. I have recommended for the patient to have follow up labs prior to the next office visit. The patient has been instructed to continue with current medications as previously directed, continue with regular FSBS monitoring to assure continued control of diabetes. Pt to call for any acute concerns, complaints, or if the blood glucose readings are starting to become less controlled. I have recommended for the patient to follow more strictly to the diabetic diet as discussed in clinic to allow for greater blood glucose control. Hypertension - well controlled - continue with current medications, continue with no added salt diet. Pt has been encouraged to exercise daily. The pt has been advised to call the office if there are any acute concerns about change in blood pressure readings at home. increase prilosec to twice daily probiotics twice daily for diarrhea bland diet check labs, UA and KUB . Abdominal alng-owyhrz-gcwjh labs-clear liquid diet-advance to bland-increase prilosec-start probiotics twice daily-we will call with results of labs and xray. Instructed patient to call or go to ER for severe or worsening symptoms. Patient verbalized understanding of plan. pantoprazole 40mg daily check labs call if pain does not resolve or if any worse . LUQ pain-epigastric pain- check labs including amylase and lipase - pantoprazole 40mg daily-low spice diet -call if symptoms do not improve or if any worse-follow up in 3 weeks, sooner if needed . Diabetes Mellitus - Uncontrolled - per recent FSBS reports. I have recommended for the patient to have follow up labs prior to the next office visit. The patient has been instructed to continue with current medications as previously directed, continue with regular FSBS monitoring to assure continued control of diabetes. Pt to call for any acute concerns, complaints, or if the blood glucose readings are starting to become less controlled. I have recommended for the patient to follow more strictly to the diabetic diet as discussed in clinic to allow for greater blood glucose control. Hypertension - well controlled - continue with current medications, continue with no added salt diet. Pt has been encouraged to exercise daily. The pt has been advised to call the office if there are any acute concerns about change in blood pressure readings at home. Stop prednisone . Rash and elevated blood sugars - Will have pt stop prednisone, pt is to notify clinic if symptoms do not improve. efudex to be used on the forehead, forearms, hands, right cheek, and lip - use twice daily on the skin lesions x 10 days, then use neosporin on the skin lesions until they are healed up.. Diabetes Mellitus - Uncontrolled - per recent FSBS reports. I have recommended for the patient to have follow up labs prior to the next office visit. The patient has been instructed to continue with current medications as previously directed, continue with regular FSBS monitoring to assure continued control of diabetes. Pt to call for any acute concerns, complaints, or if the blood glucose readings are starting to become less controlled. I have recommended for the patient to follow more strictly to the diabetic diet as discussed in clinic to allow for greater blood glucose control. Hypertension - well controlled - continue with current medications, continue with no added salt diet. Pt has been encouraged to exercise daily. The pt has been advised to call the office if there are any acute concerns about change in blood pressure readings at home. Hyperlipidemia - pt has been counseled about appropriate diet, exercise, and need for low fat food choices. I have discussed the need for the patient to take medications as prescribed. If the patient has negative side effects from the medication, they are to CALL the office and not abruptly discontinue the medication without discussion with a practitioner in the office. We will check labs in 3-6 months for follow up on the patient's chronic medical problem and to assure normal liver response to medications. Actinic keratosis - efudex to be used on the forehead, forearms, hands, right cheek, and lip - use twice daily on the skin lesions x 10 days, then use neosporin on the skin lesions until they are healed up.
--- OUTSIDE RECORDS SUMMARY | 2018-08-05 10:22 | XMS REPORT | CCD ---
Author Author [facility] Organization [facility] Address [address] [place] [address] Phone Care Team Providers Care Test Carrier Name Role Phone PP Unavailable CCM Unavailable Summary Purpose Interface Exchange Insurance Providers Payer name Policy type / Coverage type Covered constitution party ID Effective Begin Date Effective End Date WPS Medicare Part B Medicare Part B [id number] 2018 Unknown [employer] [place] Medicare Part B [id number] Unknown Family history Father Diagnosis Age At [...] No Inactive Date Active ciprofloxacin rash RxNorm: 82159 08/12/2017 No Inactive Date Active AUGMENTIN RxNorm: 232000 03/26/2015 No Inactive Date Active SULFA(SULFONAMIDE ANTIBIOTICS) [...] Instructions Hyzaar 100 mg-25 mg tablet RxNorm: 800934 TAKE ONE TABLET BY MOUTH DAILY 05/10/2018 10/06/2018 Active Lipitor 20 mg tablet RxNorm: 066811 TAKE ONE TABLET BY MOUTH DAILY 04/14/2018 10/10/2018 Active pantoprazole 40 mg tablet,delayed release RxNorm: 924479 1 Tablet(s) PO daily as needed GI upset 04/04/2018 10/30/2018 Active metformin 1,000 mg tablet RxNorm: 259032 1 Tablet(s) PO BID 05/201810/30/2018 Active metformin 1,000 mg tablet RxNorm: 802061 1/2 Tablet(s) PO BID 04/04/2018 04/03/2018 Inactive Lipitor 20 mg tablet RxNorm: 320932 TAKE ONE TABLET BY MOUTH DAILY 02/14/2018 04/13/2018 Inactive Trulicity 1.5 mg/0.5 mL subcutaneous pen injector RxNorm: 3095486 0.5 Milliliter(s ) QW INJECT 0.5ML UNDER THE SKIN ONCE WEEKLY 12/08/2017 07/05/2018 Active nystatin 100,000 unit/gram topical cream RxNorm: 521248 1 Gram(s) TOP TID 12/08/2017 12/17/2017 Inactive sucralfate 1 gram tablet RxNorm: 546527 1 Tablet(s) PO QID 04/20/2018 Inactive Hyzaar 100 mg-25 mg tablet RxNorm: 702197 TAKE ONE TABLET BY MOUTH DAILY 10/20/2017 05/09/2018 Inactive metformin 1,000 mg tablet RxNorm: 296755 1 Tablet(s) PO BID 04/03/2018 Inactive Lipitor 20 mg tablet RxNorm: 381265 TAKE ONE TABLET BY MOUTH DAILY 09/30/2017 02/13/2018 Inactive levothyroxine 100 mcg tablet RxNorm: 170922 TAKE ONE TABLET BY MOUTH DAILY 07/22/2017 07/16/2018 Active Protonix 40 mg tablet,delayed release RxNorm: 545852 1 Tablet(s) PO daily 06/16/2017 07/15/2017 Inactive Cipro 500 mg tablet RxNorm: 438109 1 Tablet(s) PO BID 201606/19/2017 Inactive Flagyl 500 mg tablet RxNorm: 580937 1 Tablet(s) PO TID 201606/19/2017 Inactive Trulicity 1.5 mg/0.5 mL subcutaneous pen injector RxNorm: 5222862 Milliliter(s) INJECT 0.5ML UNDER THE SKIN ONCE WEEKLY 05/25/2017 09/13/2017 Inactive Trulicity 1.5 mg/0.5 mL subcutaneous pen injector RxNorm: 9916552 INJECT 0.5ML UNDER THE SKIN ONCE WEEKLY 05/20/2017 Inactive metformin 1,000 mg tablet RxNorm: 163355 1 Tablet(s) PO BID TAKE ONE TABLET BY MOUTH TWICE A DAY 05/20/2017 10/19/2017 Inactive Lipitor 20 mg tablet RxNorm: 229886 TAKE ONE TABLET BY MOUTH DAILY 03/23/2017 09/18/2017 Inactive Lipitor 20 mg tablet RxNorm: 892091 TAKE ONE TABLET BY MOUTH DAILY 01/12/2017 03/12/2017 Inactive Hyzaar 100 mg-25 mg tablet RxNorm: 181662 TAKE ONE TABLET BY MOUTH DAILY 01/12/2017 10/08/2017 Inactive nystatin 100,000 unit/gram topical cream RxNorm: 679168 1 Gram(s) TOP TID 12/14/2016 12/23/2016 Inactive Efudex 5 % topical cream RxNorm: 512288 1 Application TOP BID 12/14/2016 12/23/2016 Inactive Trulicity 1.5 mg/0.5 mL subcutaneous pen injector RxNorm: 0823836 0.5 Milliliter(s ) SQ INJECT 0.5ML SUBCUTANEOUSLY ONCE WEEKLY 12/14/2016 05/12/2017 Inactive metformin 1,000 mg tablet RxNorm: 002439 TAKE ONE TABLET BY MOUTH TWICE A DAY 11/20/2016 05/18/2017 Inactive Lipitor 20 mg tablet RxNorm: 996384 Tablet(s) TAKE ONE TABLET BY MOUTH ONCE DAILY 10/19/2016 01/11/2017 Inactive levothyroxine 100 mcg tablet RxNorm: 264823 TAKE ONE TABLET BY MOUTH ONCE DAILY 08/24/2016 07/21/2017 Inactive Hyzaar 100 mg-25 mg tablet RxNorm: 192873 Tablet(s) TAKE ONE TABLET BY MOUTH ONCE DAILY 2016 01/11/2017 Inactive Trulicity 0.75 mg/0.5 mL subcutaneous pen injector RxNorm: 4589006 INJECT 0.5ML SUBCUTANEOUSLY ONCE WEEKLY 07/13/2016 Inactive metformin 1,000 mg tablet RxNorm: 550747 1 Tablet(s) PO BID 11/19/2016 Inactive Trulicity 0.75 mg/0.5 mL subcutaneous pen injector RxNorm: 7806188 0.5 Milliliter( s) SQ QW 05/14/2016 07/12/2016 Inactive Lipitor 20 mg tablet RxNorm: 854846 TAKE ONE TABLET BY MOUTH ONCE DAILY 05/07/2016 10/18/2016 Inactive Zofran 4 mg tablet RxNorm: 018533 1 Tablet(s) PO TID as needed nausea 03/27/2016 03/26/2016 Inactive Zofran 4 mg tablet RxNorm: 502351 1 Tablet(s) PO TID as needed nausea 03/27/2016 03/31/2016 Inactive Keflex 500 mg capsule RxNorm: 264001 1 Capsule(s) PO TID 201504/01/2016 Inactive prednisone 20 mg tablet RxNorm: 426369 2 Tablet(s) PO daily 03/26/2016 Inactive Janumet XR 100 mg-1,000 mg tablet,extended release RxNorm: 0972603 1 Tablet(s) PO daily 02/17/2016 05/13/2016 Inactive Janumet XR 100 mg-1,000 mg tablet,extended release RxNorm: 8256995 1 Tablet(s) PO daily 02/17/2016 02/16/2016 Inactive Hyzaar 100 mg-25 mg tablet RxNorm: 185447 Tablet(s) TAKE ONE TABLET BY MOUTH ONCE DAILY 02/04/2016 07/28/2016 Inactive Janumet XR 50 mg-1,000 mg tablet,extended release RxNorm: 2589651 TAKE ONE TABLET BY MOUTH ONCE DAILY 01/13/2016 02/16/2016 Inactive Lipitor 20 mg tablet RxNorm: 536272 Tablet(s) TAKE ONE TABLET BY MOUTH ONCE DAILY 01/13/2016 05/06/2016 Inactive Janumet XR 50 mg-1,000 mg tablet,extended release RxNorm: 5977796 1 Tablet(s) PO daily 10/02/2015 01/12/2016 Inactive Janumet XR 50 mg-1,000 mg tablet,extended release RxNorm: 9345146 1 Tablet(s) PO daily 10/01/2015 10/01/2015 Inactive Hyzaar 100 mg-25 mg tablet RxNorm: 957196 TAKE ONE TABLET BY MOUTH ONCE DAILY 09/30/2015 01/27/2016 Inactive Lipitor 20 mg tablet RxNorm: 854232 TAKE ONE TABLET BY MOUTH ONCE DAILY 09/30/2015 01/12/2016 Inactive metformin 1,000 mg tablet RxNorm: 038310 1 Tablet(s) PO BID 07/09/2015 Inactive Janumet XR 50 mg-1,000 mg tablet,extended release RxNorm: 5880991 1 Tablet(s) PO daily 07/09/2015 09/02/2015 Inactive levothyroxine 100 mcg tablet RxNorm: 825128 1 Capsule(s) PO daily 07/09/2015 07/02/2016 Inactive Hyzaar 100 mg-25 mg tablet RxNorm: 723892 1 Tablet(s) PO daily 05/29/2015 05/28/2015 Inactive Lipitor 20 mg tablet RxNorm: 975147 1 Tablet(s) PO daily 201405/28/2015 Inactive Hyzaar 100 mg-25 mg tablet RxNorm: 681293 1 Tablet(s) PO daily 05/29/2015 09/25/2015 Inactive Lipitor 20 mg tablet RxNorm: 285125 1 Tablet(s) PO daily 201409/25/2015 Inactive Fish Oil 1,000 mg capsule RxNorm: oral No Start Date Active One Touch Test RxNorm : miscellaneous No Start Date 03/25/2015 Inactive levothyroxine 100 mcg capsule RxNorm: 023302 oral No Start Date 07/08/2015 Inactive Medication Administered No Medication Administered data Immunizations Vaccine Codes Date Status Influenza CVX: 141 07/21/2017 completed Influenza CVX: 141 08/14/2016 completed Influenza CVX: 141 07/09/2015 completed Pneumococcal CVX: 133 07/09/2015 completed Assessments Condition Codes Effective Dates Left upper quadrant pain ICD-10: R10.12 ICD-9: 789.02 05/10/2018 Gastro-esophageal reflux disease without esophagitis ICD-10 : K21.9 ICD-9: 530.81 05/10/2018 Hypercalcemia ICD-10: E83.52 ICD-9: 275.42 05/10/2018 Encounter for general adult medical examination [...] Observation Code Item Item Code Result Date Lipase Fsf408 LIPASE 42 U/L 05/10/2018 Comp Metabolic Ind222 NA 140 mEq/L 05/10/2018 Comp Metabolic Wqi203 K 3.5 mEq/L 05/10/2018 Comp Metabolic Zbn382 CL 101 mEq/L 05/10/2018 Comp Metabolic Shd351 CO2 28.0 mEq/L 05/10/2018 Comp Metabolic Zvj346 ANION GAP 15 05/10/2018 Comp Metabolic Pdd006 GLUCOSE 155 mg/dL 05/10/2018 Comp Metabolic Tzz611 Creat 0.7 mg/dL 05/10/2018 Comp Metabolic Sft765 eGFR 93 ml/min/1.73m2 05/10/2018 Comp Metabolic Htj644 BUN 13 mg/dL 05/10/2018 Comp Metabolic Txh171 B/C Ratio 19.7 Ratio 05/10/2018 Comp Metabolic Ycp858 CALCIUM 11.1 mg/dL 05/10/2018 Comp Metabolic Mse424 ALK PHOS 77 U/L 05/10/2018 Comp Metabolic Vge559 AST(SGOT) 17 U/L 05/10/2018 Comp Metabolic Cwu343 ALT(SGPT) 21 U/L 05/10/2018 Comp Metabolic Jfl004 BILI T 1.2 mg/dL 05/10/2018 Comp Metabolic Qlr261 ALBUMIN 4.6 g/dL 05/10/2018 Comp Metabolic Hbs978 TPRO 6.9 g/dL 05/10/2018 Comp Metabolic Ehn304 GLOB 2.3 g/dL 05/10/2018 Comp Metabolic Chv678 A/G Ratio 2.0 Ratio 05/10/2018 Comp Metabolic Upg876 Osmo 283 mOsmo 05/10/2018 Amylase Ord34 AMYLASE [...] 28.3 % 04/01/2018 Cbc With Differential Ord2 [place]% 8.6 % 04/01/2018 Cbc With Differential Ord2 MCH 30.4 pg 04/01/2018 Cbc With Differential Ord2 Eos% 0.4 % 04/01/2018 Cbc With Differential Ord2 MCHC 33.1 pg 04/01/2018 Cbc With Differential Ord2 Baso% 0.4 % 04/01/2018 Cbc With Differential Ord2 PLT 259 K/ul 04/01/2018 Cbc With Differential Ord2 RDW 13.3 % 04/01/2018 Cbc With Differential Ord2 Neut ABS# 2.91 K/ul 04/01/2018 Cbc With Differential Ord2 Lymph ABS# 1.32 K/ul 04/01/2018 Cbc With Differential Ord2 [place] ABS# 0.4 K/ul 04/01/2018 Cbc With Differential Ord2 Eos ABS# 0.0 K/ul 04/01/2018 Cbc With Differential Ord2 Baso ABS# 0.0 K/ul 04/01/2018 Comp Metabolic Cke350 NA 141 mEq/L 04/01/2018 Comp Metabolic Shl623 K 3.8 mEq/L 04/01/2018 Comp Metabolic Vky474 CL 104 mEq/L 04/01/2018 Comp Metabolic Bzm747 CO2 29.0 mEq/L 04/01/2018 Comp Metabolic Yto233 ANION GAP 12 04/01/2018 Comp Metabolic Ctd711 GLUCOSE 167 mg/dL 04/01/2018 Comp Metabolic Ytj827 Creat 0.6 mg/dL 04/01/2018 Comp Metabolic Qrx625 eGFR 97 ml/min/1.73m2 04/01/2018 Comp Metabolic Tbw301 BUN 17 mg/dL 04/01/2018 Comp Metabolic Bwt181 B/C Ratio 26.6 Ratio 04/01/2018 Comp Metabolic Ugk480 CALCIUM 10.5 mg/dL 04/01/2018 Comp Metabolic Pcd739 ALK PHOS 105 U/L 04/01/2018 Comp Metabolic Htj676 AST(SGOT) 27 U/L 04/01/2018 Comp Metabolic Xkd865 ALT(SGPT) 36 U/L 04/01/2018 Comp Metabolic Hey637 BILI T 0.5 mg/dL 04/01/2018 Comp Metabolic Uxs144 ALBUMIN 4.4 g/dL 04/01/2018 Comp Metabolic Uhn256 TPRO 6.8 g/dL 04/01/2018 Comp Metabolic Pwy369 GLOB 2.5 g/dL 04/01/2018 Comp Metabolic Vkc730 A/G Ratio 1.8 Ratio 04/01/2018 Comp Metabolic Kqt146 Osmo 287 mOsmo 04/01/2018 Lipid Ord30 CHOL 139 mg/dL 04/01/2018 Lipid Ord30 HDL 58.0 mg/dl 04/01/2018 Lipid Ord30 TRIG 136 mg/dL 04/01/2018 Lipid Ord30 LDL 54 mg/dL 04/01/2018 Lipid Ord30 C/HDL 2.4 Ratio 04/01/2018 Free T4 Sjx674 FREE T4 1.05 ng/dL 04/01/2018 %Hba1C Ljg344 % HbA1c 95575-0 7.6 % 04/01/2018 %Hba1C Qah713 Gluc Ave 171 mg/dL 04/01/2018 Tsh Ord6 [...] 28.4 % 12/06/2017 Cbc With Differential Ord2 [place]% 7.9 % 12/06/2017 Cbc With Differential Ord2 [...] 1.29 K/ul 12/06/2017 Cbc With Differential Ord2 [place] ABS# 0.4 K/ul 12/06/2017 Cbc With Differential Ord2 Eos ABS# 0.0 K/ul 12/06/2017 Cbc With Differential Ord2 Baso ABS# 0.0 K/ul 12/06/2017 Free T4 Pml986 FREE T4 1.04 ng/dL 12/06/2017 Tsh Ord6 TSH (3rd IS) 1.21 uIU/mL 12/06/2017 Comp Metabolic Glf557 NA 138 mEq/L 12/06/2017 Comp Metabolic Odc614 K 3.5 mEq/L 12/06/2017 Comp Metabolic Emr432 CL 98 mEq/L 12/06/2017 Comp Metabolic Uep319 CO2 31.0 mEq/L 12/06/2017 Comp Metabolic Fhp066 ANION GAP 13 12/06/2017 Comp Metabolic Gvc244 GLUCOSE 152 mg/dL 12/06/2017 Comp Metabolic Arz166 Creat 0.6 mg/dL 12/06/2017 Comp Metabolic Mri955 eGFR 111 ml/min/1.73m2 12/06/2017 Comp Metabolic Aep127 BUN 13 mg/dL 12/06/2017 Comp Metabolic Feh703 B/C Ratio 22.8 Ratio 12/06/2017 Comp Metabolic Ggx121 CALCIUM 10.6 mg/dL 12/06/2017 Comp Metabolic Usa711 ALK PHOS 76 U/L 12/06/2017 Comp Metabolic Hmn904 AST(SGOT) 23 U/L 12/06/2017 Comp Metabolic Lah789 ALT(SGPT) 27 U/L 12/06/2017 Comp Metabolic Pxe697 BILI T 1.0 mg/dL 12/06/2017 Comp Metabolic Tbx075 ALBUMIN 4.5 g/dL 12/06/2017 Comp Metabolic Kit731 TPRO 6.5 g/dL 12/06/2017 Comp Metabolic Mki430 GLOB 2.0 g/dL 12/06/2017 Comp Metabolic Sxj864 A/G Ratio 2.2 Ratio 12/06/2017 Comp Metabolic Hgn703 Osmo 279 mOsmo 12/06/2017 Lipid Ord30 CHOL 111 mg/dL 12/06/2017 Lipid Ord30 HDL 52.0 mg/dl 12/06/2017 Lipid Ord30 TRIG 131 mg/dL 12/06/2017 Lipid Ord30 LDL 33 mg/dL 12/06/2017 Lipid Ord30 C/HDL 2.1 Ratio 12/06/2017 %Hba1C Opt977 % HbA1c 48158-0 7.1 % 12/06/2017 %Hba1C Ssy655 Gluc Ave 157 mg/dL 12/06/2017 %Hba1C Kjq515 % HbA1c 22475-8 7.1 % 08/10/2017 %Hba1C Mtg661 Gluc Ave 157 mg/dL 08/10/2017 Comp Metabolic Dux159 NA 140 mEq/L 08/10/2017 Comp Metabolic Ywx193 K 3.6 mEq/L 08/10/2017 Comp Metabolic Hiy641 CL 100 mEq/L 08/10/2017 Comp Metabolic Erw536 CO2 29.0 mEq/L 08/10/2017 Comp Metabolic Ykh771 ANION GAP 15 08/10/2017 Comp Metabolic Yva554 GLUCOSE 144 mg/dL 08/10/2017 Comp Metabolic Acm016 Creat 0.6 mg/dL 08/10/2017 Comp Metabolic Quj071 eGFR 97 ml/min/1.73m2 08/10/2017 Comp Metabolic Net767 BUN 15 mg/dL 08/10/2017 Comp Metabolic Cmf271 B/C Ratio 23.4 Ratio 08/10/2017 Comp Metabolic Yzj045 CALCIUM 11.1 mg/dL 08/10/2017 Comp Metabolic Wtr404 ALK PHOS 76 U/L 08/10/2017 Comp Metabolic Fyb215 AST(SGOT) 20 U/L 08/10/2017 Comp Metabolic Dnt246 ALT(SGPT) 30 U/L 08/10/2017 Comp Metabolic Sar012 BILI T 0.9 mg/dL 08/10/2017 Comp Metabolic Eqa756 ALBUMIN 4.7 g/dL 08/10/2017 Comp Metabolic Ews967 TPRO 7.0 g/dL 08/10/2017 Comp Metabolic Hel556 GLOB 2.3 g/dL 08/10/2017 Comp Metabolic Qva516 A/G Ratio 2.0 Ratio 08/10/2017 Comp Metabolic Xja610 Osmo 283 mOsmo 08/10/2017 Lipid Ord30 CHOL [...] 30.8 pg 08/10/2017 Cbc With Differential Ord2 [place]% 7.1 % 08/10/2017 Cbc With Differential Ord2 [...] 1.24 K/ul 08/10/2017 Cbc With Differential Ord2 [place] ABS# 0.5 K/ul 08/10/2017 Cbc With Differential Ord2 Eos ABS# 0.0 K/ul 08/10/2017 Cbc With Differential Ord2 Baso ABS# 0.0 K/ul 08/10/2017 Amylase Ord34 AMYLASE 37 U/L 06/14/2017 Lipase Kbk190 LIPASE 47 U/L 06/14/2017 Cbc With Differential [...] 17.7 % 06/14/2017 Cbc With Differential Ord2 [place]% 4.9 % 06/14/2017 Cbc With Differential Ord2 [...] 1.11 K/ul 06/14/2017 Cbc With Differential Ord2 [place] ABS# 0.3 K/ul 06/14/2017 Cbc With Differential Ord2 Eos ABS# 0.0 K/ul 06/14/2017 Cbc With Differential Ord2 Baso ABS# 0.0 K/ul 06/14/2017 Comp Metabolic Hql779 NA 135 mEq/L 06/14/2017 Comp Metabolic Ebc095 K 3.6 mEq/L 06/14/2017 Comp Metabolic Tok184 CL 98 mEq/L 06/14/2017 Comp Metabolic Tes917 CO2 25.0 mEq/L 06/14/2017 Comp Metabolic Oil004 ANION GAP 16 06/14/2017 Comp Metabolic Qzq206 GLUCOSE 195 mg/dL 06/14/2017 Comp Metabolic Lgl319 Creat 0.6 mg/dL 06/14/2017 Comp Metabolic Coq375 eGFR 97 ml/min/1.73m2 06/14/2017 Comp Metabolic Phg701 BUN 14 mg/dL 06/14/2017 Comp Metabolic Byi990 B/C Ratio 21.9 Ratio 06/14/2017 Comp Metabolic Kgw754 CALCIUM 10.6 mg/dL 06/14/2017 Comp Metabolic Him309 ALK PHOS 64 U/L 06/14/2017 Comp Metabolic Vws721 AST(SGOT) 34 U/L 06/14/2017 Comp Metabolic Iln645 ALT(SGPT) 39 U/L 06/14/2017 Comp Metabolic Tdc022 BILI T 0.7 mg/dL 06/14/2017 Comp Metabolic Dyu554 ALBUMIN 4.5 g/dL 06/14/2017 Comp Metabolic Boc523 TPRO 6.7 g/dL 06/14/2017 Comp Metabolic Dug439 GLOB 2.2 g/dL 06/14/2017 Comp Metabolic Pop286 A/G Ratio 2.1 Ratio 06/14/2017 Comp Metabolic Ngh743 Osmo 276 mOsmo 06/14/2017 Cbc With Differential [...] 31.0 pg 04/12/2017 Cbc With Differential Ord2 [place]% 8.5 % 04/12/2017 Cbc With Differential Ord2 [...] 1.32 K/ul 04/12/2017 Cbc With Differential Ord2 [place] ABS# 0.4 K/ul 04/12/2017 Cbc With Differential Ord2 Eos ABS# 0.0 K/ul 04/12/2017 Cbc With Differential Ord2 Baso ABS# 0.0 K/ul 04/12/2017 Lipid Ord30 CHOL 110 mg/dL 04/12/2017 Lipid Ord30 HDL 47.0 mg/dl 04/12/2017 Lipid Ord30 TRIG 126 mg/dL 04/12/2017 Lipid Ord30 LDL 38 mg/dL 04/12/2017 Lipid Ord30 C/HDL 2.3 Ratio 04/12/2017 Free T4 Hdd111 FREE T4 1.16 ng/dL 04/12/2017 Comp Metabolic Lrv153 NA 141 mEq/L 04/12/2017 Comp Metabolic Aay861 K 3.6 mEq/L 04/12/2017 Comp Metabolic Vjp736 CL 105 mEq/L 04/12/2017 Comp Metabolic Pyi681 CO2 27.0 mEq/L 04/12/2017 Comp Metabolic Tlo850 ANION GAP 13 04/12/2017 Comp Metabolic Ltq145 GLUCOSE 149 mg/dL 04/12/2017 Comp Metabolic Ylf476 Creat 0.7 mg/dL 04/12/2017 Comp Metabolic Ofu916 eGFR 94 ml/min/1.73m2 04/12/2017 Comp Metabolic Cob680 BUN 19 mg/dL 04/12/2017 Comp Metabolic Dqg924 B/C Ratio 28.8 Ratio 04/12/2017 Comp Metabolic Rnr596 CALCIUM 10.5 mg/dL 04/12/2017 Comp Metabolic Owg348 ALK PHOS 72 U/L 04/12/2017 Comp Metabolic Pti639 AST(SGOT) 22 U/L 04/12/2017 Comp Metabolic Qta487 ALT(SGPT) 30 U/L 04/12/2017 Comp Metabolic Yyk267 BILI T 0.6 mg/dL 04/12/2017 Comp Metabolic Gmf977 ALBUMIN 4.0 g/dL 04/12/2017 Comp Metabolic Sxl438 TPRO 6.1 g/dL 04/12/2017 Comp Metabolic Gkh138 GLOB 2.1 g/dL 04/12/2017 Comp Metabolic Hmf687 A/G Ratio 1.9 Ratio 04/12/2017 Comp Metabolic Jbl003 Osmo 286 mOsmo 04/12/2017 Tsh Ord6 hTSH II 1.33 uIU/mL 04/12/2017 %Hba1C Nll684 % HbA1c 29926-3 7.3 % 04/12/2017 %Hba1C Man123 Gluc Ave 163 mg/dL 04/12/2017 Tsh Ord6 hTSH II 2.36 uIU/mL 12/11/2016 %Hba1C Hyc348 % HbA1c 40033-0 7.5 % 12/11/2016 %Hba1C Krx863 Gluc Ave 169 mg/dL 12/11/2016 Comp Metabolic Vyx840 NA 141 mEq/L 12/11/2016 Comp Metabolic Qvv331 K 3.5 mEq/L 12/11/2016 Comp Metabolic Aij448 CL 102 mEq/L 12/11/2016 Comp Metabolic Oqq271 CO2 28.0 mEq/L 12/11/2016 Comp Metabolic Ers490 ANION GAP 15 12/11/2016 Comp Metabolic Mgg917 GLUCOSE 183 mg/dL 12/11/2016 Comp Metabolic Iex002 Creat 0.7 mg/dL 12/11/2016 Comp Metabolic Axn016 eGFR 83 ml/min/1.73m2 12/11/2016 Comp Metabolic Zsh439 BUN 22 mg/dL 12/11/2016 Comp Metabolic Ygq768 B/C Ratio 30.1 Ratio 12/11/2016 Comp Metabolic Yyw415 CALCIUM 10.8 mg/dL 12/11/2016 Comp Metabolic Tzz138 ALK PHOS 76 U/L 12/11/2016 Comp Metabolic Aly989 AST(SGOT) 24 U/L 12/11/2016 Comp Metabolic Dta925 ALT(SGPT) 36 U/L 12/11/2016 Comp Metabolic Hum337 BILI T 0.7 mg/dL 12/11/2016 Comp Metabolic Pyr250 ALBUMIN 4.3 g/dL 12/11/2016 Comp Metabolic Rji448 TPRO 6.7 g/dL 12/11/2016 Comp Metabolic Gxk763 GLOB 2.4 g/dL 12/11/2016 Comp Metabolic Egf312 A/G Ratio 1.8 Ratio 12/11/2016 Comp Metabolic Ybv720 Osmo 289 mOsmo 12/11/2016 Cbc With Differential [...] 30.3 % 12/11/2016 Cbc With Differential Ord2 [place]% 7.3 % 12/11/2016 Cbc With Differential Ord2 [...] 1.45 K/ul 12/11/2016 Cbc With Differential Ord2 [place] ABS# 0.4 K/ul 12/11/2016 Cbc With Differential Ord2 Eos ABS# 0.0 K/ul 12/11/2016 Cbc With Differential Ord2 Baso ABS# 0.0 K/ul 12/11/2016 Free T4 Uar265 FREE T4 1.02 ng/dL 12/11/2016 Lipid Ord30 CHOL 124 mg/dL 12/11/2016 Lipid Ord30 HDL 57.0 mg/dl 12/11/2016 Lipid Ord30 TRIG 151 mg/dL 12/11/2016 Lipid Ord30 LDL 37 mg/dL 12/11/2016 Lipid Ord30 C/HDL 2.2 Ratio 12/11/2016 %Hba1C Duw567 % HbA1c 03234-7 7.3 % 08/14/2016 %Hba1C Gge885 Gluc Ave 163 mg/dL 08/14/2016 Comp Metabolic Dki262 NA 139 mEq/L 08/14/2016 Comp Metabolic Kso324 K 3.8 mEq/L 08/14/2016 Comp Metabolic Kmu663 CL 104 mEq/L 08/14/2016 Comp Metabolic Edn633 CO2 28.0 mEq/L 08/14/2016 Comp Metabolic Ikt178 ANION GAP 11 08/14/2016 Comp Metabolic Efw331 GLUCOSE 148 mg/dL 08/14/2016 Comp Metabolic Hbf164 Creat 0.6 mg/dL 08/14/2016 Comp Metabolic Fuv756 eGFR 99 ml/min/1.73m2 08/14/2016 Comp Metabolic Sdf651 BUN 16 mg/dL 08/14/2016 Comp Metabolic Fxc567 B/C Ratio 25.4 Ratio 08/14/2016 Comp Metabolic Cgd140 CALCIUM 10.4 mg/dL 08/14/2016 Comp Metabolic Mvb565 ALK PHOS 77 U/L 08/14/2016 Comp Metabolic Qfi038 AST(SGOT) 25 U/L 08/14/2016 Comp Metabolic Nun202 ALT(SGPT) 31 U/L 08/14/2016 Comp Metabolic Rzz294 BILI T 0.6 mg/dL 08/14/2016 Comp Metabolic Gss083 ALBUMIN 4.2 g/dL 08/14/2016 Comp Metabolic Gzq478 TPRO 6.5 g/dL 08/14/2016 Comp Metabolic Qcd659 GLOB 2.3 g/dL 08/14/2016 Comp Metabolic Wdb248 A/G Ratio 1.8 Ratio 08/14/2016 Comp Metabolic Stx870 Osmo 281 mOsmo 08/14/2016 Tsh Ord6 hTSH [...] 27.6 % 08/14/2016 Cbc With Differential Ord2 [place]% 8.8 % 08/14/2016 Cbc With Differential Ord2 [...] 1.38 K/ul 08/14/2016 Cbc With Differential Ord2 [place] ABS# 0.4 K/ul 08/14/2016 Cbc With Differential Ord2 Eos ABS# 0.0 K/ul 08/14/2016 Cbc With Differential Ord2 Baso ABS# 0.0 K/ul 08/14/2016 Lipid Ord30 CHOL 118 mg/dL 08/14/2016 Lipid Ord30 HDL 50.0 mg/dl 08/14/2016 Lipid Ord30 TRIG 134 mg/dL 08/14/2016 Lipid Ord30 LDL 41 mg/dL 08/14/2016 Lipid Ord30 C/HDL 2.4 Ratio 08/14/2016 Free T4 Hjk146 FREE T4 0.95 ng/dL 08/14/2016 %Hba1C Tlf757 % HbA1c 35040-9 8.1 % 05/12/2016 %Hba1C Pgw850 Gluc Ave 186 mg/dL 05/12/2016 Comp Metabolic Aar961 NA 139 mEq/L 05/12/2016 Comp Metabolic Hzu715 K 3.9 mEq/L 05/12/2016 Comp Metabolic Ztu276 CL 105 mEq/L 05/12/2016 Comp Metabolic Hyk396 CO2 27.0 mEq/L 05/12/2016 Comp Metabolic Yau047 ANION GAP 11 05/12/2016 Comp Metabolic Puk192 GLUCOSE 202 mg/dL 05/12/2016 Comp Metabolic Ysz897 Creat 0.6 mg/dL 05/12/2016 Comp Metabolic Nxc749 eGFR 97 ml/min/1.73m2 05/12/2016 Comp Metabolic Pyd213 BUN 14 mg/dL 05/12/2016 Comp Metabolic Eaj868 B/C Ratio 21.9 Ratio 05/12/2016 Comp Metabolic Yef583 CALCIUM 10.2 mg/dL 05/12/2016 Comp Metabolic Ysz838 ALK PHOS 81 U/L 05/12/2016 Comp Metabolic Ycm839 AST(SGOT) 26 U/L 05/12/2016 Comp Metabolic Tzj596 ALT(SGPT) 36 U/L 05/12/2016 Comp Metabolic Rwb696 BILI T 0.7 mg/dL 05/12/2016 Comp Metabolic Lss236 ALBUMIN 4.2 g/dL 05/12/2016 Comp Metabolic Olw187 TPRO 6.4 g/dL 05/12/2016 Comp Metabolic Tkq520 GLOB 2.2 g/dL 05/12/2016 Comp Metabolic Uvd967 A/G Ratio 1.9 Ratio 05/12/2016 Comp Metabolic Wcu275 Osmo 284 mOsmo 05/12/2016 Lipid Ord30 CHOL 152 mg/dL 05/12/2016 Lipid Ord30 HDL 50.0 mg/dl 05/12/2016 Lipid Ord30 TRIG 179 mg/dL 05/12/2016 Lipid Ord30 LDL 66 mg/dL 05/12/2016 Lipid Ord30 C/HDL 3.0 Ratio 05/12/2016 Tsh Ord6 hTSH II 1.55 uIU/mL 05/12/2016 Free T4 Cya755 FREE T4 0.93 ng/dL 05/12/2016 %Hba1C Vzh969 % HbA1c 35887-5 7.8 % 02/06/2016 %Hba1C Sii978 Gluc Ave 177 mg/dL 02/06/2016 Review of [...] FLU VACC PRSV FREE INC ANTIG CPT-4: 31392 07/21/2017 URINALYSIS NONAUTO W/O SCOPE CPT-4: 95036 06/10/2017 PPPS, SUBSEQ VISIT CPT -4: G0439 04/14/2017 ADMIN INFLUENZA VIRUS VAC CPT-4: G0008 07/09/2015 FLU VACC 4 TAMI 3 YRS PLUS IM SNOMED CT: [id number] CPT-4: 46665 07/09/2015 Vital Signs Date Vital 05/10/2018 Blood Pressure 1: 136/80 Code : 8480-6 BMI: 28.8 Code : 47558-0 Heart Rate 1 : 99 bpm Height: 5'7" SpO2: 98% Temperature: 36.1 (C) / 97.0 (F) Weight: 184 lbs 04/21/2018 Blood Pressure 1: 144/72 Code : 8480-6 BMI: 29.8 Code : 19948-6 Heart Rate 1 : 64 bpm Height: 5'7" Waist Measure (cm): 93 cm Weight: 190 lbs 04/04/2018 Blood Pressure 1: 148/76 Code : 8480-6 BMI: 29.8 Code : 23927-5 Heart Rate 1 : 108 bpm Height: 5'7" SpO2: 98% Weight: 190 lbs 01/06/2018 Blood Pressure 1: 154/76 Code : 8480-6 BMI: 28.7 Code : 88099-1 Heart Rate 1 : 100 bpm Height: 5'7" SpO2: 96% Weight: 183 lbs 12/08/2017 Blood Pressure 1: 132/74 Code : 8480-6 BMI: 29.6 Code : 74822-0 Heart Rate 1 : 104 bpm Height: 5'7" SpO2: 98% Weight: 189 lbs 08/12/2017 Blood Pressure 1: 138/80 Code : 8480-6 BMI: 28.8 Code : 99203-9 Heart Rate 1 : 95 bpm Height: 5'7" SpO2: 98% Weight: 184 lbs 06/16/2017 Blood Pressure 1: 142/96 Code : 8480-6 BMI: 30.1 Code : 73379-4 Heart Rate 1 : 107 bpm Height: 5'7" SpO2: 97% Weight: 192 lbs 06/14/2017 Blood Pressure 1: 152/80 Code : 8480-6 Heart Rate 1: 113 bpm Height: 5'7" SpO2: 97% Temperature: 36.9 (C) / 98.5 (F) 06/10/2017 Blood Pressure 1: 134/82 Code : 8480-6 BMI: 30.1 Code : 29877-1 Heart Rate 1 : 103 bpm Height: 5'7" SpO2: 97% Temperature: 36.3 (C) / 97.3 (F) Weight: 192 lbs 04/14/2017 BMI: 30.5 Code: 66677-3 Height: 5'7" Weight: 195 lbs 04/13/2017 Blood Pressure 1: 160/80 Code : 8480-6 Blood Pressure 2: 140/78 Code: 8480-6 BMI: 30.5 Code: 43939-2 Heart Rate 1: 94 bpm Height: 5'7" SpO2: 96% Weight: 195 lbs 12/14/2016 Blood Pressure 1: 140/78 Code : 8480-6 BMI: 31.6 Code : 90633-7 Heart Rate 1 : 99 bpm Height: 5'7" SpO2: 98% Weight: 202 lbs 08/17/2016 Blood Pressure 1: 138/78 Code : 8480-6 BMI: 32.0 Code : 76780-6 Heart Rate 1 : 97 bpm Height: 5'7" SpO2: 98% Weight: 204 lbs 8 oz 05/14/2016 Blood Pressure 1: 146/82 Code : 8480-6 Blood Pressure 1: 138/78 Code: 8480-6 BMI: 32.7 Code: 45994-1 Heart Rate 1: 100 bpm Height: 5'7" SpO2: 98% Weight: 209 lbs 03/27/2016 Blood Pressure 1: 130/68 Code : 8480-6 BMI: 33.0 Code : 97951-0 Heart Rate 1 : 81 bpm Height: 5'7" SpO2: 97% Weight: 211 lbs 03/26/2016 Blood Pressure 1: 130/68 Code : 8480-6 BMI: 33.0 Code : 45675-8 Heart Rate 1 : 104 bpm Height: 5'7" SpO2: 98% Weight: 211 lbs 02/06/2016 Blood Pressure 1: 138/84 Code : 8480-6 BMI: 33.2 Code : 53472-5 Heart Rate 1 : 80 bpm Height: 5'7" SpO2: 98% Weight: 212 lbs 10/09/2015 Blood Pressure 1: 134/76 Code : 8480-6 BMI: 32.7 Code : 41800-9 Heart Rate 1 : 98 bpm Height: [...] data Encounters Encounter Performer Location Codes Date ([id number]) [id number] EST. PATIENT, LEVEL III Diagnosis: Left upper quadrant pain[ICD10: R10.12] Diagnosis: Gastro-esophageal reflux disease without esophagitis[ICD10: K21.9] Camilla Warren MD, [facility] CPT-4: 66257 05/10/2018 [id number]) [id number] EST. PATIENT, LEVEL IV Diagnosis: Type 2 diabetes mellitus with hyperglycemia[ICD10: E11.65] Diagnosis: Atrophy of thyroid (acquired)[ICD10: E03.4] Diagnosis: Essential (primary) hypertension[ICD10: I10] Sarahy Warren MD, [facility] CPT-4: 10507 04/04/2018 ([id number]) 21789 EST. PATIENT, LEVEL IV Diagnosis: Type 2 diabetes mellitus with hyperglycemia[ICD10: E11.65] Diagnosis: Essential (primary) hypertension[ICD10: I10] Diagnosis: Functional diarrhea[ICD10: K59.1] Sarahy Warren MD, [facility] CPT-4: 12056 01/06/2018 ([id number]) 72906 EST. PATIENT, LEVEL IV Diagnosis: Type 2 diabetes mellitus with hyperglycemia[ICD10: E11.65] Diagnosis: Essential (primary) hypertension[ICD10: I10] Diagnosis: Atrophy of thyroid (acquired)[ICD10: E03.4] Diagnosis: Generalized abdominal pain[ICD10: R10.84] Diagnosis: Gastro-esophageal reflux disease without esophagitis[ICD10: K21.9] Sarahy Warren MD, [facility] CPT-4: 02412 12/08/2017 ([id number]) [id number] EST. 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 PATIENT, LEVEL V Diagnosis: Gastro-esophageal reflux disease without esophagitis[ICD10: K21.9] Diagnosis: Nausea[ICD10: R11.0] Diagnosis: Generalized abdominal pain[ICD10: R10.84] Thania Warren MD, [facility] CPT-4: 87436 06/16/2017 ([id number]) Miscellaneous no charge Diagnosis: Generalized abdominal pain[ICD10: R10.84] Diagnosis: Nausea[ICD10: R11.0] Camilla Warren MD, [facility] CPT-4: 85928 06/14/2017 ([id number]) 66004 EST. PATIENT, LEVEL III Diagnosis: Generalized abdominal pain[ICD10: R10.84] Diagnosis: Other allergic rhinitis[ICD10: J30.89] Diagnosis: Dysuria[ICD10: R30.0] Camilla Warren MD, [facility] CPT-4: 20585 06/10/2017 ([id number]) 59534 EST. PATIENT, LEVEL IV Diagnosis: Type 2 diabetes mellitus with hyperglycemia[ICD10: E11.65] Diagnosis: Mixed hyperlipidemia[ICD10: E78.2] Diagnosis: Atrophy of thyroid (acquired)[ICD10: E03.4] Diagnosis: Essential (primary) hypertension[ICD10: I10] Sarahy Warren MD [facility] CPT-4: 53115 04/13/2017 ([id number]) 71971 EST. PATIENT, LEVEL IV Diagnosis: Essential (primary) hypertension[ICD10: I10] Diagnosis: Actinic keratosis[ICD10: L57.0] Diagnosis: Type 2 diabetes mellitus with hyperglycemia[ICD10: E11.65] Diagnosis: Mixed hyperlipidemia[ICD10: E78.2] Sarahy Warren MD [facility] CPT-4: 35329 12/14/2016 ([id number]) 78073 EST. PATIENT, LEVEL IV Diagnosis: Type 2 diabetes mellitus with hyperglycemia[ICD10: E11.65] Diagnosis: Essential (primary) hypertension[ICD10: I10] Diagnosis: Atrophy of thyroid (acquired)[ICD10: E03.4] Sarahy Warren MD [facility] CPT-4: 64798 08/17/2016 ([id number]) 88214 EST. PATIENT, LEVEL IV Diagnosis: Type 2 diabetes mellitus with hyperglycemia[ICD10: E11.65] Diagnosis: Essential (primary) hypertension[ICD10: I10] Sarahy Warren MD [facility] CPT-4: 78444 05/14/2016 ([id number]) Miscellaneous no charge Diagnosis: Type 2 diabetes mellitus with hyperglycemia[ICD10: E11.65] Thania Warren MD [facility] CPT-4: 92345 03/27/2016 [id number] EST. PATIENT, LEVEL IV Diagnosis: Other acute sinusitis[ICD10: J01.80] Diagnosis: Rash and other nonspecific skin eruption[ICD10: R21] Thania Warren MD, [facility] CPT-4: 79263 03/26/2016 ([id number]) 59450 EST. PATIENT, LEVEL IV Diagnosis: Type 2 diabetes mellitus with hyperglycemia[ICD10: E11.65] Diagnosis: Essential (primary) hypertension[ICD10: I10] Diagnosis: Hypothyroidism, unspecified[ICD10: E03.9] Sarahy Warren MD [facility] CPT-4: 93779 02/06/2016 ([id number]) 51836 EST. PATIENT, LEVEL IV Diagnosis: Type 2 diabetes mellitus with hyperglycemia[ICD10: E11.65] Diagnosis: Hyperlipidemia, unspecified[ICD10: E78.5] Diagnosis: Essential (primary) hypertension[ICD10: I10] Diagnosis: Hypothyroidism, unspecified[ICD10: E03.9] [facility] CPT-4: 12603 10/09/2015 ([id number]) OFFICE VISIT, NEW - LEVEL 4 Diagnosis: Type 2 diabetes mellitus with hyperglycemia[ICD10: E11.65] [facility] CPT-4: 46638 07/09/2015 Plan of Care Planned Activity Notes Codes Status Date Visit Plan: LUQ pain-epigastric pain- check labs including amylase and lipase -pantoprazole 40mg daily-low spice diet -call if symptoms do not improve or if any worse-follow up in 3 weeks, sooner if needed 05/10/2018 Patient Education: Patient Medication Summary Completed [...] surrogate. 04/21/2018 [facility]ment[facility] [phone] [facility] [facility] - Annual Wellness Visit 04/21/2018 Patient Education: [...] at home. 04/04/2018 [facility] [phone] [facility] (15 min) Moderate 04/04/2018 Patient Education: Patient [...] twice daily. 01/06/2018 App[phone] [facility] (15 min) Moderate 01/06/2018 Patient Education: Patient [...] of control. 12/08/2017 App[facility]ment: [phone] [facility] [place] (15 min) Moderate 12/08/2017 Patient Education: [...] control. 08/12/2017 App[facility]: [phone] [facility] [place] (15 min) Moderate 08/12/2017 Patient Education: [...] of plan. 06/16/2017 Appointment: [facility] [phone] [facility] (30 min) Complex 06/16/2017 Patient Education: Patient Medication Summary Completed 06/16/2017 Visit Plan: Abdominal czap-ydzdrh-bgnak labs-clear liquid diet-advance to bland-increase prilosec-start probiotics twice daily-we will call with results of labs and xray. Instructed patient to call or go to ER for severe or worsening symptoms. Patient verbalized understanding of plan. 06/14/2017 Appointment: Cam[facility] Fernandez [facility] [phone] [phone] (15 min) Moderate 06/14/2017 Patient Education: Patient [...] spray in the nasal steroid allergy spray. Qrdsxcy-diyclzgv-RR negative 06/10/2017 Appointment: Camilla Fernandez WPtel: [phone] [phone] (15 min) Moderate 06/10/2017 Patient Education: Patient [...] surrogate. 04/14/2017 Appointment: [facility] [phone] [facility] [facility] - Annual Wellness Visit 04/14/2017 Patient Education: [...] medications. 04/13/2017 App[facility]: [phone] [facility] (15 min) Moderate 04/13/2017 Patient Education: Patient [...] up. 12/14/2016 App[facility]: [facility] [phone] [facility] (15 min) Moderate 12/14/2016 Patient Education: [...] of control. 08/17/2016 App[facility]: [facility] [phone] [facility] (15 min) Moderate 08/17/2016 Patient Education: Patient [...] at home. 05/14/2016 App[facility]ment: [phone] [facility] (15 min) Moderate 05/14/2016 Patient Education: [...] us informed. 03/26/2016 Appointment: Thania Andre [facility]Ptel: [facility] [place] [facility] (15 min) Moderate 03/26/2016 Patient Education: Patient [...] control. 10/09/2015 Appointment: Sarahy Warren WPtel: [phone] [facility] (15 min) Moderate 10/09/2015 Patient Education: Patient [...] on t 07/09/2015 Appointment: [phone] [facility] [place] ([place] New Patient 07/09/2015 Patient Education: Patient Medication Summary Completed 07/09/2015 Instructions Comment . Sinusitis - Pt has acute infection - pain in face, maxillary region, Pt informed to use decongestant, RX given to patient, sinus rinses also recommended. Call if symptoms do not show improvement. Rash to right arm - Pt states that she is going to see her oncologist for the rash - will keep us informed. decrease the metformin to 1/2 pill twice [...] metformin to 1/2 pill twice daily. . Diabetes Mellitus - Uncontrolled - per [...] change in blood pressure readings at home. efudex to be used on the forehead, [...] skin lesions until they are healed up. . referral to dr. cárdenas for egd/colonoscopy [...] based on previous levels of control. . Adrenal mass - Dr. Warren discussed [...] levels of control. . Diabetes Mellitus - controlled - per [...] based on previous levels of control. . Hypertension - well controlled - continue [...] assure normal liver response to medications. . 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 Stop prednisone . Rash and elevated blood sugars - Will have pt stop prednisone, pt is to notify clinic if symptoms do not improve. . Diabetes Mellitus - Uncontrolled - per [...] change in blood pressure readings at home. pantoprazole 40mg daily check labs call if pain does not resolve or if any worse . LUQ pain-epigastric pain- check labs including amylase and lipase - pantoprazole 40mg daily-low spice diet -call if symptoms do not improve or if any worse-follow up in 3 weeks, sooner if needed increase prilosec to twice daily probiotics twice daily for diarrhea bland diet check labs, UA and KUB . Abdominal rhen-qltxld-umhzi labs-clear liquid diet-advance to bland-increase prilosec-start probiotics twice daily-we will call with results of labs and xray. Instructed patient to call or go to ER for severe or worsening symptoms. Patient verbalized understanding of plan. . Diabetes Mellitus - Uncontrolled - per [...] one month for weight check. start on janumet . Diabetes Mellitus - Uncontrolled - per [...] change in blood pressure readings at home. . Hypertension - well controlled - continue [...] based on previous levels of control. . Abdominal pain-nausea- persistent with no improvement - will send for IV fluids and order CT - will treat as indicated. Pt instructed patient to call or go to ER for severe or worsening symptoms. Patient verbalized understanding of plan. . Generalized abdominal pain-epigastric pain-history diverticulitis-recommend prilosec [...] spray in the nasal steroid allergy spray. Wnqjjfo-lcureang-CK negative . Medicare Exam - today we discussed [...]
--- OUTSIDE RECORDS SUMMARY | 2018-08-05 10:27 | XMS REPORT | Continuity of Care Document ---
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 Z92.21 PERSONAL HISTORY OF ANTINEOPLASTIC CHEMO 12/11/2016 REY QUEVEDO N Ot Z92.3 PERSONAL HISTORY OF IRRADIATION 01/18/2017 REY QUEVEDO N Ot 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 OF UNSP SITE OF RIGHT 01/18/2017 REY QUEVEDO N Ot C77.3 SEC AND UNSP MALIG NEOPLASM OF AXILLA AN 01/18/2017 REY QUEVEDO N Ot E11.9 TYPE 2 DIABETES MELLITUS WITHOUT COMPLIC 01/18/2017 REY QUEVEDO N Ot Z45.2 ENCOUNTER FOR ADJUSTMENT AND MANAGEMENT 01/18/2017 REY QUEVEDO N Ot Z79.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 THERAPY 01/18/2017 REY QUEVEDO N Ot Z92.21 PERSONAL HISTORY OF ANTINEOPLASTIC CHEMO 01/18/2017 REY QUEVEDO N Ot Z92.3 PERSONAL HISTORY OF IRRADIATION 01/23/2017 REY QUEVEDO N Ot 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 OF UNSP SITE OF RIGHT 01/23/2017 REY QUEVEDO N Ot C77.3 SEC AND UNSP MALIG NEOPLASM OF AXILLA AN 01/23/2017 REY QUEVEDO N Ot E11.9 TYPE 2 DIABETES MELLITUS WITHOUT COMPLIC 01/23/2017 REY QUEVEDO N Ot Z45.2 ENCOUNTER FOR ADJUSTMENT AND MANAGEMENT 01/23/2017 REY QUEVEDO N Ot Z79.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 THERAPY 01/23/2017 REY QUEVEDO Fareed Ot Z92.21 PERSONAL HISTORY OF ANTINEOPLASTIC CHEMO 01/23/2017 REY QUEVEDO Fareed Ot Z92.3 PERSONAL HISTORY OF IRRADIATION 03/10/2017 REY QUEVEDO Fareed Ot 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 OF UNSP SITE OF RIGHT 03/10/2017 REY QUEVEDO Fareed Ot C77.3 SEC AND UNSP MALIG NEOPLASM OF AXILLA AN 03/10/2017 REY QUEVEDO Fareed Ot E11.9 TYPE 2 DIABETES MELLITUS WITHOUT COMPLIC 03/10/2017 REY QUEVEDO N Ot Z45.2 ENCOUNTER FOR ADJUSTMENT AND MANAGEMENT 03/10/2017 REY QUEVEDO N Ot Z79.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 THERAPY 03/10/2017 REY QUEVEDO N Ot Z92.21 PERSONAL HISTORY OF ANTINEOPLASTIC CHEMO 03/10/2017 REY QUEVEDO N Ot Z92.3 PERSONAL HISTORY OF IRRADIATION 03/16/2017 REY QUEVEDO Fareed Ot 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 OF UNSP SITE OF RIGHT 03/16/2017 REY QUEVEDO Fareed Ot C77.3 SEC AND UNSP MALIG NEOPLASM OF AXILLA AN 03/16/2017 EMY FRANCHESKAAQUILES N Ot E11.9 TYPE 2 DIABETES MELLITUS WITHOUT COMPLIC 03/16/2017 EMY FRANCHESKAAQUILES Fareed Ot Z45.2 ENCOUNTER FOR ADJUSTMENT AND MANAGEMENT 03/16/2017 REY QUEVEDO Fareed Ot Z79.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 THERAPY 03/16/2017 REY QUEVEDO N Ot Z92.21 PERSONAL HISTORY OF ANTINEOPLASTIC CHEMO 03/16/2017 EMY FRANCHESKAAQUILES Fareed Ot Z92.3 PERSONAL HISTORY OF IRRADIATION 03/27/2017 YANI ROSARIO MD Ot 250.00 DIAB SANTOSH WO COMPL, TYPE II OR UNSPEC TY 03/27/2017 YANI ROSARIO MD Ot 272.4 HYPERLIPIDEMIA NEC/NOS 04/09/2017 EMY REY Guerrier Ot C50.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 OF 04/09/2017 EMY REY Guerrier Ot C77.3 SEC AND UNSP MALIG NEOPLASM OF AXILLA AN 04/09/2017 EMY REY Guerrier Ot E11.9 TYPE 2 DIABETES MELLITUS WITHOUT COMPLIC 04/09/2017 EMY BOBAN N Ot Z45.2 ENCOUNTER FOR ADJUSTMENT AND MANAGEMENT 04/09/2017 REY QUEVEDO N Ot Z79.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 THERAPY 04/09/2017 REY QUEVEDO N Ot Z92.21 PERSONAL HISTORY OF ANTINEOPLASTIC CHEMO 04/09/2017 REY QUEVEDO N Ot Z92.3 PERSONAL HISTORY OF IRRADIATION 05/24/2017 REY QUEVEDO N Ot C50.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 OF 05/24/2017 REY QUEVEDO N Ot C77.3 SEC AND UNSP MALIG NEOPLASM OF AXILLA AN 05/24/2017 REY QUEVEDO N Ot E11.9 TYPE 2 DIABETES MELLITUS WITHOUT COMPLIC 05/24/2017 REY QUEVEDO N Ot Z45.2 ENCOUNTER FOR ADJUSTMENT AND MANAGEMENT 05/24/2017 REY QUEVEDO N Ot Z79.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 THERAPY 05/24/2017 REY QUEVEDO N Ot Z92.21 PERSONAL HISTORY OF ANTINEOPLASTIC CHEMO 05/24/2017 REY QUEVEDO N Ot Z92.3 PERSONAL HISTORY OF IRRADIATION 05/25/2017 REY QUEVEDO N Ot C50.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 OF 05/25/2017 REY QUEVEDO N Ot C77.3 SEC AND UNSP MALIG NEOPLASM OF AXILLA AN 05/25/2017 REY QUEVEDO N Ot E11.9 TYPE 2 DIABETES MELLITUS WITHOUT COMPLIC 05/25/2017 REY QUEVEDO N Ot Z45.2 ENCOUNTER FOR ADJUSTMENT AND MANAGEMENT 05/25/2017 REY QUEVEDO N Ot Z79.899 OTHER PRISON (CURRENT) DRUG THERAPY 05/25/2017 REY QUEVEDO N Ot Z92.21 PERSONAL HISTORY OF ANTINEOPLASTIC CHEMO 05/25/2017 REY QUEVEDO N Ot Z92.3 PERSONAL HISTORY OF IRRADIATION 05/28/2017 YANI ROSARIO MD Ot 250.00 DIAB SANTOSH WO COMPL, TYPE II OR UNSPEC TY 05/28/2017 YANI ROSARIO MD Ot 272.4 HYPERLIPIDEMIA NEC/NOS 06/20/2017 ANGELA FELTON TELEPHONE CLEANER Ot K59.00 CONSTIPATION, UNSPECIFIED 06/20/2017 ANGELA FELTON TELEPHONE CLEANER Ot R11.0 NAUSEA 06/20/2017 ANGELA FLETON TELEPHONE CLEANER Ot R19.7 DIARRHEA, UNSPECIFIED 06/22/2017 EMMY FRAGA MD Ot K80.20 CALCULUS OF GALLBLADDER W/O CHOLECYSTITI 06/22/2017 EMMY FRAGA MD Ot Z01.818 ENCOUNTER FOR OTHER PREPROCEDURAL EXAMIN 06/23/2017 EMMY FRAGA MD Ot K80.20 CALCULUS OF GALLBLADDER W/O CHOLECYSTITI 06/23/2017 EMMY FRAGA MD Ot Z01.818 ENCOUNTER FOR OTHER PREPROCEDURAL EXAMIN 06/23/2017 EMMY FRAGA MD Ot E03.9 HYPOTHYROIDISM, UNSPECIFIED 06/23/2017 EMMY FRAGA MD Ot E11.43 TYPE 2 DIABETES W DIABETIC AUTONOMIC (PO 06/23/2017 EMMY FRAGA MD Ot E66.9 OBESITY, UNSPECIFIED 06/23/2017 EMMY FRAGA MD Ot G47.33 OBSTRUCTIVE SLEEP APNEA (ADULT) (PEDIATR 06/23/2017 EMMY FRAGA MD Ot I10 ESSENTIAL (PRIMARY) HYPERTENSION 06/23/2017 EMMY FRAGA MD Ot K80.20 CALCULUS OF GALLBLADDER W/O CHOLECYSTITI 06/23/2017 EMMY FRAGA MD Ot K81.1 CHRONIC CHOLECYSTITIS 06/23/2017 EMMY FRAGA MD Ot Z68.30 BODY MASS INDEX (BMI) 30.0-30.9, ADULT 06/23/2017 EMMY FRAGA MD Ot Z79.84 PRISON (CURRENT) USE OF ORAL HYPOGLYC 06/23/2017 EMMY FRAGA MD Ot Z79.899 OTHER PRISON (CURRENT) DRUG THERAPY 06/23/2017 EMMY FRAGA MD Ot Z85.3 PERSONAL HISTORY OF MALIGNANT NEOPLASM O 06/23/2017 MICHAEL ROELLANA APRN Ot E27.9 DISORDER OF ADRENAL GLAND, UNSPECIFIED 06/23/2017 MICHAEL ORELLANA APRN Ot K80.20 CALCULUS OF GALLBLADDER W/O CHOLECYSTITI 06/23/2017 MICHAEL ORELLANA APRN Ot N20.0 CALCULUS OF KIDNEY 06/26/2017 REY QUEVEDO Ot C50.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 OF 06/26/2017 REY QUEVEDO Ot C77.3 SEC AND UNSP MALIG NEOPLASM OF AXILLA AN 06/26/2017 REY QUEVEDO Ot E11.9 TYPE 2 DIABETES MELLITUS WITHOUT COMPLIC 06/26/2017 REY QUEVEDO Ot Z45.2 ENCOUNTER FOR ADJUSTMENT AND MANAGEMENT 06/26/2017 REY QUEVEDO Ot Z79.899 OTHER PRISON (CURRENT) DRUG THERAPY 06/26/2017 REY QUEVEDO Ot Z92.21 PERSONAL HISTORY OF ANTINEOPLASTIC CHEMO 06/26/2017 REY QUEVEDO Ot Z92.3 PERSONAL HISTORY OF IRRADIATION 06/30/2017 FLAKITO GREEN, EMMY Monreal Ot E03.9 HYPOTHYROIDISM, UNSPECIFIED 06/30/2017 FLAKITO GREEN, EMMY Monreal Ot E11.43 TYPE 2 DIABETES W DIABETIC AUTONOMIC (PO 06/30/2017 FLAKITO GREEN, EMMY Monreal Ot E66.9 OBESITY, UNSPECIFIED 06/30/2017 EMMY FRAGA MD Ot G47.33 OBSTRUCTIVE SLEEP APNEA (ADULT) (PEDIATR 06/30/2017 EMMY FRAGA MD Ot I10 ESSENTIAL (PRIMARY) HYPERTENSION 06/30/2017 FLAKITO GREEN, EMMY Monreal Ot K81.1 CHRONIC CHOLECYSTITIS 06/30/2017 FLAKITO GREEN, EMMY Monreal Ot Z68.30 BODY MASS INDEX (BMI) 30.0-30.9, ADULT 06/30/2017 EMMY FRAGA MD Ot Z79.84 PRISON (CURRENT) USE OF ORAL HYPOGLYC 06/30/2017 EMMY FRAGA MD Ot Z79.899 OTHER PRISON (CURRENT) DRUG THERAPY 06/30/2017 EMMY FRAGA MD Ot Z85.3 PERSONAL HISTORY OF MALIGNANT NEOPLASM O 07/02/2017 REY QUEVEDO Ot C50.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 OF 07/02/2017 REY QUEVEDO Ot C77.3 SEC AND UNSP MALIG NEOPLASM OF AXILLA AN 07/02/2017 REY QUEVEDO Ot E11.9 TYPE 2 DIABETES MELLITUS WITHOUT COMPLIC 07/02/2017 REY QUEVEDO Ot Z45.2 ENCOUNTER FOR ADJUSTMENT AND MANAGEMENT 07/02/2017 REY QUEVEDO Ot Z79.899 OTHER PRISON (CURRENT) DRUG THERAPY 07/02/2017 REY QUEVEDO Ot Z92.21 PERSONAL HISTORY OF ANTINEOPLASTIC CHEMO 07/02/2017 EMY, BOBAN N Ot Z92.3 PERSONAL HISTORY OF IRRADIATION 07/03/2017 FLAKITO GREEN, EMMY Monreal Ot E03.9 HYPOTHYROIDISM, UNSPECIFIED 07/03/2017 EMMY FRAGA MD Ot E11.43 TYPE 2 DIABETES W DIABETIC AUTONOMIC (PO 07/03/2017 FLAKITO GREEN, EMMY Monreal Ot E66.9 OBESITY, UNSPECIFIED 07/03/2017 EMMY FRAGA MD Ot G47.33 OBSTRUCTIVE SLEEP APNEA (ADULT) (PEDIATR 07/03/2017 EMMY FRAGA MD Ot I10 ESSENTIAL (PRIMARY) HYPERTENSION 07/03/2017 EMMY FRAGA MD Ot K81.1 CHRONIC CHOLECYSTITIS 07/03/2017 FLAKITO GREEN, EMMY Monreal Ot Z68.30 BODY MASS INDEX (BMI) 30.0-30.9, ADULT 07/03/2017 EMMY FRAGA MD Ot Z79.84 PRISON (CURRENT) USE OF ORAL HYPOGLYC 07/03/2017 EMMY FRAGA MD Ot Z79.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 THERAPY 07/03/2017 EMMY FRAGA MD Ot Z85.3 PERSONAL HISTORY OF MALIGNANT NEOPLASM O 07/08/2017 ANGELA FELTON TELEPHONE CLEANER Ot K59.00 CONSTIPATION, UNSPECIFIED 07/08/2017 ANGELA FELTON TELEPHONE CLEANER Ot R11.0 NAUSEA 07/08/2017 ANGELA FELTON TELEPHONE CLEANER Ot R19.7 DIARRHEA, UNSPECIFIED 07/13/2017 MICHAEL ORELLANA TUGBOAT CAPTAIN Ot E27.9 DISORDER OF ADRENAL GLAND, UNSPECIFIED 07/13/2017 MICHAEL ORELLANA TUGBOAT CAPTAIN Ot K80.20 CALCULUS OF GALLBLADDER W/O CHOLECYSTITI 07/13/2017 MICHAEL ORELLANA TUGBOAT CAPTAIN Ot N20.0 CALCULUS OF KIDNEY 07/13/2017 ANGELA FELTON TELEPHONE CLEANER Ot K59.00 CONSTIPATION, UNSPECIFIED 07/13/2017 ANGELA FELTON TELEPHONE CLEANER Ot R11.0 NAUSEA 07/13/2017 ANGELA FELTON TELEPHONE CLEANER Ot R19.7 DIARRHEA, UNSPECIFIED 07/14/2017 EMMY FRAGA MD Ot E03.9 HYPOTHYROIDISM, UNSPECIFIED 07/14/2017 EMMY FRAGA MD Ot E11.43 TYPE 2 DIABETES W DIABETIC AUTONOMIC (PO 07/14/2017 EMMY FRAGA MD Ot E66.9 OBESITY, UNSPECIFIED 07/14/2017 FLAKITO GREEN, EMMY Monreal Ot G47.33 OBSTRUCTIVE SLEEP APNEA (ADULT) (PEDIATR 07/14/2017 FLAKITO GREEN, EMMY Monreal Ot I10 ESSENTIAL (PRIMARY) HYPERTENSION 07/14/2017 FLAKITO GREEN, EMMY Monreal Ot K81.1 CHRONIC CHOLECYSTITIS 07/14/2017 FLAKITO GREEN, EMMY Monreal Ot Z68.30 BODY MASS INDEX (BMI) 30.0-30.9, ADULT 07/14/2017 FLAKITO GREEN, EMMY Monreal Ot Z79.84 PRISON (CURRENT) USE OF ORAL HYPOGLYC 07/14/2017 EMMY FRAGA MD Ot Z79.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 THERAPY 07/14/2017 FLAKITO GREEN, EMMY Monreal Ot Z85.3 PERSONAL HISTORY OF MALIGNANT NEOPLASM O 07/20/2017 MICHAEL ORELLANA APRN Ot E27.9 DISORDER OF ADRENAL GLAND, UNSPECIFIED 07/20/2017 MICHAEL ORELLANA TUGBOAT CAPTAIN Ot K80.20 CALCULUS OF GALLBLADDER W/O CHOLECYSTITI 07/20/2017 MICHAEL ORELLANA TUGBOAT CAPTAIN Ot N20.0 CALCULUS OF KIDNEY 08/05/2017 REY QUEVEDO Ot C50.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 OF 08/05/2017 REY QUEVEDO Ot C77.3 SEC AND UNSP MALIG NEOPLASM OF AXILLA AN 08/05/2017 REY QUEVEDO N Ot E11.9 TYPE 2 DIABETES MELLITUS WITHOUT COMPLIC 08/05/2017 REY QUEVEDO Ot Z45.2 ENCOUNTER FOR ADJUSTMENT AND MANAGEMENT 08/05/2017 REY QUEVEDO Ot Z79.899 OTHER PRISON (CURRENT) DRUG THERAPY 08/05/2017 REY QUEVEDO N Ot Z92.21 PERSONAL HISTORY OF ANTINEOPLASTIC CHEMO 08/05/2017 REY QUEVEDO N Ot Z92.3 PERSONAL HISTORY OF IRRADIATION 09/21/2017 REY QUEVEDO Ot C50.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 OF 09/21/2017 REY QUEVEDO Ot C77.3 SEC AND UNSP MALIG NEOPLASM OF AXILLA AN 09/21/2017 REY QUEVEDO N Ot E11.9 TYPE 2 DIABETES MELLITUS WITHOUT COMPLIC 09/21/2017 REY QUEVEDO N Ot Z45.2 ENCOUNTER FOR ADJUSTMENT AND MANAGEMENT 09/21/2017 REY QUEVEDO N Ot Z79.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 THERAPY 09/21/2017 REY QUEVEDO N Ot Z92.21 PERSONAL HISTORY OF ANTINEOPLASTIC CHEMO 09/21/2017 REY QUEVEDO N Ot Z92.3 PERSONAL HISTORY OF IRRADIATION 09/24/2017 REY QUEVEDO Ot C50.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 OF 09/24/2017 REY QUEVEDO Ot C77.3 SEC AND UNSP MALIG NEOPLASM OF AXILLA AN 09/24/2017 REY QUEVEDO N Ot E11.9 TYPE 2 DIABETES MELLITUS WITHOUT COMPLIC 09/24/2017 REY QUEVEDO N Ot Z45.2 ENCOUNTER FOR ADJUSTMENT AND MANAGEMENT 09/24/2017 REY QUEVEDO N Ot Z79.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 THERAPY 09/24/2017 REY QUEVEDO N Ot Z92.21 PERSONAL HISTORY OF ANTINEOPLASTIC CHEMO 09/24/2017 REY QUEVEDO N Ot Z92.3 PERSONAL HISTORY OF IRRADIATION 10/26/2017 MICHAEL PRUITT TELEPHONE CLEANER Ot Z12.31 ENCNTR SCREEN MAMMOGRAM FOR MALIGNANT NE 10/26/2017 MICHAEL PRUITT TELEPHONE CLEANER Ot Z85.3 PERSONAL HISTORY OF MALIGNANT NEOPLASM O 10/26/2017 MICHAEL PRUITT TELEPHONE CLEANER Ot Z98.82 BREAST IMPLANT STATUS 11/02/2017 REY QUEVEDO Ot C50.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 OF 11/02/2017 REY QUEVEDO Ot C77.3 SEC AND UNSP MALIG NEOPLASM OF AXILLA AN 11/02/2017 REY QUEVEDO N Ot E11.9 TYPE 2 DIABETES MELLITUS WITHOUT COMPLIC 11/02/2017 REY QUEVEDO N Ot Z45.2 ENCOUNTER FOR ADJUSTMENT AND MANAGEMENT 11/02/2017 REY QUEVEDO N Ot Z79.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 THERAPY 11/02/2017 REY QUEVEDO N Ot Z92.21 PERSONAL HISTORY OF ANTINEOPLASTIC CHEMO 11/02/2017 REY QUEVEDO N Ot Z92.3 PERSONAL HISTORY OF IRRADIATION 12/17/2017 FLAKITO GREEN, EMMY M Ot K21.9 GASTRO-ESOPHAGEAL REFLUX DISEASE WITHOUT 12/17/2017 FLAKITO GREEN, EMMY Monreal Ot R19.7 DIARRHEA, UNSPECIFIED 12/17/2017 FLAKITO GREEN, EMMY Monreal Ot Z01.818 ENCOUNTER FOR OTHER PREPROCEDURAL EXAMIN 12/17/2017 REY QUEVEDO Ot C50.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 OF 12/17/2017 REY QUEVEDO Ot C77.3 SEC AND UNSP MALIG NEOPLASM OF AXILLA AN 12/17/2017 REY QUEVEDO Ot E03.9 HYPOTHYROIDISM, UNSPECIFIED 12/17/2017 REY QUEVEDO Fareed Ot E11.40 TYPE 2 DIABETES MELLITUS WITH DIABETIC N 12/17/2017 REY QUEVEDO Ot E66.9 OBESITY, UNSPECIFIED 12/17/2017 REY QUEVEDO Ot I10 ESSENTIAL (PRIMARY) HYPERTENSION 12/17/2017 REY QUEVEDO Ot I89.0 LYMPHEDEMA, NOT ELSEWHERE CLASSIFIED 12/17/2017 REY QUEVEDO Ot Z68.30 BODY MASS INDEX (BMI) 30.0-30.9, ADULT 12/17/2017 REY QUEVEDO Ot Z79.84 PROFESSOR OF SOCIOLOGY (CURRENT) USE OF ORAL HYPOGLYC 12/17/2017 REY QUEVEDO Fareed Ot Z79.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 THERAPY 12/17/2017 REY QUEVEDO Ot Z92.21 PERSONAL HISTORY OF ANTINEOPLASTIC CHEMO 12/17/2017 REY QUEVEDO Fareed Ot Z92.3 PERSONAL HISTORY OF IRRADIATION 12/20/2017 FLAKITO GREEN, EMMY Monreal Ot K21.9 GASTRO-ESOPHAGEAL REFLUX DISEASE WITHOUT 12/20/2017 FLAKITO GREEN, EMMY Monreal Ot R19.7 DIARRHEA, UNSPECIFIED 12/20/2017 FLAKITO GREEN, EMMY Monreal Ot Z01.818 ENCOUNTER FOR OTHER PREPROCEDURAL EXAMIN 12/20/2017 EMMY FRAGA MD Ot K21.9 GASTRO-ESOPHAGEAL REFLUX DISEASE WITHOUT 12/20/2017 EMMY FRAGA MD Ot R19.7 DIARRHEA, UNSPECIFIED 12/20/2017 EMMY FRAGA MD Ot Z01.818 ENCOUNTER FOR OTHER PREPROCEDURAL EXAMIN 12/23/2017 Ot 793.89 OTH (ABN) FINDINGS ON RADIOLOGICAL EXAMI 12/23/2017 Ot V76.12 OTH SCREEN MAMMO-MALIGN NEOPLASM OF CT 12/23/2017 Ot 793.89 OTH (ABN) FINDINGS ON RADIOLOGICAL EXAMI 12/23/2017 Ot 250.00 DIAB SANTOSH WO COMPL, TYPE II OR UNSPEC TY 12/23/2017 Ot 401.9 HYPERTENSION NOS 12/23/2017 Ot 611.72 LUMP OR MASS IN BREAST 12/23/2017 Ot 174.9 MALIGN NEOPL BREAST NOS 12/23/2017 Ot V72.63 PRE- PROCEDURAL LABORATORY EXAMINATION 12/23/2017 Ot V72.81 EXAM-PRE- OPERATIVE CARDIOVASCULAR 12/23/2017 Ot V74.8 SCREEN- BACTERIAL DIS NEC 12/23/2017 Ot 174.9 MALIGN NEOPL BREAST NOS 12/23/2017 Ot V72.84 EXAM PRE- OPERATIVE NOS 12/23/2017 Ot 174.9 MALIGN NEOPL BREAST NOS 12/23/2017 Ot 174.9 MALIGN NEOPL BREAST NOS 12/23/2017 Ot V58.69 OTH MED,LT, CURRENT USE 12/23/2017 Ot 174.9 MALIGN NEOPL BREAST NOS 12/23/2017 Ot 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 12/23/2017 Ot 250.00 DIAB SANTOSH WO COMPL, TYPE II OR UNSPEC TY 12/23/2017 Ot 782.2 LOCAL SUPRFICIAL SWELLNG 12/23/2017 Ot V58.11 ENCOUNTER FOR ANTINEOPLASTIC CHEMOTHERAP 12/23/2017 Ot V58.69 OTH MED,LT, CURRENT USE 12/23/2017 MICHAEL PRUITT TELEPHONE CLEANER Ot 174.9 MALIGN NEOPL BREAST NOS 12/23/2017 MICHAEL PRUITT S TELEPHONE CLEANER Ot 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 12/23/2017 MICHAEL PRUITT TELEPHONE CLEANER Ot 250.00 DIAB SANTOSH WO COMPL, TYPE II OR UNSPEC TY 12/23/2017 MICHAEL PRUITT TELEPHONE CLEANER Ot V58.69 OTH MED,LT,CURRENT USE 12/23/2017 MICHAEL PRUITT S TELEPHONE CLEANER Ot 174.9 MALIGN NEOPL BREAST NOS 12/23/2017 MICHAEL PRUITT S TELEPHONE CLEANER Ot 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 12/23/2017 MICHAEL PRUITT S TELEPHONE CLEANER Ot 250.00 DIAB SANTOSH WO COMPL, TYPE II OR UNSPEC TY 12/23/2017 MICHAEL PRUITT S TELEPHONE CLEANER Ot 457.1 OTHER LYMPHEDEMA 12/23/2017 MICHAEL PRUITT TELEPHONE CLEANER Ot 782.1 NONSPECIF SKIN ERUPT NEC 12/23/2017 MICHAEL PRUITT TELEPHONE CLEANER Ot 788.30 UNSPECIFIED URINARY INCONTINENCE 12/23/2017 MICHAEL PRUITT TELEPHONE CLEANER Ot V58.69 OTH MED,LT,CURRENT USE 12/23/2017 ABRAHAM GREEN, YANI Monreal Ot 250.00 DIAB SANTOSH WO COMPL, TYPE II OR UNSPEC TY 12/23/2017 ABRAHAM GREEN, YANI Monreal Ot 272.4 HYPERLIPIDEMIA NEC/NOS 12/23/2017 MICHAEL PRUITT TELEPHONE CLEANER Ot 174.9 MALIGN NEOPL BREAST NOS 12/23/2017 MICHAEL PRUITT S TELEPHONE CLEANER Ot 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 12/23/2017 MICHAEL PRUITT S TELEPHONE CLEANER Ot 250.00 DIAB SNATOSH WO COMPL, TYPE II OR UNSPEC TY 12/23/2017 MICHAEL PRUITT TELEPHONE CLEANER Ot 443.9 PERIPH VASCULAR DIS NOS 12/23/2017 MICHAEL PRUITT TELEPHONE CLEANER Ot V58.69 OTH MED,LT,CURRENT USE 12/23/2017 MICHAEL PRUITT TELEPHONE CLEANER Ot 174.9 MALIGN NEOPL BREAST NOS 12/23/2017 MICHAEL PRUITT S TELEPHONE CLEANER Ot 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 12/23/2017 MICHAEL PRUITT S TELEPHONE CLEANER Ot 250.00 DIAB SANTOSH WO COMPL, TYPE II OR UNSPEC TY 12/23/2017 MICHAEL PRUITT TELEPHONE CLEANER Ot V58.69 OTH MED,LT,CURRENT USE 12/23/2017 MICHAEL PRUITT TELEPHONE CLEANER Ot 174.9 MALIGN NEOPL BREAST NOS 12/23/2017 MICHAEL PRUITT S TELEPHONE CLEANER Ot 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 12/23/2017 MICHAEL PRUITT S TELEPHONE CLEANER Ot 250.00 DIAB SANTOSH WO COMPL, TYPE II OR UNSPEC TY 12/23/2017 MICHAEL PRUITT S TELEPHONE CLEANER Ot V58.69 OTH MED,LT,CURRENT USE 12/23/2017 MICHAEL PRUITT S TELEPHONE CLEANER Ot 174.9 MALIGN NEOPL BREAST NOS 12/23/2017 MICHAEL PRUITT S TELEPHONE CLEANER Ot 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 12/23/2017 MICHAEL PRUITT TELEPHONE CLEANER Ot 244.9 HYPOTHYROIDISM NOS 12/23/2017 MICHAEL PRUITT TELEPHONE CLEANER Ot 250.00 DIAB SANTOSH WO COMPL, TYPE II OR UNSPEC TY 12/23/2017 MICHAEL PRUITT S TELEPHONE CLEANER Ot 355.9 MONONEURITIS NOS 12/23/2017 MICHAEL PRUITT TELEPHONE CLEANER Ot V58.69 OTH MED,LT,CURRENT USE 12/23/2017 MICHAEL PRUITT TELEPHONE CLEANER Ot V87.41 PERSONAL HISTORY OF ANTINEOPLASTIC CHEMO 12/23/2017 ABRAHAM GREEN, YANI Monreal Ot 250.00 DIAB SANTOSH WO COMPL, TYPE II OR UNSPEC TY 12/23/2017 PRUITTMICHAEL Merlos S TELEPHONE CLEANER Ot 174.9 MALIGN NEOPL BREAST NOS 12/23/2017 MICHAEL PRUITT S TELEPHONE CLEANER Ot 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 12/23/2017 MICHAEL PRUITT S TELEPHONE CLEANER Ot 355.9 MONONEURITIS NOS 12/23/2017 MICHAEL PRUITT S TELEPHONE CLEANER Ot V15.3 HX OF IRRADIATION 12/23/2017 MICHAEL PRUITT TELEPHONE CLEANER Ot V58.69 OTH MED,LT,CURRENT USE 12/23/2017 PRUITTMICHAEL Merlos S TELEPHONE CLEANER Ot V87.41 PERSONAL HISTORY OF ANTINEOPLASTIC CHEMO 12/23/2017 MICHAEL PRUITT S TELEPHONE CLEANER Ot 174.9 MALIGN NEOPL BREAST NOS 12/23/2017 MICHAEL PRUITT S TELEPHONE CLEANER Ot 174.9 MALIGN NEOPL BREAST NOS 12/23/2017 MICHAEL PRUITT S TELEPHONE CLEANER Ot 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 12/23/2017 MICHAEL PRUITT TELEPHONE CLEANER Ot 356.9 IDIO PERIPH NEURPTHY NOS 12/23/2017 MICHAEL PRUITT S TELEPHONE CLEANER Ot V15.3 HX OF IRRADIATION 12/23/2017 MICHAEL PRUITT S TELEPHONE CLEANER Ot V58.69 OTH MED,LT,CURRENT USE 12/23/2017 MICHAEL PRUITT S TELEPHONE CLEANER Ot V87.41 PERSONAL HISTORY OF ANTINEOPLASTIC CHEMO 12/23/2017 MICHAEL PRUITT S TELEPHONE CLEANER Ot 174.9 MALIGN NEOPL BREAST NOS 12/23/2017 PRUITTMICHAEL Merlos S TELEPHONE CLEANER Ot 174.9 MALIGN NEOPL BREAST NOS 12/23/2017 MICHAEL PRUITT S TELEPHONE CLEANER Ot 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 12/23/2017 MICHAEL PRUITT S TELEPHONE CLEANER Ot 250.00 DIAB SANTOSH WO COMPL, TYPE II OR UNSPEC TY 12/23/2017 MICHAEL PRUITT TELEPHONE CLEANER Ot V58.69 OTH MED,LT,CURRENT USE 12/23/2017 MICHAEL PRUITT TELEPHONE CLEANER Ot 174.9 MALIGN NEOPL BREAST NOS 12/23/2017 MICHAEL PRUITT TELEPHONE CLEANER Ot 174.9 MALIGN NEOPL BREAST NOS 12/23/2017 MICHAEL PRUITT S TELEPHONE CLEANER Ot 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 12/23/2017 MICHAEL PRUITT S TELEPHONE CLEANER Ot 250.00 DIAB SANTOSH WO COMPL, TYPE II OR UNSPEC TY 12/23/2017 MICHAEL PRUITT TELEPHONE CLEANER Ot 706.2 SEBACEOUS CYST 12/23/2017 MICHAEL PRUITT TELEPHONE CLEANER Ot V58.69 OTH MED,LT,CURRENT USE 12/23/2017 REY QUEVEDO Ot 174.9 MALIGN NEOPL BREAST NOS 12/23/2017 REY QUEVEDO Ot 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 OF UNSP SITE OF RIGHT 12/23/2017 MICHAEL PRUITT TELEPHONE CLEANER Ot 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 OF UNSP SITE OF RIGHT 12/23/2017 MICHAEL PRUITT TELEPHONE CLEANER Ot C77.3 SEC AND UNSP MALIG NEOPLASM OF AXILLA AN 12/23/2017 MICHAEL PRUITT TELEPHONE CLEANER Ot E03.9 HYPOTHYROIDISM, UNSPECIFIED 12/23/2017 MICHAEL PRUITT TELEPHONE CLEANER Ot E11.9 TYPE 2 DIABETES MELLITUS WITHOUT COMPLIC 12/23/2017 MICHAEL PRUITT TELEPHONE CLEANER Ot Z79.899 OTHER PRISON (CURRENT) DRUG THERAPY 12/23/2017 MICHAEL PRUITT TELEPHONE CLEANER Ot Z92.21 PERSONAL HISTORY OF ANTINEOPLASTIC CHEMO 12/23/2017 MICHAEL PRUITT TELEPHONE CLEANER Ot Z92.3 PERSONAL HISTORY OF IRRADIATION 12/23/2017 MICHAEL PRUITT S TELEPHONE CLEANER Ot 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 OF UNSP SITE OF RIGHT 12/23/2017 MICHAEL PRUITT TELEPHONE CLEANER Ot C77.3 SEC AND UNSP MALIG NEOPLASM OF AXILLA AN 12/23/2017 MICHAEL PRUITT TELEPHONE CLEANER Ot E03.9 HYPOTHYROIDISM, UNSPECIFIED 12/23/2017 MICHAEL PRUITT TELEPHONE CLEANER Ot E11.9 TYPE 2 DIABETES MELLITUS WITHOUT COMPLIC 12/23/2017 MICHAEL PRUITT TELEPHONE CLEANER Ot Z79.899 OTHER PRISON (CURRENT) DRUG THERAPY 12/23/2017 MICHAEL PRUITT TELEPHONE CLEANER Ot Z92.21 PERSONAL HISTORY OF ANTINEOPLASTIC CHEMO 12/23/2017 MICHAEL PRUITT TELEPHONE CLEANER Ot Z92.3 PERSONAL HISTORY OF IRRADIATION 12/23/2017 MICHAEL PRUITT TELEPHONE CLEANER Ot C50.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 OF 12/23/2017 MICHAEL PRIUTT TELEPHONE CLEANER Ot Z12.31 ENCNTR SCREEN MAMMOGRAM FOR MALIGNANT NE 12/23/2017 MICHAEL PRUITT TELEPHONE CLEANER Ot Z85.3 PERSONAL HISTORY OF MALIGNANT NEOPLASM O 12/23/2017 MICHAEL PRUITT TELEPHONE CLEANER Ot Z98.82 BREAST IMPLANT STATUS 12/23/2017 ANGELA FELTON TELEPHONE CLEANER Ot K59.00 CONSTIPATION, UNSPECIFIED 12/23/2017 ANGELA FELTON TELEPHONE CLEANER Ot R11.0 NAUSEA 12/23/2017 ANGELA FELTON TELEPHONE CLEANER Ot R19.7 DIARRHEA, UNSPECIFIED 12/23/2017 MICHAEL ORELLANA TUGBOAT CAPTAIN Ot E27.9 DISORDER OF ADRENAL GLAND, UNSPECIFIED 12/23/2017 MICHAEL ORELLANA TUGBOAT CAPTAIN Ot K80.20 CALCULUS OF GALLBLADDER W/O CHOLECYSTITI 12/23/2017 IMCHAEL ORELLANA TUGBOAT CAPTAIN Ot N20.0 CALCULUS OF KIDNEY 12/23/2017 ERY QUEVEDO Ot C50.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 OF 12/23/2017 REY QUEVEDO Ot C77.3 SEC AND UNSP MALIG NEOPLASM OF AXILLA AN 12/23/2017 REY QUEVEDO Ot E03.9 HYPOTHYROIDISM, UNSPECIFIED 12/23/2017 REY QUEVEDO Ot E11.40 TYPE 2 DIABETES MELLITUS WITH DIABETIC N 12/23/2017 REY QUEVEDO N Ot E66.9 OBESITY, UNSPECIFIED 12/23/2017 REY QUEVEDO Ot I10 ESSENTIAL (PRIMARY) HYPERTENSION 12/23/2017 REY QUEVEDO Ot I89.0 LYMPHEDEMA, NOT ELSEWHERE CLASSIFIED 12/23/2017 REY QUEVEDO Ot Z68.30 BODY MASS INDEX (BMI) 30.0-30.9, ADULT 12/23/2017 REY QUEVEDO Fareed Ot Z79.84 PRISON (CURRENT) USE OF ORAL HYPOGLYC 12/23/2017 REY QUEVEDO Fareed Ot Z79.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 THERAPY 12/23/2017 REY QUEVEDO Ot Z92.21 PERSONAL HISTORY OF ANTINEOPLASTIC CHEMO 12/23/2017 REY QUEVEDO Fareed Ot Z92.3 PERSONAL HISTORY OF IRRADIATION 12/23/2017 FLAKITO GREEN, EMMY Monreal Ot E11.9 TYPE 2 DIABETES MELLITUS WITHOUT COMPLIC 12/23/2017 EMMY FRAGA MD Ot I10 ESSENTIAL (PRIMARY) HYPERTENSION 12/23/2017 EMMY FRAGA MD Ot K21.9 GASTRO-ESOPHAGEAL REFLUX DISEASE WITHOUT 12/23/2017 EMMY FRAGA MD Ot K29.70 GASTRITIS, UNSPECIFIED, WITHOUT BLEEDING 12/23/2017 EMMY FRAGA MD Ot K29.80 DUODENITIS WITHOUT BLEEDING 12/23/2017 EMMY FRAGA MD Ot K44.9 DIAPHRAGMATIC HERNIA WITHOUT OBSTRUCTION 12/23/2017 EMMY FRAGA MD Ot K57.30 DVRTCLOS OF LG INT W/O PERFORATION OR AB 12/23/2017 EMMY FRAGA MD Ot R19.7 DIARRHEA, UNSPECIFIED 12/23/2017 EMMY FRAGA MD Ot Z79.84 PRISON (CURRENT) USE OF ORAL HYPOGLYC 12/23/2017 EMMY FRAGA MD Ot Z79.899 OTHER PRISON (CURRENT) DRUG THERAPY 12/24/2017 EMMY FRAGA MD Ot E11.9 TYPE 2 DIABETES MELLITUS WITHOUT COMPLIC 12/24/2017 EMMY FRAGA MD Ot I10 ESSENTIAL (PRIMARY) HYPERTENSION 12/24/2017 EMMY FRAGA MD Ot K21.9 GASTRO-ESOPHAGEAL REFLUX DISEASE WITHOUT 12/24/2017 EMMY FRAGA MD Ot K29.70 GASTRITIS, UNSPECIFIED, WITHOUT BLEEDING 12/24/2017 EMMY FRAGA MD Ot K29.80 DUODENITIS WITHOUT BLEEDING 12/24/2017 EMMY FRAGA MD Ot K44.9 DIAPHRAGMATIC HERNIA WITHOUT OBSTRUCTION 12/24/2017 EMMY FRAGA MD Ot K57.30 DVRTCLOS OF LG INT W/O PERFORATION OR AB 12/24/2017 EMMY FRAGA MD Ot R19.7 DIARRHEA, UNSPECIFIED 12/24/2017 EMMY FRAGA MD Ot 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 PROFESSOR OF SOCIOLOGY (CURRENT) USE OF ORAL HYPOGLYC 12/24/2017 EMMY FRAGA MD Ot Z79.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 THERAPY 12/24/2017 EMMY FRAGA MD Ot E11.9 TYPE 2 DIABETES MELLITUS WITHOUT COMPLIC 12/24/2017 EMMY FRAGA MD Ot I10 ESSENTIAL (PRIMARY) HYPERTENSION 12/24/2017 EMMY FRAGA MD Ot K21.9 GASTRO-ESOPHAGEAL REFLUX DISEASE WITHOUT 12/24/2017 EMMY FRAGA MD Ot K29.70 GASTRITIS, UNSPECIFIED, WITHOUT BLEEDING 12/24/2017 EMMY FRAGA MD Ot K29.80 DUODENITIS WITHOUT BLEEDING 12/24/2017 EMMY FRAGA MD Ot K44.9 DIAPHRAGMATIC HERNIA WITHOUT OBSTRUCTION 12/24/2017 EMMY FRAGA MD Ot K57.30 DVRTCLOS OF LG INT W/O PERFORATION OR AB 12/24/2017 EMMY FRAGA MD Ot R19.7 DIARRHEA, UNSPECIFIED 12/24/2017 EMMY FRAGA MD Ot Z79.84 PROFESSOR OF SOCIOLOGY (CURRENT) USE OF ORAL HYPOGLYC 12/24/2017 EMMY FRAGA MD Ot Z79.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 THERAPY 12/26/2017 EMMY FRAGA MD Ot K21.9 GASTRO-ESOPHAGEAL REFLUX DISEASE WITHOUT 12/26/2017 EMMY FRAGA MD Ot R19.7 DIARRHEA, UNSPECIFIED 12/26/2017 EMMY FRAGA MD Ot Z01.818 ENCOUNTER FOR OTHER PREPROCEDURAL EXAMIN 12/30/2017 REY QUEVEDO Ot C50.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 OF 12/30/2017 REY QUEVEDO Ot C77.3 SEC AND UNSP MALIG NEOPLASM OF AXILLA AN 12/30/2017 REY QUEVEDO Ot E03.9 HYPOTHYROIDISM, UNSPECIFIED 12/30/2017 REY QUEVEDO Ot E11.40 TYPE 2 DIABETES MELLITUS WITH DIABETIC N 12/30/2017 EMY, BOBAN N Ot E66.9 OBESITY, UNSPECIFIED 12/30/2017 REY QUEVEDO N Ot I10 ESSENTIAL (PRIMARY) HYPERTENSION 12/30/2017 REY QUEVEDO N Ot I89.0 LYMPHEDEMA, NOT ELSEWHERE CLASSIFIED 12/30/2017 REY QUEVEDO N Ot Z68.30 BODY MASS INDEX (BMI) 30.0-30.9, ADULT 12/30/2017 REY QUEVEDO N Ot Z79.84 PRISON (CURRENT) USE OF ORAL HYPOGLYC 12/30/2017 REY QUEVEDO N Ot Z79.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 THERAPY 12/30/2017 REY QUEVEDO N Ot Z92.21 PERSONAL HISTORY OF ANTINEOPLASTIC CHEMO 12/30/2017 REY QUEVEDO N Ot Z92.3 PERSONAL HISTORY OF IRRADIATION 12/30/2017 REY QUEVEDO N Ot C50.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 OF 12/30/2017 REY QUEVEDO Fareed Ot C77.3 SEC AND UNSP MALIG NEOPLASM OF AXILLA AN 12/30/2017 REY QUEVEDO Ot E03.9 HYPOTHYROIDISM, UNSPECIFIED 12/30/2017 REY QUEVEDO N Ot E11.40 TYPE 2 DIABETES MELLITUS WITH DIABETIC N 12/30/2017 REY QUEVEDO N Ot E66.9 OBESITY, UNSPECIFIED 12/30/2017 REY QUEVEDO N Ot I10 ESSENTIAL (PRIMARY) HYPERTENSION 12/30/2017 REY QUEVEDO N Ot I89.0 LYMPHEDEMA, NOT ELSEWHERE CLASSIFIED 12/30/2017 REY QUEVEDO Ot Z68.30 BODY MASS INDEX (BMI) 30.0-30.9, ADULT 12/30/2017 REY QUEVEDO N Ot Z79.84 PRISON (CURRENT) USE OF ORAL HYPOGLYC 12/30/2017 REY QUEVEDO N Ot Z79.899 OTHER PRISON (CURRENT) DRUG THERAPY 12/30/2017 REY QUEVEDO N Ot Z92.21 PERSONAL HISTORY OF ANTINEOPLASTIC CHEMO 12/30/2017 REY QUEVEDO N Ot Z92.3 PERSONAL HISTORY OF IRRADIATION 12/31/2017 Ot 793.89 OTH (ABN) FINDINGS ON RADIOLOGICAL EXAMI 12/31/2017 Ot V76.12 OTH SCREEN MAMMO-MALIGN NEOPLASM OF CT 12/31/2017 Ot 793.89 OTH (ABN) FINDINGS ON RADIOLOGICAL EXAMI 12/31/2017 Ot 250.00 DIAB SANTOSH WO COMPL, TYPE II OR UNSPEC TY 12/31/2017 Ot 401.9 HYPERTENSION NOS 12/31/2017 Ot 611.72 LUMP OR MASS IN BREAST 12/31/2017 Ot 174.9 MALIGN NEOPL BREAST NOS 12/31/2017 Ot V72.63 PRE- PROCEDURAL LABORATORY EXAMINATION 12/31/2017 Ot V72.81 EXAM-PRE- OPERATIVE CARDIOVASCULAR 12/31/2017 Ot V74.8 SCREEN- BACTERIAL DIS NEC 12/31/2017 Ot 174.9 MALIGN NEOPL BREAST NOS 12/31/2017 Ot V72.84 EXAM PRE- OPERATIVE NOS 12/31/2017 Ot 174.9 MALIGN NEOPL BREAST NOS 12/31/2017 Ot 174.9 MALIGN NEOPL BREAST NOS 12/31/2017 Ot V58.69 OTH MED,LT, CURRENT USE 12/31/2017 Ot 174.9 MALIGN NEOPL BREAST NOS 12/31/2017 Ot 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 12/31/2017 Ot 250.00 DIAB SANTOSH WO COMPL, TYPE II OR UNSPEC TY 12/31/2017 Ot 782.2 LOCAL SUPRFICIAL SWELLNG 12/31/2017 Ot V58.11 ENCOUNTER FOR ANTINEOPLASTIC CHEMOTHERAP 12/31/2017 Ot V58.69 OTH MED,LT, CURRENT USE 12/31/2017 MICHAEL PRUITT S TELEPHONE CLEANER Ot 174.9 MALIGN NEOPL BREAST NOS 12/31/2017 PRUITTMICHAEL Merlos S TELEPHONE CLEANER Ot 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 12/31/2017 MICHAEL PRUITT S TELEPHONE CLEANER Ot 250.00 DIAB SANTOSH WO COMPL, TYPE II OR UNSPEC TY 12/31/2017 MICHAEL PRUITT S TELEPHONE CLEANER Ot V58.69 OTH MED,LT,CURRENT USE 12/31/2017 MICHAEL PRUITT S TELEPHONE CLEANER Ot 174.9 MALIGN NEOPL BREAST NOS 12/31/2017 PRUITTMICHAEL Merlos S TELEPHONE CLEANER Ot 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 12/31/2017 PRUITTMICHAEL Merlos S TELEPHONE CLEANER Ot 250.00 DIAB SANTOSH WO COMPL, TYPE II OR UNSPEC TY 12/31/2017 PRUITTMICHAEL Merlos S TELEPHONE CLEANER Ot 457.1 OTHER LYMPHEDEMA 12/31/2017 MICHAEL PRUITT TELEPHONE CLEANER Ot 782.1 NONSPECIF SKIN ERUPT NEC 12/31/2017 MICHAEL PRUITT S TELEPHONE CLEANER Ot 788.30 UNSPECIFIED URINARY INCONTINENCE 12/31/2017 MICHAEL PRUITT TELEPHONE CLEANER Ot V58.69 OTH MED,LT,CURRENT USE 12/31/2017 ABRAHAM GREEN, YANI Monreal Ot 250.00 DIAB SANTOSH WO COMPL, TYPE II OR UNSPEC TY 12/31/2017 ABRAHAM GREEN, YANI Monreal Ot 272.4 HYPERLIPIDEMIA NEC/NOS 12/31/2017 MICHAEL PRUITT S TELEPHONE CLEANER Ot 174.9 MALIGN NEOPL BREAST NOS 12/31/2017 MICHAEL PRUITT S TELEPHONE CLEANER Ot 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 12/31/2017 MICHAEL PRUITT S TELEPHONE CLEANER Ot 250.00 DIAB SANTOSH WO COMPL, TYPE II OR UNSPEC TY 12/31/2017 MICHAEL PURITT TELEPHONE CLEANER Ot 443.9 PERIPH VASCULAR DIS NOS 12/31/2017 MICHAEL PRUITT S TELEPHONE CLEANER Ot V58.69 OTH MED,LT,CURRENT USE 12/31/2017 MICHAEL PRUITT S TELEPHONE CLEANER Ot 174.9 MALIGN NEOPL BREAST NOS 12/31/2017 MICHAEL PRUITT S TELEPHONE CLEANER Ot 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 12/31/2017 MICHAEL PRUITT S TELEPHONE CLEANER Ot 250.00 DIAB SANTOSH WO COMPL, TYPE II OR UNSPEC TY 12/31/2017 MICHAEL PRUITT S TELEPHONE CLEANER Ot V58.69 OTH MED,LT,CURRENT USE 12/31/2017 MICHAEL PRUITT S TELEPHONE CLEANER Ot 174.9 MALIGN NEOPL BREAST NOS 12/31/2017 MICHAEL PRUITT S TELEPHONE CLEANER Ot 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 12/31/2017 PRUITT, HILAH S TELEPHONE CLEANER Ot 250.00 DIAB SANTOSH WO COMPL, TYPE II OR UNSPEC TY 12/31/2017 MICHAEL PRUITT S TELEPHONE CLEANER Ot V58.69 OTH MED,LT,CURRENT USE 12/31/2017 PRUITT, HILAH S TELEPHONE CLEANER Ot 174.9 MALIGN NEOPL BREAST NOS 12/31/2017 PRUITTMICHAEL S TELEPHONE CLEANER Ot 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 12/31/2017 PRUITT, HILAH S TELEPHONE CLEANER Ot 244.9 HYPOTHYROIDISM NOS 12/31/2017 MICHAEL PRUITT S TELEPHONE CLEANER Ot 250.00 DIAB SANTOSH WO COMPL, TYPE II OR UNSPEC TY 12/31/2017 PRUITTMICHAEL Merlos S TELEPHONE CLEANER Ot 355.9 MONONEURITIS NOS 12/31/2017 MICHAEL PRUITT S TELEPHONE CLEANER Ot V58.69 OTH MED,LT,CURRENT USE 12/31/2017 PRUITTMICHAEL Merlos S TELEPHONE CLEANER Ot V87.41 PERSONAL HISTORY OF ANTINEOPLASTIC CHEMO 12/31/2017 ABRAHAM GREEN, YANI Monreal Ot 250.00 DIAB SANTOSH WO COMPL, TYPE II OR UNSPEC TY 12/31/2017 MICHAEL PRUITT S TELEPHONE CLEANER Ot 174.9 MALIGN NEOPL BREAST NOS 12/31/2017 MICHAEL PRUITT S TELEPHONE CLEANER Ot 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 12/31/2017 MICHAEL PRUITT S TELEPHONE CLEANER Ot 355.9 MONONEURITIS NOS 12/31/2017 MICHAEL PRUITT S TELEPHONE CLEANER Ot V15.3 HX OF IRRADIATION 12/31/2017 MICHAEL PRUITT S TELEPHONE CLEANER Ot V58.69 OTH MED,LT,CURRENT USE 12/31/2017 PRUITTMICHAEL Merlos S TELEPHONE CLEANER Ot V87.41 PERSONAL HISTORY OF ANTINEOPLASTIC CHEMO 12/31/2017 MICHAEL PRUITT S TELEPHONE CLEANER Ot 174.9 MALIGN NEOPL BREAST NOS 12/31/2017 PRUITTMICHAEL Merlos S TELEPHONE CLEANER Ot 174.9 MALIGN NEOPL BREAST NOS 12/31/2017 PRUITTMICHAEL Merlos S TELEPHONE CLEANER Ot 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 12/31/2017 MICHAEL PRUITT S TELEPHONE CLEANER Ot 356.9 IDIO PERIPH NEURPTHY NOS 12/31/2017 MICHAEL PRUITT S TELEPHONE CLEANER Ot V15.3 HX OF IRRADIATION 12/31/2017 MICHAEL PRUITT S TELEPHONE CLEANER Ot V58.69 OTH MED,LT,CURRENT USE 12/31/2017 PRUITTMICHAEL Merlos S TELEPHONE CLEANER Ot V87.41 PERSONAL HISTORY OF ANTINEOPLASTIC CHEMO 12/31/2017 MICHAEL PRUITT S TELEPHONE CLEANER Ot 174.9 MALIGN NEOPL BREAST NOS 12/31/2017 PRUITT, HILAH S TELEPHONE CLEANER Ot 174.9 MALIGN NEOPL BREAST NOS 12/31/2017 MICHAEL PRUITT S TELEPHONE CLEANER Ot 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 12/31/2017 SONAL MICHAEL Merlos TELEPHONE CLEANER Ot 250.00 DIAB SANTOSH WO COMPL, TYPE II OR UNSPEC TY 12/31/2017 KEMAR PRUITTMARTA S TELEPHONE CLEANER Ot V58.69 OTH MED,LT,CURRENT USE 12/31/2017 MICHAEL PRUITT Chelita TELEPHONE CLEANER Ot 174.9 MALIGN NEOPL BREAST NOS 12/31/2017 KEMAR PRUITTMARTA Chelita TELEPHONE CLEANER Ot 174.9 MALIGN NEOPL BREAST NOS 12/31/2017 SONAL MICHAEL S TELEPHONE CLEANER Ot 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 12/31/2017 SONAL MICHAEL Merlos TELEPHONE CLEANER Ot 250.00 DIAB SANTOSH WO COMPL, TYPE II OR UNSPEC TY 12/31/2017 KEMAR PRUITTMARTA Chelita TELEPHONE CLEANER Ot 706.2 SEBACEOUS CYST 12/31/2017 KEMAR PRUITTMARTA Merlos TELEPHONE CLEANER Ot V58.69 OTH MED,LT,CURRENT USE 12/31/2017 REY QUEVEDO Ot 174.9 MALIGN NEOPL BREAST NOS 12/31/2017 REY QUEVEDO Ot 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 OF UNSP SITE OF RIGHT 12/31/2017 MICHAEL PRUITT TELEPHONE CLEANER Ot 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 OF UNSP SITE OF RIGHT 12/31/2017 MICHAEL PRUITT TELEPHONE CLEANER Ot C77.3 SEC AND UNSP MALIG NEOPLASM OF AXILLA AN 12/31/2017 MICHAEL PRUITT TELEPHONE CLEANER Ot E03.9 HYPOTHYROIDISM, UNSPECIFIED 12/31/2017 MICHAEL PRUITT TELEPHONE CLEANER Ot E11.9 TYPE 2 DIABETES MELLITUS WITHOUT COMPLIC 12/31/2017 MICHAEL PRUITT TELEPHONE CLEANER Ot Z79.899 OTHER PRISON (CURRENT) DRUG THERAPY 12/31/2017 MICHAEL PRUITT TELEPHONE CLEANER Ot Z92.21 PERSONAL HISTORY OF ANTINEOPLASTIC CHEMO 12/31/2017 MICHAEL PRUITT TELEPHONE CLEANER Ot Z92.3 PERSONAL HISTORY OF IRRADIATION 12/31/2017 MICHAEL PRUITT S TELEPHONE CLEANER Ot 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 OF UNSP SITE OF RIGHT 12/31/2017 MICHAEL PRUITT TELEPHONE CLEANER Ot C77.3 SEC AND UNSP MALIG NEOPLASM OF AXILLA AN 12/31/2017 MICHAEL PRUITT TELEPHONE CLEANER Ot E03.9 HYPOTHYROIDISM, UNSPECIFIED 12/31/2017 MICHAEL PRUITT TELEPHONE CLEANER Ot E11.9 TYPE 2 DIABETES MELLITUS WITHOUT COMPLIC 12/31/2017 MICHAEL PRUITT TELEPHONE CLEANER Ot Z79.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 THERAPY 12/31/2017 MICHAEL PRUITT TELEPHONE CLEANER Ot Z92.21 PERSONAL HISTORY OF ANTINEOPLASTIC CHEMO 12/31/2017 MICHAEL PRUITT TELEPHONE CLEANER Ot Z92.3 PERSONAL HISTORY OF IRRADIATION 12/31/2017 MICHAEL PRUITT TELEPHONE CLEANER Ot C50.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 OF 12/31/2017 MICHAEL PRUITT TELEPHONE CLEANER Ot Z12.31 ENCNTR SCREEN MAMMOGRAM FOR MALIGNANT NE 12/31/2017 MICHAEL PRUITT TELEPHONE CLEANER Ot Z85.3 PERSONAL HISTORY OF MALIGNANT NEOPLASM O 12/31/2017 MICHAEL PRUITT TELEPHONE CLEANER Ot Z98.82 BREAST IMPLANT STATUS 12/31/2017 ANGELA FELTON TELEPHONE CLEANER Ot K59.00 CONSTIPATION, UNSPECIFIED 12/31/2017 ANGELA FELTON TELEPHONE CLEANER Ot R11.0 NAUSEA 12/31/2017 ANGELA FELTON TELEPHONE CLEANER Ot R19.7 DIARRHEA, UNSPECIFIED 12/31/2017 MICHAEL ORELLANA TUGBOAT CAPTAIN Ot E27.9 DISORDER OF ADRENAL GLAND, UNSPECIFIED 12/31/2017 MICHAEL ORELLANA TUGBOAT CAPTAIN Ot K80.20 CALCULUS OF GALLBLADDER W/O CHOLECYSTITI 12/31/2017 MICHAEL ORELLANA TUGBOAT CAPTAIN Ot N20.0 CALCULUS OF KIDNEY 12/31/2017 REY QUEVEDO Ot C50.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 OF 12/31/2017 REY QUEVEDO Ot C77.3 SEC AND UNSP MALIG NEOPLASM OF AXILLA AN 12/31/2017 REY QUEVEDO Ot E03.9 HYPOTHYROIDISM, UNSPECIFIED 12/31/2017 REY QUEVEDO Ot E11.40 TYPE 2 DIABETES MELLITUS WITH DIABETIC N 12/31/2017 REY QUEVEDO Ot E66.9 OBESITY, UNSPECIFIED 12/31/2017 REY QUEVEDO Ot I10 ESSENTIAL (PRIMARY) HYPERTENSION 12/31/2017 REY QUEVEDO Ot I89.0 LYMPHEDEMA, NOT ELSEWHERE CLASSIFIED 12/31/2017 REY QUEVEDO Ot Z68.30 BODY MASS INDEX (BMI) 30.0-30.9, ADULT 12/31/2017 REY QUEVEDO N Ot Z79.84 PROFESSOR OF SOCIOLOGY (CURRENT) USE OF ORAL HYPOGLYC 12/31/2017 REY QUVEEDO N Ot Z79.899 OTHER PRISON (CURRENT) DRUG THERAPY 12/31/2017 REY QUEVEDO N Ot Z92.21 PERSONAL HISTORY OF ANTINEOPLASTIC CHEMO 12/31/2017 REY QUEVEDO N Ot Z92.3 PERSONAL HISTORY OF IRRADIATION 02/16/2018 REY QUEVEDO N Ot C50.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 OF 02/16/2018 REY QUEVEDO Fareed Ot C77.3 SEC AND UNSP MALIG NEOPLASM OF AXILLA AN 02/16/2018 REY QUEVEDO N Ot E03.9 HYPOTHYROIDISM, UNSPECIFIED 02/16/2018 EMY REY N Ot E11.40 TYPE 2 DIABETES MELLITUS WITH DIABETIC N 02/16/2018 REY QUEVEDO Fareed Ot E66.9 OBESITY, UNSPECIFIED 02/16/2018 REY QUEVEDO Fareed Ot I10 ESSENTIAL (PRIMARY) HYPERTENSION 02/16/2018 REY QUEVEDO Fareed Ot I89.0 LYMPHEDEMA, NOT ELSEWHERE CLASSIFIED 02/16/2018 REY QUEVEDO Fareed Ot Z45.2 ENCOUNTER FOR ADJUSTMENT AND MANAGEMENT 02/16/2018 REY QUEVEDO Fareed Ot Z68.30 BODY MASS INDEX (BMI) 30.0-30.9, ADULT 02/16/2018 REY QUEVEDO N Ot Z79.84 PROFESSOR OF SOCIOLOGY (CURRENT) USE OF ORAL HYPOGLYC 02/16/2018 REY QUEVEDO Fareed Ot Z79.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 THERAPY 02/16/2018 REY QUEVEDO N Ot Z92.21 PERSONAL HISTORY OF ANTINEOPLASTIC CHEMO 02/16/2018 REY QUEVEDO N Ot Z92.3 PERSONAL HISTORY OF IRRADIATION 02/17/2018 REY QUEVEDO Fareed Ot C50.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 OF 02/17/2018 REY QUEVEDO Fareed Ot C77.3 SEC AND UNSP MALIG NEOPLASM OF AXILLA AN 02/17/2018 REY QUEVEDO N Ot E03.9 HYPOTHYROIDISM, UNSPECIFIED 02/17/2018 EMY REY N Ot E11.40 TYPE 2 DIABETES MELLITUS WITH DIABETIC N 02/17/2018 REY QUEVEDO N Ot E66.9 OBESITY, UNSPECIFIED 02/17/2018 REY QUEVEDO N Ot I10 ESSENTIAL (PRIMARY) HYPERTENSION 02/17/2018 REY QUEVEDO N Ot I89.0 LYMPHEDEMA, NOT ELSEWHERE CLASSIFIED 02/17/2018 REY QUEVEDO N Ot Z45.2 ENCOUNTER FOR ADJUSTMENT AND MANAGEMENT 02/17/2018 REY QUEVEDO N Ot Z68.30 BODY MASS INDEX (BMI) 30.0-30.9, ADULT 02/17/2018 REY QUEVEDO N Ot Z79.84 PROFESSOR OF SOCIOLOGY (CURRENT) USE OF ORAL HYPOGLYC 02/17/2018 REY QUEVEDO N Ot Z79.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 THERAPY 02/17/2018 REY QUEVEDO N Ot Z92.21 PERSONAL HISTORY OF ANTINEOPLASTIC CHEMO 02/17/2018 REY QUEVEDO N Ot Z92.3 PERSONAL HISTORY OF IRRADIATION 02/22/2018 REY QUEVEDO N Ot C50.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 OF 02/22/2018 REY QUEVEDO Fareed Ot C77.3 SEC AND UNSP MALIG NEOPLASM OF AXILLA AN 02/22/2018 REY QUEVEDO N Ot E03.9 HYPOTHYROIDISM, UNSPECIFIED 02/22/2018 REY QUEVEDO N Ot E11.40 TYPE 2 DIABETES MELLITUS WITH DIABETIC N 02/22/2018 REY QUEVEDO N Ot E66.9 OBESITY, UNSPECIFIED 02/22/2018 REY QUEVEDO N Ot I10 ESSENTIAL (PRIMARY) HYPERTENSION 02/22/2018 REY QUEVEDO N Ot I89.0 LYMPHEDEMA, NOT ELSEWHERE CLASSIFIED 02/22/2018 REY QUEVEDO N Ot Z45.2 ENCOUNTER FOR ADJUSTMENT AND MANAGEMENT 02/22/2018 REY QUEVEDO N Ot Z68.30 BODY MASS INDEX (BMI) 30.0-30.9, ADULT 02/22/2018 REY QUEVEDO N Ot Z79.84 PRISON (CURRENT) USE OF ORAL HYPOGLYC 02/22/2018 REY QUEVEDO N Ot Z79.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 THERAPY 02/22/2018 REY QUEVEDO N Ot Z92.21 PERSONAL HISTORY OF ANTINEOPLASTIC CHEMO 02/22/2018 EMY RYE N Ot Z92.3 PERSONAL HISTORY OF IRRADIATION 03/25/2018 REY QUEVEDO N Ot C50.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 OF 03/25/2018 REY QUEVEDO Fareed Ot C77.3 SEC AND UNSP MALIG NEOPLASM OF AXILLA AN 03/25/2018 REY QUEVEDO N Ot E03.9 HYPOTHYROIDISM, UNSPECIFIED 03/25/2018 REY QUEVEDO N Ot E11.40 TYPE 2 DIABETES MELLITUS WITH DIABETIC N 03/25/2018 REY QUEVEDO N Ot E66.9 OBESITY, UNSPECIFIED 03/25/2018 REY QUEVEDO N Ot I10 ESSENTIAL (PRIMARY) HYPERTENSION 03/25/2018 REY QUEVEDO N Ot I89.0 LYMPHEDEMA, NOT ELSEWHERE CLASSIFIED 03/25/2018 REY QUEVEDO N Ot Z45.2 ENCOUNTER FOR ADJUSTMENT AND MANAGEMENT 03/25/2018 REY QUEVEDO N Ot Z68.30 BODY MASS INDEX (BMI) 30.0-30.9, ADULT 03/25/2018 EMYREY VO N Ot Z79.84 PRISON (CURRENT) USE OF ORAL HYPOGLYC 03/25/2018 EMY FRANCHESKAAQUILES N Ot Z79.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 THERAPY 03/25/2018 REY QUEVEDO N Ot Z92.21 PERSONAL HISTORY OF ANTINEOPLASTIC CHEMO 03/25/2018 EMY FRANCHESKAAQUILES N Ot Z92.3 PERSONAL HISTORY OF IRRADIATION 04/18/2018 REY QUEVEDO N Ot C50.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 OF 04/18/2018 REY QUEVEDO Fareed Ot C77.3 SEC AND UNSP MALIG NEOPLASM OF AXILLA AN 04/18/2018 REY QUEVEDO N Ot E03.9 HYPOTHYROIDISM, UNSPECIFIED 04/18/2018 REY QUEVEDO N Ot E11.40 TYPE 2 DIABETES MELLITUS WITH DIABETIC N 04/18/2018 REY QUEVEDO N Ot E66.9 OBESITY, UNSPECIFIED 04/18/2018 EMY FRANCHESKAAQUILES N Ot I10 ESSENTIAL (PRIMARY) HYPERTENSION 04/18/2018 REY QUEVEDO N Ot I89.0 LYMPHEDEMA, NOT ELSEWHERE CLASSIFIED 04/18/2018 REY QUEVEDO N Ot Z45.2 ENCOUNTER FOR ADJUSTMENT AND MANAGEMENT 04/18/2018 REY QUEVEDO N Ot Z68.30 BODY MASS INDEX (BMI) 30.0-30.9, ADULT 04/18/2018 REY QUEVEDO N Ot Z79.84 PROFESSOR OF SOCIOLOGY (CURRENT) USE OF ORAL HYPOGLYC 04/18/2018 REY QUEVEDO N Ot Z79.899 OTHER PRISON (CURRENT) DRUG THERAPY 04/18/2018 REY QUEVEDO N Ot Z92.21 PERSONAL HISTORY OF ANTINEOPLASTIC CHEMO 04/18/2018 REY QUEVEDO N Ot Z92.3 PERSONAL HISTORY OF IRRADIATION 05/05/2018 EMY FRANCHESKAAQUILES N Ot C50.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 OF 05/05/2018 REY QUEVEDO N Ot C77.3 SEC AND UNSP MALIG NEOPLASM OF AXILLA AN 05/05/2018 EMY FRANCHESKAAQUILES N Ot E03.9 HYPOTHYROIDISM, UNSPECIFIED 05/05/2018 EMY, REY N Ot E11.40 TYPE 2 DIABETES MELLITUS WITH DIABETIC N 05/05/2018 EMY, FRANCHESKAAQUILES N Ot E66.9 OBESITY, UNSPECIFIED 05/05/2018 EMY, FRANCHESKAAQUILES N Ot I10 ESSENTIAL (PRIMARY) HYPERTENSION 05/05/2018 REY QUEVEDO N Ot I89.0 LYMPHEDEMA, NOT ELSEWHERE CLASSIFIED 05/05/2018 REY QUEVEDO N Ot Z45.2 ENCOUNTER FOR ADJUSTMENT AND MANAGEMENT 05/05/2018 REY QUEVEDO N Ot Z68.30 BODY MASS INDEX (BMI) 30.0-30.9, ADULT 05/05/2018 REY QUEVEDO N Ot Z79.84 PRISON (CURRENT) USE OF ORAL HYPOGLYC 05/05/2018 REY QUEVEDO N Ot Z79.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 THERAPY 05/05/2018 REY QUEVEDO N Ot Z92.21 PERSONAL HISTORY OF ANTINEOPLASTIC CHEMO 05/05/2018 REY QUEVEDO N Ot Z92.3 PERSONAL HISTORY OF IRRADIATION 07/20/2018 EMY FRANCHESKAAQUILES N Ot C50.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 OF 07/20/2018 EMY FRANCHESKAAQUILES Fareed Ot C77.3 SEC AND UNSP MALIG NEOPLASM OF AXILLA AN 07/20/2018 EMY FRANCHESKAAQUILES N Ot E03.9 HYPOTHYROIDISM, UNSPECIFIED 07/20/2018 EMYREY N Ot E11.40 TYPE 2 DIABETES MELLITUS WITH DIABETIC N 07/20/2018 REY QUEVEDO N Ot E66.9 OBESITY, UNSPECIFIED 07/20/2018 REY QUEVEDO N Ot I10 ESSENTIAL (PRIMARY) HYPERTENSION 07/20/2018 REY QUEVEDO N Ot I89.0 LYMPHEDEMA, NOT ELSEWHERE CLASSIFIED 07/20/2018 REY QUEVEDO N Ot Z45.2 ENCOUNTER FOR ADJUSTMENT AND MANAGEMENT 07/20/2018 REY QUEVEDO N Ot Z68.30 BODY MASS INDEX (BMI) 30.0-30.9, ADULT 07/20/2018 REY QUEVEDO N Ot Z79.84 PRISON (CURRENT) USE OF ORAL HYPOGLYC 07/20/2018 REY QUEVEDO N Ot Z79.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 THERAPY 07/20/2018 REY QUEVEDO N Ot Z92.21 PERSONAL HISTORY OF ANTINEOPLASTIC CHEMO 07/20/2018 REY QUEVEDO N Ot Z92.3 PERSONAL HISTORY OF IRRADIATION 07/28/2018 REY QUEVEDO N Ot C50.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 OF 07/28/2018 REY QUEVEDO N Ot C77.3 SEC AND UNSP MALIG NEOPLASM OF AXILLA AN 07/28/2018 REY QUEVEDO N Ot E03.9 HYPOTHYROIDISM, UNSPECIFIED 07/28/2018 REY QUEVEDO N Ot E11.40 TYPE 2 DIABETES MELLITUS WITH DIABETIC N 07/28/2018 REY QUEVEDO N Ot E66.9 OBESITY, UNSPECIFIED 07/28/2018 REY QUEVEDO N Ot I10 ESSENTIAL (PRIMARY) HYPERTENSION 07/28/2018 REY QUEVEDO N Ot I89.0 LYMPHEDEMA, NOT ELSEWHERE CLASSIFIED 07/28/2018 REY QUEVEDO N Ot Z45.2 ENCOUNTER FOR ADJUSTMENT AND MANAGEMENT 07/28/2018 REY QUEVEDO N Ot Z68.30 BODY MASS INDEX (BMI) 30.0-30.9, ADULT 07/28/2018 REY QUEVEDO N Ot Z79.84 PRISON (CURRENT) USE OF ORAL HYPOGLYC 07/28/2018 REY QUEVEDO N Ot Z79.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 THERAPY 07/28/2018 REY QUEVEDO N Ot Z92.21 PERSONAL HISTORY OF ANTINEOPLASTIC CHEMO 07/28/2018 EMY FRANCHESKAAQUILES N Ot Z92.3 PERSONAL HISTORY OF IRRADIATION 07/28/2018 MICHAEL PRUITT S TELEPHONE CLEANER Ot 174.9 MALIGN NEOPL BREAST NOS 07/28/2018 MICHAEL PRUITT S TELEPHONE CLEANER Ot 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 07/28/2018 MICHAEL PRUITT S TELEPHONE CLEANER Ot 250.00 DIAB SANTOSH WO COMPL, TYPE II OR UNSPEC TY 07/28/2018 MICHAEL PRUITT S TELEPHONE CLEANER Ot V58.69 OTH MED,LT,CURRENT USE 07/28/2018 MICHAEL PRUITT S TELEPHONE CLEANER Ot 174.9 MALIGN NEOPL BREAST NOS 07/28/2018 MICHAEL PRUITT S TELEPHONE CLEANER Ot 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 07/28/2018 MICHAEL PRUITT S TELEPHONE CLEANER Ot 250.00 DIAB SANTOSH WO COMPL, TYPE II OR UNSPEC TY 07/28/2018 MICHAEL PRUITT S TELEPHONE CLEANER Ot 457.1 OTHER LYMPHEDEMA 07/28/2018 MICHAEL PRUITT S TELEPHONE CLEANER Ot 782.1 NONSPECIF SKIN ERUPT NEC 07/28/2018 MICHAEL PRUITT S TELEPHONE CLEANER Ot 788.30 UNSPECIFIED URINARY INCONTINENCE 07/28/2018 MICHAEL PRUITT S TELEPHONE CLEANER Ot V58.69 OTH MED,LT,CURRENT USE 07/28/2018 YANI ROSARIO MD Ot 250.00 DIAB SANTOSH WO COMPL, TYPE II OR UNSPEC TY 07/28/2018 YANI ROSARIO MD Ot 272.4 HYPERLIPIDEMIA NEC/NOS 07/28/2018 MICHAEL PRUITT S TELEPHONE CLEANER Ot 174.9 MALIGN NEOPL BREAST NOS 07/28/2018 MICHAEL PRUITT S TELEPHONE CLEANER Ot 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 07/28/2018 MICHAEL PRUITT S TELEPHONE CLEANER Ot 250.00 DIAB SANTOSH WO COMPL, TYPE II OR UNSPEC TY 07/28/2018 MICHAEL PRUITT S TELEPHONE CLEANER Ot 443.9 PERIPH VASCULAR DIS NOS 07/28/2018 MICHAEL PRUITT S TELEPHONE CLEANER Ot V58.69 OTH MED,LT,CURRENT USE 07/28/2018 MICHAEL PRUITT S TELEPHONE CLEANER Ot 174.9 MALIGN NEOPL BREAST NOS 07/28/2018 MICHAEL PRUITT S TELEPHONE CLEANER Ot 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 07/28/2018 MICHAEL PRUITT S TELEPHONE CLEANER Ot 250.00 DIAB SANTOSH WO COMPL, TYPE II OR UNSPEC TY 07/28/2018 PRUITTMICHAEL Merlos S TELEPHONE CLEANER Ot V58.69 OTH MED,LT,CURRENT USE 07/28/2018 PRUITTMICHAEL Merlos S TELEPHONE CLEANER Ot 174.9 MALIGN NEOPL BREAST NOS 07/28/2018 PRUITTMICHAEL Merlos S TELEPHONE CLEANER Ot 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 07/28/2018 PRUITTMICHAEL Merlos S TELEPHONE CLEANER Ot 250.00 DIAB SANTOSH WO COMPL, TYPE II OR UNSPEC TY 07/28/2018 PRUITTMICHAEL Merlos S TELEPHONE CLEANER Ot V58.69 OTH MED,LT,CURRENT USE 07/28/2018 PRUITTMICHAEL S TELEPHONE CLEANER Ot 174.9 MALIGN NEOPL BREAST NOS 07/28/2018 PRUITTMICHAEL S TELEPHONE CLEANER Ot 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 07/28/2018 MICHAEL PRUITT S TELEPHONE CLEANER Ot 244.9 HYPOTHYROIDISM NOS 07/28/2018 MICHAEL PRUITT S TELEPHONE CLEANER Ot 250.00 DIAB SANTOSH WO COMPL, TYPE II OR UNSPEC TY 07/28/2018 MICHAEL PRUITT S TELEPHONE CLEANER Ot 355.9 MONONEURITIS NOS 07/28/2018 PRUITTMICHAEL Merlos S TELEPHONE CLEANER Ot V58.69 OTH MED,LT,CURRENT USE 07/28/2018 MICHAEL PRUITT S TELEPHONE CLEANER Ot V87.41 PERSONAL HISTORY OF ANTINEOPLASTIC CHEMO 07/28/2018 ABRAHAM GREEN, YANI Monreal Ot 250.00 DIAB SANTOSH WO COMPL, TYPE II OR UNSPEC TY 07/28/2018 MICHAEL PRUITT S TELEPHONE CLEANER Ot 174.9 MALIGN NEOPL BREAST NOS 07/28/2018 MICHAEL PRUITT S TELEPHONE CLEANER Ot 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 07/28/2018 PRUITTMICHAEL Merlos S TELEPHONE CLEANER Ot 355.9 MONONEURITIS NOS 07/28/2018 MICHAEL PRUITT S TELEPHONE CLEANER Ot V15.3 HX OF IRRADIATION 07/28/2018 MICHAEL PRUITT S TELEPHONE CLEANER Ot V58.69 OTH MED,LT,CURRENT USE 07/28/2018 PRUITTMICHAEL Merlos S TELEPHONE CLEANER Ot V87.41 PERSONAL HISTORY OF ANTINEOPLASTIC CHEMO 07/28/2018 MICHAEL PRUITT S TELEPHONE CLEANER Ot 174.9 MALIGN NEOPL BREAST NOS 07/28/2018 MICHAEL PRUITT TELEPHONE CLEANER Ot 174.9 MALIGN NEOPL BREAST NOS 07/28/2018 MICHAEL PRUITT S TELEPHONE CLEANER Ot 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 07/28/2018 MICHAEL PRUITT TELEPHONE CLEANER Ot 356.9 IDIO PERIPH NEURPTHY NOS 07/28/2018 MICHAEL PRUITT TELEPHONE CLEANER Ot V15.3 HX OF IRRADIATION 07/28/2018 MICHAEL PRUITT TELEPHONE CLEANER Ot V58.69 OTH MED,LT,CURRENT USE 07/28/2018 KEMAR PRUITTMARTA Merlos TELEPHONE CLEANER Ot V87.41 PERSONAL HISTORY OF ANTINEOPLASTIC CHEMO 07/28/2018 MICHAEL PRUITT TELEPHONE CLEANER Ot 174.9 MALIGN NEOPL BREAST NOS 07/28/2018 MICHAEL PRUITT TELEPHONE CLEANER Ot 174.9 MALIGN NEOPL BREAST NOS 07/28/2018 MICHAEL PRUITT TELEPHONE CLEANER Ot 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 07/28/2018 MCIHAEL PRUITT S TELEPHONE CLEANER Ot 250.00 DIAB SANTOSH WO COMPL, TYPE II OR UNSPEC TY 07/28/2018 MICHAEL PRUITT Chelita TELEPHONE CLEANER Ot V58.69 OTH MED,LT,CURRENT USE 07/28/2018 MICHAEL PRUITT TELEPHONE CLEANER Ot 174.9 MALIGN NEOPL BREAST NOS 07/28/2018 MICHAEL PRUITT TELEPHONE CLEANER Ot 174.9 MALIGN NEOPL BREAST NOS 07/28/2018 MICHAEL PRUITT S TELEPHONE CLEANER Ot 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 07/28/2018 MICHAEL PRUITT TELEPHONE CLEANER Ot 250.00 DIAB SANTOSH WO COMPL, TYPE II OR UNSPEC TY 07/28/2018 MICHAEL PRUITT S TELEPHONE CLEANER Ot 706.2 SEBACEOUS CYST 07/28/2018 MICHAEL PRUITT TELEPHONE CLEANER Ot V58.69 OTH MED,LT,CURRENT USE 07/28/2018 REY QUEVEDO Ot 174.9 MALIGN NEOPL BREAST NOS 07/28/2018 REY QUEVEDO Ot 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 OF UNSP SITE OF RIGHT 07/28/2018 MICHAEL PRUITT TELEPHONE CLEANER Ot 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 OF UNSP SITE OF RIGHT 07/28/2018 MICHAEL PRUITT TELEPHONE CLEANER Ot C77.3 SEC AND UNSP MALIG NEOPLASM OF AXILLA AN 07/28/2018 MICHAEL PRUITT TELEPHONE CLEANER Ot E03.9 HYPOTHYROIDISM, UNSPECIFIED 07/28/2018 PRUITTMICAHEL Merlos TELEPHONE CLEANER Ot E11.9 TYPE 2 DIABETES MELLITUS WITHOUT COMPLIC 07/28/2018 MICHAEL PRUITT TELEPHONE CLEANER Ot Z79.899 OTHER PRISON (CURRENT) DRUG THERAPY 07/28/2018 PRUITTMICHAEL Merlos TELEPHONE CLEANER Ot Z92.21 PERSONAL HISTORY OF ANTINEOPLASTIC CHEMO 07/28/2018 PRUITT MICHAEL Merlos TELEPHONE CLEANER Ot Z92.3 PERSONAL HISTORY OF IRRADIATION 07/28/2018 PRUITTMICHAEL Merlos TELEPHONE CLEANER Ot 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 OF UNSP SITE OF RIGHT 07/28/2018 PRUITTMICHAEL Merlos TELEPHONE CLEANER Ot C77.3 SEC AND UNSP MALIG NEOPLASM OF AXILLA AN 07/28/2018 MICHAEL PRUITT TELEPHONE CLEANER Ot E03.9 HYPOTHYROIDISM, UNSPECIFIED 07/28/2018 PRUITTMICHAEL Merlos TELEPHONE CLEANER Ot E11.9 TYPE 2 DIABETES MELLITUS WITHOUT COMPLIC 07/28/2018 PRUITT MICHAEL Merlos TELEPHONE CLEANER Ot Z79.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 THERAPY 07/28/2018 PRUITTMICHAEL Merlos TELEPHONE CLEANER Ot Z92.21 PERSONAL HISTORY OF ANTINEOPLASTIC CHEMO 07/28/2018 SONAL MICHAEL Merlos TELEPHONE CLEANER Ot Z92.3 PERSONAL HISTORY OF IRRADIATION 07/28/2018 PRUITT MICHAEL Merlos TELEPHONE CLEANER Ot C50.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 OF 07/28/2018 SONAL MICHAEL Merlos TELEPHONE CLEANER Ot Z12.31 ENCNTR SCREEN MAMMOGRAM FOR MALIGNANT NE 07/28/2018 SONAL MICHAEL Merlos TELEPHONE CLEANER Ot Z85.3 PERSONAL HISTORY OF MALIGNANT NEOPLASM O 07/28/2018 SONAL MICHAEL Merlos TELEPHONE CLEANER Ot Z98.82 BREAST IMPLANT STATUS 07/28/2018 ANGELA FELTON TELEPHONE CLEANER Ot K59.00 CONSTIPATION, UNSPECIFIED 07/28/2018 ANGELA FELTON TELEPHONE CLEANER Ot R11.0 NAUSEA 07/28/2018 ANGELA FELTON TELEPHONE CLEANER Ot R19.7 DIARRHEA, UNSPECIFIED 07/28/2018 MICHAEL ORELLANA APRN Ot E27.9 DISORDER OF ADRENAL GLAND, UNSPECIFIED 07/28/2018 ESTEBAN, MICHAEL M [employer]OAT CAPTAIN Ot K80.20 CALCULUS OF GALLBLADDER W/O CHOLECYSTITI 07/28/2018 ESTEBAN MICHAEL Monreal [employer]UGBOAT CAPTAIN Ot N20.0 CALCULUS OF KIDNEY 07/28/2018 Ot Z12.31 ENCNTR SCREEN MAMMOGRAM FOR MALIGNANT NE 08/03/2018 FLAKITO GREEN, EMMY Monreal Ot Z01.818 ENCOUNTER FOR OTHER PREPROCEDURAL EXAMIN 08/03/2018 FLAKITO GREEN, EMMY Monreal Ot Z01.818 ENCOUNTER FOR OTHER PREPROCEDURAL EXAMIN 08/03/2018 FLAKITO GREEN, EMMY Monreal Ot Z01.818 ENCOUNTER FOR OTHER PREPROCEDURAL EXAMIN 08/03/2018 FLAKITO GREEN, EMMY Monreal Ot Z01.818 ENCOUNTER FOR OTHER PREPROCEDURAL EXAMIN Procedures There is no data. Results Test Result Range Complete urinalysis with reflex to culture - 06/16/17 12:15 Urine color determination YELLOW NRG Urine clarity determination CLEAR NRG Urine pH measurement by test strip 6.5 5-9 Specific gravity of urine by test strip 1.010 1.016- 1.022 Urine protein assay by test strip, semi-quantitative NEGATIVE NEGATIVE Urine glucose detection by automated test strip NEGATIVE NEGATIVE Erythrocytes detection in urine sediment by light microscopy NEGATIVE NEGATIVE Urine ketones detection by automated test strip NEGATIVE NEGATIVE Urine nitrite detection by test strip NEGATIVE NEGATIVE Urine total bilirubin detection by test strip NEGATIVE NEGATIVE Urine urobilinogen measurement by automated test strip (mass/volume) NORMAL NORMAL Urine leukocyte esterase detection by dipstick NEGATIVE NEGATIVE Automated urine sediment erythrocyte count by microscopy (number/high power field) NONE NRG Automated urine sediment leukocyte count by microscopy (number/high power field ) NONE NRG Bacteria detection in urine sediment by light microscopy NEGATIVE NRG Crystals detection in urine sediment by light microscopy NONE NRG Casts detection in urine sediment by light microscopy NONE NRG Mucus detection in urine sediment by light microscopy NEGATIVE NRG Complete urinalysis with reflex to culture NO NRG Capillary blood glucose measurement by glucometer (mass/volume) - 06/23/17 06: 20 Capillary blood glucose measurement by glucometer (mass/volume) 175 mg/dL 70-110 Methicillin resistant Staphylococcus aureus (MRSA) screening culture - 06:20 Methicillin resistant Staphylococcus aureus (MRSA) screening culture NEG NRG Encounters ACCT No. Visit Date/Time Discharge Status Pt. Type Provider Facility Loc./Unit Complaint [id number] 08/03/2018 12:15:00 08/03/2018 12:25:00 DIS Outpatient EMMY FRAGA MD Via [facility] PREOP EXC. SEBACEOUS CYST [id number] 07/28/2018 10:40:00 07/28/2018 23:59:59 CLS Outpatient REY QUEVEDO [facility] ONC [id number] 06/17/2018 15:40:00 07/28/2018 10:38:00 DIS Outpatient REY QUEVEDO [facility] ONC [id number] 03/24/2018 10:30:00 03/24/2018 23:59:59 CLS Outpatient REY QUEVEDO [facility] ONC [id number] 02/11/2018 10:20:00 02/16/2018 00:01:00 DIS Outpatient REY QUEVEDO [facility] ONC [id number] 12/23/2017 07:54:00 12/23/2017 10:30:00 DIS Outpatient EMMY FRAGA MD [facility] ENDO GERD/DIARRHEA [id number] 12/20/2017 11:30:00 12/20/2017 12:21:00 DIS Outpatient EMMY FRAGA MD [facility] PREOP COLO/EGD [id number] 10/27/2017 09:57:00 11/02/2017 00:01:00 DIS Outpatient REY QUEVEDO [facility] ONC [id number] 09/29/2017 09:37:00 09/29/2017 23:59:59 CLS Outpatient MICHAEL PRUITT [facility] RAD SCREENING Z12.31 [id number] 05/20/2017 08:50:00 06/26/2017 00:01:00 DIS Outpatient REY QUEVEDO [facility] ONC [id number] 06/25/2017 09:00:00 06/25/2017 23:59:59 CLS Preadmit EMMY FRAGA MD [facility] SDC BREAST CANCER [id number] 06/23/2017 06:06:00 06/23/2017 14:00:00 DIS Outpatient FLAKITO GREEN, EMMY Monreal [facility] SDC GALLSTONES [id number] 06/22/2017 11:03:00 06/22/2017 12:23:00 DIS Outpatient FLAKITO GREEN, EMMY Monreal [facility] PREOP GALLBLADDER [id number] 06/16/2017 10:07:00 06/16/2017 23:59:59 CLS Outpatient MICHAEL ORELLANA [employer] CAPTAIN [facility] RAD ABD PAIN,NAUSEA [id number] 06/14/2017 11:11:00 06/14/2017 23:59:59 CLS Outpatient ANGELA FELTON TELEPHONE CLEANER Via [facility] RAD ABD PAIN,DIARRHEA [id number] 03/04/2017 08:56:00 03/10/2017 00:01:00 DIS Outpatient REY QUEVEDO [facility] ONC [id number] 10/29/2016 08:44:00 11/04/2016 00:01:00 DIS Outpatient REY QUEVEDO [facility] ONC [id number] 09/25/2016 09:01:00 09/25/2016 23:59:59 CLS Outpatient MICHAEL PRUITTP [facility] RAD BREAST CANCER [id number] 06/25/2016 11:02:00 08/06/2016 09:58:00 DIS Outpatient REY QUEVEDO [facility] ONC [id number] 05/14/2016 09:44:00 05/19/2016 00:01:00 DIS Outpatient REY QUEVEDO [facility] ONC [id number] 05/14/2016 09:45:00 05/14/2016 23:59:59 CLS Outpatient MICHAEL PRUITTP [facility] ONC [id number] 01/08/2016 09:55:00 01/29/2016 00:01:00 DIS Outpatient REY QUEVEDO [facility] ONC [id number] 10/31/2015 08:50:00 10/31/2015 23:59:59 CLS Outpatient MICHAEL PRUITT TELEPHONE CLEANER [facility] ONC [id number] 10/16/2015 11:14:00 10/22/2015 00:01:00 DIS Outpatient REY QUEVEDO [facility] ONC [id number] 09/23/2015 08:55:00 09/23/2015 23:59:59 CLS Outpatient REY QUEVEDO [facility] RAD BREAST CA [id number] 06/12/2015 10:13:00 06/18/2015 00:01:00 DIS Outpatient REY QUEVEDO [facility] ONC [id number] 05/03/2015 11:02:00 05/03/2015 23:59:59 CLS Outpatient REY QUEVEDO Fareed [facility] CARD BREAST CA [id number] 12/27/2014 11:35:00 02/14/2015 00:01:00 DIS Outpatient REY QUEVEDO Fareed [facility] ONC [id number] 02/06/2015 10:16:00 02/06/2015 23:59:59 CLS Outpatient MICHAEL PRUITT TELEPHONE CLEANER [facility] ONC [id number] 10/17/2014 10:55:00 10/23/2014 00:01:00 DIS Outpatient REY QUEVEDO Fareed [facility] ONC [id number] 09/21/2014 10:02:00 09/21/2014 23:59:59 CLS Outpatient MICHAEL PRUITT TELEPHONE CLEANER [facility] RAD BREAST CA [id number] 07/25/2014 08:52:00 07/25/2014 23:59:59 CLS Outpatient MICHAEL PRUITT TELEPHONE CLEANER [facility] ONC [id number] 06/06/2014 10:49:00 07/24/2014 00:01:00 DIS Outpatient REY QUEVEDO Fareed [facility] ONC [id number] 03/26/2014 08:13:00 03/26/2014 23:59:59 CLS Outpatient MICHAEL PRUITT TELEPHONE CLEANER [facility] RAD BREAST CA [id number] 03/13/2014 10:01:00 03/21/2014 00:01:00 DIS Outpatient REY QUEVEDO [facility] ONC [id number] 01/31/2014 13:08:00 01/31/2014 23:59:59 CLS Outpatient MICHAEL PRUITT TELEPHONE CLEANER [facility] ONC [id number] 11/09/2013 12:57:00 11/15/2013 00:01:00 DIS Outpatient REY QUEVEDO [facility] ONC [id number] 09/11/2013 13:17:00 09/11/2013 23:59:59 CLS Outpatient MICHAEL PRUITT TELEPHONE CLEANER [facility] RAD BREAST CA [id number] 08/17/2013 12:44:00 08/17/2013 23:59:59 CLS Outpatient MICHAEL PRUITT TELEPHONE CLEANER [facility] ONC [id number] 07/03/2013 08:22:00 08/09/2013 00:01:00 DIS Outpatient REY QUEVEDO [facility] ONC [id number] 07/06/2013 08:55:00 07/06/2013 23:59:59 CLS Outpatient [id number] 07/06/2013 08:33:00 07/06/2013 23:59:59 CLS Outpatient YANI ROSARIO MD [facility] LAB [id number] 07/06/2013 08:04:00 07/06/2013 23:59:59 CLS Outpatient MICHAEL PRUITT TELEPHONE CLEANER [facility] ONC [id number] 06/08/2013 13:56:00 06/08/2013 23:59:59 CLS Outpatient MICHAEL PRUITT TELEPHONE CLEANER [facility] ONC [id number] 05/04/2013 08:49:00 05/10/2013 00:01:00 DIS Outpatient REY QUEVEDO [facility] ONC [id number] 04/20/2013 08:48:00 04/20/2013 23:59:59 CLS Outpatient MICHAEL PRUITT S TELEPHONE CLEANER [facility] ONC [id number] 04/05/2013 08:52:00 04/20/2013 15:24:00 DIS Outpatient MICHAEL PRUITT TELEPHONE CLEANER [facility] REHAB LYMPHEDEMA R UE AND CHEST HX OF BREAST CA [id number] 04/13/2013 12:22:00 04/13/2013 23:59:59 CLS Outpatient MICHAEL PRUITT TELEPHONE CLEANER [facility] ONC [id number] 03/23/2013 08:36:00 03/23/2013 23:59:59 CLS Outpatient YANI ROSARIO MD [facility] LAB [id number] 03/09/2013 12:40:00 03/09/2013 23:59:59 CLS Outpatient MICHAEL PRUITT TELEPHONE CLEANER [facility] ONC [id number] 02/16/2013 10:12:00 02/16/2013 23:59:59 CLS Outpatient MICHAEL PRUITT TELEPHONE CLEANER [facility] ONC [id number] 01/27/2013 14:46:00 02/02/2013 00:01:00 DIS Outpatient REY QUEVEDO [facility] ONC [id number] 09/30/2018 08:00:00 Document Registration [id number] 08/05/2018 10:09:00 ACT Outpatient EMMY FRAGA MD [facility] SDC SEBACEOUS CYST LEFT SCAPULAR REGION [id number] 12/15/2012 10:14:00 Document Registration [id number] 11/10/2012 12:54:00 Document Registration [id number] 11/08/2012 07:21:00 Document Registration [id number] 11/02/2012 10:36:00 Document Registration [id number] 10/28/2012 13:54:00 Document Registration [id number] 10/20/2012 07:04:00 Document Registration [id number] 10/14/2012 10:01:00 Document Registration [id number] 10/07/2012 12:43:00 Document Registration [id number] 09/28/2012 14:07:00 Document Registration [id number] 09/09/2012 13:26:00 Document Registration [email or web address] 06/12/2015 10:13:49 ACT Document Registration [id number] 08/07/2017 23:51:39 08/07/2017 23:59:59 [facility] Outpatient
[2018-08-05] MEDS ORDERED: VANCOMYCIN INJECTION 1,000 MG in NS (IVPB) 250 ML IV ONE (10:30)
[2018-08-05] MEDS ORDERED: fentaNYL INJECTION 100 MCG/2 ML AMP ONE (10:44)
[2018-08-05] MEDS ORDERED: FAMOTIDINE 20MG/2ML IV (PEPCID) IV ONE (10:45)
[2018-08-05] MEDS ORDERED: SCOPOLAMINE 1.5 MG (TRANSDERM-SCOP) PATCH TOP ONE (10:45)
[2018-08-05] MEDS ORDERED: ONDANSETRON 4 MG/2 ML (SDV) Z0FRAN IV ONE (10:45)
[2018-08-05] MEDS ORDERED: LIDOCAINE PF 2% 5 ML (XYLOCAINE) VIAL ONE (10:47)
[2018-08-05] MEDS ORDERED: proPOfol 200 MG/20 ML (DIPRIVAN) VIAL IV ONE (10:47)
[2018-08-05] MEDS ORDERED: ONDANSETRON 4 MG/2 ML (SDV) Z0FRAN ONE (10:47)
[2018-08-05] MEDS ORDERED: ROCURONIUM 10 MG/ML 5 ML SYRINGE IV ONE (10:47)
[2018-08-05] MEDS ORDERED: SEVOFLURANE (ULTANE) 15 ML INHAL SOLN ONE ×3 (10:47→12:02)
[2018-08-05] MEDS ORDERED: BUP/EPI 0.5% 1:200,000 (SENSORCAINE) 30 ML VIAL ONE (11:36)
[2018-08-05] MEDS ORDERED: MIDAZOLAM 2 MG/2 ML (VERSED) VIAL ONE (11:57)
[2018-08-05] MEDS ORDERED: SUCCINYLCHOLINE INJ 100 MG/5 ML SYR ONE (11:59)
--- NOTE | 2018-08-05 12:08 | Progress Note-Pre Operative ---
Pre-Operative Progress Note H&P Reviewed The H&P was reviewed, patient examined and no changes noted. Date Seen by Provider: Jul 25, 2018 Time Seen by Provider: 16:00 Date H&P Reviewed: Aug 05, 2018 Time H&P Reviewed: 12:08 Pre-Operative Diagnosis: Sebaceous cyst- back EMMY FRAGA MD Aug 05, 2018 12:08
[2018-08-05] MEDS ORDERED: TRAM50TA2 PO (12:36)
--- NOTE | 2018-08-05 12:37 | Discharge Inst-Simple/Standard ---
Discharge Inst-Standard Discharge Medications New, Converted or Re-Newed RX: RX on Chart Patient Instructions/Follow Up Plan of Care/Instructions/FU: dressing may be replaced with Band-Aids and 48 hours. Follow-up with nurse in 2 weeks for suture removal Activity as Tolerated: Yes Discharge Diet: No Restrictions EMMY FRAGA MD Aug 05, 2018 12:37
--- NOTE | 2018-08-05 13:14 | Operative Report ---
Operative Report Date of Procedure/Surgery Aug 05, 2018 Surgeon (s) EMMY FRAGA MD Shop Foreman (s): N/A Post-Operative Diagnosis same Procedure Performed excision of infected sebaceous cyst left scapular region Description of Procedure Anesthesia Type: General Estimated blood loss (mL): minimal Specimen(s) collected/removed sebaceous cyst Description of the Procedure indication for the procedure: This lady presented with a long-standing sebaceous cyst over her left scapular region, with the recent onset of infection. Following a brief course of antibiotics, she was offered formal excision under general anesthetic. Informed consent was obtained after reviewing the operative details and complications of wound infection and recurrence. Description of the procedure: She was placed supine on the operative table and general anesthesia induced. Subsequently, she was placed in right lateral decubitus position, to achieve optimal exposure of the involve the region. A gram of vancomycin was administered intravenously as prophylaxis against wound infection. After adequate antiseptic preparation, preemptive analgesia was established using 0.5 percent Marcaine with epinephrine. An elliptical incision 8 cm in length by 4 cm in width was made and the sebaceous cyst excised intact. Hemostasis was achieved using cautery and the incision closed using 3-0 PDS for the subcutaneous tissue and 4-0 nylon for skin, in an interrupted fashion. A nonadherent dressing was then applied. She tolerated the procedure well, was turned supine before being extubated and taken to the recovery room in a stable condition. Findings of the Procedure See op report Allergies and Home Medications Allergies Coded Allergies: ciprofloxacin (Verified Allergy, Intermediate, raised rash, 06/23/17) Sulfa (Sulfonamide Antibiotics) (Verified Allergy, Unknown, RASH, 12/20/17) adhesive tape (Verified Allergy, Unknown, 12/20/17) amoxicillin (Verified Allergy, Unknown, diarrhea, 12/20/17) clavulanic acid (Verified Allergy, Unknown, diarrhea, 12/20/17) sulfamethoxazole (Unverified Allergy, Unknown, HIVES, 06/23/17) trimethoprim (Unverified Allergy, Unknown, HIVES, 06/23/17) Home Medications Atorvastatin Calcium 20 Mg Tablet, 20 MG PO HS, (Reported) Cinnamon Bark/Chromium Picolin 1 Each Capsule, 1 EACH PO DAILY, (Reported) Dulaglutide 1.5 Mg/0.5 Ml Pen.injctr, 1.5 MG SQ WEEK, (Reported) Levothyroxine Sodium 100 Mcg Tablet, 100 MCG PO DAILY, (Reported) Losartan/Hydrochlorothiazide 1 Each Tablet, 1 EACH PO HS, (Reported) Metformin HCl 1,000 Mg Tablet, 1,000 MG PO BID WITH MEALS, (Reported) [place] 3 Polyunsat Fatty Acids 1,000 Mg Cap, 1,000 MG PO DAILY, (Reported) Tramadol HCl 50 Mg Tablet, 50 MG PO Q12H PRN for PAIN-MILD TO MODERATE Prescribed by: EMMY FRAGA on 08/05/18 1236 Patient Home Medication List Home Medication List Reviewed: Yes EMMY FRAGA MD Aug 05, 2018 13:14
[2018-08-05] MEDS ORDERED: HYDROmorphone 2 MG/ML VIAL (DILAUDID) IV ONE (13:15)
[2018-08-05] MEDS ORDERED: HYDROmorphone 2 MG/ML VIAL (DILAUDID) ONE (13:21)
[2018-08-05] MEDS: ONDANSETRON 4 MG/2 ML (SDV) Z0FRAN IVP PRN ×2 (13:36→14:01)
[2018-08-05] MEDS ORDERED: METOCLOPRAMIDE INJ 10 MG/2 ML (REGLAN) ONE (15:55)
[2018-08-05] MEDS ORDERED: METOCLOPRAMIDE INJ 10 MG/2 ML (REGLAN) IVP ONE (16:00)
--- NOTE | 2018-08-05 16:06 | Anesthesia-General Post-Op ---
General Patient Condition Mental Status/LOC: Same as Preop Cardiovascular: Satisfactory Nausea/Vomiting: Absent Respiratory: Satisfactory Pain: Controlled Complications: Absent Post Op Complications Complications None Follow Up Care/Instructions Patient Instructions None needed. Anesthesia/Patient Condition Patient Condition Patient was seen after the surgery and she was doing well, no complaints, stable vital signs, no apparent adverse anesthesia problems. FLY CORNELIUS DO Aug 05, 2018 16:06
== END 2018-08-05 18:25 | disposition home or self-care (01) ==
LOC: SDC 10:09
PROVIDERS: ATTEND Surgery
DX: L72.0 Epidermal cyst (principal); Z11.2 Encounter for screening for other bacterial diseases; I10 Essential (primary) hypertension; E03.9 Hypothyroidism, unspecified; E11.40 Type 2 diabetes mellitus with diabetic neuropathy, unspecified; E78.5 Hyperlipidemia, unspecified; G47.33 Obstructive sleep apnea (adult) (pediatric); K21.9 Gastro-esophageal reflux disease without esophagitis; Z92.21 Personal history of antineoplastic chemotherapy; Z79.899 Other long term (current) drug therapy; Z79.84 Long term (current) use of oral hypoglycemic drugs; Z85.3 Personal history of malignant neoplasm of breast
CPT/HCPCS: 82962; 87081; 88304

== ENCOUNTER 2018-10-20 10:59 | Outpatient (RCR) | payer MEDICARE, OTHER ==
[~2018-10-20 10:59] MED LIST changes: +TRAM50TA2 PO
== END 2018-10-26 | disposition home or self-care (01) ==
LOC: ONC 10:59
PROVIDERS: ATTEND Internal Medicine Hematology & Oncology
DX: C50.111 Malignant neoplasm of central portion of right female breast (principal); C77.3 Secondary and unspecified malignant neoplasm of axilla and upper limb lymph nodes; I89.0 Lymphedema, not elsewhere classified; E11.40 Type 2 diabetes mellitus with diabetic neuropathy, unspecified; E03.9 Hypothyroidism, unspecified; I10 Essential (primary) hypertension; E66.9 Obesity, unspecified; Z68.30 Body mass index [BMI] 30.0-30.9, adult; Z79.84 Long term (current) use of oral hypoglycemic drugs; Z79.899 Other long term (current) drug therapy; Z92.21 Personal history of antineoplastic chemotherapy; Z92.3 Personal history of irradiation; Z45.2 Encounter for adjustment and management of vascular access device
CPT/HCPCS: 96523

== ENCOUNTER 2019-02-09 10:09 | Outpatient (RCR) | payer MEDICARE, OTHER ==
[2018-11-17 09:59] LABS: BASOPHILS % (AUTO) 0 % (0-10); EOSINOPHILS % (AUTO) 0 % (0-10); HEMATOCRIT 39 % (35-52); LYMPHOCYTES # (AUTO) 1.1 X 10^3 (1.0-4.0); LYMPHOCYTES % (AUTO) 23 % (12-44); MEAN CORPUSCULAR HEMOGLOBIN 30 PG (25-34); MEAN CORPUSCULAR HGB CONC 33 G/DL (32-36); MEAN CORPUSCULAR VOLUME 90 FL (80-99); MEAN PLATELET VOLUME 9.2 FL (7.4-10.4); MONOCYTES # (AUTO) 0.3 X 10^3 (0.0-1.0); MONOCYTES % (AUTO) 7 % (0-12); NEUTROPHILS # (AUTO) 3.3 X 10^3 (1.8-7.8); NEUTROPHILS % (AUTO) 69 % (42-75); PLATELET COUNT 268 10^3/uL (130-400); RED CELL DISTRIBUTION WIDTH 13.3 % (10.0-14.5); WHITE BLOOD COUNT 4.8 10^3/uL (4.3-11.0)
[2018-11-17 10:18] LABS: ALANINE AMINOTRANSFERASE 39 U/L (0-55); ALBUMIN 4.3 GM/DL (3.2-4.5); ALKALINE PHOSPHATASE 101 U/L (40-136); BILIRUBIN,TOTAL 0.9 MG/DL (0.1-1.0); BUN/CREATININE RATIO 18; CARBON DIOXIDE 25 MMOL/L (21-32); CHLORIDE 99 MMOL/L (98-107); CREATININE SERUM 0.83 MG/DL (0.60-1.30); GFR ESTIMATED > 60; GLUCOSE 203 MG/DL (70-105); POTASSIUM 3.4 MMOL/L (3.6-5.0); SODIUM 136 MMOL/L (135-145); TOTAL PROTEIN 6.7 GM/DL (6.4-8.2)
== END 2019-02-15 | disposition home or self-care (01) ==
LOC: ONC 10:09
PROVIDERS: ATTEND Internal Medicine Hematology & Oncology
DX: C50.111 Malignant neoplasm of central portion of right female breast (principal); C77.3 Secondary and unspecified malignant neoplasm of axilla and upper limb lymph nodes; I89.0 Lymphedema, not elsewhere classified; E11.40 Type 2 diabetes mellitus with diabetic neuropathy, unspecified; E03.9 Hypothyroidism, unspecified; I10 Essential (primary) hypertension; E66.9 Obesity, unspecified; Z68.30 Body mass index [BMI] 30.0-30.9, adult; Z79.84 Long term (current) use of oral hypoglycemic drugs; Z79.899 Other long term (current) drug therapy; Z92.21 Personal history of antineoplastic chemotherapy; Z92.3 Personal history of irradiation; Z45.2 Encounter for adjustment and management of vascular access device
CPT/HCPCS: 36591; 80053; 85025; 96523

== ENCOUNTER → 2019-05-04 | Outpatient (CLI) | payer MEDICARE, OTHER | LOC: LAB 08:43 | PROVIDERS: ATTEND Family Medicine | DX: E03.9 Hypothyroidism, unspecified (principal); I10 Essential (primary) hypertension; E11.9 Type 2 diabetes mellitus without complications; E78.5 Hyperlipidemia, unspecified | CPT/HCPCS: 36415; 83036; 84436; 84443 ==

== ENCOUNTER → 2019-05-23 | Outpatient (CLI) | payer MEDICARE, OTHER ==
--- NOTE | 2019-05-23 19:03 | Diagnostic Imaging Report ---
INDICATION: Left neck swelling. TECHNIQUE: Limited real-time grayscale images were obtained over the neck in various projections. FINDINGS: There is no evidence of a discrete mass or fluid collection in the left neck. There is no pathologically enlarged adenopathy. IMPRESSION: Unremarkable ultrasound of the left neck. Dictated by: Dictated on workstation # [id number]
== END ==
LOC: RAD 10:32
PROVIDERS: ATTEND Nurse Practitioner Family
DX: R60.0 Localized edema (principal)
CPT/HCPCS: 76536

== ENCOUNTER 2019-06-15 15:40 | Outpatient (RCR) | payer MEDICARE, OTHER ==
[2019-05-04 09:25] LABS: BASOPHILS % (AUTO) 0 % (0-10); EOSINOPHILS % (AUTO) 0 % (0-10); HEMATOCRIT 40 % (35-52); HEMOGLOBIN 13.2 G/DL (11.5-16.0); LYMPHOCYTES % (AUTO) 21 % (12-44); MEAN CORPUSCULAR HEMOGLOBIN 30 PG (25-34); MEAN CORPUSCULAR HGB CONC 33 G/DL (32-36); MEAN CORPUSCULAR VOLUME 90 FL (80-99); MEAN PLATELET VOLUME 9.7 FL (7.4-10.4); MONOCYTES # (AUTO) 0.3 X 10^3 (0.0-1.0); MONOCYTES % (AUTO) 7 % (0-12); NEUTROPHILS # (AUTO) 3.6 X 10^3 (1.8-7.8); NEUTROPHILS % (AUTO) 72 % (42-75); PLATELET COUNT 259 10^3/uL (130-400); RED CELL DISTRIBUTION WIDTH 12.9 % (10.0-14.5)
[2019-05-04 10:01] LABS: ALANINE AMINOTRANSFERASE 33 U/L (0-55); ALBUMIN 4.4 GM/DL (3.2-4.5); ALKALINE PHOSPHATASE 102 U/L (40-136); BILIRUBIN,TOTAL 0.8 MG/DL (0.1-1.0); BUN/CREATININE RATIO 22; CALCIUM 10.8 MG/DL (8.5-10.1); CARBON DIOXIDE 25 MMOL/L (21-32); CHLORIDE 102 MMOL/L (98-107); CREATININE SERUM 0.77 MG/DL (0.60-1.30); GFR ESTIMATED > 60; GLUCOSE 144 MG/DL (70-105); POTASSIUM 3.6 MMOL/L (3.6-5.0); SODIUM 139 MMOL/L (135-145); TOTAL PROTEIN 7.2 GM/DL (6.4-8.2)
== END 2019-06-21 | disposition home or self-care (01) ==
LOC: ONC 15:40
PROVIDERS: ATTEND Internal Medicine Hematology & Oncology
DX: C50.111 Malignant neoplasm of central portion of right female breast (principal); C77.3 Secondary and unspecified malignant neoplasm of axilla and upper limb lymph nodes; I89.0 Lymphedema, not elsewhere classified; E11.40 Type 2 diabetes mellitus with diabetic neuropathy, unspecified; E03.9 Hypothyroidism, unspecified; I10 Essential (primary) hypertension; E66.9 Obesity, unspecified; Z68.30 Body mass index [BMI] 30.0-30.9, adult; Z79.84 Long term (current) use of oral hypoglycemic drugs; Z79.899 Other long term (current) drug therapy; Z92.21 Personal history of antineoplastic chemotherapy; Z92.3 Personal history of irradiation; Z45.2 Encounter for adjustment and management of vascular access device
CPT/HCPCS: 36591; 80053; 85025; 96523

== ENCOUNTER → 2019-10-02 | Outpatient (CLI) | payer MEDICARE, OTHER ==
[~2019-10-02] MED LIST changes: -TRAM50TA2 PO; +TRM50T PO
--- NOTE | 2019-10-02 13:09 | Diagnostic Imaging Report ---
INDICATION: Routine screening. COMPARISON: 09/30/2018 and 09/29/2017. TECHNIQUE: 2D and 3D bilateral screening mammography was performed with CAD. FINDINGS: Both breasts remain heterogeneously dense, limiting the sensitivity of mammography. Post-therapeutic changes in the right breast are again noted with multiple surgical clips in the upper outer right breast at posterior depth. No dominant mass or malignant appearing microcalcifications are seen. The axillae are unremarkable. IMPRESSION: No mammographic features suspicious for malignancy are identified. ACR BI-RADS Category 2: Benign findings. Result letter will be mailed to the patient. Note: At least 10% of breast cancer is not imaged by mammography. Dictated by: Dictated on workstation # [id number]
== END ==
LOC: RAD 10:21
PROVIDERS: ATTEND Nurse Practitioner Adult Health
DX: Z12.31 Encounter for screening mammogram for malignant neoplasm of breast (principal); C50.111 Malignant neoplasm of central portion of right female breast
CPT/HCPCS: 77067

== ENCOUNTER 2019-10-12 10:22 | Outpatient (RCR) | payer MEDICARE, OTHER | END 2019-10-25 | disposition home or self-care (01) | LOC: ONC 10:22 | PROVIDERS: ATTEND Internal Medicine Hematology & Oncology | DX: C50.111 Malignant neoplasm of central portion of right female breast (principal); C77.3 Secondary and unspecified malignant neoplasm of axilla and upper limb lymph nodes; I89.0 Lymphedema, not elsewhere classified; E11.40 Type 2 diabetes mellitus with diabetic neuropathy, unspecified; E03.9 Hypothyroidism, unspecified; I10 Essential (primary) hypertension; E66.9 Obesity, unspecified; Z68.30 Body mass index [BMI] 30.0-30.9, adult; Z79.84 Long term (current) use of oral hypoglycemic drugs; Z79.899 Other long term (current) drug therapy; Z92.21 Personal history of antineoplastic chemotherapy; Z92.3 Personal history of irradiation; Z45.2 Encounter for adjustment and management of vascular access device | CPT/HCPCS: 96523 ==

== ENCOUNTER 2019-11-30 12:51 | Outpatient (RCR) | payer MEDICARE, OTHER ==
[~2019-11-30 12:51] MED LIST changes: +ACHYD1T PO; -HYDR-3820 PO
== END 2019-11-30 16:25 | disposition home or self-care (01) ==
PROVIDERS: ATTEND Internal Medicine Hematology & Oncology
DX: C50.111 Malignant neoplasm of central portion of right female breast (principal); I89.0 Lymphedema, not elsewhere classified

== ENCOUNTER 2020-01-04 10:01 | Outpatient (RCR) | payer MEDICARE, OTHER ==
[2019-11-23 09:26] LABS: BASOPHILS % (AUTO) 0 % (0-10); EOSINOPHILS % (AUTO) 0 % (0-10); HEMATOCRIT 39 % (35-52); HEMOGLOBIN 12.7 G/DL (11.5-16.0); LYMPHOCYTES # (AUTO) 1.1 X 10^3 (1.0-4.0); LYMPHOCYTES % (AUTO) 22 % (12-44); MEAN CORPUSCULAR HEMOGLOBIN 29 PG (25-34); MEAN CORPUSCULAR HGB CONC 33 G/DL (32-36); MEAN CORPUSCULAR VOLUME 90 FL (80-99); MEAN PLATELET VOLUME 9.7 FL (7.4-10.4); MONOCYTES # (AUTO) 0.3 X 10^3 (0.0-1.0); MONOCYTES % (AUTO) 5 % (0-12); NEUTROPHILS # (AUTO) 3.5 X 10^3 (1.8-7.8); NEUTROPHILS % (AUTO) 72 % (42-75); PLATELET COUNT 275 10^3/uL (130-400); RED CELL DISTRIBUTION WIDTH 13.1 % (10.0-14.5); WHITE BLOOD COUNT 4.8 10^3/uL (4.3-11.0)
[2019-11-23 09:49] LABS: ALANINE AMINOTRANSFERASE 23 U/L (0-55); ALBUMIN 4.2 GM/DL (3.2-4.5); ALKALINE PHOSPHATASE 93 U/L (40-136); BILIRUBIN,TOTAL 0.8 MG/DL (0.1-1.0); BUN/CREATININE RATIO 19; CALCIUM 10.5 MG/DL (8.5-10.1); CARBON DIOXIDE 28 MMOL/L (21-32); CHLORIDE 102 MMOL/L (98-107); CREATININE SERUM 0.84 MG/DL (0.60-1.30); GFR ESTIMATED > 60; GLUCOSE 192 MG/DL (70-105); POTASSIUM 3.6 MMOL/L (3.6-5.0); SODIUM 138 MMOL/L (135-145); TOTAL PROTEIN 6.8 GM/DL (6.4-8.2)
== END 2020-02-21 | disposition home or self-care (01) ==
LOC: ONC 10:01
PROVIDERS: ATTEND Internal Medicine Hematology & Oncology
DX: C50.111 Malignant neoplasm of central portion of right female breast (principal); C77.3 Secondary and unspecified malignant neoplasm of axilla and upper limb lymph nodes; I89.0 Lymphedema, not elsewhere classified; E11.40 Type 2 diabetes mellitus with diabetic neuropathy, unspecified; E03.9 Hypothyroidism, unspecified; I10 Essential (primary) hypertension; E66.9 Obesity, unspecified; Z68.30 Body mass index [BMI] 30.0-30.9, adult; Z79.84 Long term (current) use of oral hypoglycemic drugs; Z79.899 Other long term (current) drug therapy; Z92.21 Personal history of antineoplastic chemotherapy; Z92.3 Personal history of irradiation; Z45.2 Encounter for adjustment and management of vascular access device
CPT/HCPCS: 36591; 80053; 85025; 96523

== ENCOUNTER → 2020-02-20 | Outpatient (CLI) | payer MEDICARE, OTHER ==
--- NOTE | 2020-02-20 11:56 | Diagnostic Imaging Report ---
INDICATION: Postop. Comparison with CT chest from 05/03/2015. FINDINGS: Right lumpectomy and axillary dissection with surgical clips present are again noted. The lungs are well-aerated. There are no infiltrates or masses. The heart is not enlarged. There is a portion of a central catheter overlying the mediastinum and extending into the left subclavian vein. No pneumothorax or pleural effusion. No bony abnormalities. IMPRESSION: 1. Postsurgical changes right breast and axilla. 2. Portion of the central line catheter remains present overlying the mediastinum in the region of the superior vena cava and left subclavian vein. Dictated by: Dictated on workstation # [id number]
== END ==
LOC: RAD 11:04
PROVIDERS: ATTEND Surgery
DX: Z98.890 Other specified postprocedural states (principal); Z95.828 Presence of other vascular implants and grafts
CPT/HCPCS: 71045

== ENCOUNTER 2020-03-18 10:33 | Outpatient (RCR) | payer MEDICARE, OTHER ==
--- NOTE | 2020-03-18 11:37 | Diagnostic Imaging Report ---
Indication: Chest pain. Time of exam: 10:55 AM Correlation is made with prior chest from 02/20/2020. Heart size stable. Multiple surgical clips overlie the lower right chest and right axilla. Catheter fragment midline upper chest is unchanged in position. Calcified nodule left apex is noted. No infiltrates are seen. There is no effusion or pneumothorax identified. Impression: Stable chest since exam from 02/20/2020. Dictated by: Dictated on workstation # [id number]
== END 2020-06-16 | disposition home or self-care (01) ==
LOC: RAD 10:33
PROVIDERS: ATTEND Nurse Practitioner Family
DX: R07.9 Chest pain, unspecified (principal); R19.7 Diarrhea, unspecified; Z98.890 Other specified postprocedural states; Z95.828 Presence of other vascular implants and grafts
CPT/HCPCS: 71046; 82274; 87015; 87045; 87046; 87324; 87328; 87329; 87449; 87899

== ENCOUNTER → 2020-03-21 | Outpatient (CLI) | payer MEDICARE, OTHER ==
--- NOTE | 2020-03-21 11:46 | Diagnostic Imaging Report ---
INDICATION: Abdominal pain Supine images of the abdomen are obtained. Overall bowel gas pattern is unremarkable with mild to moderate amount of stool in the right colon. There is no evidence of transition point to indicate an obstruction. There is an approximately 0.4 cm calcification projected over the lower pole of the left kidney. Numerous calcified phleboliths are seen in the pelvis which could obscure distal ureteric stone. There is no evidence of free intraperitoneal gas or pneumatosis. There is [id number] lumbar spondylosis. IMPRESSION: No definite acute abnormalities identified. 0.4 cm calculus projects over the left kidney with numerous presumed phleboliths seen throughout the pelvis. Dictated by: Dictated on workstation # [id number]
== END ==
LOC: RAD 11:01
PROVIDERS: ATTEND Nurse Practitioner Family
DX: N20.0 Calculus of kidney (principal)
CPT/HCPCS: 74018

== ENCOUNTER → 2020-04-05 | Outpatient (CLI) | payer MEDICARE, OTHER ==
--- NOTE | 2020-04-05 17:28 | Diagnostic Imaging Report ---
PROCEDURE: CT abdomen and pelvis without contrast. TECHNIQUE: Multiple contiguous axial images were obtained through the abdomen and pelvis without the use of intravenous contrast. Auto Exposure Controls were utilized during the CT exam to meet ALARA standards for radiation dose reduction. INDICATION: Abdominal pain. Renal calculus seen on recent radiographs. COMPARISON: CT abdomen and pelvis performed on 06/16/2017. FINDINGS: Absence of intravenous contrast decreases sensitivity for detection of focal lesions and vascular pathology. LOWER THORAX: Lung bases are clear. Visualized heart is normal in size. Calcification of the mitral annulus is partially visualized. LIVER: Normal. GALLBLADDER: Surgically absent. BILE DUCTS: No biliary ductal dilatation. SPLEEN: Scattered benign calcified granulomas are demonstrated in the spleen, compatible with prior granulomatous disease. No acute or suspicious abnormality is demonstrated. PANCREAS: Mildly atrophic, otherwise unremarkable. No pancreatic ductal dilatation. ADRENAL GLANDS: No significant change in a right adrenal mass which measures approximately 3.1 x 4.2 cm. The mass demonstrates predominantly internal attenuation of less than 10 Hounsfield units. There is a new mural nodular density along the superior aspect of this mass which measures approximately 1.2 x 1.1 cm. There is also suggestion of nodularity along the inferior aspect of the nodule which is less well-defined. The left adrenal gland is normal. KIDNEYS AND URETERS: There is a 6 mm calyceal calculus in the lower pole collecting system of the left kidney. An additional punctate calyceal calculus is demonstrated adjacent to this in the lower pole. A 5 mm calyceal calculus is demonstrated in the lower pole collecting system of the right kidney posteriorly. An additional punctate calyceal calculus is demonstrated in the anterior aspect of the right lower pole collecting system as well. There is no hydronephrosis on either side. No ureteral calculus is demonstrated. The ureters are unremarkable. Incidental note is made of a benign cyst projecting posteriorly off of the lower pole the right kidney. STOMACH AND BOWEL: Stomach is physiologically-distended. No bowel obstruction. No inflammatory changes. APPENDIX: Normal. PELVIC ORGANS/BLADDER: Bladder is normal. Uterus demonstrates a normal CT appearance. No adnexal masses. PERITONEUM AND RETROPERITONEUM: No pneumoperitoneum. No abdominal free fluid or loculated collection. LYMPH NODES: No lymphadenopathy. VESSELS: Moderate atherosclerotic calcification. Abdominal aorta is nonaneurysmal. ABDOMINAL WALL: Small foci of gas in the superficial subcutaneous fat of the right ventral abdominal wall inferiorly likely reflects recent subcutaneous injection. BONES: Multilevel degenerative changes involve the spine. No acute osseous abnormality. There is an unchanged hemangioma in the L1 vertebral body. IMPRESSION: There is no acute abdominal or pelvic pathology. There are multiple bilateral calyceal calculi, which are not causing obstruction as there is no hydroureteronephrosis demonstrated. No ureteral or bladder calculus is demonstrated. No significant change in overall size of a right adrenal mass which measures over 4 cm in greatest dimension; however, there appears to be new mural nodularity. Further evaluation with adrenal protocol MRI (to include chemical shift imaging) is recommended to exclude a collision tumor. Consideration can also be given to routine biochemical evaluation. Dictated by: Dictated on workstation # [id number]
== END ==
LOC: RAD 12:46
PROVIDERS: ATTEND Family Medicine
DX: N20.0 Calculus of kidney (principal); E27.8 Other specified disorders of adrenal gland; Z90.49 Acquired absence of other specified parts of digestive tract
CPT/HCPCS: 74176

== ENCOUNTER → 2020-04-16 | Outpatient (CLI) | payer MEDICARE, OTHER ==
[~2020-04-16] MED LIST changes: +GADOBUTROL 10 MMOL/10 ML (GADAVIST) VIAL IV ONE
[2020-04-16 08:36] LABS: BUN/CREATININE RATIO 14; CREATININE SERUM 0.74 MG/DL (0.60-1.30); GFR ESTIMATED > 60
--- NOTE | 2020-04-16 10:44 | Diagnostic Imaging Report ---
EXAMINATION: MRI of the abdomen with and without contrast. TECHNIQUE: Multiplanar, multisequence MR images of the abdomen were obtained with and without intravenous contrast. HISTORY: Adrenal mass. COMPARISON: CT dated 04/05/2020 and 06/16/2017 FINDINGS: The liver is normal without steatosis. No suspicious liver lesions are seen. No surface nodularity. Gallbladder is absent. There is no biliary ductal dilation. There is a 4.1 x 3.2 cm right adrenal nodule which is stable in size from 06/16/2017. This is T2 and T1 hypointense. This shows dropout on opposed phase imaging. It does contain a 10 mm T2 hyperintense nodule which shows contrast enhancement. There is suggestion of a nodule on the noncontrast CT dated 06/16/2017. Left adrenal gland is normal. Pancreas is normal. Spleen is normal. Kidneys contain simple cysts. No suspicious renal lesions or hydronephrosis.. Visualized bowel is normal. No lymphadenopathy is seen. Lung bases are clear. No osseus lesions are seen. IMPRESSION: 1. The right adrenal lesion does have some features of an adenoma including signal loss on opposed phase imaging and long-term stability. However, it contains a small T2 hyperintense nodule which shows contrast enhancement, this is not a typical finding for an adenoma. I suspect this nodule was present in 2017 as an area of hypoattenuation was seen on the noncontrast CT. However, a definitive overall diagnosis of a benign adenoma is probably not prudent. [employer] Guidelines suggest consideration of resection for indeterminate nodules of this size, alternatively a follow-up with MR to monitor for stability of the enhancing nodule could be performed (e.g. in six months) Dictated by: Dictated on workstation # [id number]
== END ==
LOC: RAD 07:51
PROVIDERS: ATTEND Family Medicine
DX: E27.8 Other specified disorders of adrenal gland (principal)
CPT/HCPCS: 36415; 74183; 82565; 84520

== ENCOUNTER → 2020-04-23 | Outpatient (CLI) | payer MEDICARE, OTHER ==
[~2020-04-23] MED LIST changes: -GADOBUTROL 10 MMOL/10 ML (GADAVIST) VIAL IV ONE
--- NOTE | 2020-04-23 15:00 | Diagnostic Imaging Report ---
EXAMINATION: PET/CT. INDICATION: Right adrenal tumor. TECHNIQUE: After intravenous administration of 14.92 mCi of F18-FDG into the left antecubital fossa, a series of overlapping emission and transmission PET images was obtained. In the coronal, transaxial and sagittal planes, the area imaged extended from the skull base through the upper thighs. Height: 5'7" Weight: 181 lbs. Blood glucose: 145. FINDINGS: The CT abdomen/pelvis exam performed on 04/05/2020 noted a new mural nodule in the right adrenal mass that had been previously noted on the CT abdomen/pelvis exam of 06/16/2017. The subsequent MRI abdomen exam of 04/16/2020 did note that the right adrenal lesion had some features of a benign-appearing adenoma. However, there was a small T2 hyperintense nodule which corresponded to the newly developed nodular density seen on the prior CT abdomen/pelvis exam. On this study, that nodule is not hypermetabolic; however, there is slightly increased hypermetabolic activity along the periphery of the right adrenal nodule. The maximum SUV in this area is only 3.4. If a tissue diagnosis is desired, then surgical resection should be considered. If there is no intervention at this time, then a short-term (three-month) MRI abdomen exam should be obtained. There is no other hypermetabolic activity to suggest the presence of malignancy. Physiologic activity is seen in the brain, the kidneys, the bowel, and the bladder. The CT images do show nonobstructive calculi within both kidneys. There is no sign of obstruction of either collecting system. There are mild chronic changes involving both lungs. The heart is borderline enlarged and there are coronary artery calcifications evident. Surgical clips are also seen in the right breast and right axilla. IMPRESSION: 1. The nodule within the right adrenal lesion seen on the recent MRI abdomen exam is not hypermetabolic; however, there is an area of slightly increased hypermetabolic activity along the periphery of this lesion. This finding may represent a benign process but the possibility of an underlying malignancy cannot be entirely excluded. A surgical consult would be recommended. If there is no intervention at this time, then a short-term (three-month) follow-up MRI abdomen exam would be recommended. 2. There is no other hypermetabolic activity to suggest malignancy. 3. There is no sign of an acute abnormality. 4. These results were discussed with Dr. Warren. Dictated by: Dictated on workstation # [id number]
== END ==
LOC: RAD 11:36
PROVIDERS: ATTEND Family Medicine
DX: E27.8 Other specified disorders of adrenal gland (principal); R93.5 Abnormal findings on diagnostic imaging of other abdominal regions, including retroperitoneum; Z85.858 Personal history of malignant neoplasm of other endocrine glands
CPT/HCPCS: 78815; A9552

== ENCOUNTER 2020-07-23 15:31 | Outpatient (RCR) | payer MEDICARE, OTHER ==
[2020-07-23 15:54] LABS: HEMATOCRIT 37 % (35-52); HEMOGLOBIN 12.2 G/DL (11.5-16.0); MEAN CORPUSCULAR HEMOGLOBIN 29 PG (25-34); MEAN CORPUSCULAR VOLUME 89 FL (80-99); WHITE BLOOD COUNT 5.4 10^3/uL (4.3-11.0)
[2020-07-23 15:55] LABS: BASOPHILS % (AUTO) 0 % (0-10); EOSINOPHILS % (AUTO) 0 % (0-10); LYMPHOCYTES # (AUTO) 1.6 X 10^3 (1.0-4.0); LYMPHOCYTES % (AUTO) 30 % (12-44); MEAN CORPUSCULAR HGB CONC 33 G/DL (32-36); MEAN PLATELET VOLUME 9.2 FL (7.4-10.4); MONOCYTES # (AUTO) 0.5 X 10^3 (0.0-1.0); MONOCYTES % (AUTO) 9 % (0-12); NEUTROPHILS # (AUTO) 3.3 X 10^3 (1.8-7.8); NEUTROPHILS % (AUTO) 61 % (42-75); PLATELET COUNT 264 10^3/uL (130-400)
[2020-07-23 16:17] LABS: ALANINE AMINOTRANSFERASE 26 U/L (0-55); ALBUMIN 4.2 GM/DL (3.2-4.5); ALKALINE PHOSPHATASE 87 U/L (40-136); BILIRUBIN,TOTAL 0.7 MG/DL (0.1-1.0); BUN/CREATININE RATIO 19; CALCIUM 10.4 MG/DL (8.5-10.1); CARBON DIOXIDE 28 MMOL/L (21-32); CHLORIDE 97 MMOL/L (98-107); CREATININE SERUM 0.73 MG/DL (0.60-1.30); GFR ESTIMATED > 60; GLUCOSE 134 MG/DL (70-105); POTASSIUM 3.8 MMOL/L (3.6-5.0); SODIUM 133 MMOL/L (135-145); TOTAL PROTEIN 6.8 GM/DL (6.4-8.2)
[2020-09-11] MEDS ORDERED: ONDA4TAB11 SL (08:18)
== END 2020-10-21 | disposition home or self-care (01) ==
LOC: ONC 15:31
PROVIDERS: ATTEND Internal Medicine Hematology & Oncology
DX: C50.111 Malignant neoplasm of central portion of right female breast (principal); I89.0 Lymphedema, not elsewhere classified; E27.8 Other specified disorders of adrenal gland; Z92.21 Personal history of antineoplastic chemotherapy
CPT/HCPCS: 80053; 85025; G0463

== ENCOUNTER → 2020-07-23 | Outpatient (CLI) | payer MEDICARE, OTHER ==
--- NOTE | 2020-07-23 16:49 | Diagnostic Imaging Report ---
INDICATION: History of breast CA and right renal mass. COMPARISON: 03/18/2020. FINDINGS: PA and lateral views. Surgical clips in the right axilla from previous lumpectomy and axillary dissection are again noted. The lungs remain well-aerated and clear. No evidence of air-trapping. The heart is not enlarged. No pulmonary edema or hilar adenopathy. Central venous catheter again is noted overlying the mediastinum. IMPRESSION: No appreciable change has occurred when compared with previous exam. Dictated by: Dictated on workstation # [id number]
== END ==
LOC: RAD 16:20
PROVIDERS: ATTEND Nurse Practitioner Adult Health
DX: T82.9XXA Unspecified complication of cardiac and vascular prosthetic device, implant and graft, initial encounter (principal)
CPT/HCPCS: 71046

== ENCOUNTER 2020-09-11 06:13 | Emergency (ER) | payer MEDICARE, OTHER ==
[~2020-09-11] VITALS: Ht 172.7 cm; Wt 86.1 kg
[2020-09-11] MEDS ORDERED: NS IV 1000 ML 1,000 ML IV SCH (06:30)
[2020-09-11] MEDS ORDERED: ONDANSETRON 4 MG/2 ML (SDV) Z0FRAN IVP ONE (06:30)
[2020-09-11 06:43] LABS: ALBUMIN 4.1 GM/DL (3.2-4.5); BASOPHILS % (AUTO) 0 % (0-10); EOSINOPHILS % (AUTO) 0 % (0-10); HEMATOCRIT 40 % (35-52); HEMOGLOBIN 13.1 g/dL (11.5-16.0); LYMPHOCYTES # (AUTO) 1.3 10^3/uL (1.0-4.0); LYMPHOCYTES % (AUTO) 23 % (12-44); MEAN CORPUSCULAR HEMOGLOBIN 29 pg (25-34); MEAN CORPUSCULAR HGB CONC 33 g/dL (32-36); MEAN CORPUSCULAR VOLUME 87 fL (80-99); MEAN PLATELET VOLUME 9.7 fL (9.0-12.2); MONOCYTES # (AUTO) 0.6 10^3/uL (0.0-1.0); MONOCYTES % (AUTO) 11 % (0-12); NEUTROPHILS # (AUTO) 3.6 10^3/uL (1.8-7.8); NEUTROPHILS % (AUTO) 65 % (42-75); PLATELET COUNT 213 10^3/uL (130-400); POTASSIUM 3.1 MMOL/L (3.6-5.0); WHITE BLOOD COUNT 5.5 10^3/uL (4.3-11.0)
[2020-09-11 06:44] LABS: CALCIUM 9.5 MG/DL (8.5-10.1)
[2020-09-11 06:47] LABS: BILIRUBIN,TOTAL 0.6 MG/DL (0.1-1.0)
[2020-09-11 06:49] LABS: CREATININE SERUM 0.91 MG/DL (0.60-1.30)
[2020-09-11 06:52] LABS: MAGNESIUM 1.6 MG/DL (1.6-2.4)
[2020-09-11] MEDS ORDERED: POTASSIUM CL 10MEQ/50ML IVPB 50 ML IV ONE (07:00)
--- NOTE | 2020-09-11 07:08 | ED Syncope ---
General Chief Complaint: Dizziness/Syncope Stated Complaint: SYNCOPE Nursing Triage Note: BECAME DIZZI AT HOME THIS AM AND PASSED OUT FOR LESS THAN 60 SECONDS. CURRENTLY A&OX4 CALL LIGHT IN REACH. Source of Information: Patient, EMS, Family History of Present Illness Date Seen by Provider: Sep 11, 2020 Time Seen by Provider: 06:14 Initial Comments This 75-year-old woman presents to the emergency room via EMS after having a syncopal episode at her home. She was diagnosed with COVID-19 on September 05 after developing symptom of headache on September 04. She has been doing fairly well until this morning. She notes having a couple bouts of diarrhea and being diaphoretic. She was sitting at the table this morning visiting with her son. He notes that she started to act very sleepy. She remembers feeling lightheaded. She then had a syncopal episode and laid her head down on the table. She continued to breathe. Her son laid her down on the floor. He notes that her eyes were open but she was nonresponsive. The episode lasted for about 1 minute. She woke and after 5 to 10 minutes she was back to normal. She denies any prior history of syncope or cardiopulmonary problems. At present she feels weak but otherwise feels okay. She has myalgias and chest wall soreness. She denies any chest pain associated with the incident this morning. Vital signs are stable. Oxygen saturation for EMS was 94% on room air. She denies any shortness of breath or cough. She reports blood sugar prior to the event was 160 a.m. blood sugar after the event was 185. Allergies and Home Medications Allergies Coded Allergies: ciprofloxacin (Verified Allergy, Intermediate, raised rash, 06/23/17) Sulfa (Sulfonamide Antibiotics) (Verified Allergy, Unknown, RASH, 12/20/17) adhesive tape (Verified Allergy, Unknown, 12/20/17) amoxicillin (Verified Allergy, Unknown, diarrhea, 12/20/17) clavulanic acid (Verified Allergy, Unknown, diarrhea, 12/20/17) sulfamethoxazole (Unverified Allergy, Unknown, HIVES, 06/23/17) trimethoprim (Unverified Allergy, Unknown, HIVES, 06/23/17) Home Medications Atorvastatin Calcium 20 Mg Tablet, 20 MG PO HS, (Reported) Cinnamon Bark/Chromium Picolin 1 Each Capsule, 1 EACH PO DAILY, (Reported) Dulaglutide 1.5 Mg/0.5 Ml Pen.injctr, 1.5 MG SQ WEEK, (Reported) Levothyroxine Sodium 100 Mcg Tablet, 100 MCG PO DAILY, (Reported) Losartan/Hydrochlorothiazide 1 Each Tablet, 1 EACH PO HS, (Reported) Metformin HCl 1,000 Mg Tablet, 1,000 MG PO BID WITH MEALS, (Reported) [place] 3 Polyunsat Fatty Acids 1,000 Mg Cap, 1,000 MG PO DAILY, (Reported) Ondansetron 4 Mg Tab.rapdis, 4 MG SL Q4H PRN for NAUSEA/VOMITING Prescribed by: MESHA MEYER on 09/11/20 0818 Tramadol HCl 50 Mg Tablet, 50 MG PO Q12H PRN for PAIN-MILD TO MODERATE Prescribed by: EMMY FRAGA on 08/05/18 1236 Patient Home Medication List Home Medication List Reviewed: Yes Review of Systems Constitutional: see HPI EENTM: no symptoms reported Respiratory: see HPI Cardiovascular: see HPI Gastrointestinal: see HPI Genitourinary: no symptoms reported : No Musculoskeletal: see HPI Skin: no symptoms reported Psychiatric/Neurological: No Symptoms Reported Past Adhgstc-Lnxerl-Owemnd Hx Past Med/Social Hx: Reviewed Nursing Past Med/Soc Hx Patient Social History Alcohol Use: Denies Use Recreational Drug Use: No Recent Foreign Travel: No Contact w/Someone Who Travel: No Recent Infectious Disease Expo: No Recent Hopitalizations: No Physical Abuse: No Sexual Abuse: No Mistreated: No Fear: No Immunizations Up To Date Tetanus Booster (TDap): Unknown PED Vaccines UTD: Yes Date of Pneumonia Vaccine: Jun 27, 2019 Date of Influenza Vaccine: Jun 11, 2018 Seasonal Allergies Seasonal Allergies: Yes Past Medical History Surgeries: Yes Breast, Gallbladder, Lumpectomy Respiratory: Yes Sleep Apnea Currently Using CPAP: Yes Currently Using BIPAP: No Cardiac: Yes Hypertension Neurological: No : No Reproductive Disorders: No Female Reproductive Disorders: Denies LINOLEUM TILE LAYER History: Menopausal Sexually Transmitted Disease: No HIV/AIDS: No Gastrointestinal: Yes Gastroesophageal Reflux Musculoskeletal: No Endocrine: Yes Diabetes, Non-Insulin dep Cataract Cancer: Yes Breast What Type of Treatment Did You: Chemotherapy, Radiation, Surgical Intervention Psychosocial: No Integumentary: No Physical Exam Vital Signs Vital Signs - First Documented 09/11/20 06:24 Temp 36.9 Pulse 94 Resp 18 B/P (MAP) 132/63 (86) Pulse Ox 95 Capillary Refill : Less Than 3 Seconds Height, Weight, BMI Height: 5'7.00" Weight: 189lbs. 0.0oz. 85.759791jc; 28.00 BMI Method: General Appearance: No Apparent Distress, WD/WN HEENT: PERRL/EOMI, Normal ENT Inspection, Other (Mucous membranes pasty) Neck: Normal Inspection; No JVD Cardiovascular: Regular Rate, Rhythm, No Edema, No Murmur, Normal Peripheral Pulses Respiratory: Lungs Clear, Normal Breath Sounds, No Accessory Muscle Use, No Respiratory Distress Gastrointestinal: Normal Bowel Sounds, Soft, Tenderness (Slight generalized tenderness) Extremities: Normal Inspection, No Pedal Edema Neurologic/Psychiatric: Alert, Oriented x3, No Motor/Sensory Deficits, Normal Mood/Affect, crew lead II-XII Norm as Tested Cranial Nerves: Normal Hearing, Normal Speech Motor/Sensory: No Motor Deficit, No Sensory Deficit Skin: Normal Color, Warm/Dry Progress/Results/Core Measures Results/Orders Lab Results Laboratory Tests Test 09/11/20 06:27 09/11/20 09:00 Range/Units White Blood Count 5.5 4.3-11.0 10^3/uL Red Blood Count 4.60 3.80-5.11 10^6/uL Hemoglobin 13.1 11.5-16.0 g/dL Hematocrit 40 35-52 % Mean Corpuscular Volume 87 80-99 fL Mean Corpuscular Hemoglobin 29 25-34 pg Mean Corpuscular Hemoglobin Concent 33 32-36 g/dL Red Cell Distribution Width 13.2 10.0-14.5 % Platelet Count 213 130-400 10^3/uL Mean Platelet Volume 9.7 9.0-12.2 fL Immature Granulocyte % (Auto) 1 % Neutrophils (%) (Auto) 65 42-75 % Lymphocytes (%) (Auto) 23 12-44 % Monocytes (%) (Auto) 11 0-12 % Eosinophils (%) (Auto) 0 0-10 % Basophils (%) (Auto) 0 0-10 % Neutrophils # (Auto) 3.6 1.8-7.8 10^3/uL Lymphocytes # (Auto) 1.3 1.0-4.0 10^3/uL Monocytes # (Auto) 0.6 0.0-1.0 10^3/uL Eosinophils # (Auto) 0.0 0.0-0.3 10^3/uL Basophils # (Auto) 0.0 0.0-0.1 10^3/uL Immature Granulocyte # (Auto) 0.0 0.0-0.1 10^3/uL Sodium Level 132 L 135-145 MMOL/L Potassium Level 3.1 L 3.6-5.0 MMOL/L Chloride Level 93 L 98-107 MMOL/L Carbon Dioxide Level 26 21-32 MMOL/L Anion Gap 13 5-14 MMOL/L Blood Urea Nitrogen 19 H 7-18 MG/DL Creatinine 0.91 0.60-1.30 MG/DL Estimat Glomerular Filtration Rate 60 BUN/Creatinine Ratio 21 Glucose Level 205 H 70-105 MG/DL Calcium Level 9.5 8.5-10.1 MG/DL Corrected Calcium 9.4 8.5-10.1 MG/DL Magnesium Level 1.6 1.6-2.4 MG/DL Total Bilirubin 0.6 0.1-1.0 MG/DL Aspartate Amino Transf (AST/SGOT) 36 H 5-34 U/L Alanine Aminotransferase (ALT/SGPT) 49 0-55 U/L Alkaline Phosphatase 99 40-136 U/L C-Reactive Protein High Sensitivity 1.39 H 0.00-0.50 MG/DL Total Protein 7.0 6.4-8.2 GM/DL Albumin 4.1 3.2-4.5 GM/DL Urine Color YELLOW Urine Clarity CLEAR Urine pH 6.5 5-9 Urine Specific [facility]anger 1.010 L 1.016-1.022 Urine Protein NEGATIVE NEGATIVE Urine Glucose (UA) NEGATIVE NEGATIVE Urine Ketones NEGATIVE NEGATIVE Urine Nitrite NEGATIVE NEGATIVE Urine Bilirubin NEGATIVE NEGATIVE Urine Urobilinogen 0.2 < = 1.0 MG/DL Urine Leukocyte Esterase NEGATIVE NEGATIVE Urine RBC (Auto) NEGATIVE NEGATIVE Urine RBC 0-2 /HPF Urine WBC 0-2 /HPF Urine Squamous Epithelial Cells NONE /HPF Urine Crystals NONE /LPF Urine Bacteria TRACE /HPF Urine Casts NONE /LPF Urine Mucus NEGATIVE /LPF Urine Culture Indicated NO My Orders Orders - MESHA WHEELER MD Ed Iv/Invasive Line Start (09/11/20 06:28) Ns Iv 1000 Ml (Sodium Chloride 0.9%) (09/11/20 06:30) Ondansetron Injection (Zofran Injectio (09/11/20 06:30) Cbc With Automated Diff (09/11/20 06:31) Comprehensive Metabolic Panel (09/11/20 06:31) Hs C Reactive Protein (09/11/20 06:31) Magnesium (09/11/20 06:31) Ua Culture If Indicated (09/11/20 06:31) Ekg Tracing (09/11/20 06:31) Monitor-Rhythm Ecg Trace Only (09/11/20 06:31) Potassium Cl 10meq/50ml Ivpb (Kcl 10 Meq (09/11/20 07:00) Potassium Chloride (Tablet) (Klor Con Ta (09/11/20 08:00) Ns Iv 1000 Ml (Sodium Chloride 0.9%) (09/11/20 09:00) Medications Given in ED Current Medications Medications Dose Ordered Sig/Garcia Route Start Time Stop Time Status Last Admin Dose Admin Ondansetron HCl 8 mg ONCE ONCE IVP 09/11/20 06:30 09/11/20 06:31 DC 09/11/20 06:33 8 MG Potassium Chloride 20 meq ONCE ONCE PO 09/11/20 08:00 09/11/20 08:01 DC 09/11/20 08:46 20 MEQ Potassium Chloride 50 ml @ 50 mls/hr ONCE ONCE IV 09/11/20 07:00 09/11/20 07:59 DC 09/11/20 07:12 50 MLS/HR Vital Signs/I&O 09/11/20 09/11/20 06:24 08:50 Temp 36.9 36.9 Pulse 94 90 Resp 18 18 B/P (MAP) 132/63 (86) 136/90 (86) Pulse Ox 95 97 Blood Pressure Mean: 86 Progress Progress Note #1: Time: 07:10 Progress Note Patient was seen and examined upon arrival. EKG was unremarkable. Labs demo nstrate hypokalemia. She is receiving 2 L of IV normal saline along with 10 mEq of potassium by IV route. We are continuing to monitor her cardiac rhythm. Vital signs have been stable. Zofran was given for nausea. Progress Note #2: Progress Note Patient received additional oral potassium prior to discharge. Case was reviewed with Dr. Day who agreed with outpatient follow-up. She was discharged in improved condition into the care of her son. She received almost 2 L of normal saline prior to discharge. Initial ECG Impression Date: Sep 11, 2020 Initial ECG Impression Time: 06:28 Initial ECG Rate: 89 Initial ECG Rhythm: Normal Sinus Initial ECG Intervals: Normal Initial ECG Impression: Normal Comment Normal sinus rhythm with no ST elevation or depression. No abnormal intervals or axis deviation. Departure Impression Primary Impression: Syncope Qualified Codes: R55 - Syncope and collapse Additional Impressions: COVID-19 Hypokalemia Disposition: 01 HOME, SELF-CARE Condition: Improved Departure-Patient Inst. Decision time for Depature: 08:15 Referrals: MIGUEL PAYTON MD (PCP/Family) Primary Care Physician ELIZABETH DAY MD Patient Instructions: Hypokalemia, Syncope (Fainting) Add. Discharge Instructions: Drink plenty of clear liquids, ideally some clear liquids with potassium such as Pedialyte, generic equivalents, and sports drinks. You may eat some foods high in potassium as well such as bananas, etc. You may take Tylenol and/or ibuprofen for fever and pains. Return to the emergency room if you have recurrent episodes of lightheadedness or syncope. Use the Zofran (ondansetron) as prescribed for nausea or vomiting to help you stay well-hydrated. Talk with your primary care provider about a referral to a [facility] if they feel appropriate given your history of syncope this morning. Alternatively, you may call the [facility] office directly (Dr. Day). See the number below. Please call or return to care if you have any other questions or concerns. All discharge instructions reviewed with patient and/or family. Voiced understanding. Scripts Ondansetron (Ondansetron Odt) 4 Mg Tab.rapdis 4 MG SL Q4H PRN for NAUSEA/VOMITING, #10 TAB Prov: MESHA WHEELER MD 09/11/20 Copy Copies To 1: MIGUEL PAYTON MD Copies To 2: ELIZABETH DAY MD, JOSHUA T MD Sep 11, 2020 07:07
[2020-09-11] MEDS ORDERED: KCL 10 MEQ TAB (MICRO K) PO ONE (08:00)
[2020-09-11] MEDS ORDERED: ONDA4TAB11 SL (08:18)
[2020-09-11 08:50] VITALS: BP 136/90
[2020-09-11] MEDS ORDERED: NS IV 1000 ML 1,000 ML IV ONE (09:00)
[2020-09-11 09:08] LABS: BILIRUBIN,URINE NEGATIVE (NEGATIVE); CLARITY,URINE CLEAR; COLOR,URINE YELLOW; GLUCOSE, URINE (UA) NEGATIVE (NEGATIVE); KETONES,URINE NEGATIVE (NEGATIVE); LEUKOCYTE ESTERASE ,URINE NEGATIVE (NEGATIVE); NITRITE,URINE NEGATIVE (NEGATIVE); PH,URINE 6.5 (5-9); PROTEIN,URINE NEGATIVE (NEGATIVE)
[2020-09-11 09:35] LABS: BACTERIA,URINE TRACE /HPF; RBC,URINE 0-2 /HPF; WBC,URINE 0-2 /HPF
== END 2020-09-11 08:50 | disposition home or self-care (01) ==
LOC: EDUNIT# 06:13 → ER 06:14
DX: R55 Syncope and collapse (principal); U07.1 COVID-19; E87.6 Hypokalemia; I10 Essential (primary) hypertension; E11.9 Type 2 diabetes mellitus without complications; Z85.3 Personal history of malignant neoplasm of breast; Z88.1 Allergy status to other antibiotic agents; Z88.2 Allergy status to sulfonamides; Z79.84 Long term (current) use of oral hypoglycemic drugs
CPT/HCPCS: 36415; 80053; 81000; 83735; 85025; 86141; 93005; 93041; 96361; 96374

== ENCOUNTER → 2020-10-03 | Outpatient (CLI) | payer MEDICARE, OTHER ==
[~2020-10-03] MED LIST changes: +ONDA4TAB11 SL
--- NOTE | 2020-10-03 12:42 | Diagnostic Imaging Report ---
Indication: Routine screening. Comparison is made with prior mammogram 10/02/2019 and 09/30/2018. 2-D and 3-D bilateral screening mammography was performed with CAD. Both breasts are heterogeneously dense, limiting the sensitivity of mammography. There are post therapeutic changes in the upper outer right breast are again noted. No mass or malignant appearing microcalcifications are seen. Axillae are unremarkable. IMPRESSION: BI-RADS Category 2 No mammographic features suspicious for malignancy are identified. ACR BI-RADS Category 2: Benign findings. Result letter will be mailed to the patient. Note: At least 10% of breast cancer is not imaged by mammography. Dictated by: Dictated on workstation # [id number]
== END ==
LOC: RAD 10:30
PROVIDERS: ATTEND Nurse Practitioner Adult Health
DX: Z12.31 Encounter for screening mammogram for malignant neoplasm of breast (principal); C50.111 Malignant neoplasm of central portion of right female breast
CPT/HCPCS: 77063; 77067

== ENCOUNTER → 2021-01-21 | Outpatient (CLI) | payer MEDICARE, OTHER ==
[2021-01-21 14:58] LABS: BASOPHILS % (AUTO) 1 % (0-10); EOSINOPHILS % (AUTO) 1 % (0-10); HEMATOCRIT 39 % (35-52); HEMOGLOBIN 12.3 g/dL (11.5-16.0); LYMPHOCYTES # (AUTO) 1.9 10^3/uL (1.0-4.0); LYMPHOCYTES % (AUTO) 33 % (12-44); MEAN CORPUSCULAR HEMOGLOBIN 29 pg (25-34); MEAN CORPUSCULAR HGB CONC 32 g/dL (32-36); MEAN CORPUSCULAR VOLUME 92 fL (80-99); MEAN PLATELET VOLUME 9.4 fL (9.0-12.2); MONOCYTES # (AUTO) 0.5 10^3/uL (0.0-1.0); MONOCYTES % (AUTO) 9 % (0-12); NEUTROPHILS # (AUTO) 3.2 10^3/uL (1.8-7.8); NEUTROPHILS % (AUTO) 57 % (42-75); PLATELET COUNT 260 10^3/uL (130-400); WHITE BLOOD COUNT 5.7 10^3/uL (4.3-11.0)
[2021-01-21 15:21] LABS: ALBUMIN 4.1 GM/DL (3.2-4.5); BILIRUBIN,TOTAL 0.7 MG/DL (0.1-1.0); CALCIUM 10.9 MG/DL (8.5-10.1); CREATININE SERUM 0.92 MG/DL (0.60-1.30); POTASSIUM 3.7 MMOL/L (3.6-5.0); TOTAL PROTEIN 6.8 GM/DL (6.4-8.2)
== END ==
LOC: EDSTATUS 10-22 11:37 → ONC 14:51
PROVIDERS: ATTEND Internal Medicine Hematology & Oncology
DX: C50.111 Malignant neoplasm of central portion of right female breast (principal); I10 Essential (primary) hypertension; E03.9 Hypothyroidism, unspecified; E11.9 Type 2 diabetes mellitus without complications
CPT/HCPCS: 80053; 85025; G0463; 99213

== ENCOUNTER → 2021-10-07 | Outpatient (CLI) | payer MEDICARE, OTHER ==
--- NOTE | 2021-10-07 12:54 | Diagnostic Imaging Report ---
INDICATION: Routine screening. COMPARISON: 10/03/2020 and 10/02/2019. TECHNIQUE: 2D and 3D bilateral screening mammography was performed with CAD. FINDINGS: Both breasts are heterogeneously dense, limiting the sensitivity of mammography. No mass or malignant-appearing microcalcifications are seen. Post therapeutic changes in the outer right breast at posterior depth are again noted. The axillae are unremarkable. IMPRESSION: No mammographic features suspicious for malignancy are identified. ACR BI-RADS Category 2: Benign findings. Result letter will be mailed to the patient. Note: At least 10% of breast cancer is not imaged by mammography. Dictated by: Dictated on workstation # [id number]
== END ==
LOC: RAD 10:30
PROVIDERS: ATTEND Nurse Practitioner Adult Health
DX: Z12.31 Encounter for screening mammogram for malignant neoplasm of breast (principal); Z85.3 Personal history of malignant neoplasm of breast
CPT/HCPCS: 77063; 77067

== ENCOUNTER → 2021-11-25 | Outpatient (CLI) | payer MEDICARE, OTHER ==
--- NOTE | 2021-11-25 10:41 | Diagnostic Imaging Report ---
INDICATION: Postmenopausal screening COMPARISON: Baseline FINDINGS: AP Spine L1-L4: [BMD (g/cm2): 0.947] [T-Score: -2.1] [Z-Score: -1.0] [BMD Previous: NA] [BMD % Change: NA] LT Hip Neck: [BMD (g/cm2): 0.725] [T-Score: -2.2] [Z-Score: -0.7] LT Hip Total: [BMD (g/cm2):0.757] [T-Score:-2.0] [Z-Score: -0.7] [BMD Previous: NA] [BMD % Change: NA] RT Hip Neck: [BMD (g/cm2):0.763] [T-Score:-2.0] [Z-Score:-0.4] RT Hip Total: [BMD (g/cm2):0.742] [T-score:-2.1] [Z-Score:-0.8] [BMD Previous:NA] [BMD % Change:NA] *Indicates significant change from prior examination based on 95% confidence level. World Health Organization criteria for BMD interpretation classify patients as Normal (T-score at or above -1.0), Osteopenic (T-score between -1.0 and -2.5) or Osteoporotic (T-score at or below -2.5). LIMITATIONS AND MODIFICATION: None. FRACTURE RISK (FRAX SCORE): The ten year probability of (%): Major Osteoporotic Fracture: [15.2] Hip Fracture: [4.4] IMPRESSION: 1. Osteopenia (Low bone mass). 2. Baseline examination. 3. See below National Osteoporosis Foundation guidelines on when to potentially initiate pharmacologic therapy. Based on the National Osteoporosis Foundation Guidelines, pharmacologic treatment should be initiated in any of the following, unless clinical conditions suggest otherwise: * Any patient with prior fragility fracture of the hip or vertebrae. A spine fracture indicates 5X risk for subsequent spine fracture and 2X risk for subsequent hip fracture. * Osteoporosis (T-score <-2.5). * Postmenopausal women and men age 50 and older with low bone mass/osteopenia (T-score between -1.0 and -2.5) by DXA and 10-year major osteoporotic fracture greater than 20% or a 10-year probability of hip fracture greater than 3%. These fracture risks are supplied above in the FRAX score, if applicable. * Clinician judgement and/or patient preferences may indicate treatment for people with 10-year fracture probabilities above or below these levels. Dictated by: Dictated on workstation # [id number]
== END ==
LOC: RAD 10:00
PROVIDERS: ATTEND Nurse Practitioner Family
DX: M85.88 Other specified disorders of bone density and structure, other site (principal); Z78.0 Asymptomatic menopausal state
CPT/HCPCS: 77080

== ENCOUNTER → 2022-09-14 | Outpatient (CLI) | payer MEDICARE, OTHER ==
--- NOTE | 2022-09-14 15:49 | Diagnostic Imaging Report ---
INDICATION: HX PARTIALLY RETAINED PORT WITH NEW PAIN L U CHEST COMPARISON: 07/23/2020 FINDINGS: Frontal and lateral views of the chest demonstrate normal heart size and pulmonary vascularity. The lungs are clear. There are no signs of infiltrate, pleural effusions or pneumothoraces. The visualized osseous structures show no acute abnormalities. Radiopaque tubing is again identified projecting over the superior mediastinum. This appears stable in position. IMPRESSION: 1. No acute process. No signs of infiltrates, effusions or pneumothoraces. 2. Stable positioned radiopaque tubing projecting over the superior mediastinum. Dictated by: Dictated on workstation # [id number]
== END ==
LOC: RAD 11:13
PROVIDERS: ATTEND Family Medicine
DX: Z95.828 Presence of other vascular implants and grafts (principal)
CPT/HCPCS: 71046

== ENCOUNTER → 2022-10-08 | Outpatient (CLI) | payer MEDICARE, OTHER ==
--- NOTE | 2022-10-08 12:42 | Diagnostic Imaging Report ---
Indication: Routine screening. Comparison is made prior exam 10/07/2021 and 10/03/2020. 2-D and 3-D bilateral screening mammography was performed with CAD. CAD is utilized. The current study was also evaluated with a Computer Aided Detection (CAD) system. Both breasts are heterogeneously dense, limiting the sensitivity of mammography. Surgical clips in the far posterior right breast are again noted. Breast parenchymal pattern is stable. No mass or malignant-appearing microcalcifications are seen. Axillae are unremarkable. IMPRESSION: BI-RADS Category 2 No mammographic features suspicious for malignancy are identified. ACR BI-RADS Category 2: Benign findings. Result letter will be mailed to the patient. Note: At least 10% of breast cancer is not imaged by mammography. Dictated by: Dictated on workstation # [id number]
== END ==
LOC: RAD 09:49
PROVIDERS: ATTEND Internal Medicine Hematology & Oncology
DX: Z12.31 Encounter for screening mammogram for malignant neoplasm of breast (principal)
CPT/HCPCS: 77063; 77067